=== PATIENT | male | born 1975 ===

== ENCOUNTER 2020-03-12 13:49 | Outpatient (REF) | payer MEDICARE, MEDICAID, SELFPAY | END 2020-03-12 13:50 | disposition home or self-care (01) | LOC: HO.LAB 13:49 | PROVIDERS: Visit Provider Internal Medicine | DX: Z20.828 Contact with and (suspected) exposure to other viral communicable diseases (principal) | CPT/HCPCS: C9803; U0003 ==

== ENCOUNTER 2021-04-28 10:42 | Outpatient (REF) | payer MEDICARE, MEDICAID, SELFPAY ==
[2021-04-28 12:14] LABS: Alanine Aminotransferase 34 U/L (0-40); Albumin Level 4.1 g/dL (3.5-5.0); Alkaline Phosphatase 101 U/L (39-117); Aspartate Amino Transferase 21 U/L (5-37); Bilirubin Direct < 0.2 mg/dL (0.0-0.5); Bilirubin Total 0.3 mg/dL (0.0-1.0)
== END 2021-04-28 10:43 | disposition home or self-care (01) ==
LOC: HO.LAB 10:42
PROVIDERS: PCP General Practice; Visit Provider Psychiatry & Neurology Neurology
DX: G40.209 Localization-related (focal) (partial) symptomatic epilepsy and epileptic syndromes with complex partial seizures, not intractable, without status epilepticus (principal)
CPT/HCPCS: 36415; 80076

== ENCOUNTER 2021-05-13 12:27 | Outpatient (REF) | payer MEDICARE, MEDICAID, SELFPAY ==
--- NOTE | ~2021-05-13 | XR_ITS ---
EXAMINATION: XR WRIST, LEFT CLINICAL INFORMATION: Left wrist pain. COMPARISON: None TECHNIQUE: PA, lateral, and oblique views of the left wrist. FINDINGS: A corticated osseous density is seen just distal to the dorsal aspect of the radial styloid. There is no acute fracture or dislocation. The carpal bones are normally aligned. The distal radius and ulna are intact. There is mild soft tissue swelling. XR/XR wrist LT 2V IMPRESSION: Mild soft tissue swelling without acute underlying osseous abnormality. A small corticated density along the dorsal/distal aspect of the radial styloid is of indeterminate age, but does not appear acute. Correlate with physical exam and trauma history and this somewhat correlates with the region of pain.
== END 2021-05-13 12:28 | disposition home or self-care (01) ==
LOC: HO.XRAY 12:27
PROVIDERS: PCP General Practice; Visit Provider General Practice
DX: M25.532 Pain in left wrist (principal)
CPT/HCPCS: 73100

== ENCOUNTER 2021-08-31 12:49 | Emergency (ER) | payer MEDICARE, MEDICAID, SELFPAY ==
[2021-08-31 13:43] VITALS: BP 142/85; PULSE 77; RESP 18; TEMP 36.1; O2SAT 99; BMI 34.8
[2021-08-31 14:12] LABS: Appearance Urine CLOUDY; Glucose Urine UA NEG (NEG); Leukocyte Esterase Urine 2+ (NEG); Nitrite Urine POS (NEG); Specific Gravity - Urine 1.025 (1.005-1.025); UACC Culture Trigger YES; Urine Blood 3+ (NEG); Urine Ketones 5 MG/DL (NEG); Urine Protein 2+ MG/DL (NEG-TRACE)
[2021-08-31 14:13] LABS: Bacteria Urine 1+ /LPF; Color Urine BROWN; RBC Urine TNTC /HPF (0)
--- NOTE | 2021-08-31 16:50 | ED_ITS ---
HPI - Male Genitourinary General Chief complaint: Urogenital-Male Stated complaint: Bladder Pain Time Seen by Provider: 08/31/21 16:44 History of Present Illness HPI Narrative: Patient is a 46-year-old male complaining of bloody urine. Patient claims that he has difficulty voiding. There was blood in his urine. There was clot that it be noted. Patient denies any history of prostate issues in the past. No fever no chills. Sexually active 1 partner. Symptoms started 2 days ago. No flank pain. Positive pain in the suprapubic area. No testicular pain. No discharge that was grossly noted by patient. Patient not circumcised. No history of prostate issues in the past Related Data Previous Rx's Medication Instructions Recorded doxycycline hyclate 100 mg capsule 100 mg PO BID 7 Days #14 cap 08/31/21 sulfamethoxazole 800 1 tab PO BID 7 Days #14 tab 08/31/21 mg-trimethoprim 160 mg tablet (Bactrim DS) Allergies Allergy/AdvReac Type Severity Reaction Status Date / Time pseudoephedrine [Sudafed] Allergy Unknown Verified 09/28/18 00:00 Actifed Allergy Unknown Uncoded 09/28/18 00:00 From ACTIFED Allergy Unknown UNKNOWN Uncoded 12/20/19 16:02 From Sudafed Allergy Unknown TROUBLE Uncoded 12/20/19 16:02 BREATHING Review of Systems Review of Systems: Positive pain in the suprapubic pubic area. Positive difficulty urinating Yes all other systems are reviewed and are negative PMFSH Past Medical History Attestation statement: The following information was validated with the patient. Social History Social History Advance Directives: No Advance Directives Information Provided: No Physical Exam Vital Signs: Vital Signs: Last Vital Signs Temp 98.8 F 08/31/21 16:57 Pulse 74 08/31/21 16:57 Resp 16 08/31/21 16:57 BP 133/82 08/31/21 16:57 Pulse Ox 99 08/31/21 16:57 BMI result Body Mass Index 34.8 Appearance: Alert. Oriented X3. No acute distress. Eyes: Pupils equal, round and reactive to light. ENT: Pharynx normal. Neck: Normal inspection. Neck supple. No lymph nodes noted. No crepitus CVS: Normal heart rate and rhythm. Pulses normal. Normal S1 and S2 Respiratory: No respiratory distress. Breath sounds normal. No Wheezing. No rales Abdomen: Soft and nontender. No rigidity. No distention. good BS x4 Genitourinary there is no testicular tenderness elicited on palpation. There is no discharge on stripping of the penis. Skin: Skin warm and dry. Normal skin color. Normal skin turgor. Extremities: No lower extremity edema. Neurovascular intact to all extremities. No Lacerations. No Rash Neuro: Oriented X 3. No motor deficit. No sensory deficit. Moving all extermities. No slurred speech MDM - Male Genitourinary MDM Narrative Medical decision making narrative: Patient's bladder scan showed less than 100 cc of urine. No evidence for retention. Urine was grossly infected. Question UTI versus ureteritis. Will start patient on doxycycline and Rocephin IM here in the emergency department for STD. A further script of Bactrim was given for UTI. Patient told to refrain from sexual contact until all partners attested results negative. Will have patient follow-up with Urology and primary physician on an outpatient basis. He is in stable condition with discharge home. Urine was sent for chlamydia Lab Data Attestation: I reviewed the patient's lab results. Labs: Lab Results 08/31/21 Range/Units 13:57 Urine Color BROWN A Urine Appearance CLOUDY Urine pH 6.0 (5.0-8.0) Ur Specific [place] 1.025 (1.005-1.025) Urine Protein 2+ H (NEG-TRACE) MG/DL Urine Glucose (UA) NEG (NEG) MG/DL Urine Ketones 5 (NEG) MG/DL Urine Blood 3+ H (NEG) Urine Nitrite POS H (NEG) Ur Leukocyte Esterase 2+ H (NEG) Urine RBC TNTC H (0) /HPF Urine WBC 5-9 H (0-4) /HPF Ur Squamous Epith Cells NONE /LPF Urine Bacteria 1+ /LPF Discharge Plan Discharge Clinical Impression: Urethritis, Acute UTI Patient Disposition: Home, Self-Care Instructions: Sexually Transmitted Diseases (ED), Urinary Tract Infection in Men (ED) Additional Instructions: No sexual contact until all partners are tested or the results came back negative. Prescriptions: New doxycycline hyclate 100 mg capsule 100 mg PO BID 7 Days Qty: 14 0RF sulfamethoxazole-trimethoprim [Bactrim DS] 800-160 mg tablet 1 tab PO BID 7 Days Qty: 14 0RF Referrals: Shimon Gonzalez MD [Physician] - Maria Elena Wells MD [Primary Care Provider] -
[2021-08-31 16:57] VITALS: BP 133/82; PULSE 74; RESP 16; TEMP 37.1; O2SAT 99
[2021-08-31] MEDS: cefTRIAXone sodium 500 MG, Lidocaine HCl 1 % MPF 1 ML IM (17:47)
[2021-09-01 02:31] LABS: CT PCR NOT DETECTED (Not Detect.); NG PCR NOT DETECTED (Not Detect.)
== END 2021-08-31 17:58 | disposition home or self-care (01) ==
PROVIDERS: Emergency Provider Emergency Medicine Emergency Medical Services; PCP General Practice
DX: N39.0 Urinary tract infection, site not specified (principal); R39.89 Other symptoms and signs involving the genitourinary system; R33.9 Retention of urine, unspecified; Z79.899 Other long term (current) drug therapy
CPT/HCPCS: 81001; 87086; 87491; 87591; 96372; 99283; 99284; J0696

== ENCOUNTER 2021-11-20 07:19 | Outpatient (REF) | payer MEDICARE, MEDICAID, SELFPAY ==
--- NOTE | ~2021-11-20 | XR_ITS ---
EXAMINATION: XR HAND, LEFT CLINICAL INFORMATION: Pain COMPARISON: Previous left wrist x-ray May 2021 TECHNIQUE: PA, lateral, and oblique views of the left hand and scaphoid view of both hands. FINDINGS: Left: No fracture or dislocation is seen. There is arthritis at the trapezoid trapezium scaphoid joints and radiocarpal joint with joint space narrowing and osteophyte formation. There are periarticular ossifications adjacent to the radial styloid. There is widening of the scapholunate joint and lateral tilt of the lunate on the lateral view. There are periarticular soft tissue ossifications seen projecting over the dorsal wrist on the lateral view. Right: The scaphoid and lunate bones have been removed. There are degenerative changes of the radial styloid. XR/XR hand LT 2V IMPRESSION: Left: Widened scapholunate joint and dorsal tilt of the lunate on the lateral view. Degenerative changes of the trapezoid trapezium scaphoid joints and radiocarpal joint and soft tissue periarticular soft tissue ossifications adjacent to the radial styloid and dorsal wrist.
== END 2021-11-20 07:20 | disposition home or self-care (01) ==
LOC: HO.HOSX 07:19
PROVIDERS: Visit Provider Physician Assistant
DX: M19.032 Primary osteoarthritis, left wrist (principal); M25.332 Other instability, left wrist
CPT/HCPCS: 73120; 99202

== ENCOUNTER → 2021-12-23 08:49 | Outpatient (BNVA) | payer MEDICARE, MEDICAID, SELFPAY | PROVIDERS: PCP General Practice; Visit Provider Orthopaedic Surgery | DX: M19.132 Post-traumatic osteoarthritis, left wrist (principal) | CPT/HCPCS: 99212 ==

== ENCOUNTER 2022-01-07 08:53 | Day surgery (SDC) | payer MEDICARE, MEDICAID, SELFPAY ==
--- NOTE | ~2022-01-07 | FL_ITS ---
EXAMINATION: XR FLUOROSCOPY WITH IMAGES CLINICAL INFORMATION: Pain. Fluoroscopy for injection. COMPARISON: Radiographs left hand 11/20/2021 TECHNIQUE: Fluoroscopy performed by Dr. Susan Armstrong. Fluoroscopy time: 8 seconds. Cumulative Dose: 0.27791 mGy. DAP: 0.0144 Gycm2. Images: 1. FINDINGS: There is a straight needle with tip overlying the mid carpal compartment between the scaphoid and lunate. FL/FL guidance in OR IMPRESSION: Fluoroscopy for orthopedic procedure.
[2022-01-07 09:11] VITALS: BMI 34.8
[2022-01-07 09:22] VITALS: BP 142/102; PULSE 79; RESP 16; TEMP 36.4; O2SAT 97
--- NOTE | 2022-01-07 10:08 | MHC.SHP ---
Pre-Procedural Eval Section A Date of Service: 01/07/22 The patient is an INPATIENT: No Changes since office visit: No Cold of Flu in the past 2 weeks, No New Medical Problems, No Changes in Medication and No Patient answered all questions The History & Physical has been completed within 30 days and I have reviewed it.: Yes Section B Chief Complaint: Post-traumatic osteoarthritis, left wrist Allergies: Allergies Allergy/AdvReac Type Severity Reaction Status Date / Time pseudoephedrine [Sudafed] Allergy Unknown Unknown Verified 01/07/22 09:05 Actifed Allergy Unknown Unknown Uncoded 12/23/21 09:09 From ACTIFED Allergy Unknown UNKNOWN Uncoded 12/23/21 09:09 From Sudafed Allergy Unknown TROUBLE Uncoded 12/23/21 09:09 BREATHING Plan I have reviewed the history and physical and performed a pertinent physical examination on my patient. No changes have occurred unless specified.
--- NOTE | 2022-01-07 10:09 | PM.PRCOR ---
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 Once consent was obtained, I sterilely prepped the area over dorsal aspect of the left wrist joint . I then injected the left wrist joint using the FluoroScan for needle guidance, with a combination of 1 mL of Depo-Medrol (80mg/ml), and 0.5% plain ropivacaine. The patient tolerated the procedure well and in with no complications, and had good relief of symptoms before leaving clinic. He may not have another injection for this joint for 4 months. Follow-up p.r.n.
--- NOTE | 2022-01-07 12:01 | PC.NURSE ---
POST VITAL SIGNS; 128/69, hr 73, 97% RA.
== END 2022-01-07 11:30 | disposition home or self-care (01) ==
PROVIDERS: PCP General Practice; Visit Provider Orthopaedic Surgery
PROC: (CPT 20605; principal; 2022-01-07 10:10)
DX: M19.132 Post-traumatic osteoarthritis, left wrist (principal); M79.642 Pain in left hand; Z87.828 Personal history of other (healed) physical injury and trauma; I10 Essential (primary) hypertension; G40.909 Epilepsy, unspecified, not intractable, without status epilepticus; Z88.8 Allergy status to other drugs, medicaments and biological substances; Z98.890 Other specified postprocedural states
CPT/HCPCS: 20605; J0171; J1040

== ENCOUNTER 2022-04-05 03:13 | Emergency (ER) | payer MEDICARE, MEDICAID, SELFPAY ==
[2022-04-05 03:23] VITALS: BP 129/93; PULSE 86; RESP 16; TEMP 36.7; O2SAT 96; BMI 35.2
[2022-04-05 04:00] VITALS: BP 138/82; PULSE 81; RESP 16; TEMP 36.7; O2SAT 97
--- NOTE | 2022-04-05 05:29 | ED_ITS ---
HPI - Back Pain/Injury General Chief Complaint: Back Pain/Injury Stated Complaint: back pain Time Seen by Provider: 04/05/22 05:13 Source: patient Mode of arrival: ambulatory Limitations: no limitations History of Present Illness HPI Narrative: 46-year-old male who presents emergency department for evaluation back pain. Patient states that he has problems with the discs in his lower back and often gets back pain. He states that yesterday morning around 06:00 hours he was brushing his teeth when he had a sudden onset of lower back pain. States the pain is been constant, sharp and shooting. The pain is 10/10. The pain is worse with movement. He denied any pain radiating down his legs, numbness, weakness, loss of bowel or bladder control. Patient states that he was taking ibuprofen throughout the day yesterday as well as his baclofen with no relief his pain. He denied fever, chills, chest pain, shortness of breath, abdominal pain, nausea, vomiting, frequency, urgency or dysuria Related Data Home Medications Medication Instructions Recorded Confirmed lamotrigine 200 mg tablet mg PO 11/20/21 lisinopril 5 mg tablet mg PO 11/20/21 hydrochlorothiazide 25 mg tablet mg PO 12/23/21 oxcarbazepine 600 mg tablet 1 tab PO BID 01/07/22 01/07/22 Previous Rx's Medication Instructions Recorded oxycodone 5 mg tablet 5 mg PO Q4H PRN pain #14 tabs 04/05/22 Allergies Allergy/AdvReac Type Severity Reaction Status Date / Time pseudoephedrine [Sudafed] Allergy Unknown Unknown Verified 01/07/22 09:05 Actifed Allergy Unknown Unknown Uncoded 12/23/21 09:09 From ACTIFED Allergy Unknown UNKNOWN Uncoded 12/23/21 09:09 From Sudafed Allergy Unknown TROUBLE Uncoded 12/23/21 09:09 BREATHING Review of Systems Review of Systems: Yes all other systems are reviewed and are negative [facility] [place] Past Medical History [facility] Narrative: Social history: He denies tobacco, alcohol and drug use. 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 Physical Exam Vital Signs: Vital Signs: Last Vital Signs Temp 98.1 F 04/05/22 04:00 Pulse 81 04/05/22 04:00 Resp 16 04/05/22 04:00 BP 138/82 04/05/22 04:00 Pulse Ox 97 04/05/22 04:00 O2 Del Method 04/05/22 04:00 BMI result Body Mass Index 35.2 Const: General: cooperative and no acute distress Orientation/consciousness: oriented to person and oriented to place Limitations: no limitations HEENT: Head: Yes normal to inspection, Yes normocephalic and Yes atraumatic Ears: external ears normal General nose exam: Normal external nose present Face and sinus: Yes normal facial exam Mouth: Normal oral and palatal mucosa present Throat: Yes posterior oropharynx normal Eyes: General: appearance normal, both eyes and all related structures Pupils: Equal, round and reactive pupils present Neck: Neck: Yes normal visual inspection, Yes no lymphadenopathy, Yes trachea midline and Yes supple Chest: Chest palpation & inspection: normal inspection of the chest and normal palpation of entire chest wall Resp: Effort & Inspection: normal respiratory effort and able to speak in complete sentences Auscultation: clear to auscultation bilaterally Cardio: Rate: regular rate Rhythm: regular rhythm Heart sounds: S1 normal heart sound present, S2 normal heart sound present and no murmurs GI: Inspection: Yes normal to inspection Palpation (GI): Soft to palpation, nontender and no guarding Auscultation: normal bowel sounds Back/Spine/Pelvis: Other: Patient has tenderness palpation of his lumbar sacral spine as well as tenderness palpation of the paraspinal muscles in lumbar sacral area with spasm of these muscles, has negative straight leg raises bilaterally Skin: General skin exam: no rashes or lesions noted Neuro: General: oriented to person and oriented to place Cranial nerves: Yes CN's II-XII intact bilaterally and Yes Equal, round and reactive pupils present Cognition (Neuro): normal cognition Motor exam (neuro): 5/5 motor strength present throughout Extrem: General: Yes normal to inspection Psych: Appearance: grossly normal Speech and movement: Normal speech and movement present Affect: normal affect Attitude: cooperative Thought process: Normal thought process present Thought content: Normal thought content present Medical Decision Making Medical Decision Making MDM Narrative: 46-year-old male with a history lower back pain secondary to disc disease presents emergency department for evaluation of flare-up of his back pain that occurred yesterday morning at 06:00 hours while he was brushing his teeth. The patient took ibuprofen and baclofen throughout the day yesterday with no relief his pain. His vital signs were unremarkable. Patient did have tenderness palpation of his lumbar sacral spine as well as tenderness palpation of his paraspinal muscles lumbar sacral area with spasm of these muscles. Head negative straight leg raises and normal neurologic exam. Patient was treated with oxycodone 10 mg orally and Tylenol 975 mg orally. The patient will be discharged home with prescription for oxycodone. He was advised to take ibuprofen and Tylenol for pain as well. She was given printed and verbal instructions and discharged home. Differential Diagnosis Differential Diagnoses: The differential diagnosis associated with the presentation includes Differential includes but is not limited to muscle sprain/strain, disc disease, arthritis, sciatica, epidural abscess, compression fracture External Record Review External record reviewed: Other ([place] prescription monitoring program- patient had 1 prescription for oxycodone in 2020) Tests considered The following testing was considered but not selected: Plain films of the lumbar sacral spine, CBC, CMP, ESR, CRP, lactic acid, blood cultures Prescription Management Patient was prescribed oxycodone 5 mg pills, 1 pill every 4-6 hours as needed for pain. Discharge Plan Discharge Clinical Impression: Strain of lumbar region Patient Disposition: Home, Self-Care Instructions: Acute Low Back Pain (ED) Additional Instructions: Take ibuprofen 200 mg pills, 2 pills every 6 hours as needed for pain. Take Tylenol (acetaminophen) 500 mg pills, 2 pills every 4-6 hours as needed for pain. For pain not relieved by ibuprofen or Tylenol take oxycodone 5 mg pills, 1 pill every 4 hours as needed for pain. Do not drive or work while taking this medication since they can cause sleepiness. Oxycodone is a narcotic medication that can be addicting. If you are concerned about addiction you can ask the pharmacist for less pills or do not get this prescription filled. Follow-up with your doctor in 2 days. Please return to the emergency department if your symptoms get worse or if you develop any symptoms that are concerning to you. Prescriptions: New oxycodone 5 mg tablet 5 mg PO Q4H PRN (Reason: pain) Qty: 14 0RF Rx Instructions: Patient may request partial fill; Partial Fill upon patient request. No Action oxcarbazepine 600 mg tablet 1 tab PO BID hydrochlorothiazide 25 mg tablet PO lamotrigine 200 mg tablet PO lisinopril 5 mg tablet PO
[2022-04-05] MEDS: oxyCODONE HCl Immed Release 5 MG TABLET 10 MG PO (05:50)
[2022-04-05] MEDS: Acetaminophen 325 MG TABLET 975 MG PO (05:50)
--- NOTE | 2022-04-05 05:59 | PC.NURSE ---
Pt. alert and oriented. Pt. standing in room, in position of comfort for him. Pt. medicated per MAR and d/c'd to home.
== END 2022-04-05 06:02 | disposition home or self-care (01) ==
PROVIDERS: Emergency Provider Emergency Medicine Emergency Medical Services
DX: S39.012A Strain of muscle, fascia and tendon of lower back, initial encounter (principal); X58.XXXA Exposure to other specified factors, initial encounter; Y93.E8 Activity, other personal hygiene; Y92.012 Bathroom of single-family (private) house as the place of occurrence of the external cause; Y99.9 Unspecified external cause status
CPT/HCPCS: 99283; 99284

== ENCOUNTER 2023-06-04 15:41 | Emergency (ER) | payer MEDICARE, MEDICAID, SELFPAY ==
--- NOTE | ~2023-06-04 | CT_ITS ---
EXAMINATION: CT HEAD WITHOUT CONTRAST CLINICAL INFORMATION: Headache and dizziness COMPARISON: None available. TECHNIQUE: Contiguous axial imaging was performed from the skull base to vertex without intravenous administration of contrast. This CT examination was performed using dose optimization techniques as appropriate, variously including the following: *Automated exposure control *Adjustment of mA and/or kV according to patient size (this includes techniques or standardized protocols for targeted exams where dose is matched to indication/reason for exam; i.e. extremities or head) *Use of iterative reconstruction technique DLP: 725 mGy-cm FINDINGS: There is no acute intra-axial, extra-axial bleed, masses or midline shift. There is no acute infarction in evolution. There is no edema. The concepcion to white matter differentiation is normal. The lateral ventricles are symmetrical in size and configuration but enlarged. Bone windows reveal no calvarial abnormality. Bilateral paranasal sinuses and mastoid air cells are well-aerated. There is no scalp soft tissue abnormality. CT/CT head/brain wo IV con IMPRESSION: No acute intracranial process seen
[2023-06-04 15:51] VITALS: BP 166/103; PULSE 101; RESP 18; TEMP 36.6; O2SAT 98; BMI 37.5
--- NOTE | 2023-06-04 15:52 | ECG_ITS ---
Test Reason : HEADACHE Blood Pressure : / mmHG Vent. Rate : 098 BPM Atrial Rate : 098 BPM P-R Int : 154 ms QRS Dur : 084 ms QT Int : 340 ms P-R-T Axes : 027 029 021 degrees QTc Int : 434 ms Normal sinus rhythm Normal ECG When compared to the previous EKG of 27 apr 2012, no significant change . Referred By: Alek Driscoll Electronically Signed By:MARU HOUGH
--- NOTE | 2023-06-04 15:52 | ED.GENADULT ---
HPI - General Adult General Chief complaint: Headache Stated complaint: high bp,dizziness Time Seen by Provider: 06/04/23 21:25 Source: patient Mode of arrival: ambulatory Limitations: no limitations History of Present Illness HPI narrative: Patient with history of hypertension and seizure disorder noncompliant to his anti hypertensive medication hydrochlorothiazide and lisinopril he takes 1 of the 2 pills instead of both of them for a while today 14:00 after he woke up he felt everything is moving fairly little off balance when he walks no dysarthria no focal weakness also patient felt slight headache in the frontal area no tinnitus patient never had similar symptoms in the past no seizure felt slightly nauseated also feeling congested and coughing occasional on arrival patient's blood pressure was 166/103 pulse rate 101 Related Data Home Medications Medication Instructions Recorded Confirmed lamotrigine 200 mg tablet mg PO 11/20/21 lisinopril 5 mg tablet mg PO 11/20/21 hydrochlorothiazide 25 mg tablet mg PO 12/23/21 oxcarbazepine 600 mg tablet 1 tab PO BID 01/07/22 01/07/22 Previous Rx's Medication Instructions Recorded oxycodone 5 mg tablet 5 mg PO Q4H PRN pain #14 tabs 04/05/22 meclizine 25 mg tablet 25 mg PO TID PRN dizziness #20 tabs 06/04/23 Allergies Allergy/AdvReac Type Severity Reaction Status Date / Time pseudoephedrine [Sudafed] Allergy Unknown Unknown Verified 06/04/23 15:56 Actifed Allergy Unknown Unknown Uncoded 12/23/21 09:09 From ACTIFED Allergy Unknown UNKNOWN Uncoded 12/23/21 09:09 From Sudafed Allergy Unknown TROUBLE Uncoded 12/23/21 09:09 BREATHING Review of Systems Review of Systems: Yes all other systems are reviewed and are negative PMFSH Past Medical History Medical History Seizure disorder High blood pressure Surgical History History of surgery on right wrist Social History Social History Advance Directives: No Advance Directives Information Provided: No 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 Oriented X3. No acute distress. Eyes: PERRLA, No Nystagmus ENT: Pharynx normal. Oral Mucosa moist Neck: Normal inspection. Neck supple. CVS: Normal heart rate and rhythm. Pulses normal. Respiratory: No respiratory distress. Equal air entry bilateral, no wheezing/rales/rhonchi Abdomen: Soft and nontender. Bowel sounds are present, no mass palpable, no CVA tenderness Skin: Skin warm and dry. Normal skin color. Normal skin turgor. Extremities: No lower extremity edema. No calf tenderness Neuro: Oriented X 3. No motor deficit. No sensory deficit.No cerebellar signs , cranial nerves II-XII intact slightly off balance when ambulated Course Course Course Narrative: RME- 48 year old male presents for evaluation of high blood pressure. He endorses headaches, dizziness. He has not been taking his medications exactly as prescribed. Plan for labs, ekg Medications Administered Discontinued Medications Generic Name Dose Route Start Last Admin Trade Name Freq PRN Reason Stop Dose Admin Lisinopril 10 mg 06/04/23 21:57 06/04/23 22:09 Lisinopril 10 Mg Tablet PO 06/04/23 21:58 10 mg ONCE ONE Administration Protocol Meclizine HCl 50 mg 06/04/23 21:52 06/04/23 22:09 Meclizine Hcl 25 Mg Tablet PO 06/04/23 21:53 50 mg ONCE ONE Administration Medical Decision Making Medical Decision Making [facility] Narrative: Patient with symptoms of benign positional vertigo with elevated blood pressure feeling much better after medications able to ambulate steady gait CT scan of the head is negative will discharge patient home on meclizine advised to take his medication on regular basis Differential Diagnosis Differential Diagnoses: The differential diagnosis associated with the presentation includes Benign positional vertigo/CVa/viral syndrome/ Lab Data [facility] Lab Attestation statement: I reviewed the patient's lab results. 06/04/23 16:26 06/04/23 16:26 Labs: Lab Results 06/04/23 06/04/23 06/04/23 Range/Units 16:26 21:29 22:07 WBC 12.4 H (4.8-10.8) X10*3/uL RBC 5.96 H (4.60-5.80) X10*6/uL Hgb 15.9 (14.0-18.0) g/dl Hct 49.1 (42.0-52.0) % MCV 82.4 (80.0-98.0) fL MCH 26.7 L (27.0-33.0) pg MCHC 32.4 (31.0-36.0) g/dl RDW 12.8 (11.0-16.0) % Plt Count 271 (160-400) X10*3/uL MPV 9.1 L (9.4-12.4) fL Immature Gran % (Auto) 0.7 H (0.0-0.4) % Neut % (Auto) 89.5 H (45-73) % Lymph % (Auto) 3.9 L (20-40) % [place] % (Auto) 5.2 (2-11) % Eos % (Auto) 0.4 (0-4) % Baso % (Auto) 0.3 (0-2) % Lymph # (Auto) 0.5 L (1.2-4.9) X10*3/uL [place] # (Auto) 0.6 (0.1-1.2) X10*3/uL Eos # (Auto) 0.1 (0.0-0.4) X10*3/uL Baso # (Auto) 0.0 (0.0-0.2) X10*3/uL Abs Immat Gran (auto) 0.09 H (0.00-0.03) X10*3/uL Absolute Neuts (auto) 11.1 H (2.0-8.3) x10*3/uL Absolute Nucleated RBC 0.000 (0.0-0.012) X10*3/uL Nucleated RBC % (auto) 0.0 (0.0-0.2) /100WBC PT 11.8 (11.1-13.3) SEC INR 1.0 (0.9-1.1) Sodium 138 (135-145) mmol/L Potassium 4.0 (3.3-5.1) mmol/L Chloride 103 (96-108) mmol/L Carbon Dioxide 26 (22-29) mmol/L Anion Gap 13 (12-20) BUN 16 (9-16) mg/dL Creatinine 0.74 (0.5-1.4) mg/dL Estim Creat Clear Calc 165.8 Estimated GFR > 60 POC Glucose 154 H (60-115) mg/dL Random Glucose 130 H (60-115) mg/dL Calcium 9.0 (8.4-10.2) mg/dL Total Bilirubin 0.6 (0.0-1.0) mg/dL AST 19 (5-37) U/L ALT 33 (0-40) U/L Alkaline Phosphatase 105 (39-117) U/L Troponin I High Sens < 2.7 (<3.5-35.0) ng/L Total Protein 7.5 (6.5-8.0) g/dL Albumin 4.4 (3.5-5.0) g/dL Lipase 47 (8-78) U/L COVID-19 (GEE) Negative (Negative) COVID-19 Clin Com See Note Influenza Type A (JESSICA) Negative (Negative) Influenza Type B (JESSICA) Negative (Negative) Influenza A & B Note See Note Independent Interpretation I performed an independent interpretation of an: CT Scan Radiology Impression Discussion of test interpretation with radiology: I have reviewed the radiologist's reading. Discharge Plan Discharge Clinical Impression: Benign paroxysmal positional vertigo, Uncontrolled hypertension Patient Disposition: Home, Self-Care Instructions: Chronic Hypertension (ED), Benign Paroxysmal Positional Vertigo (ED) Additional Instructions: Care and cautions as advised Decrease salt intake Take your blood pressure medicine daily as prescribed Meclizine 1 tablet every 8 hours as needed for dizziness Prescriptions: New meclizine 25 mg tablet 25 mg PO TID PRN (Reason: dizziness) Qty: 20 0RF No Action oxycodone 5 mg tablet 5 mg PO Q4H PRN (Reason: pain) Qty: 14 0RF Rx Instructions: Patient may request partial fill; Partial Fill upon patient request. oxcarbazepine 600 mg tablet 1 tab PO BID hydrochlorothiazide 25 mg tablet PO lamotrigine 200 mg tablet PO lisinopril 5 mg tablet PO Interventions: ED Discharge Assessment Last Done: 06/04/23 23:02 Discharge Date/Time: 06/04/23 23:03
[2023-06-04 16:30] LABS: MANUAL DIFF FLAG NO
[2023-06-04 16:32] LABS: Basophils Percent Auto 0.3 % (0-2); Eosinophils Absolute Auto 0.1 X10*3/uL (0.0-0.4); Eosinophils Percent Auto 0.4 % (0-4); Hematocrit 49.1 % (42.0-52.0); Hemoglobin 15.9 g/dl (14.0-18.0); Imm Gran Abs Auto 0.09 X10*3/uL (0.00-0.03); Imm Gran Pct Auto 0.7 % (0.0-0.4); Lymphocytes Absolute Auto 0.5 X10*3/uL (1.2-4.9); Lymphocytes Percent Auto 3.9 % (20-40); Mean Corpuscular HGB Conc 32.4 g/dl (31.0-36.0); Mean Corpuscular Hemoglobin 26.7 pg (27.0-33.0); Mean Corpuscular Volume 82.4 fL (80.0-98.0); Mean Platelet Volume 9.1 fL (9.4-12.4); Monocytes Absolute Auto 0.6 X10*3/uL (0.1-1.2); Monocytes Percent Auto 5.2 % (2-11); Neutrophils Absolute Auto 11.1 x10*3/uL (2.0-8.3); Neutrophils Percent Auto 89.5 % (45-73); Platelet Count 271 X10*3/uL (160-400); Red Blood Count 5.96 X10*6/uL (4.60-5.80); Red Cell Distribution Width 12.8 % (11.0-16.0); White Blood Count 12.4 X10*3/uL (4.8-10.8)
[2023-06-04 16:39] LABS: Prothrombin Time 11.8 SEC (11.1-13.3)
[2023-06-04 16:46] LABS: Alanine Aminotransferase 33 U/L (0-40); Albumin Level 4.4 g/dL (3.5-5.0); Alkaline Phosphatase 105 U/L (39-117); Anion Gap 13 (12-20); Aspartate Amino Transferase 19 U/L (5-37); Bilirubin Total 0.6 mg/dL (0.0-1.0); Blood Urea Nitrogen 16 mg/dL (9-16); Carbon Dioxide 26 mmol/L (22-29); Chloride 103 mmol/L (96-108); Creatinine Clr Calc Pharmacy 165.8; Estimated Glomerular Filt Rate > 60; Glucose Random 130 mg/dL (60-115); Lipase 47 U/L (8-78); Sodium 138 mmol/L (135-145); Total Protein 7.5 g/dL (6.5-8.0)
[2023-06-04 16:55] LABS: Troponin-I High Sensitivity < 2.7 ng/L (<3.5-35.0)
[2023-06-04 18:24] VITALS: BP 139/84; PULSE 102; RESP 18; O2SAT 97
[2023-06-04 19:33] VITALS: BP 149/91; PULSE 104; RESP 18; O2SAT 98
[2023-06-04 21:36] LABS: Glucose, Whole Blood 154 mg/dL (60-115)
[2023-06-04] MEDS: Meclizine HCl 25 MG TABLET 50 MG PO (22:09)
[2023-06-04] MEDS: lisinopriL 10 MG TABLET PO (22:09)
[2023-06-04 22:38] LABS: COVID-19 Test Negative (Negative); IDNOW Serial# 16C4AD1C; IDNOW Serial# 58CA691E; Influenza A Negative (Negative); Influenza B2 Negative (Negative)
[2023-06-04 23:00] VITALS: BP 133/89
== END 2023-06-04 23:03 | disposition home or self-care (01) ==
PROVIDERS: Physician Assistant; Emergency Provider Internal Medicine; PCP General Practice
DX: H81.10 Benign paroxysmal vertigo, unspecified ear (principal); I10 Essential (primary) hypertension; R51.9 Headache, unspecified; R26.81 Unsteadiness on feet; G40.909 Epilepsy, unspecified, not intractable, without status epilepticus; Z79.899 Other long term (current) drug therapy; Z11.52 Encounter for screening for COVID-19
CPT/HCPCS: 36415; 70450; 80053; 82947; 83690; 84484; 85025; 85610; 87502; 87635; 93005; 99284

== ENCOUNTER → 2023-06-04 15:52 | Outpatient (BNV) | payer MEDICARE, MEDICAID, SELFPAY | PROVIDERS: Emergency Provider Internal Medicine; PCP General Practice; Visit Provider Internal Medicine | DX: R11.0 Nausea (principal) | CPT/HCPCS: 93010 ==

== ENCOUNTER 2023-06-15 16:07 | Outpatient (REF) | payer MEDICARE, MEDICAID, SELFPAY ==
--- NOTE | ~2023-06-15 | XR_ITS ---
EXAMINATION: XR KNEE, BILATERAL CLINICAL INFORMATION: Patient states 6 months of pain bilateral knees, right knee is worse and pain is medial. Order states bilateral knee pain, ? osteoarthritis. COMPARISON: 06/15/2023 TECHNIQUE: AP, lateral and axial views of the left knee. AP, lateral and 2 axial views of the right knee. FINDINGS: Left knee: Eahzooxh-tv-[id number] narrowing of the medial compartment with medial hypertrophic change and subchondral sclerosis. Small joint effusion. Degenerative changes in the patellofemoral joint with small spurs. Small lateral marginal osteophytes. Right Knee: Small joint effusion. Uimebebg-lv-bpksas narrowing of the medial compartment. Moderate degenerative changes in the patellofemoral joint with small spurs. Small tricompartmental osteophytes. XR/XR knee LT 3V IMPRESSION: Wggutjsn-kz-tlocea degenerative changes bilateral knees.
--- NOTE | ~2023-06-15 | XR_ITS ---
EXAMINATION: XR KNEE, BILATERAL CLINICAL INFORMATION: Patient states 6 months of pain bilateral knees, right knee is worse and pain is medial. Order states bilateral knee pain, ? osteoarthritis. COMPARISON: 06/15/2023 TECHNIQUE: AP, lateral and axial views of the left knee. AP, lateral and 2 axial views of the right knee. FINDINGS: Left knee: Yyriotcf-bf-qwcbnk narrowing of the medial compartment with medial hypertrophic change and subchondral sclerosis. Small joint effusion. Degenerative changes in the patellofemoral joint with small spurs. Small lateral marginal osteophytes. Right Knee: Small joint effusion. Rvvwclqh-xu-ahaphy narrowing of the medial compartment. Moderate degenerative changes in the patellofemoral joint with small spurs. Small tricompartmental osteophytes. XR/XR knee RT 3V IMPRESSION: Lorwkopw-xr-bkrwjc degenerative changes bilateral knees.
== END 2023-06-15 16:08 | disposition home or self-care (01) ==
LOC: HO.HHCX 16:07
PROVIDERS: Visit Provider General Practice
DX: Z13.89 Encounter for screening for other disorder (principal)
CPT/HCPCS: 73562

== ENCOUNTER 2023-06-15 16:43 | Outpatient (REF) | payer MEDICARE, MEDICAID, SELFPAY ==
[2023-06-15 18:10] LABS: Estimated Average Glucose 157 mg/dL; Hemoglobin A1c % 7.1 % (<6.0)
[2023-06-15 19:05] LABS: Alanine Aminotransferase 47 U/L (0-40); Albumin Level 4.2 g/dL (3.5-5.0); Alkaline Phosphatase 116 U/L (39-117); Anion Gap 11 (12-20); Aspartate Amino Transferase 27 U/L (5-37); Bilirubin Total 0.2 mg/dL (0.0-1.0); Blood Urea Nitrogen 17 mg/dL (9-16); Calcium 10.1 mg/dL (8.4-10.2); Carbon Dioxide 29 mmol/L (22-29); Chloride 104 mmol/L (96-108); Cholesterol 149 mg/dL (<200); Estimated Glomerular Filt Rate > 60; Glucose Random 117 mg/dL (60-115); HDL Cholesterol 36 mg/dL (>40); LDL Cholesterol Calculated 64 mg/dL (<100); Potassium 4.4 mmol/L (3.3-5.1); Sodium 140 mmol/L (135-145); Total Protein 7.5 g/dL (6.5-8.0); Triglycerides 246 mg/dL (<150)
[2023-06-15 19:21] LABS: TSH reflex Free T4 0.95 uIU/mL (0.32-4.0)
== END 2023-06-15 16:44 | disposition home or self-care (01) ==
LOC: HO.HHCL 16:43
PROVIDERS: Visit Provider General Practice
DX: I10 Essential (primary) hypertension (principal); R79.9 Abnormal finding of blood chemistry, unspecified; M17.0 Bilateral primary osteoarthritis of knee
CPT/HCPCS: 36415; 73562; 80053; 80061; 83036; 84443

== ENCOUNTER 2023-08-25 09:04 | Emergency (ER) | payer MEDICARE, MEDICAID, SELFPAY ==
--- NOTE | ~2023-08-25 | XR_ITS ---
EXAMINATION: XR CHEST CLINICAL INFORMATION: Pain. COMPARISON: None available. TECHNIQUE: Frontal view of the chest was obtained. FINDINGS: The cardiomediastinal silhouette is normal in size and configuration. The lungs are clear. The pleural spaces are clear. There is no pneumothorax. There is no acute osseous abnormality. XR/XR chest 1V IMPRESSION: No acute cardiopulmonary disease.
--- NOTE | ~2023-08-25 | US_ITS ---
EXAMINATION: US ABDOMEN LIMITED CLINICAL INFORMATION: Right upper quadrant. COMPARISON: None available. TECHNIQUE: Real-time imaging of the right upper quadrant abdominal viscera. FINDINGS: PANCREAS: Visualized portions of pancreas are unremarkable. LIVER: Trace hepatic echogenicity suggesting hepatic steatosis with focal fatty sparing adjacent to gallbladder fossa. The liver is normal in size. The liver contour is normal. No focal hepatic lesion. There is no intrahepatic biliary duct dilatation seen. GALLBLADDER: Intraluminal gallbladder calculi are noted. Borderline wall thickening measuring 4 mm which may be secondary to underdistention. No pericholecystic fluid identified. Sonographic Carlin sign is negative. COMMON BILE DUCT: Normal in caliber measuring 0.3 cm in diameter. RIGHT KIDNEY: Normal. No hydronephrosis. No renal calculi or focal parenchymal lesions. The kidney measures 13.0 cm in maximum dimension. FREE FLUID: None. US/US abdomen limited IMPRESSION: 1. Trace hepatic echogenicity suggesting hepatic steatosis with focal fatty sparing adjacent to gallbladder fossa. 2. Cholelithiasis with borderline wall thickening measuring 4 mm which may be secondary to underdistention. No pericholecystic fluid. Sonographic Carlin sign is negative.
[2023-08-25 09:36] VITALS: BP 135/84; PULSE 98; RESP 18; TEMP 36.7; O2SAT 98; BMI 36.3
--- NOTE | 2023-08-25 09:41 | ECG_ITS ---
Test Reason : chest pain Blood Pressure : / mmHG Vent. Rate : 085 BPM Atrial Rate : 085 BPM P-R Int : 162 ms QRS Dur : 086 ms QT Int : 364 ms P-R-T Axes : 024 030 004 degrees QTc Int : 433 ms Normal sinus rhythm Normal ECG When compared with ECG of 04-JUN-2023 16:39, No significant change was found Referred By: Generic ED Physician Electronically Signed By:ONUR DELGADILLO MD
[2023-08-25 10:09] LABS: MANUAL DIFF FLAG NO
[2023-08-25 10:17] LABS: Basophils Absolute Auto 0.1 X10*3/uL (0.0-0.2); Basophils Percent Auto 0.6 % (0-2); Eosinophils Absolute Auto 0.1 X10*3/uL (0.0-0.4); Eosinophils Percent Auto 0.7 % (0-4); Hematocrit 48.5 % (42.0-52.0); Hemoglobin 15.9 g/dl (14.0-18.0); Imm Gran Abs Auto 0.05 X10*3/uL (0.00-0.03); Imm Gran Pct Auto 0.4 % (0.0-0.4); Lymphocytes Absolute Auto 1.1 X10*3/uL (1.2-4.9); Mean Corpuscular HGB Conc 32.8 g/dl (31.0-36.0); Mean Corpuscular Hemoglobin 27.2 pg (27.0-33.0); Mean Platelet Volume 9.3 fL (9.4-12.4); Monocytes Absolute Auto 0.9 X10*3/uL (0.1-1.2); Monocytes Percent Auto 7.2 % (2-11); Neutrophils Percent Auto 82.1 % (45-73); Platelet Count 314 X10*3/uL (160-400); Red Blood Count 5.84 X10*6/uL (4.60-5.80); Red Cell Distribution Width 12.9 % (11.0-16.0); White Blood Count 12.2 X10*3/uL (4.8-10.8)
[2023-08-25 10:28] LABS: Anion Gap 15 (12-20); Blood Urea Nitrogen 13 mg/dL (9-16); Carbon Dioxide 25 mmol/L (22-29); Chloride 103 mmol/L (96-108); Creatinine Clr Calc Pharmacy 160.8; Estimated Glomerular Filt Rate > 60; Glucose Random 124 mg/dL (60-115); Potassium 4.5 mmol/L (3.3-5.1); Sodium 138 mmol/L (135-145)
[2023-08-25 10:40] LABS: Troponin-I High Sensitivity < 2.7 ng/L (<3.5-35.0)
[2023-08-25 11:40] LABS: Alanine Aminotransferase 35 U/L (0-40); Albumin Level 4.4 g/dL (3.5-5.0); Alkaline Phosphatase 115 U/L (39-117); Aspartate Amino Transferase 22 U/L (5-37); Bilirubin Direct 0.2 mg/dL (0.0-0.5); Bilirubin Total 0.5 mg/dL (0.0-1.0); Lipase 26 U/L (8-78); Total Protein 7.9 g/dL (6.5-8.0)
--- NOTE | 2023-08-25 11:44 | ED_ITS ---
HPI - Abdominal Pain General Chief Complaint: Abdominal Pain Stated Complaint: Abd pain 3 days Time Seen by Provider: 08/25/23 11:04 Source: patient Mode of arrival: ambulatory Limitations: no limitations History of Present Illness ED Provider: JAMES KENNEDY narrative: 48 yo male with PMH of seizures, HTN, arthritis here with c/o 2 days of chest and epigastric pain no associated n/v dyspnea worse with eating. Takes motrin BID for arthritis. No fevers, no GIB symptoms, no n/v. Has not had this before. No recent travel or procedures. MD elicited complaint: abdominal pain Pertinent past history: none Onset (ago): day(s) (2) Pain Consistency: intermittent Location: chest and epigastric Severity: moderate Quality: aching Radiation: none Migration to: no migration Exacerbating factors: eating Relieving factors: nothing Associated symptoms: denies other symptoms Related Data Home Medications ?Medication ?Instructions ?Recorded ?Confirmed lamotrigine 200 mg tablet mg PO 11/20/21 lisinopril 5 mg tablet mg PO 11/20/21 hydrochlorothiazide 25 mg tablet mg PO 12/23/21 oxcarbazepine 600 mg tablet 1 tab PO BID 01/07/22 01/07/22 Previous Rx's ?Medication ?Instructions ?Recorded oxycodone 5 mg tablet 5 mg PO Q4H PRN pain #14 tabs 04/05/22 meclizine 25 mg tablet 25 mg PO TID PRN dizziness #20 tabs 06/04/23 famotidine 20 mg tablet (Pepcid) 20 mg PO BID PRN abdominal 08/25/23 discomfort #60 tabs hydrocodone 5 mg-acetaminophen 325 1 tab PO Q6H PRN pain #10 tabs 08/25/23 mg tablet ondansetron 4 mg disintegrating 4 mg PO Q8H PRN nausea and 08/25/23 tablet vomiting #20 tabs Allergies Allergy/AdvReac Type Severity Reaction Status Date / Time pseudoephedrine Allergy Intermediate Difficulty Verified 08/25/23 09:38 [From Sudafed] Breathing Review of Systems Review of Systems Constitutional : No Weight loss, No Fever, No Chills ENT/Mouth : No sore throat, No Rhinorrhea Eyes: No Eye Pain, No Swelling Cardiovascular : pos Chest Pain, no SOB, no Dyspnea on Exertion, No Orthopnea, No Edema, No Palpitations Respiratory : No Cough, No Sputum Gastrointestinal : no Nausea, No Vomiting, No Diarrhea, pos abdominal Pain, No Hematochezia, No Melena Genitourinary : No Dysuria, No Urinary Frequency Musculoskeletal : No joint pain, No Myalgias, No Joint Swelling Skin : No Skin Lesions, No rash Neuro : No Weakness, No Numbness, No Dizziness, No Headache Psych : No Anxiety/Panic, No Depression All other systems reviewed and are negative [facility] Past Medical History Attestation statement: The following information was validated with the patient. 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 Oriented X3. No acute distress. Eyes: Pupils equal, round and reactive to light. ENT: Pharynx normal. Neck: Normal inspection. Neck supple. CVS: Normal heart rate and rhythm. Pulses normal. Respiratory: No respiratory distress. Breath sounds normal. Abdomen: Soft and mild RUQ pain neg dorado's soft no rebound or guarding Skin: Skin warm and dry. Normal skin color. Normal skin turgor. Extremities: No lower extremity edema. No calf ttp Neuro: Oriented X 3. No motor deficit. No sensory deficit. Medical Decision Making Medical Decision Making MDM Narrative: 48 yo male with PMH of HTN, seizures here with chest pain and epigastric pain related to food and does take daily NSAIDs at this time no GIB symptoms reported looks comfortable and seems more GI related low suspe for ACS/dissection, PERC negative doubt VTE. Labs, US for biliary colic, GI cocktail and PPI ordered. 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 08/25/23 10:03 08/25/23 10:03 Labs: Lab Results 08/25/23 Range/Units 10:03 WBC 12.2 H (4.8-10.8) X10*3/uL RBC 5.84 H (4.60-5.80) X10*6/uL Hgb 15.9 (14.0-18.0) g/dl Hct 48.5 (42.0-52.0) % MCV 83.0 (80.0-98.0) fL MCH 27.2 (27.0-33.0) pg MCHC 32.8 (31.0-36.0) g/dl RDW 12.9 (11.0-16.0) % Plt Count 314 (160-400) X10*3/uL MPV 9.3 L (9.4-12.4) fL Immature Gran % (Auto) 0.4 (0.0-0.4) % Neut % (Auto) 82.1 H (45-73) % Lymph % (Auto) 9.0 L (20-40) % [place] % (Auto) 7.2 (2-11) % Eos % (Auto) 0.7 (0-4) % Baso % (Auto) 0.6 (0-2) % Lymph # (Auto) 1.1 L (1.2-4.9) X10*3/uL [place] # (Auto) 0.9 (0.1-1.2) X10*3/uL Eos # (Auto) 0.1 (0.0-0.4) X10*3/uL Baso # (Auto) 0.1 (0.0-0.2) X10*3/uL Abs Immat Gran (auto) 0.05 H (0.00-0.03) X10*3/uL Absolute Neuts (auto) 10.0 H (2.0-8.3) x10*3/uL Absolute Nucleated RBC 0.000 (0.0-0.012) X10*3/uL Nucleated RBC % (auto) 0.0 (0.0-0.2) /100WBC Sodium 138 (135-145) mmol/L Potassium 4.5 (3.3-5.1) mmol/L Chloride 103 (96-108) mmol/L Carbon Dioxide 25 (22-29) mmol/L Anion Gap 15 (12-20) BUN 13 (9-16) mg/dL Creatinine 0.75 (0.5-1.4) mg/dL Estim Creat Clear Calc 160.8 Estimated GFR > 60 Random Glucose 124 H (60-115) mg/dL Calcium 10.0 (8.4-10.2) mg/dL Total Bilirubin 0.5 (0.0-1.0) mg/dL Direct Bilirubin 0.2 (0.0-0.5) mg/dL AST 22 (5-37) U/L ALT 35 (0-40) U/L Alkaline Phosphatase 115 (39-117) U/L Troponin I High Sens < 2.7 (<3.5-35.0) ng/L Total Protein 7.9 (6.5-8.0) g/dL Albumin 4.4 (3.5-5.0) g/dL Lipase 26 (8-78) U/L Independent Interpretation I performed an independent interpretation of an: EKG, Plain X-Ray (normal ) and Ultrasound (no signs of acute cholecystitis) Interpretation: Rate: 85 Rhythm: NSR Midnight: normal Normal P waves. Normal SAHARA. Normal QRS complex. ST T wave : no ERIN, inverted t waves III and AVF qTC: normal prior studies: no change from 2013 The study has been interpreted contemporaneously by me. . Radiology Impression Discussion of test interpretation with radiology: I have reviewed the radiologist's reading. External Record Review External record reviewed: Office record Prescription Management I considered prescription management with: Other Medications Administered Discontinued Medications Generic Name Dose Route Start Last Admin Trade Name Freq PRN Reason Stop Dose Admin Al Hydroxide/Mg Hydroxide 15 ml 08/25/23 11:43 08/25/23 12:34 Magnesium Hydrox/Alum Hydrox 30 Ml Oral.Susp PO 08/25/23 11:44 15 ml ONCE ONE Administration Lidocaine HCl 15 ml 08/25/23 11:43 08/25/23 12:34 Lidocaine Hcl Viscous 2 % 15 Ml Solution MUCOUS MEM 08/25/23 11:44 15 ml ONCE ONE Administration Omeprazole 40 mg 08/25/23 11:43 08/25/23 12:34 Omeprazole 40 Mg [address]aps[address].Dr REESE 08/25/23 11:44 40 mg ONCE ONE Administration Discharge Plan Discharge Clinical Impression: Biliary colic Gastroesophageal reflux disease with esophagitis Qualifiers: Esophagitis bleeding: without hemorrhage Qualified Code(s): K21.00 - Gastro- esophageal reflux disease with esophagitis, without bleeding Patient Disposition: Home, Self-Care Instructions: Biliary Colic (ED), Low Fat Diet (ED), Diet for Stomach Ulcers and Gastritis (ED), Gastroesophageal Reflux Disease (ED) Additional Instructions: return for worsening symptoms - fevers, pain, vomiting or any other concerns avoid motrin for the next week - tylenol is okay low fat diet even good fats like peanut butter and avocado Prescriptions: New hydrocodone-acetaminophen 5-325 mg tablet 1 tab PO Q6H PRN (Reason: pain) Qty: 10 0RF Rx Instructions: partial fill okay; Partial Fill upon patient request. famotidine [Pepcid] 20 mg tablet 20 mg PO BID PRN (Reason: abdominal discomfort) Qty: 60 0RF ondansetron 4 mg tablet,disintegrating 4 mg PO Q8H PRN (Reason: nausea and vomiting) Qty: 20 0RF No Action oxycodone 5 mg tablet 5 mg PO Q4H PRN (Reason: pain) Qty: 14 0RF Rx Instructions: Patient may request partial fill; Partial Fill upon patient request. oxcarbazepine 600 mg tablet 1 tab PO BID meclizine 25 mg tablet 25 mg PO TID PRN (Reason: dizziness) Qty: 20 0RF hydrochlorothiazide 25 mg tablet PO lamotrigine 200 mg tablet PO lisinopril 5 mg tablet PO Referrals: Isaiah Chen MD [Physician] - (call to schedule appointment) Stand Alone Forms: Work/School Release Print Language: Icelandic
[2023-08-25] MEDS: Magnesium Hydrox/Alum Hydrox 30 ML ORAL.SUSP 15 ML PO (12:34)
[2023-08-25] MEDS: Omeprazole 40 MG CAPSULE.DR PO (12:34)
[2023-08-25] MEDS: Lidocaine HCl Viscous 2 % 15 ML SOLUTION MUCOUS MEM (12:34)
[2023-08-25 15:13] VITALS: BP 118/70; PULSE 82; RESP 16; TEMP 36.6; O2SAT 96
== END 2023-08-25 15:14 | disposition home or self-care (01) ==
PROVIDERS: Emergency Provider Emergency Medicine; PCP General Practice
DX: K21.00 Gastro-esophageal reflux disease with esophagitis, without bleeding (principal); R10.13 Epigastric pain; I10 Essential (primary) hypertension; R10.11 Right upper quadrant pain; R07.9 Chest pain, unspecified
CPT/HCPCS: 36415; 71045; 76705; 80048; 80076; 83690; 84484; 85025; 93005; 99284

== ENCOUNTER → 2023-08-25 09:41 | Outpatient (BNV) | payer MEDICARE, MEDICAID, SELFPAY | PROVIDERS: Emergency Provider Emergency Medicine; PCP General Practice; Visit Provider Internal Medicine Cardiovascular Disease | DX: R07.9 Chest pain, unspecified (principal) | CPT/HCPCS: 93010 ==

== ENCOUNTER 2023-09-27 11:02 | Outpatient (AMB) | payer MEDICARE, MEDICAID, SELFPAY ==
--- NOTE | 2023-09-27 11:05 | A.OFFVIS_ITS ---
Vital Signs 09/27/23 11:13 Height 5 ft 11 in Weight 262 lb BMI 36.5 BP 145/73 H Blood Pressure Location Rt brachial Position Sitting Pulse 91 Intake Visit Reasons: Biliary Colic Intake Note: Patient referred after ER visit in August and diagnosed with biliary colic. Patient c/o: Denies pain since eating better, less greasy foods. ABD US: 08-25-2023. 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 He has never had this before. He and severe epigastric/right upper quadrant pain r adiating around to his back. The/a proximally 2-3 days. Patient has sonogram demonstrated cholelithiasis. Patient otherwise tolerating a diet. He has never been jaundiced before. He is regular bowel habits. Chart was reviewed and patient evaluated. 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 Physical Exam Vital Signs: Last Vital Signs Pulse 91 09/27/23 11:13 BP 145/73 H 09/27/23 11:13 BMI result Body Mass Index 36.5 Eyes Other: Anicteric Chest Other: Chest breath sounds bilaterally, HS 1 in 2 GI Other: Abdomen corpulent, soft, benign Assessment & Plan Assessment & Plan (1) Symptomatic cholelithiasis: Code(s): K80.20 - Calculus of gallbladder without cholecystitis without obstruction Category: Surgical Plan Risks, benefits, alternatives laparoscopic possible open cholecystectomy reviewed the patient and included but not limited to bleeding, infection, numbness, pain, scarring, bowel or bile duct injury or leak and the patient wishes to proceed. All questions answered. Arrangements were made for this. Coding Level of Care Code New Pt Level 5 (23461) Diagnoses Symptomatic cholelithiasis K80.20
[2023-09-27 11:13] VITALS: BP 145/73; PULSE 91; BMI 36.5
== END 2023-09-27 11:32 | disposition home or self-care (01) ==
PROVIDERS: PCP General Practice; Visit Provider Surgery
DX: K80.20 Calculus of gallbladder without cholecystitis without obstruction (principal)
CPT/HCPCS: 99204

== ENCOUNTER → 2023-09-27 11:02 | Outpatient (BNVA) | payer MEDICARE, MEDICAID, SELFPAY | PROVIDERS: PCP General Practice; Visit Provider Surgery | DX: K80.20 Calculus of gallbladder without cholecystitis without obstruction (principal) | CPT/HCPCS: 99202 ==

== ENCOUNTER → 2023-11-10 10:00 | Outpatient (BNV) | payer MEDICARE, MEDICAID, SELFPAY | PROVIDERS: PCP General Practice; Visit Provider Surgery | DX: Z90.49 Acquired absence of other specified parts of digestive tract (principal) | CPT/HCPCS: 44204; 47562; 99024; 99499; G0180 ==

== ENCOUNTER 2023-11-10 14:30 | Outpatient (BNV) | payer MEDICARE, MEDICAID, SELFPAY | END 2023-11-11 03:36 | PROVIDERS: Admitting Provider Surgery; PCP General Practice; Visit Provider Internal Medicine Cardiovascular Disease | DX: R00.0 Tachycardia, unspecified (principal) | CPT/HCPCS: 93010 ==

== ENCOUNTER 2023-11-10 14:30 | Outpatient (BNV) | payer MEDICARE, MEDICAID, SELFPAY | END 2023-11-14 07:00 | PROVIDERS: Admitting Provider Surgery; PCP General Practice; Visit Provider Internal Medicine | DX: I42.2 Other hypertrophic cardiomyopathy (principal) | CPT/HCPCS: 93306 ==

== ENCOUNTER 2023-11-10 14:30 | Inpatient (IN) | payer MEDICARE, MEDICAID, SELFPAY ==
[2023-11-08 07:33] VITALS: BMI 36.5
--- NOTE | 2023-11-09 17:59 | P.HPSUR_ITS ---
Pre-Procedural Eval Section A - 24 Hr Update-Section A only Date of Service: 11/10/23 The patient is an INPATIENT: No Changes since office visit: No Cold of Flu in the past 2 weeks, No New Medical Problems, No Changes in Medication and No Patient answered all questions Section B - Complete if H&P > 30 days Chief Complaint: Calculus of gallbladder without cholecystitis with Allergies: Allergies Allergy/AdvReac Type Severity Reaction Status Date / Time pseudoephedrine Allergy Intermediate Difficulty Verified 09/27/23 11:10 [[address] [facility]] Breathing Plan I have reviewed the history and physical and performed a pertinent physical examination on my patient. No changes have occurred unless specified. Time Spent With Patient Time: Total time managing care of this patient today ____ minutes.
[2023-11-10] VITALS (21 sets, daily range): BP systolic 130–165; BP diastolic 73–95; PULSE 79–114; RESP 16–24; TEMP 35.9–36.7; O2SAT 90–100; BMI 36.3; BMI 36.2
--- NOTE | ~2023-11-10 | CT_ITS ---
EXAMINATION: CT CHEST, ABDOMEN AND PELVIS WITHOUT CONTRAST CLINICAL INFORMATION: Postop pain. COMPARISON: None available. TECHNIQUE: Multidetector volumetric CT imaging of the chest chest, abdomen and pelvis was done. Axial MIP volume rendering provided. Sagittal and coronal reformatted images were obtained. This CT examination was performed using dose optimization techniques as appropriate, variously including the following: *Automated exposure control *Adjustment of mA and/or kV according to patient size (this includes techniques or standardized protocols for targeted exams where dose is matched to indication/reason for exam; i.e. 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 LUNGS: There is bilateral lung base consolidation. The lungs are otherwise clear. MEDIASTINUM: The mediastinum is normal. CORONARY ARTERY CALCIFICATION: None visualized on this study. PLEURA: There is no pleural effusion. No pleural mass or thickening. AXILLA: No lymphadenopathy. LIVER, GALLBLADDER, AND BILIARY TREE: The liver is normal in size, shape, and attenuation. No focal hepatic lesion or biliary ductal dilatation is present. There has been a cholecystectomy. There is small amount of fluid within the gallbladder fossa. PANCREAS: Unremarkable SPLEEN: Unremarkable ADRENAL GLANDS: Unremarkable KIDNEYS AND URETERS: The kidneys are normal in size, shape, and attenuation. No hydronephrosis, hydroureter, or calculi seen. No perinephric stranding. BLADDER: Unremarkable GASTROINTESTINAL TRACT: There are diverticula of the descending and proximal sigmoid colon without diverticulitis. ABDOMINAL WALL: There is a dense collection umbilical region measuring 4.3 cm with the periumbilical and abdominal wall subcutaneous emphysema and subcutaneous infiltration. There is free air within the upper abdomen. LYMPH NODES: There are prominent but nonspecific retroperitoneal lymph nodes measuring up to 2.2 cm. VASCULAR: Unremarkable PELVIC VISCERA: Pelvic viscera are unremarkable. There is a small amount of free fluid within the right upper quadrant as well as within the pelvis. OSSEOUS STRUCTURES: There is mild there is diffuse thoracolumbar disc degenerative change. There is bilateral hip degenerative change. CT/CT abdomen pelvis wo IV con IMPRESSION: 1. Dense collection in the umbilical region measuring 4.3 cm possibly representing hemorrhage with the periumbilical and abdominal wall subcutaneous emphysema and subcutaneous infiltration. 2. The patient is status post cholecystectomy.There is a small amount of fluid within the gallbladder fossa. There is free fluid within the abdomen and pelvis. Consider the possibility of a bile leak. Free air within the abdomen likely postoperative 3.There is diverticulosis of the descending and proximal sigmoid colon without diverticulitis. 4. There is bilateral lung base consolidation likely atelectasis. Infiltrates considered less likely.. Fleischner guidelines were followed.
--- NOTE | ~2023-11-10 | CT_ITS ---
EXAMINATION: CT ABDOMEN AND PELVIS WITH CONTRAST CLINICAL INFORMATION: post lap oneida 11/09 ,marked abdominal pain COMPARISON: CT abdomen pelvis November 11, 2023 TECHNIQUE: Multidetector volumetric images were obtained from the superior aspect of the liver through the pubic symphysis following administration 85 mL of Omnipaque 350 intravenous contrast. Sagittal and coronal reformatted images were obtained on the technologist's workstation. Oral contrast: No This CT examination was performed using dose optimization techniques as appropriate, variously including the following: *Automated exposure control *Adjustment of mA and/or kV according to patient size (this includes techniques or standardized protocols for targeted exams where dose is matched to indication/reason for exam; i.e. extremities or head) *Use of iterative reconstruction technique DLP: 1389 mGy-cm FINDINGS: LUNG BASES: There is a small volume of dependent atelectasis and consolidation at lung bases. ABDOMINAL WALL/MESENTERY/LIVER, GALLBLADDER, AND BILIARY TREE: The liver is normal in size, shape, and attenuation. No focal hepatic lesion or biliary ductal dilatation is present. Status post cholecystectomy. Edema haziness in the area of the gallbladder fossa consistent with recent surgery. No abscess or drainable fluid collection. There is a small volume of fluid around the tip of the gallbladder. There is a large collection of fluid in the mid mesentery in the cul-de-sac. There is free air in the peritoneal cavity. There is air in the subcutaneous tissue at the mid abdomen around the level the umbilicus with edema in the adjacent subcutaneous fat. Nodular opacity measuring about 4 cm at the umbilicus density measurement of 63 Hounsfield units likely small hematoma at the subcutaneous abdominal wall. These are all changes consistent with recent surgery. PANCREAS: Unremarkable. SPLEEN: Unremarkable. ADRENAL GLANDS: Unremarkable. KIDNEYS AND URETERS: The kidneys are normal in size, shape, and attenuation. No hydronephrosis, hydroureter, or calculi seen. No perinephric stranding. BLADDER: Unremarkable. GASTROINTESTINAL TRACT: There are scattered diverticula of the sigmoid colon. There is no diverticulitis. There is no bowel wall thickening /edema. There is no bowel obstruction. There is a moderate volume of stool in the colon. The appendix is nonvisualized . The small bowel loops are unremarkable. The stomach is normal. There is no hiatal hernia. LYMPH NODES: No significant lymphadenopathy. VASCULAR: Unremarkable. PELVIC VISCERA: Unremarkable. OSSEOUS STRUCTURES: Unremarkable. Multilevel degenerative spondylosis spine. CT/CT abdomen pelvis w IV con IMPRESSION: Status post cholecystectomy. There is a small volume of fluid around the tip of the gallbladder. There is a large collection of fluid in the mid mesentery and in the cul-de-sac. There is free air in the peritoneal cavity. There is air in the subcutaneous tissue at the mid abdomen around the level the umbilicus with edema in the adjacent subcutaneous fat. Probable small hematoma in the subcutaneous tissue at the umbilicus. These are consistent with recent surgery. No abscess or drainable fluid collection. Fleischner guidelines were followed.
--- NOTE | ~2023-11-10 | CT_ITS ---
EXAMINATION: CT ABDOMEN AND PELVIS WITHOUT CONTRAST CLINICAL INFORMATION: Post abdominal surgery. Post drainage from the wound. COMPARISON: 11/11/2023 TECHNIQUE: Multidetector volumetric imaging was performed from the superior aspect of the liver through the pubic symphysis. Oral contrast material was administered. Sagittal and coronal reformatted images were obtained on the technologist's workstation. This CT examination was performed using dose optimization techniques as appropriate, variously including the following: *Automated exposure control *Adjustment of mA and/or kV according to patient size (this includes techniques or standardized protocols for targeted exams where dose is matched to indication/reason for exam; i.e. extremities or head) *Use of iterative reconstruction technique DLP: 918 mGy-cm FINDINGS: LUNG BASES: Mild dependent atelectasis in the lower lobes. LIVER, GALLBLADDER, AND BILIARY TREE: The liver is normal in size, shape, and attenuation. No focal hepatic lesion or biliary ductal dilatation is present. Status post cholecystectomy. PANCREAS: Unremarkable. SPLEEN: A calcified granuloma is present in the spleen. ADRENAL GLANDS: Unremarkable. KIDNEYS AND URETERS: The kidneys are normal in size, shape, and attenuation. No hydronephrosis, hydroureter, or calculi seen. No perinephric stranding. BLADDER: Unremarkable. GASTROINTESTINAL TRACT: Stomach is normal in caliber. Anastomotic diane are present within the right mid abdomen. Oral contrast material extends throughout the small bowel loops to the level of the ileal segments in the right lower quadrant. There is dilatation of multiple bowel loops the central abdomen up to 4 cm. Anastomotic sutures are present within the small bowel in the right mid abdomen a discrete transition point of the small bowel is not identified. A small volume of perihepatic ascites is again noted, similar to prior. Additionally, there are organized collections of fluid in the central pelvis which appear loculated through the largest of which is present in the anterior central pelvis measuring approximately 10 x 7.5 x 5 cm. A smaller collection is present in the deep pelvis measuring 6.5 x 5 x 6 cm. No appreciable intraperitoneal free air. ABDOMINAL WALL: Subcutaneous edema is evident in the abdominal flanks. Marked soft tissue edema is also noted around the umbilicus. The subcutaneous gas in this region is improved as compared to prior. LYMPH NODES: Numerous borderline enlarged retroperitoneal lymph nodes are identified in the upper abdomen measuring up to 1.2 cm in diameter. VASCULAR: Unremarkable. PELVIC VISCERA: Prostate gland is unremarkable. OSSEOUS STRUCTURES: Moderate severe multilevel degenerative disc disease in the lower lumbar spine. No fractures. 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 CT/CT abdomen pelvis wo IV con IMPRESSION: 1. Multiple dilated loops of small bowel in the central abdomen without a discrete transition point, most consistent with postoperative ileus. 2. Loculated fluid collections in the central pelvis, the largest of which measures 10 x 7.5 x 5 cm. These are more organized as compared to prior study and concerning for developing abscesses. 3. Small volume of perihepatic ascites, similar to prior. 4. Marked soft tissue edema around the umbilicus. The previously seen subcutaneous gas in this region is improved as compared to prior. Fleischner guidelines were followed.
--- NOTE | ~2023-11-10 | CT_ITS ---
EXAMINATION: CT CHEST, ABDOMEN AND PELVIS WITHOUT CONTRAST CLINICAL INFORMATION: Postop pain. COMPARISON: None available. TECHNIQUE: Multidetector volumetric CT imaging of the chest chest, abdomen and pelvis was done. Axial MIP volume rendering provided. Sagittal and coronal reformatted images were obtained. This CT examination was performed using dose optimization techniques as appropriate, variously including the following: *Automated exposure control *Adjustment of mA and/or kV according to patient size (this includes techniques or standardized protocols for targeted exams where dose is matched to indication/reason for exam; i.e. extremities or head) *Use of iterative reconstruction technique DLP: 2005 mGy-cm FINDINGS: SENIOR ORACLE APPLICATIONS DEVELOPER: Unremarkable. LUNGS: There is bilateral lung base consolidation. The lungs are otherwise clear. MEDIASTINUM: The mediastinum is normal. CORONARY ARTERY CALCIFICATION: None visualized on this study. PLEURA: There is no pleural effusion. No pleural mass or thickening. AXILLA: No lymphadenopathy. LIVER, GALLBLADDER, AND BILIARY TREE: The liver is normal in size, shape, and attenuation. No focal hepatic lesion or biliary ductal dilatation is present. There has been a cholecystectomy. There is small amount of fluid within the gallbladder fossa. PANCREAS: Unremarkable SPLEEN: Unremarkable ADRENAL GLANDS: Unremarkable KIDNEYS AND URETERS: The kidneys are normal in size, shape, and attenuation. No hydronephrosis, hydroureter, or calculi seen. No perinephric stranding. BLADDER: Unremarkable GASTROINTESTINAL TRACT: There are diverticula of the descending and proximal sigmoid colon without diverticulitis. ABDOMINAL WALL: There is a dense collection umbilical region measuring 4.3 cm with the periumbilical and abdominal wall subcutaneous emphysema and subcutaneous infiltration. There is free air within the upper abdomen. LYMPH NODES: There are prominent but nonspecific retroperitoneal lymph nodes measuring up to 2.2 cm. VASCULAR: Unremarkable PELVIC VISCERA: Pelvic viscera are unremarkable. There is a small amount of free fluid within the right upper quadrant as well as within the pelvis. OSSEOUS STRUCTURES: There is mild there is diffuse thoracolumbar disc degenerative change. There is bilateral hip degenerative change. CT/CT chest wo IV con IMPRESSION: 1. Dense collection in the umbilical region measuring 4.3 cm possibly representing hemorrhage with the periumbilical and abdominal wall subcutaneous emphysema and subcutaneous infiltration. 2. The patient is status post cholecystectomy.There is a small amount of fluid within the gallbladder fossa. There is free fluid within the abdomen and pelvis. Consider the possibility of a bile leak. Free air within the abdomen likely postoperative 3.There is diverticulosis of the descending and proximal sigmoid colon without diverticulitis. 4. There is bilateral lung base consolidation likely atelectasis. Infiltrates considered less likely.. Fleischner guidelines were followed.
--- NOTE | ~2023-11-10 | CT_ITS ---
History: Patient with anterior abdominal fluid collection and deep pelvic (and adjacent to rectum) fluid collections that are concerning for abscesses. The patient has had a complicated hospital course following small bowel injury that occurred during gallbladder resection. Procedure performed: 1. CT-guided placement of a drainage catheter into an anterior abdominal fluid collection. Physician: Nicola Gonzalez MD FS Anesthesia: IV moderate sedation with intravenous fentanyl and Versed was administered under my direct supervision with continuous physiologic monitoring for a total of 45 minutes. 1% lidocaine was administered as local anesthesia. Specimen: 30 mL of brown fluid Drain: Locking 10 Albanian pigtail catheter Estimated blood loss: Minimal Consultations: None Procedure in detail: Informed and written consent was obtained. The patient was positioned supine on the CT examination table. Preliminary CT scan showed a fluid collection in the anterior abdomen below the umbilicus and an additional deep pelvic collection anterior to the rectum. We decided to drain the anterior abdominal collection first. An appropriate site was marked on the skin for access. The overlying skin was prepped and draped. 1% lidocaine was injected subcutaneously and extended to the deep soft tissues and peritoneum. A small incision was made in the skin with a #11 blade. Through the incision and under progressive CT guidance, a Yueh needle catheter was advanced directly into the collection. There was an immediate return of brown fluid. The needle was removed, but through the Yueh catheter we advanced a stiff guidewire over which serial dilatation was performed until a 10 Albanian locking pigtail catheter could be placed. This was connected to MARLY suction yielding additional brown fluid. A specimen was sent to laboratory for analysis. The tube was sutured to the skin with 2-0 Prolene and secured with a sterile dressing. We then positioned the patient and a lateral decubitus position to see whether or not we could obtain a posterior transgluteal drainage of the deep pelvic collection, but upon further imaging we did not feel this was safe as there were overlying vessels and we were additionally concerned about injuring the sciatic nerve. We therefore did not feel this one was safe for drainage and we aborted the case. The patient tolerated the procedure well. Summary: Successful CT-guided drainage of an anterior abdominal fluid collection as described. The deep pelvic collection is not currently amenable to safe percutaneous drainage. We recommend continuing to monitor this. Should this fail to resolve or enlarge, we would revisit draining it at a later time. This was discussed with Dr. Buenrostro. Electronically signed by: Seun Gonzalez MD 12/01/2023 06:04 PM EDT
[2023-11-10] MEDS: Lactated Ringers 1,000 ML 100 ML IVCONT ×2 (10:45→21:02)
--- NOTE | 2023-11-10 11:20 | P.CONAN_ITS ---
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) Past Medical History Medical History (Updated 09/27/23 @ 11:28 by Ran Buenrostro MD) Seizure disorder High blood pressure Surgical History Surgical History (Updated 09/27/23 @ 11:29 by Ran Buenrostro MD) History of surgery on right wrist Social History Social History Patient Tobacco Use Status: Never used Tobacco Use of substances other than those prescribed or required for medical reasons: No Are you DNR?: No Advance Directives: No Advance Directives Information Provided: Yes 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 Meds Allergies Allergy/AdvReac Type Severity Reaction Status Date / Time pseudoephedrine Allergy Intermediate Difficulty Verified 11/10/23 10:36 [From Sudafed] Breathing Home Medications ?Medication ?Instructions ?Recorded ?Confirmed ?Last Taken ?Type lamotrigine 200 mg tablet 200 mg PO BID 11/20/21 11/10/23 Unknown History (Lamictal) lisinopril 5 mg tablet 5 mg PO DAILY 11/20/21 11/10/23 Unknown History hydrochlorothiazide 25 mg tablet 25 mg PO DAILY 12/23/21 11/10/23 Unknown History oxcarbazepine 600 mg tablet 1 tab PO BID 01/07/22 11/10/23 Unknown History Exam Height,Weight and Vital Signs: Height 5 ft 11 in Weight 118.841 kg Pertinent Lab Results Pertinent Lab Results: Laboratory Tests 08/25/23 10:03 WBC 12.2 H Hgb 15.9 Hct 48.5 Plt Count 314 Sodium 138 Potassium 4.5 Chloride 103 Carbon Dioxide 25 BUN 13 Creatinine 0.75 Narrative Narrative: EKG 08/2023 Vent. Rate : 085 BPM Atrial Rate : 085 BPM P-R Int : 162 ms QRS Dur : 086 ms QT Int : 364 ms P-R-T Axes : 024 030 004 degrees QTc Int : 433 ms Normal sinus rhythm Normal ECG When compared with ECG of 04-JUN-2023 16:39, No significant change was found Assessment and Plan Assessment Anesthesia Assessment: Chart Reviewed Documented by User: Verna Velazquez DO 11/10/23 11:26 [facility] [place] Past Medical History Medical History (Updated 09/27/23 @ 11:28 by Ran Buenrostro MD) Seizure disorder High blood pressure Family History Family history of problems with anesthesia: No Surgical History Surgical History (Updated 09/27/23 @ 11:29 by Ran Buenrostro MD) History of surgery on right wrist History of Problems with Anesthesia: No Social History Social History Patient Tobacco Use Status: Never used Tobacco Use of substances other than those prescribed or required for medical reasons: No Are you DNR?: No Advance Directives: No Advance Directives Information Provided: Yes 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 Meds Allergies Allergy/AdvReac Type Severity Reaction Status Date / Time pseudoephedrine Allergy Intermediate Difficulty Verified 11/10/23 10:36 [From [place]] Breathing Home Medications ?Medication ?Instructions ?Recorded ?Confirmed ?Last Taken ?Type lamotrigine 200 mg tablet 200 mg PO BID 11/20/21 11/10/23 Unknown History (Lamictal) lisinopril 5 mg tablet 5 mg PO DAILY 11/20/21 11/10/23 Unknown History hydrochlorothiazide 25 mg tablet 25 mg PO DAILY 12/23/21 11/10/23 Unknown History oxcarbazepine 600 mg tablet 1 tab PO BID 01/07/22 11/10/23 Unknown History Exam Exam Date and Time: November 10, 2023 1120 Height,Weight and Vital Signs: Height 5 ft 11 in Weight 118.841 kg Height 5 ft 11 in Weight 117.934 kg Vital Signs Temperature 98.0 F 11/10/23 10:49 Pulse Rate 79 11/10/23 10:49 Respiratory Rate 20 11/10/23 10:49 Blood Pressure 136/77 11/10/23 10:49 Pulse Oximetry 95 11/10/23 10:49 Oxygen Delivery Method Room Air 11/10/23 10:49 Temperature 98.0 F 11/10/23 10:49 Pulse Rate 79 11/10/23 10:49 Respiratory Rate 20 11/10/23 10:49 Blood Pressure 136/77 11/10/23 10:49 Pulse Oximetry 95 11/10/23 10:49 Oxygen Delivery Method Room Air 11/10/23 10:49 Airway Mallampati Class: II TM Dist: >3cm Neck ROM: Full Loose/Missing/Broken Teeth: No (patient denies any loose or broken teeth) Heart: S1S2 Lungs: CTAB Assessment and Plan Assessment Anesthesia Assessment: Anesthesia Plan Discussed and Chart Reviewed Final Anesthetic Review Family History of Problems with Anesthesia: No History of Problems with Anesthesia: No NPO: Yes ASA Class: II Final Preanesthetic Review: No Changes in Pt Med Stat, Meds/Allgs Chart Reviewed, Consent Obtained/Reviewed and Anes Risks/Benef Reviewed Patient Risk: Low Procedure Risk: Low Anesthetic Plan Anesthetic Plan: GA and Agree w/ Assess. and Plan Disposition: Standard PACU
--- NOTE | 2023-11-10 13:10 | P.OP_ITS ---
Operative Note Operative Note Date of Service: 11/10/23 Narrative: Preoperative diagnosis: [] Symptomatic gallbladder Postop diagnosis: [] The same Procedure [] laparoscopic cholecystectomy Surgeon: [] Porter Pre Kindergarten Teacher: [] Kimberlyn Type of Anesthesia: [] General Indication for surgery: [] Hydrops/empyema of the gallbladder. Gallbladder with dense omental adhesions to it. Moderately intrahepatic gallbladder. Very corpulent abdomen Findings: [] Patient brought to the operating room, placed on operative table supine position, after an adequate level of general anesthesia was induced, the patient's abdomen was prepped and draped in usual sterile fashion. Using a supr aumbilical curvilinear incision, Landry technique was used to insufflate abdominal cavity to 15 mm of CO2. Upper midline and right subcostal ports were placed under direct laparoscopic view, and the patient placed in reverse Trendelenburg position, and tilted to the left. Findings were as noted above. Gallbladder was grasped using laparoscopic graspers and retracted superiorly and laterally. Gallbladder was decompressed with gross purulence being retrieved. Marked and thickened omental adhesions were swept off the gallbladder where the hilum was approached. Cystic artery and cystic duct were each identified, circumferentially skeletonized, traced directly into the gallbladder, and critical view obtained. Each was clipped proximally x2, distally x1, and transected . Very large, phlegmonous gallbladder which was moderately intrahepatic was then cauterized from the gallbladder fossa using Bovie. Specimen placed in an Endo-Catch bag, a retrieved through the umbilical port. Abdominal cavity was very copiously irrigated and secured hemostasis. All ports removed under direct laparoscopic view. Wounds were closed in the following manner; umbilical wound is fascia reapproximated using interrupted 0 Vicryl sutures. Skin wounds were closed using subcuticular 4-0 Vicryl sutures followed by Steri-Strips and sterile dressings. Wounds were infiltrated 0.5% Marcaine at completion. Sponge, needle, and instrument counts reported correct. Patient tolerated the procedure well and emerged from anesthesia stable condition. EBL minimal
[2023-11-10] MEDS: fentaNYL citrate/PF 100 MCG/2 ML VIAL 50 MCG IVPUSH ×3 (13:35→14:35)
[2023-11-10] MEDS: fentaNYL citrate/PF 100 MCG/2 ML VIAL 25 MCG IVPUSH ×2 (13:50→13:55)
[2023-11-10] MEDS: oxyCODONE HCl Immed Release 5 MG TABLET PO (14:15)
--- NOTE | 2023-11-10 14:34 | PM.EVENT ---
Event Note Date of Service: 11/10/23 Event Note: Patient having significant incisional pain in recovery room. Not relieved with current analgesics. Will admit patient for pain control. Time Spent With Patient Time: Total time managing care of this patient today ____ minutes.
[2023-11-10] MEDS: HYDROmorphone HCl 0.5 MG/0.5 ML SYRINGE IVPUSH (14:43)
[2023-11-10] MEDS: Ketorolac Tromethamine 30 MG/ML VIAL IVPUSH ×2 (15:46→21:46)
[2023-11-10] MEDS: HYDROcodone Bit/Acetam 5/325 TABLET 1 TAB PO ×2 (16:31→20:29)
[2023-11-10] MEDS: HYDROmorphone HCl 1 MG/ML SYRINGE 0.5 MG IVPUSH ×2 (17:26→21:35)
--- NOTE | 2023-11-10 18:17 | PHA.MEDREC ---
[facility] 19[facility]38: messaged overnight hospitalist Dr. Berman about med rec being complete and previous message to Dr. Buenrostro, Dr. Berman said hes the admitting physician, were not even consulted Addendum [facility] 11/10/[facility] 18:33: messged Dr. Buenrostro to inform that med rec is complete, he said he was only the surgical consult. messaged nurse Carlos Sanchez to find out provider and he said Dr. Buenrostro, will pass off to morning to see if patient gets provider to continue meds. Addendum [facility]/10/[facility] 18:22: Spoke to patient's Luh who was able to confirm most meds which she read off of rx bottles. She said she was unsure of a couple so utilized most recent claims to fill in information the did not have. Said that when he takes baclofen he feels very relaxed so she is worried it might interact with his pain medications. also stated the pt takes his medications at 1000 daily and the BID meds at 1000 and 2200 as reflected. Original Note: Pharmacy Consult ? Medication Reconciliation Pharmacy has completed the medication reconciliation. Tried to talk to patient, however he was screaming help! me! help! me! couldn't get anything out of him. Nurse states You wont be able to talk to him because he has been like that for a while. We can't give him any more pain medication at this time .
[2023-11-10] MEDS: OXcarbazepine 300 MG TABLET 600 MG PO (20:10)
[2023-11-10] MEDS: ceFAZolin Sodium/Dextrose,Iso 2 GM/50 ML PIGGYBACK IV (20:11)
[2023-11-10] MEDS: Baclofen 20 MG TABLET PO (20:15)
[2023-11-10] MEDS: Acetaminophen 325 MG TABLET 650 MG PO (20:28)
[2023-11-10] MEDS: 0.9 % Sodium Chloride Flush 3 ML SYRINGE IVFLUSH (21:06)
--- NOTE | 2023-11-10 22:58 | PC.NURSE ---
pt was having moderate amount of bleeding to umbilical incision, notified Dr. Buenrostro and he ordered to change dressing as needed
[2023-11-11] VITALS (21 sets, daily range): BP systolic 117–150; BP diastolic 73–92; PULSE 102–138; RESP 12–20; TEMP 36–37.9; O2SAT 92–97
--- NOTE | 2023-11-11 | ECG_ITS ---
Test Reason : sinus tachycardia Blood Pressure : / mmHG Vent. Rate : 119 BPM Atrial Rate : 119 BPM P-R Int : 134 ms QRS Dur : 084 ms QT Int : 328 ms P-R-T Axes : 040 034 022 degrees QTc Int : 461 ms Sinus tachycardia with Premature atrial complexes Possible Left atrial enlargement Borderline ECG When compared with ECG of 11-NOV-2023 03:36, No significant change was found Referred By: Linn Orellana Electronically Signed By:ONUR DELGADILLO MD
--- NOTE | 2023-11-11 | ECG_ITS ---
Test Reason : chest pain Blood Pressure : / mmHG Vent. Rate : 120 BPM Atrial Rate : 120 BPM P-R Int : 134 ms QRS Dur : 084 ms QT Int : 330 ms P-R-T Axes : 044 032 -02 degrees QTc Int : 466 ms Sinus tachycardia with Premature atrial complexes Possible Left atrial enlargement Cannot rule out Anterior infarct , age undetermined Abnormal ECG When compared with ECG of 25-AUG-2023 09:46, Premature atrial complexes are now Present Referred By: Juan Berman Electronically Signed By:ONUR DELGADILLO MD
[2023-11-11] MEDS: HYDROcodone Bit/Acetam 5/325 TABLET 1 TAB PO ×3 (00:08→12:29)
[2023-11-11] MEDS: HYDROmorphone HCl 1 MG/ML SYRINGE 0.5 MG IVPUSH (01:43)
[2023-11-11] MEDS: Acetaminophen 325 MG TABLET 650 MG PO ×2 (03:08→15:29)
[2023-11-11] MEDS: Ketorolac Tromethamine 30 MG/ML VIAL IVPUSH (03:08)
[2023-11-11 03:29] LABS: Glucose, Whole Blood 190 mg/dL (60-115)
--- NOTE | 2023-11-11 03:31 | PM.IMCN ---
History of Present Illness Data of Consult Service Date: 11/11/23 Primary Care Provider: Maria Elena Wells MD HPI Reason for consult: diaphoresis 48M PMH DM, htn, epilepsy, obesity, admitted after elective laproscopic cholecystectomy, found to have gross purulense in gall bladder. initially planned for discharge, but admitted overnight for better pain control. at about 315am called to see patient for severe abd pain, diaphoresis, sob, hypoxia. has been going on for several hours. denies chest pain. does have some bleeding for surgical site, but controlled. Review of Systems Review of Systems: Yes all other systems are reviewed and are negative [facility] Medical History Seizure disorder High blood pressure Surgical History History of surgery on right wrist Social History Do you presently have visiting nurse or other home services: No Comment: counts correct Patient Tobacco Use Status: Never used Tobacco Use of substances other than those prescribed or required for medical reasons: No Currently Displaying Signs/Symptoms of Drug Intoxication Withdrawal: No Have you been hit, kicked, punched, or otherwise hurt by someone within the past year? 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 Meds Allergies Allergy/AdvReac Type Severity Reaction Status Date / Time pseudoephedrine Allergy Intermediate Difficulty Verified 11/10/23 10:36 [From Sudafed] Breathing Active Medications: Current Medications Acetaminophen (Acetaminophen 325 Mg Tablet) 650 mg PO Q6H PRN PRN Reason: Pain, Mild (Pain Scale 1-3), fever or headache Last Admin: 11/11/23 03:08 Dose: 650 mg Hydrocodone Bitart/Acetaminophen (Hydrocodone Bit/Acetam 5/325 Tablet) 1 tab PO Q4H PRN PRN Reason: Pain, Moderate(Pain Scale 4-6) Last Admin: 11/11/23 00:08 Dose: 1 tab Baclofen (Baclofen 20 Mg Tablet) 20 mg PO QID PRN PRN Reason: Muscle Spasm Stop: 11/17/23 18:23 Last Admin: 11/10/23 20:15 Dose: 20 mg Calcium Carbonate (Calcium Carbonate 750 Mg Tab.Chew) 750 mg PO Q4H PRN PRN Reason: Heartburn Folic Acid (Folic Acid 1 Mg Tablet) 1 mg PO DAILY@1000 [facility] Hydromorphone HCl (Hydromorphone Hcl 1 Mg/Ml Syringe) 1 mg IVPUSH Q3H PRN; Protocol PRN Reason: Pain, Severe (Pain Scale 7-10) Lactated Ringer's (Lr) 1,000 mls @ 100 mls/hr IVCONT .Q10H [facility] Last Admin: 11/10/23 21:02 Dose: 100 mls/hr Piperacillin Sod/Tazobactam (Sod 3.375 gm/ Sodium Chloride) 50 mls @ 100 mls/hr IV Q6H [facility] Ketorolac Tromethamine (Ketorolac Tromethamine 30 Mg/Ml Vial) 30 mg IVPUSH Q6H PRN PRN Reason: Pain, Mild (Pain Scale 1-3) Stop: 11/15/23 14:29 Last Admin: 11/11/23 03:08 Dose: 30 mg Lamotrigine (Lamotrigine 100 Mg Tablet) 200 mg PO BID@1000,2200 [facility] Magnesium Hydroxide (Milk Of Magnesia 30 Ml Oral.Susp) 30 ml PO DAILY PRN PRN Reason: Constipation Melatonin (Melatonin 3 Mg Tablet) 6 mg PO BEDTIME PRN PRN Reason: Insomnia Ondansetron HCl (Ondansetron Hcl 4 Mg/2 Ml Vial) 4 mg IVPUSH Q8H PRN PRN Reason: Nausea and Vomiting Oxcarbazepine (Oxcarbazepine 300 Mg Tablet) 600 mg PO BID [facility] Last Admin: 11/10/23 20:10 Dose: 600 mg Oxcarbazepine (Oxcarbazepine 300 Mg Tablet) 600 mg PO BID@1000,2200 [facility] Sodium Chloride (0.9 % Sodium Chloride Flush 3 Ml Syringe) 3 ml IVFLUSH QSHIFT [facility] Last Admin: 11/10/23 21:06 Dose: 3 ml Home Medications ?Medication ?Instructions ?Recorded ?Confirmed ?Last Taken ?Type lamotrigine 200 mg tablet 200 mg PO BID@1000,2200 11/20/21 11/10/23 Unknown History (Lamictal) lisinopril 5 mg tablet 5 mg PO DAILY@1000 11/20/21 11/10/23 Unknown History hydrochlorothiazide 25 mg tablet 25 mg PO DAILY@1000 12/23/21 11/10/23 Unknown History oxcarbazepine 600 mg tablet 1 tab PO BID@1000,2200 01/07/22 11/10/23 Unknown History baclofen 20 mg tablet 20 mg PO QID PRN back spasms 11/10/23 11/10/23 Unknown History famotidine 20 mg tablet 20 mg PO BID PRN Abdominal 11/10/23 11/10/23 Unknown History Discomfort folic acid 1 mg tablet 1 mg PO DAILY@1000 11/10/23 11/10/23 Unknown History ibuprofen 400 mg tablet 400 - 800 mg PO Q8H Pain 11/10/23 11/10/23 Unknown History metformin 500 mg tablet 500 mg PO BID@1000,2200 11/10/23 11/10/23 Unknown History Physical Exam Vital Signs and Narrative: Vital Signs: Last Vital Signs Temp 96.7 F L 11/10/23 23:32 Pulse 114 H 11/10/23 23:32 Resp 20 11/10/23 23:32 BP 141/73 H 11/10/23 23:32 Pulse Ox 94 11/10/23 23:32 O2 Del Method Nasal Cannula 11/10/23 23:32 O2 Flow Rate 2 11/10/23 23:32 BMI result Body Mass Index 36.2 lethargic oriented times 3, ill appearing, clammy, diaphoretic, tachypneic dressing over surgical site, lungs clear Results Labs Labs: Laboratory Results - last 24 hr 11/11/23 03:25 POC Glucose 190 H Assessment and Plan (1) Symptomatic cholelithiasis: Status: Acute Plan 48M PMH DM, htn, epilepsy, obesity, admitted after elective laproscopic cholecystectomy now with diaphoresis, pain, and hypoxia diaphoresis, pain, acute hypoxic respiratory failure ?sepsis vs mi broaden coverage to zosyn check labs, cultures, cxr, ct abd, trops, ekg transfer to tele pain control dm insulin sliding scale epilepsy oxcarbazine, lamictal obesity weight loss htn will hold meds for now, concern for hypotension dvt prophyalxis - mechanical due to bleeding from surgical site full code will continue to follow
[2023-11-11] MEDS: HYDROmorphone HCl 1 MG/ML SYRINGE IVPUSH ×6 (03:45→23:09)
[2023-11-11 03:59] LABS: Hematocrit 50.8 % (42.0-52.0); Hemoglobin 16.9 g/dl (14.0-18.0); Mean Corpuscular HGB Conc 33.3 g/dl (31.0-36.0); Mean Corpuscular Hemoglobin 27.1 pg (27.0-33.0); Mean Corpuscular Volume 81.4 fL (80.0-98.0); Mean Platelet Volume 9.3 fL (9.4-12.4); Platelet Count 334 X10*3/uL (160-400); Red Blood Count 6.24 X10*6/uL (4.60-5.80); Red Cell Distribution Width 13.2 % (11.0-16.0); White Blood Count 19.6 X10*3/uL (4.8-10.8)
--- NOTE | 2023-11-11 04:15 | PC.NURSE ---
Pt in excruciating pain,diaphoretic heart rate 124 nursing supervisr padma notified. notified came to see pt ordered ct of abd and chest,ekg and lab work.STarted pt on iv zosyn.
[2023-11-11 04:19] LABS: Alanine Aminotransferase 86 U/L (0-40); Albumin Level 4.1 g/dL (3.5-5.0); Alkaline Phosphatase 92 U/L (39-117); Anion Gap 14 (12-20); Aspartate Amino Transferase 60 U/L (5-37); Bilirubin Direct 0.9 mg/dL (0.0-0.5); Bilirubin Total 1.7 mg/dL (0.0-1.0); Blood Urea Nitrogen 19 mg/dL (9-16); Calcium 9.1 mg/dL (8.4-10.2); Carbon Dioxide 22 mmol/L (22-29); Chloride 103 mmol/L (96-108); Creatinine Clr Calc Pharmacy 148.8; Estimated Glomerular Filt Rate > 60; Glucose Random 181 mg/dL (60-115); Lactic Acid 2.1 mmol/L (0.5-2.0); Potassium 4.3 mmol/L (3.3-5.1); Sodium 135 mmol/L (135-145); Total Protein 7.2 g/dL (6.5-8.0)
[2023-11-11 04:22] LABS: Band Neutrophils Percent 12 % (3-5); Lymphocytes Absolute Manual 0.4 X10*3/uL (1.2-4.9); Lymphocytes Percent Manual 2 % (20-40); Monocytes Absolute Manual 0.4 X10*3/uL (0.1-1.2); Monocytes Percent Manual 2 % (2-11); Neutrophils Absolute Manual 18.8 X10*3/uL (2.0-8.3); Neutrophils Percent Manual 84 % (45-73)
[2023-11-11 04:23] LABS: Platelet Estimate NORMAL (NORMAL); Platelet Morphology Comment NORMAL; RBC Morphology NORMAL; Toxic Vacuolation PRESENT
[2023-11-11] MEDS: Piperacillin Sodium/Tazobactam 3.375 GM in 0.9 % Sodium Chloride 50 ML IV ×4 (04:23→21:31)
[2023-11-11 04:28] LABS: Troponin-I High Sensitivity < 2.7 ng/L (<3.5-35.0)
[2023-11-11] MEDS: 0.9 % Sodium Chloride 1,000 ML 999 ML IV (04:44)
[2023-11-11 05:55] LABS: Reflex Lactate? Lactic Acid Added
--- NOTE | 2023-11-11 07:03 | PM.PNGS ---
Subjective Subjective Date of Service: 11/11/23 <Kavin Aliya - Last Filed: 11/11/23 07:25> 11/11/23 <Ran Buenrostro MD - Last Filed: 11/11/23 14:23> Interval history: Girma in significant pain overnight and this morning, diaphoretic, and unable to speak in complete uninterrupted sentences. Dilaudid overnight and vicodin this morning, analgesics helping but still much pain. Imaging ordered. Given bolus of IVF. Kavin Pisano M3 <Kavin Aliya - Last Filed: 11/11/23 07:25> Physical Exam Vital Signs: Vital Signs: Last Vital Signs Temp 100.3 F 11/11/23 04:01 Pulse 102 H 11/11/23 06:17 Resp 20 11/11/23 03:11 BP 130/73 11/11/23 06:17 Pulse Ox 92 11/11/23 03:11 O2 Del Method Nasal Cannula 11/11/23 03:11 O2 Flow Rate 2 11/11/23 03:11 BMI result Body Mass Index 36.2 <Kavin Laiya - Last Filed: 11/11/23 07:25> Const: General: in distress, diaphoretic and ill appearing <Kavin Aliya - Last Filed: 11/11/23 07:25> Nutritional Appearance: obese <Kavin Aliya Last Filed: 11/11/23 07:25> Orientation/consciousness: patient oriented x3 <Kavin Aliya - Last Filed: 11/11/23 07:25> Resp: Effort & Inspection: not able to speak in complete sentences (due to pain) and labored (due to pain) <Kavin Aliya - Last Filed: 11/11/23 07:25> GI: Other: Umbilical dressing reinforced due to drainage. Now clean, dry, and intact. <Kavin Aliya Last Filed: 11/11/23 07:25> Other: Umbilical dressing reinforced due to drainage. Now clean, dry, and intact. Abdomen mildly distended. Incisional tenderness fascia of the umbilicus. No evidence of any acute abdomen, guarding, rebound, or rigidity. <Ran Buenrostro MD - Last Filed: 11/11/23 14:23> Palpation (GI): Soft to palpation, Tenderness to palpation present (GI) (localized around umbilicus), no guarding, not rigid and No Rebound tenderness present <Kavin Pisano - Last Filed: 11/11/23 07:25> Neuro: General: patient oriented x3 <Kavin Pisano - Last Filed: 11/11/23 07:25> Objective Data Active Medications Acetaminophen (Acetaminophen 325 Mg Tablet) 650 mg PO Q6H PRN PRN Reason: Pain, Mild (Pain Scale 1-3), fever or headache Last Admin: 11/11/23 03:08 Dose: 650 mg Documented By: RODRIGUE Hydrocodone Bitart/Acetaminophen (Hydrocodone Bit/Acetam 5/325 Tablet) 1 tab PO Q4H PRN PRN Reason: Pain, Moderate(Pain Scale 4-6) Last Admin: 11/11/23 06:46 Dose: 1 tab Documented By: ALETHEA Baclofen (Baclofen 20 Mg Tablet) 20 mg PO QID PRN PRN Reason: Muscle Spasm Stop: 11/17/23 18:23 Last Admin: 11/10/23 20:15 Dose: 20 mg Documented By: LUIS Calcium Carbonate (Calcium Carbonate 750 Mg Tab.Chew) 750 mg PO Q4H PRN PRN Reason: Heartburn Folic Acid (Folic Acid 1 Mg Tablet) 1 mg PO DAILY@1000 [facility] Glucose (Glucose Gel 15 Gm Gel..Gram.) 15 gm PO Q15M PRN; Protocol PRN Reason: per Hypoglycemia Standing Ord. Hydromorphone HCl (Hydromorphone Hcl 1 Mg/Ml Syringe) 1 mg IVPUSH Q3H PRN; Protocol PRN Reason: Pain, Severe (Pain Scale 7-10) Last Admin: 11/11/23 03:45 Dose: 1 mg Documented By: RODRIGUE Piperacillin Sod/Tazobactam (Sod 3.375 gm/ Sodium Chloride) 50 mls @ 100 mls/hr IV Q6H [facility] Last Infusion: 11/11/23 04:53 Dose: Infused Documented By: RODRIGUE Dextrose (D10) 250 mls @ 750 mls/hr IV Q15M PRN; Protocol PRN Reason: per Hypoglycemia Standing Ord. Insulin Human Lispro (Insulin Lispro 100 Unit/Ml 3 Ml Vial) 0 unit SUBCUT QIDACHS [facility]; Protocol Ketorolac Tromethamine (Ketorolac Tromethamine 30 Mg/Ml Vial) 30 mg IVPUSH Q6H PRN PRN Reason: Pain, Mild (Pain Scale 1-3) Stop: 11/15/23 14:29 Last Admin: 11/11/23 03:08 Dose: 30 mg Documented By: RODRIGUE Lamotrigine (Lamotrigine 100 Mg Tablet) 200 mg PO BID@1000,2200 [facility] Magnesium Hydroxide (Milk Of Magnesia 30 Ml Oral.Susp) 30 ml PO DAILY PRN PRN Reason: Constipation Melatonin (Melatonin 3 Mg Tablet) 6 mg PO BEDTIME PRN PRN Reason: Insomnia Ondansetron HCl (Ondansetron Hcl 4 Mg/2 Ml Vial) 4 mg IVPUSH Q8H PRN PRN Reason: Nausea and Vomiting Oxcarbazepine (Oxcarbazepine 300 Mg Tablet) 600 mg PO BID@1000,2200 [facility] Sodium Chloride (0.9 % Sodium Chloride Flush 3 Ml Syringe) 3 ml IVFLUSH QSHIFT [facility] Last Admin: 11/10/23 21:06 Dose: 3 ml Documented By: RODRIGUE <Kavin Pisano - Last Filed: 11/11/23 07:25> Labs CBC & Chem 7: 11/11/23 10:27 11/11/23 03:54 <Kavin Pisano - Last Filed: 11/11/23 07:25> Labs: Laboratory Results - last 24 hr 11/11/23 11/11/23 03:25 03:54 MCV 81.4 MCH 27.1 MCHC 33.3 RDW 13.2 Plt Count 334 MPV 9.3 L Immature Gran % (Auto) Cancelled Neut % (Auto) Cancelled Lymph % (Auto) Cancelled Meagher % (Auto) Cancelled Eos % (Auto) Cancelled Baso % (Auto) Cancelled Lymph # (Auto) Cancelled Meagher # (Auto) Cancelled Eos # (Auto) Cancelled Baso # (Auto) Cancelled Abs Immat Gran (auto) Cancelled Absolute Neuts (auto) Cancelled Absolute Nucleated RBC 0.000 Nucleated RBC % (auto) 0.0 Neutrophils % (Manual) 84 H Band Neutrophils % 12 H Lymphocytes % (Manual) 2 L Monocytes % (Manual) 2 Abs Neuts (Manual) 18.8 H Lymphocytes # (Manual) 0.4 L Monocytes # (Manual) 0.4 Toxic Vacuolation PRESENT Platelet Estimate NORMAL Plt Morphology Comment NORMAL RBC Morphology NORMAL Anion Gap 14 Estim Creat Clear Calc 148.8 Estimated GFR > 60 POC Glucose 190 H Random Glucose 181 H Lactic Acid 2.1 H* Calcium 9.1 D Total Bilirubin 1.7 H Direct Bilirubin 0.9 H AST 60 H ALT 86 H Alkaline Phosphatase 92 Troponin I High Sens < 2.7 Total Protein 7.2 Albumin 4.1 <Kavin Pisano - Last Filed: 11/11/23 07:25> Procedures Date of Service Date of Service: 11/11/23 <Kavin Pisano - Last Filed: 11/11/23 07:25> 11/11/23 <Ran Buenrostro MD - Last Filed: 11/11/23 14:23> Progress Note: A&P Assessment and plan (1) Empyema of gallbladder: Status: Acute <Kavin Pisano - Last Filed: 11/11/23 07:25> (2) Status post laparoscopic cholecystectomy: Status: Acute <Kavin Pisano - Last Filed: 11/11/23 07:25> Assessment and Plan: POD1 s/p lap [place]. Pt. in significant pain localized to umbilical region, diaphoretic, VS- temp to 100.[address] abdomen shows a dense collection in the umbilical region, likely hemorrhage, with subq emphysema. Free fluid in the abdomen and pelvis, likely due to spillage of bile and pus from the ruptured gallbladder. On exam, the abdomen is tender to palpation around the umbilicus, soft, not distended, and not excessively tympanic. Monitor closely for worsening symptoms and signs of sepsis; maintain current IV Zosyn and adjust based on cultures. Adjust analgesics as appropriate. Kavin Pisano M3 <Kavin Pisano - Last Filed: 11/11/23 07:25> POD1 s/p lap [place]. Pt. in significant pain localized to umbilical region, diaphoretic, VS- temp to 100.[address] abdomen shows a dense collection in the umbilical region, likely hemorrhage, with subq emphysema. Free fluid in the abdomen and pelvis, likely due to spillage of bile and pus from the ruptured gallbladder. On exam, the abdomen is tender to palpation around the umbilicus, soft, not distended, and not excessively tympanic. Monitor closely for worsening symptoms and signs of sepsis; maintain current IV Zosyn and adjust based on cultures. Adjust analgesics as appropriate. Tommydaysi Aliya M3 Mild elevation of bilirubin. White count H&H stable. Because of persistence of pain and tachycardia, we will order CT scan of abdomen to rule out any abdominal issues. <Ran Buenrostro MD - Last Filed: 11/11/23 14:23> Time Spent With Patient Time: Total time managing care of this patient today ____ minutes. <Kavin Pisano - Last Filed: 11/11/23 07:25> Quality Stroke Does the patient have a stroke diagnosis?: No <Ran Buenrostro MD - Last Filed: 11/11/23 14:23> VTE Prior VTE?: No <Ran Buenrostro MD - Last Filed: 11/11/23 14:23> VTE Risk Level:: Surgical - low <Kavin Pisano - Last Filed: 11/11/23 07:25> VTE Device Contraindication: N/A - Device Ordered <Kavin Pisano - Last Filed: 11/11/23 07:25> VTE Drug Contraindication: Treatment Not Indicated <Kavin Pisano - Last Filed: 11/11/23 07:25>
[2023-11-11 07:43] LABS: Glucose, Whole Blood 185 mg/dL (60-115)
[2023-11-11 08:04] LABS: ~Lactic Acid-LAB USE ONLY 1.8 mmol/L (0.5-2.0)
[2023-11-11] MEDS: Insulin Lispro 100 UNIT/ML 3 ML VIAL SUBCUT ×3 (09:04→23:09)
[2023-11-11] MEDS: 0.9 % Sodium Chloride Flush 3 ML SYRINGE IVFLUSH ×2 (09:04→22:54)
[2023-11-11] MEDS: lamoTRIgine 100 MG TABLET 200 MG PO ×2 (10:21→22:53)
[2023-11-11] MEDS: Folic Acid 1 MG TABLET PO (10:22)
[2023-11-11] MEDS: OXcarbazepine 300 MG TABLET 600 MG PO ×2 (10:22→22:53)
[2023-11-11] MEDS: Baclofen 20 MG TABLET PO (10:27)
[2023-11-11 10:39] LABS: Hematocrit 54.8 % (42.0-52.0); Hemoglobin 17.6 g/dl (14.0-18.0); Mean Corpuscular HGB Conc 32.1 g/dl (31.0-36.0); Mean Corpuscular Hemoglobin 26.8 pg (27.0-33.0); Mean Corpuscular Volume 83.4 fL (80.0-98.0); Mean Platelet Volume 9.3 fL (9.4-12.4); Platelet Count 345 X10*3/uL (160-400); Red Blood Count 6.57 X10*6/uL (4.60-5.80); Red Cell Distribution Width 13.6 % (11.0-16.0); White Blood Count 18.9 X10*3/uL (4.8-10.8)
[2023-11-11 11:28] LABS: Glucose, Whole Blood 176 mg/dL (60-115)
--- NOTE | 2023-11-11 13:28 | PC.NURSE ---
Pt more comfortable since pain management was adjusted. Has been afebrile all day doing oral temps. BP 140's systolic. Pt on telemetry. Has been S.T. in the 115-120 range which is known to physicians. Now HR is up to 130. Pt is sleeping. Dr. Gleason notified of increase in HR. No new orders at this time. Will continue to monitor for S/S of infection.
[2023-11-11] MEDS: Lactated Ringers 1,000 ML 100 ML IVCONT ×2 (14:13→21:30)
[2023-11-11] MEDS: iohexoL 350 MG/ML 100 ML INFUS..BTL 85 ML IV (15:14)
--- NOTE | 2023-11-11 16:29 | PM.EVENT ---
Event Note Date of Service: 11/11/23 Event Note: Called by RN since patient noted to be diaphoretic and tachycardic complaining of severe abdominal pain On examination Patient in acute distress due to pain Abdomen distended, tender to palpation Skin moist diaphoretic 48-year-old gentleman with past medical history of hypertension, epilepsy, obesity underwent elective laparoscopic cholecystectomy found to have gross purulence and gall bladder, since procedure noted to have significant abdominal pain, tachycardia and hypoxia diagnosed to have sepsis due to abdominal infection with leukocytosis /tachycardia. Increase dose of Dilaudid to 1 mg Q 2 hours, made patient NPO ,place on IV fluids ,DC Toradol Notified Dr. Buenrostro stat abdominal CT scan ordered Obtained ICU consultation. Time Spent With Patient Time: Total time managing care of this patient today ____ minutes.
[2023-11-11 16:30] LABS: Glucose, Whole Blood 187 mg/dL (60-115)
--- NOTE | 2023-11-11 16:46 | PM.EVENT ---
Event Note Date of Service: 11/11/23 Event Note: Patient has persistent periumbilical abdominal pain, tachycardia, and CT scan findings demonstrating what could be postoperative changes but did not conclusively rule out intra-abdominal pathology. Because of clinical scenario, current plan is to take patient to the OR for diagnostic laparoscopy to evaluate for an intra-abdominal source for the patient's clinical situation aside from his original empyema of the gallbladder. I attempted to call family members to keep them updated but no one answered and left message on the phone voicemail.. Risks, benefits, and alternatives of diagnostic laparoscopy with possible laparotomy reviewed with the patient and included but not limited to bleeding, infection, numbness, pain, scarring, bowel resection, ostomy/bag and the patient wishes to proceed. All questions answered. Consent signed. Patient is on add on operative schedule for today. Awaiting OR room availability Time Spent With Patient Time: Total time managing care of this patient today ____ minutes.
--- NOTE | 2023-11-11 18:04 | W.PM.OPN ---
Operative Note Operative Note Date of Service: 11/11/23 Narrative: Preoperative diagnosis: [] Status post laparoscopic cholecystectomy for empyema of gallbladder., marked abdominal pain,, distention, tachycardia, Postop diagnosis: [] Transmural mid small bowel defect Procedure [] diagnostic laparoscopy, abdominal cavity lavage, repaired transmural defect with resection and functional end-to-end anastomosis of small bowel Surgeon: [] Porter Plant General Manager: [] Gustavo Type of Anesthesia: [] General Indication for surgery: Patient is approximately 1.5 days status post laparoscopic cholecystectomy for empyema of the gallbladder. Patient has had marked abdominal pain, distention, tachycardia. CT scan was suggestive of greater than expected postoperative air in the abdominal cavity and fluid. Intraoperative findings demonstrated a single transmural defect of mid small bowel with a few 100 cc of succus entericus in the abdominal cavity. Surgical bed demonstrated clips intact with no evidence of any hepatobiliary pathology. Findings: Patient was brought to the operating room, placed on operative table in supine position, after an adequate level of general anesthesia was induced, the patient's abdomen which is markedly corpulent was prepped and draped in the usual sterile fashion. Using the incision from the prior Landry port site supraumbilically, CO2 insufflation 15 mm of CO2 was performed. Upper midline and right subcostal ports were placed through the prior laparoscopic incisions with findings as noted above. Abdominal cavity was very very copiously irrigated. Exploration of the surgical bed , as noted above, was intact. Cyst Duct and artery clips intact. Exploration of the small bowel demonstrated a mid small-bowel transmural defect which was responsible for the succus entericus leaking into the abdominal cavity. A small mid right abdominal access incision was made and the abdominal cavity entered in the usual fashion through layers, and the bowel defect was brought out through this and transected using PITA staplers at the desired locations. Mesentery was taken down between clamps, cut, and tied using 3-0 Vicryl ties. A functional end-to-end anastomosis using PITA and TA 60 staplers was then performed. Succus entericus traversed the anastomosis with no obvious leak. Crotch of the anastomosis was buttressed using seromuscular 3-0 silk sutures. Mesenteric defect was closed using interrupted 3-0 Vicryl sutures. The access incision was closed in the following manner ;posterior fascia and peritoneum were closed with running 0 Maxon suture. Anterior fascia was closed using running looped PDS suture. Next CO2 was once again reinsufflated and the abdominal cavity was again explored, And very copiously irrigated. Hemostasis was secured All ports removed under direct laparoscopic view. Umbilical port had its fascia reapproximated using an over and over 0 Vicryl suture. All skin were closed were closed using interrupted inverted dermal 3-0 Vicryl sutures followed by Steri-Strips and sterile dressings. All wounds were infiltrated with 0.5% Marcaine at completion. Sponge, needle, and instrument counts reported correct. Patient tolerated the procedure well and emerged from anesthesia stable condition. EBL minimal
--- NOTE | 2023-11-11 18:42 | HO.ANESPROP2 ---
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) Past Medical History Medical History (Updated 11/11/23 @ 14:23 by Ran Buenrostro MD) Seizure disorder High blood pressure Family History Family history of problems with anesthesia: No Surgical History Surgical History (Updated 11/11/23 @ 17:51 by Nikia Casillas RN) Hx laparoscopic cholecystectomy History of surgery on right wrist History of Problems with Anesthesia: No Social History Social History Do you presently have visiting nurse or other home services: No Comment: counts correct Patient Tobacco Use Status: Never used Tobacco Use of substances other than those prescribed or required for medical reasons: No Currently Displaying Signs/Symptoms of Drug Intoxication Withdrawal: No Have you been hit, kicked, punched, or otherwise hurt by someone within the past year? 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 Meds Allergies Allergy/AdvReac Type Severity Reaction Status Date / Time pseudoephedrine Allergy Intermediate Difficulty Verified 11/11/23 17:52 [From Sudafed] Breathing Active Medications: Current Medications Acetaminophen (Acetaminophen 325 Mg Tablet) 650 mg PO Q6H PRN PRN Reason: Pain, Mild (Pain Scale 1-3), fever or headache Last Admin: 11/11/23 15:29 Dose: 650 mg Hydrocodone Bitart/Acetaminophen (Hydrocodone Bit/Acetam 5/325 Tablet) 1 tab PO Q4H PRN PRN Reason: Pain, Moderate(Pain Scale 4-6) Last Admin: 11/11/23 12:29 Dose: 1 tab Calcium Carbonate (Calcium Carbonate 750 Mg Tab.Chew) 750 mg PO Q4H PRN PRN Reason: Heartburn Folic Acid (Folic Acid 1 Mg Tablet) 1 mg PO DAILY@1000 [facility] Last Admin: 11/11/23 10:22 Dose: 1 mg Glucose (Glucose Gel 15 Gm Gel..Gram.) 15 gm PO Q15M PRN; Protocol PRN Reason: per Hypoglycemia Standing Ord. Hydromorphone HCl (Hydromorphone Hcl 1 Mg/Ml Syringe) 1 mg IVPUSH Q2H PRN; Protocol PRN Reason: Pain, Severe (Pain Scale 7-10) Last Admin: 11/11/23 17:12 Dose: 1 mg Piperacillin Sod/Tazobactam (Sod 3.375 gm/ Sodium Chloride) 50 mls @ 100 mls/hr IV Q6H [facility] Last Infusion: 11/11/23 17:24 Dose: Infused Dextrose (D10) 250 mls @ 750 mls/hr IV Q15M PRN; Protocol PRN Reason: per Hypoglycemia Standing Ord. Lactated Ringer's (Lr) 1,000 mls @ 100 mls/hr IVCONT .Q10H [facility] Last Admin: 11/11/23 14:13 Dose: 100 mls/hr Insulin Human Lispro (Insulin Lispro 100 Unit/Ml 3 Ml Vial) 0 unit SUBCUT QIDACHS [facility]; Protocol Last Admin: 11/11/23 17:01 Dose: Not Given Lamotrigine (Lamotrigine 100 Mg Tablet) 200 mg PO BID@1000,2200 [facility] Last Admin: 11/11/23 10:21 Dose: 200 mg Magnesium Hydroxide (Milk Of Magnesia 30 Ml Oral.Susp) 30 ml PO DAILY PRN PRN Reason: Constipation Melatonin (Melatonin 3 Mg Tablet) 6 mg PO BEDTIME PRN PRN Reason: Insomnia Ondansetron HCl (Ondansetron Hcl 4 Mg/2 Ml Vial) 4 mg IVPUSH Q8H PRN PRN Reason: Nausea and Vomiting Oxcarbazepine (Oxcarbazepine 300 Mg Tablet) 600 mg PO BID@1000,2200 [facility] Last Admin: 11/11/23 10:22 Dose: 600 mg Sodium Chloride (0.9 % Sodium Chloride Flush 3 Ml Syringe) 3 ml IVFLUSH QSHIFT [facility] Last Admin: 11/11/23 16:50 Dose: Not Given Home Medications ?Medication ?Instructions ?Recorded ?Confirmed ?Last Taken ?Type lamotrigine 200 mg tablet 200 mg PO BID@1000,2200 11/20/21 11/10/23 Unknown History (Lamictal) lisinopril 5 mg tablet 5 mg PO DAILY@1000 11/20/21 11/10/23 Unknown History hydrochlorothiazide 25 mg tablet 25 mg PO DAILY@1000 12/23/21 11/10/23 Unknown History oxcarbazepine 600 mg tablet 1 tab PO BID@1000,2200 01/07/22 11/10/23 Unknown History baclofen 20 mg tablet 20 mg PO QID PRN back spasms 11/10/23 11/10/23 Unknown History famotidine 20 mg tablet 20 mg PO BID PRN Abdominal 11/10/23 11/10/23 Unknown History Discomfort folic acid 1 mg tablet 1 mg PO DAILY@1000 11/10/23 11/10/23 Unknown History ibuprofen 400 mg tablet 400 - 800 mg PO Q8H Pain 11/10/23 11/10/23 Unknown History metformin 500 mg tablet 500 mg PO BID@1000,2200 11/10/23 11/10/23 Unknown History Exam Height,Weight and Vital Signs: Height 5 ft 11 in Weight 117.89 kg Last Vital Signs Temp 100.0 F 11/11/23 17:55 Pulse 132 H 11/11/23 17:55 Resp 20 11/11/23 17:55 BP 134/92 H 11/11/23 17:55 Pulse Ox 95 11/11/23 17:55 O2 Del Method Nasal Cannula 11/11/23 17:55 O2 Flow Rate 2 11/11/23 17:55 Oxygen Flow Rate 2 11/11/23 14:10 Pertinent Lab Results Pertinent Lab Results: Laboratory Tests 11/11/23 11/11/23 11/11/23 03:25 03:54 07:37 WBC 19.6 H RBC 6.24 H Hgb 16.9 Hct 50.8 MCV 81.4 MCH 27.1 MCHC 33.3 RDW 13.2 Plt Count 334 MPV 9.3 L Immature Gran % (Auto) Cancelled Neut % (Auto) Cancelled Lymph % (Auto) Cancelled [place] % (Auto) Cancelled Eos % (Auto) Cancelled Baso % (Auto) Cancelled Lymph # (Auto) Cancelled [place] # (Auto) Cancelled Eos # (Auto) Cancelled Baso # (Auto) Cancelled Abs Immat Gran (auto) Cancelled Absolute Neuts (auto) Cancelled Absolute Nucleated RBC 0.000 Nucleated RBC % (auto) 0.0 Neutrophils % (Manual) 84 H Band Neutrophils % 12 H Lymphocytes % (Manual) 2 L Monocytes % (Manual) 2 Abs Neuts (Manual) 18.8 H Lymphocytes # (Manual) 0.4 L Monocytes # (Manual) 0.4 Toxic Vacuolation PRESENT Platelet Estimate NORMAL Plt Morphology Comment NORMAL RBC Morphology NORMAL Sodium 135 Potassium 4.3 Chloride 103 Carbon Dioxide 22 Anion Gap 14 BUN 19 H Creatinine 0.81 Estim Creat Clear Calc 148.8 Estimated GFR > 60 POC Glucose 190 H 185 H Random Glucose 181 H Lactic Acid 2.1 H* Lactic Acid F/U @ 2Hr 1.8 Calcium 9.1 D Total Bilirubin 1.7 H Direct Bilirubin 0.9 H AST 60 H ALT 86 H Alkaline Phosphatase 92 Troponin I High Sens < 2.7 Total Protein 7.2 Albumin 4.1 11/11/23 11/11/23 11/11/23 10:27 11:24 16:26 WBC 18.9 H RBC 6.57 H Hgb 17.6 Hct 54.8 H MCV 83.4 MCH 26.8 L MCHC 32.1 RDW 13.6 Plt Count 345 MPV 9.3 L Immature Gran % (Auto) Neut % (Auto) Lymph % (Auto) [place] % (Auto) Eos % (Auto) Baso % (Auto) Lymph # (Auto) [place] # (Auto) Eos # (Auto) Baso # (Auto) Abs Immat Gran (auto) Absolute Neuts (auto) Absolute Nucleated RBC 0.000 Nucleated RBC % (auto) 0.0 Neutrophils % (Manual) Band Neutrophils % Lymphocytes % (Manual) Monocytes % (Manual) Abs Neuts (Manual) Lymphocytes # (Manual) Monocytes # (Manual) Toxic Vacuolation Platelet Estimate Plt Morphology Comment RBC Morphology Sodium Potassium Chloride Carbon Dioxide Anion Gap BUN Creatinine Estim Creat Clear Calc Estimated GFR POC Glucose 176 H 187 H Random Glucose Lactic Acid Lactic Acid F/U @ 2Hr Calcium Total Bilirubin Direct Bilirubin AST ALT Alkaline Phosphatase Troponin I High Sens Total Protein Albumin Airway Mallampati Class: III TM Dist: >3cm Neck ROM: Full Assessment and Plan Assessment Anesthesia Assessment: Anesthesia Plan Discussed and Chart Reviewed Final Anesthetic Review Family History of Problems with Anesthesia: No History of Problems with Anesthesia: No NPO: Yes ASA Class: III and Emergency Final Preanesthetic Review: No Changes in Pt Med Stat, Meds/Allgs Chart Reviewed, Consent Obtained/Reviewed and Anes Risks/Benef Reviewed Patient Risk: Intermediate Procedure Risk: Intermediate Anesthetic Plan Anesthetic Plan: GA Disposition: Standard PACU
--- NOTE | 2023-11-11 19:15 | PC.NURSE ---
Consent for surgical procedure includes possibility of open procedure, order in computer reads laproscopic; surgeon notified and writtent order obtained and noted by RN
[2023-11-11 22:34] LABS: Glucose, Whole Blood 187 mg/dL (60-115)
[2023-11-12] VITALS (8 sets, daily range): BP systolic 106–138; BP diastolic 65–80; PULSE 118–131; RESP 18–20; TEMP 36.1–36.6; O2SAT 93–97
--- NOTE | 2023-11-12 03:45 | PM.EVENT ---
Event Note Date of Service: 11/12/23 Event Note: Patient with bradycardia and sinus pause more than 3s. Obtaining 12 lead EKG and consulting Cardiology Time Spent With Patient Time: Total time managing care of this patient today ____ minutes.
[2023-11-12] MEDS: Piperacillin Sodium/Tazobactam 3.375 GM in 0.9 % Sodium Chloride 50 ML IV ×4 (04:35→22:07)
[2023-11-12] MEDS: Lactated Ringers 1,000 ML 100 ML IVCONT ×3 (04:35→19:34)
[2023-11-12] MEDS: HYDROmorphone HCl 1 MG/ML SYRINGE IVPUSH ×6 (04:50→22:24)
[2023-11-12 07:45] LABS: Glucose, Whole Blood 151 mg/dL (60-115)
[2023-11-12] MEDS: lamoTRIgine 100 MG TABLET 200 MG PO ×2 (08:34→22:08)
[2023-11-12] MEDS: Folic Acid 1 MG TABLET PO (08:34)
[2023-11-12] MEDS: OXcarbazepine 300 MG TABLET 600 MG PO ×2 (08:34→22:08)
--- NOTE | 2023-11-12 09:27 | P.PNIM_ITS ---
Subjective Subjective Date of Service: 11/12/23 Interval History: f/u up on post op SIRS, s/p 2 laparoscopic cholecystectomy for empyema of the gallbladder on 11/09, returned to OR next day d/t severe pain tachycard and free air on CT Physical Exam 2 Vital Signs: Vital Signs: Last Vital Signs Temp 96.9 F 11/12/23 07:04 Pulse 118 H 11/12/23 07:04 Resp 20 11/12/23 07:04 BP 122/67 11/12/23 07:04 Pulse Ox 97 11/12/23 07:04 O2 Del Method Nasal Cannula 11/12/23 07:04 O2 Flow Rate 3 11/12/23 07:04 Oxygen Flow Rate 2 11/11/23 22:30 BMI result Body Mass Index 36.2 General: AO X 3, no acute distress Resp: CTA bilateral CVS: S1,S2,RRR GI: +BS, very tender but no distention, soft Skin: No rash Neuro: motor grossly intact Psych: appropriate affect Objective Data Active Medications Acetaminophen (Acetaminophen 325 Mg Tablet) 650 mg PO Q6H PRN PRN Reason: Pain, Mild (Pain Scale 1-3), fever or headache Last Admin: 11/11/23 15:29 Dose: 650 mg Documented By: OSKAR Hydrocodone Bitart/Acetaminophen (Hydrocodone Bit/Acetam 5/325 Tablet) 1 tab PO Q4H PRN PRN Reason: Pain, Moderate(Pain Scale 4-6) Last Admin: 11/11/23 12:29 Dose: 1 tab Documented By: ALETHEA Calcium Carbonate (Calcium Carbonate 750 Mg Tab.Chew) 750 mg PO Q4H PRN PRN Reason: Heartburn Folic Acid (Folic Acid 1 Mg Tablet) 1 mg PO DAILY@1000 [facility] Last Admin: 11/12/23 08:34 Dose: 1 mg Documented By: STEVE Glucose (Glucose Gel 15 Gm Gel..Gram.) 15 gm PO Q15M PRN; Protocol PRN Reason: per Hypoglycemia Standing Ord. Hydromorphone HCl (Hydromorphone Hcl 1 Mg/Ml Syringe) 1 mg IVPUSH Q2H PRN; Protocol PRN Reason: Pain, Severe (Pain Scale 7-10) Last Admin: 11/12/23 08:34 Dose: 1 mg Documented By: STEVE Piperacillin Sod/Tazobactam (Sod 3.375 gm/ Sodium Chloride) 50 mls @ 100 mls/hr IV Q6H [facility] Last Infusion: 11/12/23 05:05 Dose: Infused Documented By: MARTINEZ Dextrose (D10) 250 mls @ 750 mls/hr IV Q15M PRN; Protocol PRN Reason: per Hypoglycemia Standing Ord. Lactated Ringer's (Lr) 1,000 mls @ 100 mls/hr IVCONT .Q10H [facility] Last Admin: 11/12/23 04:35 Dose: 100 mls/hr Documented By: MARTINEZ Insulin Human Lispro (Insulin Lispro 100 Unit/Ml 3 Ml Vial) 0 unit SUBCUT QIDACHS [facility]; Protocol Last Admin: 11/12/23 08:18 Dose: Not Given Documented By: STEVE Non-Admin Reason: NPO Lamotrigine (Lamotrigine 100 Mg Tablet) 200 mg PO BID@1000,2200 [facility] Last Admin: 11/12/23 08:34 Dose: 200 mg Documented By: STEVE Magnesium Hydroxide (Milk Of Magnesia 30 Ml Oral.Susp) 30 ml PO DAILY PRN PRN Reason: Constipation Melatonin (Melatonin 3 Mg Tablet) 6 mg PO BEDTIME PRN PRN Reason: Insomnia Ondansetron HCl (Ondansetron Hcl 4 Mg/2 Ml Vial) 4 mg IVPUSH Q8H PRN PRN Reason: Nausea and Vomiting Oxcarbazepine (Oxcarbazepine 300 Mg Tablet) 600 mg PO BID@1000,2200 [facility] Last Admin: 11/12/23 08:34 Dose: 600 mg Documented By: STEVE Sodium Chloride (0.9 % Sodium Chloride Flush 3 Ml Syringe) 3 ml IVFLUSH QSHIFT [facility] Last Admin: 11/12/23 07:58 Dose: Not Given Documented By: STEVE Non-Admin Reason: IV Running Labs 11/11/23 10:27 11/11/23 03:54 Labs: Laboratory Results - last 24 hr 11/11/23 11/11/23 11/11/23 10:27 11:24 16:26 MCV 83.4 MCH 26.8 L MCHC 32.1 RDW 13.6 Plt Count 345 MPV 9.3 L Absolute Nucleated RBC 0.000 Nucleated RBC % (auto) 0.0 Hold Purple Top POC Glucose 176 H 187 H 11/11/23 11/12/23 11/12/23 22:29 06:09 07:28 MCV MCH MCHC RDW Plt Count MPV Absolute Nucleated RBC Nucleated RBC % (auto) Hold Purple Top SEE NOTE POC Glucose 187 H 151 H Microbiology Microbiology Results: Microbiology 11/11/23 03:54 Blood Culture - Preliminary Blood - Venous No growth after 24 hours. 11/11/23 03:54 Blood Culture - Preliminary Blood - Venous No growth after 24 hours. Assessment and Plan (1) Status post laparoscopic cholecystectomy: Status: Acute (2) Empyema of gallbladder: Status: Acute Plan 48M PMH DM, htn, epilepsy, obesity, admitte post laparoscopic cholecystectomy for empyema of the gallbladder on 11/09, abd pain,retuned to the OR 11/10 d/t tachyc, excruciating pain and free air on CT, had a defect in small domingo .. overall better today SIRS, post laparoscopic cholecystectomy for empyema of the gallbladder, returned to OR d/t small bowel defect -persistent tachy but beter -Empiric Zosyn for now -follow cultures -pain control -post op care per surgery -DVT prophylaxis with heparin or Lovenox if not contraindication -check WBC dm insulin sliding scale resume metformin when fully eating epilepsy oxcarbazine, lamictal obesity weight loss advised through exercise and caloric restriction htn will hold meds for now, BPs borderline dvt prophyalxis - mechanical due to bleeding from surgical site and to be reassess by surgery for heparin or lovenox full code will continue to follow Quality Stroke Does the patient have a stroke diagnosis?: No VTE Prior VTE?: No VTE Risk Level:: Surgical - low VTE Device Contraindication: N/A - Device Ordered VTE Drug Contraindication: Treatment Not Indicated
--- NOTE | 2023-11-12 10:06 | P.PNGS_ITS ---
Subjective Subjective Date of Service: 11/12/23 Interval history: Complains of incisional pain but much improved compared to yesterday No events overnight Denies flatus Physical Exam 2 Vital Signs: Vital Signs: Last Vital Signs Temp 96.9 F 11/12/23 07:04 Pulse 118 H 11/12/23 07:04 Resp 20 11/12/23 07:04 BP 122/67 11/12/23 07:04 Pulse Ox 97 11/12/23 07:04 O2 Del Method Nasal Cannula 11/12/23 07:04 O2 Flow Rate 3 11/12/23 07:04 Oxygen Flow Rate 2 11/11/23 22:30 BMI result Body Mass Index 36.2 Const: Other: Complains of incisional pain General: no acute distress Resp: Effort & Inspection: normal respiratory effort Cardio: Rate: tachycardic GI: Other: Dressings dry, tender along incisions Palpation (GI): not firm Objective Data Active Medications Acetaminophen (Acetaminophen 325 Mg Tablet) 650 mg PO Q6H PRN PRN Reason: Pain, Mild (Pain Scale 1-3), fever or headache Last Admin: 11/11/23 15:29 Dose: 650 mg Documented By: OSKAR Hydrocodone Bitart/Acetaminophen (Hydrocodone Bit/Acetam 5/325 Tablet) 1 tab PO Q4H PRN PRN Reason: Pain, Moderate(Pain Scale 4-6) Last Admin: 11/11/23 12:29 Dose: 1 tab Documented By: ALETHEA Calcium Carbonate (Calcium Carbonate 750 Mg Tab.Chew) 750 mg PO Q4H PRN PRN Reason: Heartburn Folic Acid (Folic Acid 1 Mg Tablet) 1 mg PO DAILY@1000 [facility] Last Admin: 11/12/23 08:34 Dose: 1 mg Documented By: STEVE Glucose (Glucose Gel 15 Gm Gel..Gram.) 15 gm PO Q15M PRN; Protocol PRN Reason: per Hypoglycemia Standing Ord. Hydromorphone HCl (Hydromorphone Hcl 1 Mg/Ml Syringe) 1 mg IVPUSH Q2H PRN; Protocol PRN Reason: Pain, Severe (Pain Scale 7-10) Last Admin: 11/12/23 08:34 Dose: 1 mg Documented By: STEVE Piperacillin Sod/Tazobactam (Sod 3.375 gm/ Sodium Chloride) 50 mls @ 100 mls/hr IV Q6H COUNTS INCLUDE 234 BEDS AT THE [facility] Last Infusion: 11/12/23 05:05 Dose: Infused Documented By: MARTINEZ Dextrose (D10) 250 mls @ 750 mls/hr IV Q15M PRN; Protocol PRN Reason: per Hypoglycemia Standing Ord. Lactated Ringer's (Lr) 1,000 mls @ 100 mls/hr IVCONT .Q10H [facility]S INCLUDE 234 BEDS AT THE [facility] Last Admin: 11/12/23 04:35 Dose: 100 mls/hr Documented By: MARTINEZ Insulin Human Lispro (Insulin Lispro 100 Unit/Ml 3 Ml Vial) 0 unit SUBCUT QIDACHS [facility]S INCLUDE 234 BEDS AT THE [facility]; Protocol Last Admin: 11/12/23 08:18 Dose: Not Given Documented By: STEVE Non-Admin Reason: NPO Lamotrigine (Lamotrigine 100 Mg Tablet) 200 mg PO BID@1000,2200 COUNTS INCLUDE 234 BEDS AT [facility] Last Admin: 11/12/23 08:34 Dose: 200 mg Documented By: STEVE Magnesium Hydroxide (Milk Of Magnesia 30 Ml Oral.Susp) 30 ml PO DAILY PRN PRN Reason: Constipation Melatonin (Melatonin 3 Mg Tablet) 6 mg PO BEDTIME PRN PRN Reason: Insomnia Ondansetron HCl (Ondansetron Hcl 4 Mg/2 Ml Vial) 4 mg IVPUSH Q8H PRN PRN Reason: Nausea and Vomiting Oxcarbazepine (Oxcarbazepine 300 Mg Tablet) 600 mg PO BID@1000,2200 COUNTS INCLUDE 234 BEDS AT THE [facility] Last Admin: 11/12/23 08:34 Dose: 600 mg Documented By: STEVE Sodium Chloride (0.9 % Sodium Chloride Flush 3 Ml Syringe) 3 ml IVFLUSH QSHIFT COUNTS INCLUDE 234 BEDS AT THE [facility] Last Admin: 11/12/23 07:58 Dose: Not Given Documented By: STEVE Non-Admin Reason: IV Running Labs 11/11/23 10:27 11/11/23 03:54 Labs: Laboratory Results - last 24 hr 11/11/23 11/11/23 11/11/23 10:27 11:24 16:26 MCV 83.4 MCH 26.8 L MCHC 32.1 RDW 13.6 Plt Count 345 MPV 9.3 L Absolute Nucleated RBC 0.000 Nucleated RBC % (auto) 0.0 Hold Purple Top POC Glucose 176 H 187 H 11/11/23 11/12/23 11/12/23 22:29 06:09 07:28 MCV MCH MCHC RDW Plt Count MPV Absolute Nucleated RBC Nucleated RBC % (auto) Hold Purple Top SEE NOTE POC Glucose 187 H 151 H Microbiology Microbiology Results: Microbiology 11/11/23 03:54 Blood Culture - Preliminary Blood - Venous No growth after 24 hours. 11/11/23 03:54 Blood Culture - Preliminary Blood - Venous No growth after 24 hours. Procedures Date of Service Date of Service: 11/12/23 Progress Note: A&P Assessment and plan (1) Status post small bowel resection: Status: Acute Assessment and Plan: Status post small bowel resection for transmural defect Has pain but much improved compared to yesterday Keep on clear liquids Pain management Patient voiding freely IV fluids Encouraged to sit up by the edge of the bed Instructed on incentive spirometry Time Spent With Patient Time: Total time managing care of this patient today ____ minutes. Quality Stroke Does the patient have a stroke diagnosis?: No VTE Prior VTE?: No VTE Risk Level:: Surgical - low VTE Device Contraindication: N/A - Device Ordered VTE Drug Contraindication: Treatment Not Indicated
[2023-11-12 11:42] LABS: Hematocrit 49.8 % (42.0-52.0); Hemoglobin 16.3 g/dl (14.0-18.0); Mean Corpuscular HGB Conc 32.7 g/dl (31.0-36.0); Mean Corpuscular Hemoglobin 27.3 pg (27.0-33.0); Mean Corpuscular Volume 83.4 fL (80.0-98.0); Mean Platelet Volume 9.7 fL (9.4-12.4); Platelet Count 317 X10*3/uL (160-400); Red Blood Count 5.97 X10*6/uL (4.60-5.80); White Blood Count 19.4 X10*3/uL (4.8-10.8)
[2023-11-12 11:45] LABS: Glucose, Whole Blood 159 mg/dL (60-115)
[2023-11-12 12:10] LABS: Alanine Aminotransferase 65 U/L (0-40); Albumin Level 3.2 g/dL (3.5-5.0); Alkaline Phosphatase 73 U/L (39-117); Anion Gap 13 (12-20); Aspartate Amino Transferase 29 U/L (5-37); Bilirubin Total 1.4 mg/dL (0.0-1.0); Blood Urea Nitrogen 28 mg/dL (9-16); Calcium 8.8 mg/dL (8.4-10.2); Carbon Dioxide 24 mmol/L (22-29); Chloride 106 mmol/L (96-108); Creatinine Clr Calc Pharmacy 152.5; Estimated Glomerular Filt Rate > 60; Glucose Random 171 mg/dL (60-115); Potassium 4.1 mmol/L (3.3-5.1); Sodium 139 mmol/L (135-145); Total Protein 6.4 g/dL (6.5-8.0)
[2023-11-12] MEDS: Insulin Lispro 100 UNIT/ML 3 ML VIAL SUBCUT ×3 (12:40→20:22)
--- NOTE | 2023-11-12 14:55 | HO.POSTANES ---
Post Anesthesia Evaluation Post Anesthesia Evaluation Date of Service: 11/12/23 Vital Signs: Vital Signs Temp Pulse Resp BP Pulse Ox O2 Del Method O2 Flow Rate 11/12/23 11:03 97.8 F 120 H 20 138/79 96 Nasal Cannula 3 11/12/23 11:00 93 Room Air 11/12/23 07:04 96.9 F 118 H 20 122/67 97 Nasal Cannula 3 11/12/23 04:00 97.4 F 122 H 18 125/65 96 Nasal Cannula 3 Anesthesia: General Endotracheal-GETA Mental Status: Awake Pain Control: Satisfactory Nausea/Vomiting: None Hydration: Adequate Anesthesia-Related Issues: No Anes. Related Issues
--- OUTSIDE RECORDS SUMMARY | 2023-11-12 15:06 | XMS_ITS | Continuity of Care Document ---
Author Organization [facility] Address [address] [place] [phone]- Care Team Providers Care Coil Inspector Name Role Phone Maria Elena Wells MD Primary Care Physician Encounter [facility] [place] Date(s): 01/20/21 - 02/19/21 [facility] [address] [place] [id number]- Allergies, Adverse Reactions, Alerts Substance Reaction Severity Status Actifed unknown Active Sudafed unknown Active Medications Baclofen = 20 mg, By Mouth, PRN Pain , Severe, 0 Refills, Maintenance, 04/07/20 12:17:00 EST, Partial fill upon patient request if the prescription is for a schedule II opioid drug. Start Date: 04/07/20 Status: Ordered Compression Stockings See Instructions, # 2 each, Refills 2, Tot. Refills 2, Maintenance, surgical, calf length 20-30 mm Hg Dx: venous insufficiency, 05/07/20 11:51:00 EST, Compound Start Date: 05/07/20 Status: Ordered Hydrochlorothiazide = 25 mg, By Mouth, Daily, 0 Refills, Maintenance Start Date: 07/03/12 Status: Ordered Lamictal 200 mg oral tablet 1 tablet = 200 mg, By Mouth, 2 times a day, # 180 tablet, 0 Refills, Maintenance, Tablet Start Date: 07/03/12 Status: Ordered lisinopril 5 mg oral tablet 5 mg, 1, tablet, By Mouth, Daily, # 30 tablet, Refills 0, Maintenance, 11/19/15 15:15:46 Start Date: 11/19/15 Status: Ordered Motrin Tablet 400 mg, PRN, Refills 0, Maintenance, Other, 04/27/17 9:13:40 EST Start Date: 04/27/17 Status: Ordered OXcarbazepine 600 mg oral tablet 1 tablet = 600 mg, By Mouth, 2 times a day, 0 Refills, Maintenance, 05/10/16 10:43:29 Start Date: 05/10/16 Status: Ordered Vitamin D2 50,000 iu, By Mouth, Every 7 days, takes on mondays, 0 Refills, Maintenance, 04/07/20 12:16:00 EST,Partial fill upon patient request if the prescription is for a schedule II opioid drug. Start Date: 04/07/20 Status: Ordered Problem List Condition Effective Dates Status Health Status Inform ant Varicose veins(Confirmed) Active Social History Social History Type Response Smoking Status Former smoker; Tobac co user in household: No entered on: 08/31/17 Sex
--- OUTSIDE RECORDS SUMMARY | 2023-11-12 15:06 | XMS_ITS | Continuity of Care Document ---
Author Organization [facility] Address [address] [place] [phone]- Care Team Providers Care Logistics Account Manager Name Role Phone Maria Elena Wells MD Primary Care Physician Encounter [facility] [place] Date(s): 01/21/21 - 01/28/21 [facility] [address] [place] [id number] Attending Physician: Mary Minor MD Admitting Physician: Mily KEE, Mary Cronin Referring Physician: Maria Elena Wells MD Allergies, Adverse Reactions, Alerts Substance Reaction Severity [...] Health Status Inform ant Varicose veins(Confirmed) Active Vital Signs Most recent to oldest [Reference Range]: 1 Height 180.34 cm (01/21/21 2:28 PM) Weight 118 kg (01/21/21 2:28 PM) Oxygen Saturation [94-100 %] 97 % (01/21/21 2:28 PM) Pulse Rate [55-90 bpm] 89 bpm (01/21/21 2:28 PM) Body Mass Index [18.5-24.99] 36.28 *>HHI* (01/21/21 2:28 PM) Blood Pressure [90-138/55-84 mm Hg] 130/ 90mm Hg (01/21/21 2:28 PM) Blood pressure sites Arm, left (01/21/21 2:28 PM) Weight Obtained Via Patient/family state d (01/21/21 2:28 PM) Social History Social History Type Response Smoking Status Former smoker; Tobac co user in household: No entered on: 08/31/17 Sex
--- OUTSIDE RECORDS SUMMARY | 2023-11-12 15:06 | XMS_ITS | Continuity of Care Document ---
Author Organization [facility] Address [address] [place] [phone]- Care Team Providers Care Engine Lathe Set Up Operator Tool Name Role Phone Not on Staff, PCP Primary Care Physician Unavail able Encounter [facility] [place] Date(s): 10/13/22 - 10/20/22 [facility] [address] [place] [address]- Encounter Diagnosis Symptomatic varicose veins of both lower extremities(Discharge Diagnosis) - 10/13/22 Attending Physician: Mary Minor MD Admitting Physician: Mary Minor MD Referring Physician: Not on Staff, Referring MD Allergies, Adverse Reactions, Alerts Substance Reaction [...] EST, Compound Start Date: 05/07/20 Status: Ordered Compression Stockings See Instructions, # 2 each, Refills 2, Tot. Refills 2, Maintenance, surgical, calf length 20-30 mm Hg Dx: venous insufficiency, 07/14/22 12:41:00 EDT, Compound Start Date: 07/14/22 Status: Ordered Hydrochlorothiazide = 25 mg, By [...] 05/10/16 10:43:29 Start Date: 05/10/16 Status: Ordered Problem List Condition Confirmation Course Effective Dates Status Health St atus Informant Obese class II Confirmed Active Varicose veins Confirmed Active Diagnosis Diagnosis Type Effective Dates Health Status Clinical Service Informant Symptomatic varicose veins of both lower extremities Discharge Diagnosis 10/13/22 Vital Signs Most recent to oldest [Reference Range]: 1 Height 180.34 cm (10/13/22 11:36 AM) Weight 118.18 kg (10/13/22 11:36 AM) Oxygen Saturation [94-100 %] 98 % (10/13/22 11:36 AM) Pulse Rate [55-90 bpm] 91 bpm *H* (10/13/22 11:36 AM) Body Mass Index [18.5-24.99 kg/m2] 36.34 kg/m2 *>HHI* (10/13/22 11:36 AM) Blood Pressure [90-138/55-84 mm Hg] 122/ 78mm Hg (10/13/22 11:36 AM) Mode of Delivery (Oxygen) Room air (10/13/22 11:36 AM) Blood pressure sites Arm, left (10/13/22 11:36 AM) Weight Obtained Via Patient/family state d (10/13/22 11:36 AM) Social History Social History Type Response Smoking Status Never (less than 100 in lifetime) entered on: 10/13/22 Sex Note * Elizabeth Amaya: PERFORM, SIGN, VERIFY Event Display: Patient Education/Instruction Authored Date: [id number] [facility] *S [id number] Clinical Summary Name BING LOZA Age 47 Years 1975 PCP Not on Staff, PCP PCP Phone Visit Date 10/13/2022 11:13:00 Additional Instructions: Scheduled Appointments?? Future Appointments ?No Future Appointments Scheduled Follow-Up Instructions ?? With: Address: When: Mily KEE, Mary Cronin [address] [facility] [address] [facility] [place] [address] In 3 months Comments: with ultrasound Diagnosis Symptomatic varicose veins of both lower extremities Medications: Please continue your medications until treatment is completed or stopped by your provider. Discuss any questions related to medications with your provider. Medications to Continue with No Changes These medications were not printed or sent to your pharmacy Baclofen 20 Milligram Oral as needed Pain , Severe. Next Dose: Durable Medical Equipment (Compression Stockings) surgical, calf length 20-30 mm Hg Dx: venous insufficiency. Refills: 2. Next Dose: Durable Medical Equipment (Compression Stockings) surgical, calf length 20-30 mm Hg Dx: venous insufficiency. Refills: 2. Next Dose: Hydrochlorothiazide 25 Milligram Oral Daily. Next Dose: Ibuprofen (Motrin Tablet) 400 Milligram as needed Other. Next Dose: Lamotrigine (Lamictal 200 mg oral tablet) 1 tab(s) Oral twice a day. Next Dose: Lisinopril (lisinopril 5 mg oral tablet) 1 tab(s) Oral Daily. Next Dose: Oxcarbazepine (OXcarbazepine 600 mg oral tablet) 1 tab(s) Oral twice a day. Next Dose: Allergy Info:?? Sudafed; Actifed Medications Given This Visit Future Orders ?VL Venous Dup Scan Venous Insuf LE Bilat? Order Date:10/13/22?- Complete within?3 months Vital Signs Height 180.34 cm Weight 118.18 kg BMI 36.34 kg/m2 Blood Pressure 122 mm Hg/78 mm Hg Temperature Pulse Rate 91 bpm Respiratory Rate 02 Sat Mode of Delivery 98 %/Room air You can now view a summary of your hospital visit from the comfort of your home through a free online portal called [employer]. Tiger[employer] is a website that allows you to securely view your medical information including discharge summary, medications and follow-up visits. ??You can alsosend a secure electronic message to your doctor???s office to request appointments, renew medications or just ask a question. You can enroll at [email or web address] or register during your next office visit. Disclaimer:?? The information provided is of a general nature and is intended to be used in conjunction with the recommendations and advice of your health care practitioner. ??Every effort has been made to ensure that the information provided is accurate and complete at the time it is provided to you however, as your needs change, or, as new ??information becomes available, different or additional instructions may be required. If you have questions, please consult with your primary care provider or pharmacist, as appropriate. ??This information is not intended to serve as substitution for assessment and evaluation by a qualified health care provider. If you do not have a primary care provider, you may find a [facility] provider by calling [facility] at [phone]. For information about the plan of care including goals and instructions for your diagnosis, please see the patient education orders section of this document. Patient Education Materials?? The content of this educational material or handout may have been modified, supplemented, or adapted from its original content and format to support your individualized medical care. Patient Care team information Care Team Personnel Name: Not on Staff, PCP Position: [facility] Physician (General Medicine) Member Role: PCP Care Team Related Persons Name: AMENA DRAKE Address: [address] [place] [address] Name: JACKIE NICKERSON Address: [address] [place] [address]
--- OUTSIDE RECORDS SUMMARY | 2023-11-12 15:06 | XMS_ITS | Continuity of Care Document ---
Author Organization [facility] Address [address] [place] [address]- Care Team Providers Care Interior Wall Assembler Name Role Phone Charles Wilson NP Primary Care Physician [place] [facility] [place] 05/14/20 [facility] [address] [place] [address] Attending Physician: Divina Watkins NP Admitting Physician: Divina Watkins NP Referring Physician: Charles Wilson NP Allergies, Adverse Reactions, Alerts Substance Reaction Severity [...] oldest [Reference Range]: 1 Height 180.34 cm (05/07/20 11:06 AM) Weight 118 kg (05/07/20 11:06 AM) Oxygen Saturation [94-100 %] 98 % (05/07/20 11:06 AM) Pulse Rate [55-90 bpm] 91 bpm *H* (05/07/20 11:06 AM) Body Mass Index [18.5-24.99] 36.28 *>HHI* (05/07/20 11:06 AM) Blood Pressure [90-138/55-84 mm Hg] 130/ 90mm Hg (05/07/20 11:06 AM) Blood pressure sites Arm, left (05/07/20 11:06 AM) Weight Obtained Via Patient/family state d (05/07/20 11:06 AM) Social History Social History Type Response Smoking Status Former smoker; Tobac co user in household: No entered on: 08/31/17 Sex
--- OUTSIDE RECORDS SUMMARY | 2023-11-12 15:06 | XMS_ITS | Continuity of Care Document ---
Author Organization [facility] Address [address] [place] [address]- Care Team Providers Care Insect Control Inspector Name Role Phone Maria Elena Wells MD Primary Care Physician [place] [facility] [place]20 [place] 07/16/20 [facility] [address] [place], [place] [address] Attending Physician: Sarah Sim Admitting Physician: AdmtrSarah Referring Physician: Admtr, Ar8 Allergies, Adverse Reactions, Alerts Substance Reaction Severity [...]
--- OUTSIDE RECORDS SUMMARY | 2023-11-12 15:06 | XMS_ITS | Continuity of Care Document ---
Author Organization [facility] Address [address] [place] [address]- Care Team Providers Care Procurement Intern Name Role Phone Not on Staff, PCP Primary Care Physician Unavail able [place] [facility] [place]22 - 07/07/22 [facility] [address] [place] [address]- Attending Physician: Mily KEE, Mary Cronin Admitting Physician: Mily KEE, Mary Cronin Allergies, Adverse Reactions, Alerts Substance Reaction Severity [...] II Confirmed Active Varicose veins Confirmed Active Vital Signs Most recent to oldest [Reference Range]: 1 Height 180.34 cm (06/30/22 3:52 PM) Weight 118.82 kg (06/30/22 3:52 PM) Oxygen Saturation [94-100 %] 98 % (06/30/22 3:52 PM) Pulse Rate [55-90 bpm] 93 bpm *H* (06/30/22 3:52 PM) Body Mass Index [18.5-24.99 kg/m2] 36.53 kg/m2 *>HHI* (06/30/22 3:52 PM) Blood Pressure [90-138/55-84 mm Hg] 128/ 72mm Hg (06/30/22 3:52 PM) Mode of Delivery (Oxygen) Room air (06/30/22 3:52 PM) Blood pressure sites Arm, right (06/30/22 3:52 PM) Weight Obtained Via Patient/family state d (06/30/22 3:52 PM) Social History Social History Type Response Smoking Status Former smoker; Tobac co user in household: No entered on: 08/31/17 Sex Note * Shayla Gramajo: PERFORM, SIGN, VERIFY Event Display: Patient Education/Instruction Authored Date: [id number] [facility] *BVS [address] Clinical Summary Name BING LOZA Age 47 Years 1975 PCP Not on Staff, PCP PCP Phone Visit Date 06/30/2022 15:40:00 Additional Instructions: Scheduled Appointments?? Future Appointments ?No Future Appointments Scheduled Follow-Up Instructions ?? Diagnosis Medications: Please continue your medications until treatment [...] Actifed Medications Given This Visit Future Orders ?No future orders Vital Signs Height 180.34 cm Weight 118.82 kg BMI 36.53 kg/m2 Blood Pressure 128 mm Hg/72 mm Hg Temperature Pulse Rate 93 bpm Respiratory Rate 02 Sat Mode of Delivery 98 %/Room air You can now view a summary of your hospital visit from the comfort of your home through a free online portal called [employer]. [employer] is a website that allows you to securely view your medical information including discharge summary, medications and follow-up visits. ??You can alsosend a secure electronic message to your doctor???s office to request appointments, renew medications or just ask a question. You can enroll at [email or web address] or register during your next office visit. [...] primary care provider, you may find a [facility] provider by calling [facility] at [phone]. For information about the plan of care [...] Personnel Name: Not on Staff, PCP Position: S Physician (General Medicine) Member Role: PCP Care Team Related Persons Name: AMENA DRAKE Address: [address] [place] [address] Name: JACKIE NICKERSON Address: [address] [place] [address]
--- OUTSIDE RECORDS SUMMARY | 2023-11-12 15:06 | XMS_ITS | Continuity of Care Document ---
Author Organization [facility] Address [address] [address]- Care Team Providers Care Drilling Superintendent Name Role Phone Katie ELAM, Charles Trevizo Primary Care Physician [place] [facility] [place] Date(s): 04/23/20 - 05/23/20 [facility] [address] [address]- [place] Allergies, Adverse Reactions, Alerts Substance Reaction Severity [...]
--- OUTSIDE RECORDS SUMMARY | 2023-11-12 15:06 | XMS_ITS | Continuity of Care Document ---
Author Organization [facility] Address [address] [address]- Care Team Providers Care Power Plant Engineer Name Role Phone Russell KEE, Maria Elena Lucas Primary Care Physician [place] [facility] [place] 06/04/20 - 07/16/20 [facility] [address] [place] [id number] Attending Physician: Mily KEE, Mary Cronin Admitting Physician: Mily KEE, Mary Cronin Referring Physician: Katie ELAM, Charles Trevizo Allergies, Adverse Reactions, Alerts Substance Reaction Severity [...] oldest [Reference Range]: 1 Height 180.34 cm (06/16/20 1:38 PM) Oxygen Saturation [94-100 %] 98 % (06/16/20 1:38 PM) Pulse Rate [55-90 bpm] 80 bpm (06/16/20 1:38 PM) Blood Pressure [90-138/55-84 mm Hg] 124/ 82mm Hg (06/16/20 1:38 PM) Blood pressure sites Arm, right (06/16/20 1:38 PM) Social History Social History Type Response Smoking Status Former smoker; Tobac co user in household: No entered on: 08/31/17 Sex
--- OUTSIDE RECORDS SUMMARY | 2023-11-12 15:06 | XMS_ITS | Continuity of Care Document ---
Author Organization [facility] Address [address] [place] [address]- Care Team Providers Care Medical Review Coordinator Name Role Phone Charles Wilson NP Primary Care Physician En[place] [facility] [place] Date(s): 06/04/20 - 06/11/20 [facility] [address] [place] [id number] Attending Physician: Divina Watkins NP Admitting Physician: [...] oldest [Reference Range]: 1 Height 180.34 cm (06/04/20 9:19 AM) Weight 118 kg (06/04/20 9:19 AM) Oxygen Saturation [94-100 %] 98 % (06/04/20 9:19 AM) Pulse Rate [55-90 bpm] 90 bpm (06/04/20 9:19 AM) Body Mass Index [18.5-24.99] 36.28 *>HHI* (06/04/20 9:19 AM) Blood Pressure [90-138/55-84 mm Hg] 118/ 88mm Hg (06/04/20 9:19 AM) Blood pressure sites Arm, left (06/04/20 9:19 AM) Weight Obtained Via Patient/family state d (06/04/20 9:19 AM) Social History Social History Type Response Smoking Status Former smoker; Tobac co user in household: No entered on: 08/31/17 Sex
--- OUTSIDE RECORDS SUMMARY | 2023-11-12 15:06 | XMS_ITS | Continuity of Care Document ---
Author Organization [facility] Address [address] [place] [address]- Care Team Providers Care Esl Teacher Name Role Phone Katie ELAM, Charles Trevizo Primary Care Physician Encounter [facility] [place] Date(s): 04/15/20 - 04/15/[address] [address]- Discharge Disposition: A-D/C Home Attending Physician: Mary Minor MD Admitting Physician: Mary Minor MD Referring Physician: Mary Minor MD Allergies, Adverse Reactions, Alerts Substance Reaction Severity Status Actifed unknown Active Sudafed unknown Active Medications Baclofen = 20 mg, By Mouth, PRN Pain , Severe, 0 Refills, Maintenance, 04/07/20 12:17:00 EST, Partial fill upon patient request if the prescription is for a schedule II opioid drug. Start Date: 04/07/20 Status: Ordered Hydrochlorothiazide = 25 mg, By [...] 05/10/16 10:43:29 Start Date: 05/10/16 Status: Ordered oxyCODONE 5 mg oral tablet 5 mg, 1, tablet, By Mouth, Every 6 hours, PRN, for 5 days, # 20 tablet, Refills 0, Tot. Refills 0, Acute 04/20/20 18:40:00 EST, as needed for pain, 04/15/20 18:40:00 EST, Route to Pharmacy Electronically, [id number], Partial fill upon... Start Date: 04/15/20 Stop Date: 04/20/20 Status: Ordered Vitamin D2 50,000 iu, By Mouth, Every 7 days, takes on mondays, 0 Refills, Maintenance, 04/07/20 12:16:00 EST,Partial fill upon patient request if the prescription is for a schedule II opioid drug. Start Date: 04/07/20 Status: Ordered Problem List Condition Effective Dates Status Health Status Inform ant Varicose veins(Confirmed) Active Vital Signs Most recent to oldest [Reference Range]: 1 2 3 Height 180.34 cm (04/15/20 11:49 AM) 180.34 cm (04/07/20 12:55 PM) Weight 123.5 kg (04/15/20 11:49 AM) Oxygen Saturation [94-100 %] 95 % (04/15/20 8:00 PM) 98 % (04/15/20 7:45 PM) 96 % (04/15/20 7:30 PM) Pulse Rate [55-90 bpm] 86 bpm (04/15/20 11:49 AM) Body Mass Index [18.5-24.99] 37.97 *>HHI* (04/15/20 11:49 AM) Blood Pressure [90-138/55-84 mm Hg] 120/84mm Hg (04/15/20 8:00 PM) 134/87mm Hg (04/15/20 7:45 PM) 124/76mm Hg (04/15/20 7:30 PM) Respiratory Rate [16-30 br/min] 24 br/min (04/15/20 8:00 PM) 11 br/min *L* (04/15/20 7:45 PM) 14 br/min *L* (04/15/20 7:30 PM) Temperature [96.8-100.4 DegF] 96.3 DegF *L* (04/15/20 7:15 PM) 96.3 DegF 1 *L* (04/15/20 6:15 PM) 98.8 DegF (04/15/20 11:49 AM) Liters per Minute 6 L/min (04/15/20 6:45 PM) 6 L/min (04/15/20 6:30 PM) 6 L/min (04/15/20 6:15 PM) Mode of Delivery (Oxygen) Room air (04/15/20 8:45 PM) Room air (04/15/20 8:00 PM) Room air (04/15/20 7:45 PM) Blood pressure sites Arm, left (04/15/20 11:49 AM) Temperature Route Temporal (04/15/20 6:15 PM) Temporal (04/15/20 11:49 AM) Dry Weight 123.5 kg (04/15/20 11:49 AM) Weight Obtained Via Standing scale (04/15/20 11:49 AM) Dry Weight Obtained Via Standing scale (04/15/20 11:49 AM) 1Result Comment: pt diaphoretic, will retake, ice packs applied to body with cool cloth to forehead. Social History Social History Type Response Smoking Status Former smoker; Tobac co user in household: No entered on: 08/31/17 Sex
--- OUTSIDE RECORDS SUMMARY | 2023-11-12 15:06 | XMS_ITS | Continuity of Care Document ---
Author Organization [facility] Address [address] [place] [address]- Care Team Providers Care Wool Hanker Name Role Phone Not on Staff, PCP Primary Care Physician Unavail able [place] [facility] [place]/22 [facility] [address] [place] [address]- Attending Physician: Mily KEE, Mary Cronin Admitting Physician: Mily KEE, Mary Cronin Referring Physician: Not on Staff, Referring MD [...] oldest [Reference Range]: 1 Height 180.34 cm (07/14/22 12:09 PM) Weight 118.82 kg (07/14/22 12:09 PM) Oxygen Saturation [94-100 %] 96 % (07/14/22 12:09 PM) Pulse Rate [55-90 bpm] 91 bpm *H* (07/14/22 12:09 PM) Body Mass Index [18.5-24.99 kg/m2] 36.53 kg/m2 *>HHI* (07/14/22 12:09 PM) Blood Pressure [90-138/55-84 mm Hg] 122/ 78mm Hg (07/14/22 12:09 PM) Mode of Delivery (Oxygen) Room air (07/14/22 12:09 PM) Blood pressure sites Arm, left (07/14/22 12:09 PM) Weight Obtained Via Patient/family state d (07/14/22 12:09 PM) Social History Social History Type Response Smoking Status Former smoker; Tobac co user in household: No entered on: 08/31/17 Sex Note * Veronica Guzman: PERFORM, SIGN, VERIFY Event Display: Patient Education/Instruction Authored Date: [id number] [facility] *BVS [address] Clinical Summary Name BING LOZA Age 47 Years 1975 PCP Not on Staff, PCP PCP Phone Visit Date 07/14/2022 11:59:00 Additional Instructions: Scheduled Appointments?? Future Appointments ?No Future Appointments Scheduled Follow-Up Instructions ?? Diagnosis Medications: Please continue your medications until treatment is completed or stopped by your provider. Discuss any questions related to medications with your provider. Medications to Continue Taking That Have Changed - - Durable Medical Equipment (Compression Stockings) surgical, calf length 20-30 mm Hg Dx: venous insufficiency. Refills: 2. Next Dose: These medications were not printed or sent to your pharmacy - Durable Medical Equipment (Compression Stockings) surgical, calf length 20-30 mm Hg Dx: venous insufficiency. Refills: 2. Next Dose: Medications to Continue with No Changes These medications were not printed or sent to your pharmacy Baclofen 20 Milligram Oral as needed Pain , Severe. Next Dose: Hydrochlorothiazide 25 Milligram Oral Daily. [...] 118.82 kg BMI 36.53 kg/m2 Blood Pressure 122 mm Hg/78 mm Hg Temperature Pulse Rate 91 bpm Respiratory Rate 02 Sat Mode of Delivery 96 %/Room air You can now view a summary of your hospital visit from the comfort of your home through a free online portal called [email or web address]. [email or web address] is a website that allows you to securely view your medical information including discharge summary, medications and follow-up visits. ??You can alsosend a secure electronic message to your doctor???s office to request appointments, renew medications or just ask a question. You can enroll at [email or web address] or register during your next office visit. [...] primary care provider, you may find a [facility] provider by calling [facility] [employer] [facility] at [phone]. For information about the plan of care [...] Persons Name: AMENA DRAKE Address: [address] [place] [address] Name: JACKIE NICKERSON Address: [address] [place] [address]
--- OUTSIDE RECORDS SUMMARY | 2023-11-12 15:06 | XMS_ITS | Continuity of Care Document ---
Author Organization [facility] Address [address] [place] [address]- Care Team Providers Care Traveling Phlebotomist Name Role Phone Not on Staff, PCP Primary Care Physician Unavail able [place] [facility] [place] Date(s): 08/12/21 - 08/19/21 [facility] [address] [place] [address]- Attending Physician: Mily KEE, Mary Cronin Admitting [...] Date: 05/10/16 Status: Ordered Problem List Condition Effective Dates Status Health Status Inform ant Obese class II(Confirmed) Active Varicose veins(Confirmed) Active Vital Signs Most recent to oldest [Reference Range]: 1 Height 180.34 cm (08/12/21 10:01 AM) Weight 118.18 kg (08/12/21 10:01 AM) Oxygen Saturation [94-100 %] 98 % (08/12/21 10:01 AM) Pulse Rate [55-90 bpm] 81 bpm (08/12/21 10:01 AM) Body Mass Index [18.5-24.99] 36.34 *>HHI* (08/12/21 10:01 AM) Blood Pressure [90-138/55-84 mm Hg] 130/ 90mm Hg (08/12/21 10:01 AM) Mode of Delivery (Oxygen) Room air (08/12/21 10:01 AM) Blood pressure sites Arm, left (08/12/21 10:01 AM) Weight Obtained Via Patient/family state d (08/12/21 10:01 AM) Social History Social History Type Response Smoking Status Former smoker; Tobac co user in household: No entered on: 08/31/17 Sex
--- OUTSIDE RECORDS SUMMARY | 2023-11-12 15:06 | XMS_ITS | Continuity of Care Document ---
Author Organization [facility] Address [address] [place] [address]- Care Team Providers Care Scrap Carrier Name Role Phone Maria Elena Wells MD Primary Care Physician [place] [facility] [place] 03/04/21 - 03/11/21 [facility] [address] [place] [id number] Attending Physician: Mary Minor MD Admitting Physician: [...] oldest [Reference Range]: 1 Height 180.34 cm (03/04/21 11:08 AM) Weight 118.81 kg (03/04/21 11:08 AM) Oxygen Saturation [94-100 %] 96 % (03/04/21 11:08 AM) Pulse Rate [55-90 bpm] 73 bpm (03/04/21 11:08 AM) Body Mass Index [18.5-24.99] 36.53 *>HHI* (03/04/21 11:08 AM) Blood Pressure [90-138/55-84 mm Hg] 120/ 80mm Hg (03/04/21 11:08 AM) Mode of Delivery (Oxygen) Room air (03/04/21 11:08 AM) Blood pressure sites Arm, left (03/04/21 11:08 AM) Weight Obtained Via Patient/family state d (03/04/21 11:08 AM) Social History Social History Type Response Smoking Status Former smoker; Tobac co user in household: No entered on: 08/31/17 Sex
--- OUTSIDE RECORDS SUMMARY | 2023-11-12 15:06 | XMS_ITS | Continuity of Care Document ---
Author Organization [facility] Address [address] [place] [address]- Care Team Providers Care Physical Education Professor Name Role Phone Not on Staff, PCP Primary Care Physician Unavail able [place] [facility] [place]/20/23 - 02/19/23 [facility] [address] [place] [address]- Attending Physician: Sarah Sim Admitting Physician: AdmtrSarah Referring Physician: Admtr Ar8 Allergies, Adverse Reactions, Alerts Substance Reaction [...] Status Health St atus Informant Obese class I Confirmed Active Varicose veins Confirmed Active Social History Social History Type Response Smoking Status Never (less than 100 in lifetime) entered on: 10/13/22 Sex Patient Care team information Care Team Personnel Name: Not on Staff, PCP Position: S Physician (General Medicine) Member Role: PCP Care Team Related Persons Name: AMENA DRAKE Address: [address] [place] [address] Name: JACKIE NICKERSON Address: home [address] [place] [address]
--- OUTSIDE RECORDS SUMMARY | 2023-11-12 15:06 | XMS_ITS | Continuity of Care Document ---
Author Organization [facility] Address [address] [place] [address]- Care Team Providers Care Play Back Operator Name Role Phone Not on Staff, PCP Primary Care Physician Unavail able [place] [facility] [place]03/23 - 08/10/23 [facility] [address] [place] [address]- Encounter Diagnosis Symptomatic varicose veins of both lower extremities(Discharge Diagnosis) - 08/03/23 Attending Physician: Mary Minor MD Admitting Physician: Mary Minor MD Allergies, Adverse Reactions, [...] EDT, Compound Start Date: 07/14/22 Status: Ordered Compression- Lower Extremity (Knee High) See Instructions, # 2 each, Refills 2, Tot. Refills 2, Maintenance, 20-30 mmHg graduated compression stockings Dx: venous insufficiency, 08/03/23 11:43:00 EDT, Supply Start Date: 08/03/23 Status: Ordered Hydrochlorothiazide = 25 mg, By [...] veins of both lower extremities Discharge Diagnosis 08/03/23 Vital Signs Most recent to oldest [Reference Range]: 1 Height 180.34 cm (08/03/23 11:36 AM) Weight 118.18 kg (08/03/23 11:36 AM) Oxygen Saturation [94-100 %] 97 % (08/03/23 11:36 AM) Pulse Rate [55-90 bpm] 83 bpm (08/03/23 11:36 AM) Body Mass Index [18.5-24.99 kg/m2] 36.34 kg/m2 *>HHI* (08/03/23 11:36 AM) Blood Pressure [90-138/55-84 mm Hg] 122/ 74mm Hg (08/03/23 11:36 AM) Blood pressure sites Arm, right (08/03/23 11:36 AM) Weight Obtained Via Patient/family state d (08/03/23 11:36 AM) Social History Social History Type Response Smoking Status Never (less than 100 in lifetime) entered on: 10/13/22 Sex Note * Renny Chen: PERFORM, SIGN, VERIFY Event Display: Patient Education/Instruction Authored Date: [id number] [facility] *[facility] [address] Clinical Summary Name BING LOZA Age 48 Years 1975 PCP Not on Staff, PCP PCP Phone Visit Date 08/03/2023 11:16:00 Additional Instructions: Scheduled Appointments?? Future Appointments ?No Future Appointments Scheduled Follow-Up Instructions ?? With: Address: When: Mily KEE, Mary Cronin [address] [facility] [place], [place] [id number] Comments: schedule for sclerotherapy bilateral varicose veins Diagnosis Symptomatic varicose veins of both lower extremities Medications: Please continue your medications until treatment is completed or stopped by your provider. Discuss any questions related to medications with your provider. New Medications - Durable Medical Equipment (Compression- Lower Extremity (Knee High)) 20-30 mmHg graduated compression stockings Dx: venous insufficiency. Refills: 2. Next Dose: [...] This Visit Future Orders ?No future orders Future Orders ?No future orders Vital Signs Height 180.34 cm Weight 118.18 kg BMI 36.34 kg/m2 Blood Pressure 122 mm Hg/74 mm Hg Temperature Pulse Rate 83 bpm Respiratory Rate 02 Sat Mode of Delivery 97 %/ You can now view a summary of your hospital visit from the comfort of your home through a free online portal called Proterro. Proterro is a website that allows you to securely view your medical information including discharge summary, medications and follow-up visits. ??You can alsosend a secure electronic message to your doctor???s office to request appointments, renew medications or just ask a question. You can enroll at [email or web address] or register during your next office visit. [...] primary care provider, you may find a [facility] provider by calling [facility] [employer] Link at [phone]. [facility], in keeping with [facility] guidance, no longer requires face masks for staff, patientsor visitors in most situations. Similar to time spent indoors at other locations, there is the chance that you were exposed to respiratory viruses during your time with us (such as flu or COVID-19).? If you develop symptoms concerning for a viral respiratory infection, please seek testing (and treatment if indicated) from your medical provider or home test kit. For information about the plan of care [...] Persons Name: AMENA DRAKE Address: home [address] [place] [address] Name: JACKIE NICKERSON Address: [address] [place] [address]
--- OUTSIDE RECORDS SUMMARY | 2023-11-12 15:06 | XMS_ITS | Continuity of Care Document ---
Author Organization [facility] Address [address] [address]- Care Team Providers Care Cuff Folder Name Role Phone Katie ELAM, Charles Trevizo Primary [id number] - 01[facility]18[facility] [address] [address] Attending Physician: Mily KEE, Mary Cronin Admitting Physician: Mily KEE, Mary Cronin Referring Physician: Charles Wilson NP Allergies, Adverse Reactions, Alerts Substance Reaction Severity Status Actifed Active Sudafed Active Medications Compression Stockings See Instructions, # 3 pair, Refills 2, Tot. Refills 2, Maintenance, surgical, knee length 20-30 mm Hg, 04/27/17 9:24:31, Compound Start Date: 04/27/17 Status: Ordered Hydrochlorothiazide = 25 mg, By [...] 11/19/15 Status: Ordered Motrin Tablet 400 mg, Refills 0, Maintenance, 04/27/17 9:13:40 Start Date: 04/27/17 Status: Ordered OXcarbazepine 600 mg oral tablet 1 tablet = 600 mg, By Mouth, 2 times a day, 0 Refills, Maintenance, 05/10/16 10:43:29 Start Date: 05/10/16 Status: Ordered Problem List Condition Effective Dates Status Health Status Inform ant Varicose veins(Confirmed) Active Vital Signs Most recent to oldest [Reference Range]: 1 Height 183 cm (01/11/20 3:55 PM) Weight 120.9 kg (01/11/20 3:55 PM) Oxygen Saturation [94-100 %] 99 % (01/11/20 3:55 PM) Pulse Rate [55-90 bpm] 87 bpm (01/11/20 3:55 PM) Body Mass Index [18.5-24.99] 36.1 *>HHI* (01/11/20 3:55 PM) Blood Pressure [90-138/55-84 mm Hg] 120/ 80mm Hg (01/11/20 3:55 PM) Mode of Delivery (Oxygen) Room air (01/11/20 3:55 PM) Social History Social History Type Response Smoking Status Former smoker; Tobac co user in household: No entered on: 08/31/17 Sex
--- OUTSIDE RECORDS SUMMARY | 2023-11-12 15:06 | XMS_ITS | Continuity of Care Document ---
Author Organization [facility] Address [address] [place] [address]- Care Team Providers Care Design Engineer Marine Equipment Name Role Phone Katie ELAM, Charles Trevizo Primary Care Physician Encounter [facility] [place] Date(s): 04/10/20 - 05/10/20 [facility] [address] [place] [address] Allergies, Adverse Reactions, Alerts Substance Reaction Severity [...]
--- OUTSIDE RECORDS SUMMARY | 2023-11-12 15:06 | XMS_ITS | Continuity of Care Document ---
Author Organization [facility] Address [address] [address]- Care Team Providers Care Hospital Pharmacy Director Name Role Phone Katie ELAM, Charles Trevizo Primary Care Physician En[place] [facility] [place] R [id number] Date(s): 01/11/20 - 02/10/20 [facility] [address] [address]- Attending Physician: Sarah Sim Admitting Physician: Admtr ArJavon Referring Physician: Admtr, Ar8 Allergies, Adverse Reactions, [...]
--- OUTSIDE RECORDS SUMMARY | 2023-11-12 15:07 | XMS_ITS | Continuity of Care Document ---
Author Organization [facility] Address [address] [place] [address]- Care Team Providers Care Online User Experience Strategist Name Role Phone Not on Staff, PCP Primary Care Physician Unavail able [place] [facility] [place]19[place]23 - 09/26/23 [facility] [address] [place] [address]- Encounter Diagnosis Symptomatic varicose veins of both lower extremities(Discharge Diagnosis) - 09/19/23 Attending Physician: Mily KEE, Mary Cronin Admitting Physician: Mary Minor MD Referring Physician: [...] veins of both lower extremities Discharge Diagnosis 09/19/23 Vital Signs Most recent to oldest [Reference Range]: 1 Height 180.34 cm (09/19/23 12:21 PM) Weight 118.0 kg (09/19/23 12:21 PM) Oxygen Saturation [94-100 %] 98 % (09/19/23 12:21 PM) Pulse Rate [55-90 bpm] 100 bpm *H* (09/19/23 12:21 PM) Body Mass Index [18.5-24.99 kg/m2] 36.28 kg/m2 *>HHI* (09/19/23 12:21 PM) Blood Pressure [90-138/55-84 mm Hg] 122/ 70mm Hg (09/19/23 12:21 PM) Mode of Delivery (Oxygen) Room air (09/19/23 12:21 PM) Blood pressure sites Arm, left (09/19/23 12:21 PM) Weight Obtained Via Patient/family state d (09/19/23 12:21 PM) Social History Social History Type Response Smoking Status Never (less than 100 in lifetime) entered on: 10/13/22 Sex Note * Thomas , Veronica A: PERFORM Event Display: Patient Education/Instruction Authored Date: [id number] Ambulatory Adult Visit Summary [facility] [address] [facility] [address] [address] Name: BING LOZA : 1975?? Visit: 09/19/2023 12:16?? Ambulatory Visit Instructions ?? Your Care Team Primary Care Provider Not on Staff, PCP?? This Visit Provider Mily KEE , Mary Cronin Vitals Signs Pulse Rate:??100 bpm??High Height: 180.34 cm Systolic Blood Pressure: 122 mm Hg Weight: 118 kg Diastolic Blood Pressure: 70 mm Hg Body Mass Index:??36.28 kg/m2??Critical Oxygen Saturation: 98 % Body surface area: 2.43 Medications The list below reflects the information in our records and provided by you today along with any changes made during this visit. Please continue your medications until treatment is completed or stopped by your provider. If this is different from the information you have or there are other questions,please contact the prescribing provider. What How Much When Instructions Unchanged Baclofen 20 Milligram Oral As needed for Pain , Severe Unchanged Durable Medical Equipment (Compression Stockings) See instructions surgical, calf length 20-30 mm Hg Dx: venous insufficiency ?? Unchanged Durable Medical Equipment (Compression Stockings) See instructions surgical, calf length 20-30 mm Hg Dx: venous insufficiency ?? Unchanged Durable Medical Equipment (Compression- Lower Extremity (Knee High)) See instructions 20-30 mmHg graduated compression stockings Dx: venous insufficiency ?? Unchanged Hydrochlorothiazide 25 Milligram Oral Daily Unchanged Ibuprofen (Motrin Tablet) 400 Milligram As needed for Other Unchanged Lamotrigine (Lamictal 200 mg oral tablet) 1 tab(s) Oral Twice a day Unchanged Lisinopril (lisinopril 5 mg oral tablet) 1 tab(s) Oral Daily Unchanged Oxcarbazepine (OXcarbazepine 600 mg oral tablet) 1 tab(s) Oral Twice a day Medications and Immunizations Administered Medications Given During Visit No medications given during this visit.?? Allergies (NKA means No Known Allergies) Actifed??(unknown) Sudafed??(unknown) Common Emergency Awareness Tips IS IT A STROKE? Act FAST and Check for these signs: FACE Does the face look uneven? ARM Does one arm drift down? SPEECH Does their speech sound strange? TIME Call at any sign of stroke ?? Heart Attack Signs Chest discomfort: Most heart attacks involve discomfort in the center of the chest and lasts more than a few minutes, or goes away and comes back. It can feel like uncomfortable pressure, squeezing, fullness or pain. Discomfort in upper body: Symptoms can include pain or discomfort in one or both arms, back, neck, jaw or stomach. Shortness of breath: With or without discomfort. Other signs: Breaking out in a cold sweat, nausea, or lightheaded. Remember, MINUTES DO MATTER. If you experience any of these heart attack warning signs, call to get immediate medical attention! ?? Smoking can increase your chances of developing chronic health problems and can cause harmful effects to other family members in your house. If you smoke, you are strongly encouraged to quit. Please call [facility] at [phone] or 3-696-048Conformiq ([phone]) or log in to [email or web address] for referrals to smoking cessation programs. ?? The National Suicide Prevention Hotline is available 25/10 if you or someone you know needs to find a reason to keep living. By calling 7-434-019-Edicy (3331) you'll be connected to a skilled, trained counselor at a crisis center in your area. [facility] Portal You can view and manage your care through the patient portal or by using a health care juan of your choosing. [employer] is a website that allows you to securely view your medical information including your hospital discharge summary, office visit summaries, medications and follow-up visits. You can also request appointments, renew medications, and request access to your medical information using a health care juan of your choosing, or just ask a question. You can enroll at [email or web address] or register during your next office visit. [facility], in keeping with [facility] guidance, no longer requires face masks for staff, patientsor visitors in most situations. Similiar to time spent indoors at other locations, there is the chance that you were exposed to repiratory viruses during your time with us (such as flu or COVID-19). If you develop symptoms concerning for a viral respiratory infection, please seek testing (and treatment if indicated) from your medical provider or home test kit. ?? Disclaimer: The information provided is of a general nature and is intended to be used in conjunction with the recommendations and advice of your health care practitioner. Every effort has been made to ensure that the information provided is accurate and complete at the time it is provided to you however, as your needs change, or, as new information becomes available, different or additional instructions may be required. ?? If you have questions, please consult with your primary care provider or pharmacist, as appropriate. This information is not intended to serve as substitution for assessment and evaluation by a qualified health care provider. If you do not have a primary care provider, you may find a [facility] provider by calling [facility] at [phone]. Patient Care team information Care Team Personnel Name: Not on Staff, PCP Position: [facility] Physician (General Medicine) Member Role: PCP Care Team Related Persons Name: AMENA DRAKE Address: [address] [place] [address] Name: JACKIE NICKERSON Address: [address] [place] [address]
--- OUTSIDE RECORDS SUMMARY | 2023-11-12 15:07 | XMS_ITS | Continuity of Care Document ---
Author Organization [facility] Address [address] [place] [address]- Care Team Providers Care Wig Comber Name Role Phone Not on Staff, PCP Primary Care Physician Unavail able [place] [facility] [place]23 [place] 02/09/23 [facility] [address] [place] [address]- Encounter Diagnosis Symptomatic varicose veins of both lower extremities(Discharge Diagnosis) - 02/02/23 Attending Physician: Mary Minor MD Admitting Physician: [...] I Confirmed Active Varicose veins Confirmed Active Diagnosis Diagnosis Type Effective Dates Health Status Clinical Service Informant Symptomatic varicose veins of both lower extremities Discharge Diagnosis 02/02/23 Vital Signs Most recent to oldest [Reference Range]: 1 Height 180.34 cm (02/02/23 10:49 AM) Weight 113.36 kg (02/02/23 10:49 AM) Oxygen Saturation [94-100 %] 98 % (02/02/23 10:49 AM) Pulse Rate [55-90 bpm] 86 bpm (02/02/23 10:49 AM) Body Mass Index [18.5-24.99 kg/m2] 34.86 kg/m2 *>HHI* (02/02/23 10:49 AM) Blood Pressure [90-138/55-84 mm Hg] 128/ 70mm Hg (02/02/23 10:49 AM) Blood pressure sites Arm, right (02/02/23 10:49 AM) Weight Obtained Via Patient/family state d (02/02/23 10:49 AM) Social History Social History Type Response Smoking Status Never (less than 100 in lifetime) entered on: 10/13/22 Sex Note * Elizabeth Amaya: PERFORM, SIGN, VERIFY Event Display: Patient Education/Instruction Authored Date: [id number] [facility] *[facility]S [address] Clinical Summary Name BING LOZA Age 47 Years 1975 PCP Not on Staff, PCP PCP Phone Visit Date 02/02/2023 10:35:00 Additional Instructions: Scheduled Appointments?? Future Appointments ?No Future Appointments Scheduled Follow-Up Instructions ?? With: Address: When: Mily KEE, Mary Cronin [address] [facility] [address] [facility] [place] [address] In 6 months Diagnosis Symptomatic varicose veins of both lower [...] orders Vital Signs Height 180.34 cm Weight 113.36 kg BMI 34.86 kg/m2 Blood Pressure 128 mm Hg/70 mm Hg Temperature Pulse Rate 86 bpm Respiratory Rate 02 Sat Mode of Delivery 98 %/ You can now view a summary of your hospital visit from the comfort of your home through a free online portal called TradeHero. [employer] is a website that allows you to securely view your medical information including discharge summary, medications and follow-up visits. ??You can alsosend a secure electronic message to your doctor???s office to request appointments, renew medications or just ask a question. You can enroll at [email or web address] or register during your next office [...] primary care provider, you may find a [facility] provider by calling [facility] [employer] Link at [phone]. [facility], in keeping with [facility] guidance, no longer requires face masks for [...] Personnel Name: Not on Staff, PCP Position: [facility] Physician (General Medicine) Member Role: PCP Care Team Related Persons Name: AMENA DRAKE Address: home [address] [place] [id number] Name: JACKIE NICKERSON Address: [address] [place] [address]
--- OUTSIDE RECORDS SUMMARY | 2023-11-12 15:07 | XMS_ITS | Continuity of Care Document ---
Author Organization [facility] Address [address] [place] [address]- Care Team Providers Care Web Graphic Designer Name Role Phone Russell KEE, Maria Elena Lucas Primary Care Physician [phone] Encounter [facility] [place] Date(s): 06/03/21 - 06/10/21 [facility] [address] [place] [address]- Attending Physician: Mary Minor MD Admitting Physician: Mily KEE, Mary Cronin Allergies, [...] oldest [Reference Range]: 1 Height 180.34 cm (06/03/21 2:48 PM) Weight 118.18 kg (06/03/21 2:48 PM) Oxygen Saturation [94-100 %] 97 % (06/03/21 2:48 PM) Pulse Rate [55-90 bpm] 95 bpm *H* (06/03/21 2:48 PM) Body Mass Index [18.5-24.99] 36.34 *>HHI* (06/03/21 2:48 PM) Blood Pressure [90-138/55-84 mm Hg] 144/ 80mm Hg *H* (06/03/21 2:48 PM) Mode of Delivery (Oxygen) Room air (06/03/21 2:48 PM) Blood pressure sites Arm, left (06/03/21 2:48 PM) Weight Obtained Via Patient/family state d (06/03/21 2:48 PM) Social History Social History Type Response Smoking Status Former smoker; Tobac co user in household: No entered on: 08/31/17 Sex
--- NOTE | 2023-11-12 15:21 | MHC.CM.PN ---
IMM 11/12/23, Pt lives with spouse, is independent, no home health services. Family can transport home at [place]. DCP: home, self care.
[2023-11-12 16:16] LABS: Glucose, Whole Blood 206 mg/dL (60-115)
[2023-11-12 16:38] LABS: Lactic Acid 1.8 mmol/L (0.5-2.0)
[2023-11-12] MEDS: 0.9 % Sodium Chloride Flush 3 ML SYRINGE IVFLUSH ×2 (16:42→20:23)
[2023-11-12 17:58] LABS: Thyroid Stimulating Hormone 0.96 uIU/mL (0.32-4.0)
[2023-11-12 19:56] LABS: Glucose, Whole Blood 180 mg/dL (60-115)
[2023-11-12] MEDS: metroNIDAZOLE/NS 500 MG/100 ML PIGGYBACK 100 MG IV (20:12)
[2023-11-13] VITALS (11 sets, daily range): BP systolic 138–157; BP diastolic 75–87; PULSE 94–123; RESP 18–20; TEMP 36.3–37.2; O2SAT 93–99
[2023-11-13] MEDS: HYDROmorphone HCl 1 MG/ML SYRINGE IVPUSH ×5 (01:30→20:31)
[2023-11-13] MEDS: Lactated Ringers 1,000 ML 100 ML IVCONT ×2 (04:54→15:11)
[2023-11-13] MEDS: Piperacillin Sodium/Tazobactam 3.375 GM in 0.9 % Sodium Chloride 50 ML IV ×4 (04:57→22:43)
[2023-11-13 07:32] LABS: Glucose, Whole Blood 115 mg/dL (60-115)
[2023-11-13 07:53] LABS: Anion Gap 12 (12-20); Blood Urea Nitrogen 14 mg/dL (9-16); Calcium 8.9 mg/dL (8.4-10.2); Carbon Dioxide 26 mmol/L (22-29); Chloride 104 mmol/L (96-108); Creatinine Clr Calc Pharmacy 182.6; Estimated Glomerular Filt Rate > 60; Glucose Random 147 mg/dL (60-115); Sodium 138 mmol/L (135-145)
--- NOTE | 2023-11-13 08:10 | HO.POSTANES ---
Post Anesthesia Evaluation Post Anesthesia Evaluation Date of Service: 11/12/23 Vital Signs: Vital Signs Temp Pulse Resp BP Pulse Ox O2 Del Method O2 Flow Rate 11/13/23 07:13 98.9 F 104 H 20 141/85 H 99 Nasal Cannula 2 11/13/23 04:00 97.8 F 110 H 18 143/82 H 99 Nasal Cannula 2 11/13/23 00:00 98.8 F 118 H 18 152/87 H 93 Nasal Cannula 2 11/12/23 22:00 96 Nasal Cannula Anesthesia: General Endotracheal-GETA Mental Status: Sedated Pain Control: Satisfactory Nausea/Vomiting: None Hydration: Adequate Anesthesia-Related Issues: No Anes. Related Issues Comments: still on vasoactive drugs, intubated:
[2023-11-13] MEDS: OXcarbazepine 300 MG TABLET 600 MG PO ×2 (09:24→22:42)
[2023-11-13] MEDS: Folic Acid 1 MG TABLET PO (09:24)
[2023-11-13] MEDS: lamoTRIgine 100 MG TABLET 200 MG PO ×2 (09:24→22:42)
--- NOTE | 2023-11-13 10:08 | P.PNGS_ITS ---
Subjective Subjective Date of Service: 11/13/23 Interval history: Pain level much improved although still with pain on the incisions Said he is able to ambulate more Denies any flatus Denies nausea or vomiting Physical Exam 2 Vital Signs: Vital Signs: Last Vital Signs Temp 98.9 F 11/13/23 07:13 Pulse 104 H 11/13/23 07:13 Resp 20 11/13/23 07:13 BP 141/85 H 11/13/23 07:13 Pulse Ox 99 11/13/23 07:13 O2 Del Method Nasal Cannula 11/13/23 07:13 O2 Flow Rate 2 11/13/23 07:13 Oxygen Flow Rate 2 11/12/23 22:00 BMI result Body Mass Index 36.2 Const: General: no acute distress Resp: Effort & Inspection: normal respiratory effort Cardio: Rate: tachycardic (Much improved) GI: Other: Mildly distended but soft, all incisions clean and dry, tape burn seen on the area to the left of the umbilicus Objective Data Active Medications Acetaminophen (Acetaminophen 325 Mg Tablet) 650 mg PO Q6H PRN PRN Reason: Pain, Mild (Pain Scale 1-3), fever or headache Last Admin: 11/11/23 15:29 Dose: 650 mg Documented By: OSKAR Hydrocodone Bitart/Acetaminophen (Hydrocodone Bit/Acetam 5/325 Tablet) 1 tab PO Q4H PRN PRN Reason: Pain, Moderate(Pain Scale 4-6) Last Admin: 11/11/23 12:29 Dose: 1 tab Documented By: ALETHEA Calcium Carbonate (Calcium Carbonate 750 Mg Tab.Chew) 750 mg PO Q4H PRN PRN Reason: Heartburn Folic Acid (Folic Acid 1 Mg Tablet) 1 mg PO DAILY@1000 NOY Last Admin: 11/13/23 09:24 Dose: 1 mg Documented By: STEVE Glucose (Glucose Gel 15 Gm Gel..Gram.) 15 gm PO Q15M PRN; Protocol PRN Reason: per Hypoglycemia Standing Ord. Hydromorphone HCl (Hydromorphone Hcl 1 Mg/Ml Syringe) 1 mg IVPUSH Q2H PRN; Protocol PRN Reason: Pain, Severe (Pain Scale 7-10) Last Admin: 11/13/23 09:23 Dose: 1 mg Documented By: STEVE Piperacillin Sod/Tazobactam (Sod 3.375 gm/ Sodium Chloride) 50 mls @ 100 mls/hr IV Q6H [facility] Last Admin: 11/13/23 09:23 Dose: 100 mls/hr Documented By: STEVE Dextrose (D10) 250 mls @ 750 mls/hr IV Q15M PRN; Protocol PRN Reason: per Hypoglycemia Standing Ord. Lactated Ringer's (Lr) 1,000 mls @ 125 mls/hr IVCONT .Q8H [facility] Last Admin: 11/13/23 04:54 Dose: 100 mls/hr Documented By: MARTINEZ Insulin Human Lispro (Insulin Lispro 100 Unit/Ml 3 Ml Vial) 0 unit SUBCUT QIDACHS [facility]; Protocol Last Admin: 11/13/23 07:34 Dose: Not Given Documented By: STEVE Non-Admin Reason: No Insulin Coverage Lamotrigine (Lamotrigine 100 Mg Tablet) 200 mg PO BID@1000,2200 [facility] Last Admin: 11/13/23 09:24 Dose: 200 mg Documented By: STEVE Magnesium Hydroxide (Milk Of Magnesia 30 Ml Oral.Susp) 30 ml PO DAILY PRN PRN Reason: Constipation Melatonin (Melatonin 3 Mg Tablet) 6 mg PO BEDTIME PRN PRN Reason: Insomnia Ondansetron HCl (Ondansetron Hcl 4 Mg/2 Ml Vial) 4 mg IVPUSH Q8H PRN PRN Reason: Nausea and Vomiting Oxcarbazepine (Oxcarbazepine 300 Mg Tablet) 600 mg PO BID@1000,2200 [facility] Last Admin: 11/13/23 09:24 Dose: 600 mg Documented By: STEVE Sodium Chloride (0.9 % Sodium Chloride Flush 3 Ml Syringe) 3 ml IVFLUSH QSHIFT [facility] Last Admin: 11/13/23 07:31 Dose: Not Given Documented By: STEVE Non-Admin Reason: IV Running Labs 11/12/23 11:25 11/13/23 06:06 Labs: Laboratory Results - last 24 hr 11/12/23 11/12/23 11/12/23 11:25 11:37 16:08 MCV 83.4 MCH 27.3 MCHC 32.7 RDW 14.0 Plt Count 317 MPV 9.7 Absolute Nucleated RBC 0.000 Nucleated RBC % (auto) 0.0 Anion Gap 13 Estim Creat Clear Calc 152.5 Estimated GFR > 60 POC Glucose 159 H 206 H Random Glucose 171 H Lactic Acid Calcium 8.8 Total Bilirubin 1.4 H Direct Bilirubin 1.0 H AST 29 ALT 65 H Alkaline Phosphatase 73 Total Protein 6.4 L Albumin 3.2 L TSH 0.96 11/12/23 11/12/23 11/13/23 16:16 19:52 06:06 MCV MCH MCHC RDW Plt Count MPV Absolute Nucleated RBC Nucleated RBC % (auto) Anion Gap 12 Estim Creat Clear Calc 182.6 Estimated GFR > 60 POC Glucose 180 H Random Glucose 147 H Lactic Acid 1.8 Calcium 8.9 Total Bilirubin Direct Bilirubin AST ALT Alkaline Phosphatase Total Protein Albumin TSH 11/13/23 07:18 MCV MCH MCHC RDW Plt Count MPV Absolute Nucleated RBC Nucleated RBC % (auto) Anion Gap Estim Creat Clear Calc Estimated GFR POC Glucose 115 Random Glucose Lactic Acid Calcium Total Bilirubin Direct Bilirubin AST ALT Alkaline Phosphatase Total Protein Albumin TSH Microbiology Microbiology Results: Microbiology 11/11/23 03:54 Blood Culture - Preliminary Blood - Venous No growth after 48 hours. 11/11/23 03:54 Blood Culture - Preliminary Blood - Venous No growth after 48 hours. Procedures Date of Service Date of Service: 11/13/23 Progress Note: A&P Assessment and plan (1) Status post small bowel resection: Status: Acute Assessment and Plan: Continues to improve We will keep on clear liquids until return of GI function Pain management Dressings removed- applied Band-Aid on area of tape burn near the umbilicus Encouraged ambulation Incentive spirometry Lytes okay Time Spent With Patient Time: Total time managing care of this patient today ____ minutes. Quality Stroke Does the patient have a stroke diagnosis?: No VTE Prior VTE?: No VTE Risk Level:: Surgical - low VTE Device Contraindication: N/A - Device Ordered VTE Drug Contraindication: Treatment Not Indicated
[2023-11-13 11:37] LABS: Glucose, Whole Blood 154 mg/dL (60-115)
[2023-11-13] MEDS: Insulin Lispro 100 UNIT/ML 3 ML VIAL SUBCUT ×3 (12:41→22:41)
--- NOTE | 2023-11-13 14:59 | HO.PM.IMPN ---
Subjective Subjective Date of Service: 11/13/23 Interval History: c/o abd incisional pain HR improved not passing gas yet Review of Systems Review of Systems: Yes all other systems are reviewed and are negative Physical Exam Vital Signs: Vital Signs: Last Vital Signs Temp 97.4 F 11/13/23 11:14 Pulse 115 H 11/13/23 11:14 Resp 18 11/13/23 11:14 BP 138/79 11/13/23 11:14 Pulse Ox 98 11/13/23 11:14 O2 Del Method Room Air 11/13/23 13:45 O2 Flow Rate 2 11/13/23 11:14 Oxygen Flow Rate 95 11/13/23 13:45 BMI result Body Mass Index 36.2 Gen: in no acute distress HEENT: sclera anicteric, moist mucus membranes Neck: supple Lungs: clear to auscultation bilaterally Heart: regular + tachycardic, no murmurs Abd: somewhat distended, dry dressings on surgical incisions, some skin tears from tape, scant bowel sounds Ext: no edema Skin: warm/well-perfused Neuro: alert and oriented x3, no focal findings Psych: appropriate affect Objective Data Active Medications Acetaminophen (Acetaminophen 325 Mg Tablet) 650 mg PO Q6H PRN PRN Reason: Pain, Mild (Pain Scale 1-3), fever or headache Last Admin: 11/11/23 15:29 Dose: 650 mg Documented By: OSKAR Hydrocodone Bitart/Acetaminophen (Hydrocodone Bit/Acetam 5/325 Tablet) 1 tab PO Q4H PRN PRN Reason: Pain, Moderate(Pain Scale 4-6) Last Admin: 11/11/23 12:29 Dose: 1 tab Documented By: ALETHEA Calcium Carbonate (Calcium Carbonate 750 Mg Tab.Chew) 750 mg PO Q4H PRN PRN Reason: Heartburn Folic Acid (Folic Acid 1 Mg Tablet) 1 mg PO DAILY@1000 NOY Last Admin: 11/13/23 09:24 Dose: 1 mg Documented By: STEVE Glucose (Glucose Gel 15 Gm Gel..Gram.) 15 gm PO Q15M PRN; Protocol PRN Reason: per Hypoglycemia Standing Ord. Hydromorphone HCl (Hydromorphone Hcl 1 Mg/Ml Syringe) 1 mg IVPUSH Q2H PRN; Protocol PRN Reason: Pain, Severe (Pain Scale 7-10) Last Admin: 11/13/23 09:23 Dose: 1 mg Documented By: STEVE Piperacillin Sod/Tazobactam (Sod 3.375 gm/ Sodium Chloride) 50 mls @ 100 mls/hr IV Q6H [facility] Last Infusion: 11/13/23 10:14 Dose: Infused Documented By: STEVE Dextrose (D10) 250 mls @ 750 mls/hr IV Q15M PRN; Protocol PRN Reason: per Hypoglycemia Standing Ord. Lactated Ringer's (Lr) 1,000 mls @ 125 mls/hr IVCONT .Q8H [facility] Last Admin: 11/13/23 04:54 Dose: 100 mls/hr Documented By: MARTINEZ Insulin Human Lispro (Insulin Lispro 100 Unit/Ml 3 Ml Vial) 0 unit SUBCUT QIDACHS [facility]; Protocol Last Admin: 11/13/23 12:41 Dose: 2 unit Documented By: STEVE Lamotrigine (Lamotrigine 100 Mg Tablet) 200 mg PO BID@1000,2200 [facility] Last Admin: 11/13/23 09:24 Dose: 200 mg Documented By: STEVE Magnesium Hydroxide (Milk Of Magnesia 30 Ml Oral.Susp) 30 ml PO DAILY PRN PRN Reason: Constipation Melatonin (Melatonin 3 Mg Tablet) 6 mg PO BEDTIME PRN PRN Reason: Insomnia Ondansetron HCl (Ondansetron Hcl 4 Mg/2 Ml Vial) 4 mg IVPUSH Q8H PRN PRN Reason: Nausea and Vomiting Oxcarbazepine (Oxcarbazepine 300 Mg Tablet) 600 mg PO BID@1000,2200 [facility] Last Admin: 11/13/23 09:24 Dose: 600 mg Documented By: STEVE Sodium Chloride (0.9 % Sodium Chloride Flush 3 Ml Syringe) 3 ml IVFLUSH QSHIFT [facility] Last Admin: 11/13/23 07:31 Dose: Not Given Documented By: STEVE Non-Admin Reason: IV Running Labs 11/12/23 11:25 11/13/23 06:06 Labs: Laboratory Results - last 24 hr 11/12/23 11/12/23 11/12/23 11:25 16:08 16:16 Anion Gap Estim Creat Clear Calc Estimated GFR POC Glucose 206 H Random Glucose Lactic Acid 1.8 Calcium TSH 0.96 11/12/23 11/13/23 11/13/23 19:52 06:06 07:18 Anion Gap 12 Estim Creat Clear Calc 182.6 Estimated GFR > 60 POC Glucose 180 H 115 Random Glucose 147 H Lactic Acid Calcium 8.9 TSH 11/13/23 11:16 Anion Gap Estim Creat Clear Calc Estimated GFR POC Glucose 154 H Random Glucose Lactic Acid Calcium TSH Microbiology Microbiology Results: Microbiology 11/11/23 03:54 Blood Culture - Preliminary Blood - Venous No growth after 48 hours. 11/11/23 03:54 Blood Culture - Preliminary Blood - Venous No growth after 48 hours. Assessment and Plan (1) Status post laparoscopic cholecystectomy: Status: Acute (2) Empyema of gallbladder: Status: Acute Plan d4 48yo M with DM, HTN, epilepsy, obesity admitted to surgical service after lap [place] for empyema of gallbladder on 11/09 returned to OR 11/10 due to tachycardia + worsening pain, found to have free air on CT, defect in small bowel repaired hospitalist consultation for management of comorbid conditions gallbaldder empyema s/p lap [place] small bowel defect s/p repair - continue pip-mane 11/10-, postop care + pain control + diet per Gen Surg tachycardia - improving; TTE pending; continue IV fluids DM2 - brian dose lispro HTN - antihypertensives held for soft BP epilepsy - oxcarbazapine, lamotrigine VTE ppx - SCDs Thank you for this consultation. We will continue to follow the patient while they are admitted to your service. Total time managing care of this patient today: 35 minutes. Quality Stroke Does the patient have a stroke diagnosis?: No VTE Prior VTE?: No VTE Risk Level:: Surgical - low VTE Device Contraindication: N/A - Device Ordered VTE Drug Contraindication: Treatment Not Indicated
[2023-11-13 15:54] LABS: Glucose, Whole Blood 160 mg/dL (60-115)
[2023-11-13 20:42] LABS: Glucose, Whole Blood 167 mg/dL (60-115)
[2023-11-13] MEDS: HYDROcodone Bit/Acetam 5/325 TABLET 1 TAB PO (22:42)
[2023-11-13] MEDS: 0.9 % Sodium Chloride Flush 3 ML SYRINGE IVFLUSH (22:43)
[2023-11-14] VITALS (15 sets, daily range): BP systolic 140–162; BP diastolic 77–93; PULSE 96–106; RESP 18–22; TEMP 35.9–37.3; O2SAT 94–98
[2023-11-14] MEDS: Lactated Ringers 1,000 ML 100 ML IVCONT ×2 (02:07→14:42)
[2023-11-14] MEDS: Piperacillin Sodium/Tazobactam 3.375 GM in 0.9 % Sodium Chloride 50 ML IV ×4 (03:04→23:03)
[2023-11-14] MEDS: HYDROmorphone HCl 1 MG/ML SYRINGE IVPUSH ×5 (03:04→23:27)
--- NOTE | 2023-11-14 07:00 | CA_ITS ---
Transthoracic Echocardiogram Patient (Last, First, Middle): Girma Kimball, Gender: Male Date of : 1975 Age: 48 Procedure Date: 11/14/2023 Procedure Type: Transthoracic Echocardiogram Location: [facility] [place] Height: 180.34 cm Weight: 117.48 kg BSA: 2.35 m2 Heart Rate: bpm BP: 146 / 77 mmHg Derrick Builder: SB Referring MD: Eriberto Gleason MD Symptoms: Unexplained tachcardia Study Quality: Fair, contrast ECG Rhythm: Sinus Conclusions: - The left ventricular systolic function is normal. The visually estimated ejection fraction is between 65-70%. - No obvious valvular pathology seen on this study. Findings Procedure Information Contrast agent, definity, is being given per protocol without apparent complications. Left Ventricle Normal left ventricular cavity size. The left ventricular systolic function is normal. The visually estimated ejection fraction is between 65-70%. There is no evidence of regional wall motion abnormalities. Diastolic function is normal for age. There is mild septal asymmetric hypertrophy. Right Ventricle The right ventricle was not well visualized. There is normal right ventricular systolic function. Atria The left atrium is normal in size. The right atrium was not well visualized. Aortic Valve There is a normal trileaflet aortic valve. There is no aortic valve stenosis. There is no aortic valve regurgitation. Mitral Valve The mitral valve appears normal. There is no mitral valve regurgitation. There is no mitral valve stenosis. Pulmonic Valve The pulmonic valve is likely normal. Tricuspid Valve There is no tricuspid valve regurgitation. Tricuspid regurgitation envelope is inadequate for calculation of right ventricular systolic pressure. Great Vessels The asc aorta is normal in size. Venous The inferior vena cava is normal in size and collapses less than 50% with inspiration. Pericardium/Pleural There is no evidence of pericardial effusion. Prior Study Comparison No prior study available for comparison. Recommendations, Care & Conclusions No obvious valvular pathology seen on this study. Measurements 2D Linear Measurements IVSd: 1.05 0.6-0.9/0.6-1.0 cm LVIDd: 4.83 3.9-5.3/4.2-5.9 cm LVIDd Index: 2.06 2.4-3.2/2.2-3.1 cm/m2 LVIDs: 3.23 2.0-3.6 cm LVPWd: 0.79 0.7-1.1 cm LA Diam: 3.00 2.7-3.8/3.0-4.0 cm LAIDs Index: 1.28 1.5-2.3 cm/m2 LV Mass: 190.73 67-162/88-224 g LV Mass Index: 81.16 43-95/49-115 g/m2 LVOT Diam: 2.20 3.0+(-)1.3 cm 2D Systolic Function EF 4C: 70.90 >55% EF 2C: 69.90 >55% EF BiP: 71.50 >55% Mitral Valve MV Pk E: 0.81 MV PK A: 1.05 MV Decel Time: 151.00 E/A: 0.80 E'Lateral: 10.40 E'Medial: 7.46 E/E' Med: 10.90 E/E' Lat: 7.80 PHT: 44.00 MVA PHT: 5.00 Decel Crockett: 5.38 Aortic Valve AoV Pk Javi: 1.85 AoV Pk Grad: 14.00 LVOT LVOT Pk Javi: 1.62 LVOT Mn Javi: 1.16 LVOT VTI: 0.28 LVOT Pk Grad: 10.00 LVOT Mn Grad: 6.00 LVOT Diam: 2.20 LVOT Area: 3.80 Diastolic Function MV Pk E: 0.81 MV Pk A: 1.05 E/A: 0.80 E'Medial: 7.46 E/E' Med: 10.90 E' Laterial: 10.40 E/E' Lat: 7.80 Right Ventricle TAPSE (mm): 21.40 TVS' Javi: 21.40 Tricuspid Valve RA Press: 8.00 Great Vessels Aorta Sinus of Valsalva: 3.40 2.0-3.5 cm Ao Asc: 3.60 2.1-3.4 cm Pulmonary Valve PV Pk Javi: 1.04 Peak PV Grad: 4.00 Updated in Other Vendor System with Status of Final Supa Randall MD electronically signed on 11/14/2023 10:19:35 AM with status of Final
[2023-11-14 07:57] LABS: Glucose, Whole Blood 133 mg/dL (60-115)
[2023-11-14 08:08] LABS: Anion Gap 12 (12-20); Blood Urea Nitrogen 13 mg/dL (9-16); Calcium 8.3 mg/dL (8.4-10.2); Carbon Dioxide 26 mmol/L (22-29); Chloride 103 mmol/L (96-108); Creatinine Clr Calc Pharmacy 188.3; Estimated Glomerular Filt Rate > 60; Glucose Random 137 mg/dL (60-115); Potassium 3.7 mmol/L (3.3-5.1); Sodium 137 mmol/L (135-145)
[2023-11-14] MEDS: OXcarbazepine 300 MG TABLET 600 MG PO ×2 (09:55→20:52)
[2023-11-14] MEDS: lamoTRIgine 100 MG TABLET 200 MG PO ×2 (09:55→20:53)
[2023-11-14] MEDS: Folic Acid 1 MG TABLET PO (09:56)
--- NOTE | 2023-11-14 10:31 | HO.PM.IMPN ---
Subjective Subjective Date of Service: 11/14/23 Interval History: pain improving though not passing gas yet tachycardia improving, HR in 90s Review of Systems Review of Systems: Yes all other systems are reviewed and are negative Physical Exam Vital Signs: Vital Signs: Last Vital Signs Temp 97.8 F 11/14/23 07:47 Pulse 100 11/14/23 07:47 Resp 18 11/14/23 07:47 BP 161/93 H 11/14/23 07:47 Pulse Ox 95 11/14/23 07:47 O2 Del Method Room Air 11/14/23 07:47 O2 Flow Rate 2 11/13/23 11:14 Oxygen Flow Rate 95 11/13/23 13:45 BMI result Body Mass Index 36.2 Gen: in no acute distress HEENT: sclera anicteric, moist mucus membranes Neck: supple Lungs: clear to auscultation bilaterally Heart: regular, no murmurs Abd: somewhat distended, dry dressings on surgical incisions, some skin tears from tape, scant bowel sounds Ext: no edema Skin: warm/well-perfused Neuro: alert and oriented x3, no focal findings Psych: appropriate affect Objective Data Active Medications Acetaminophen (Acetaminophen 325 Mg Tablet) 650 mg PO Q6H PRN PRN Reason: Pain, Mild (Pain Scale 1-3), fever or headache Last Admin: 11/11/23 15:29 Dose: 650 mg Documented By: OSKAR Hydrocodone Bitart/Acetaminophen (Hydrocodone Bit/Acetam 5/325 Tablet) 1 tab PO Q4H PRN PRN Reason: Pain, Moderate(Pain Scale 4-6) Last Admin: 11/13/23 22:42 Dose: 1 tab Documented By: ALLEGRA Calcium Carbonate (Calcium Carbonate 750 Mg Tab.Chew) 750 mg PO Q4H PRN PRN Reason: Heartburn Folic Acid (Folic Acid 1 Mg Tablet) 1 mg PO DAILY@1000 NOY Last Admin: 11/13/23 09:24 Dose: 1 mg Documented By: STEVE Glucose (Glucose Gel 15 Gm Gel..Gram.) 15 gm PO Q15M PRN; Protocol PRN Reason: per Hypoglycemia Standing Ord. Hydromorphone HCl (Hydromorphone Hcl 1 Mg/Ml Syringe) 1 mg IVPUSH Q2H PRN; Protocol PRN Reason: Pain, Severe (Pain Scale 7-10) Last Admin: 11/14/23 07:55 Dose: 1 mg Documented By: ONEIDA Piperacillin Sod/Tazobactam (Sod 3.375 gm/ Sodium Chloride) 50 mls @ 100 mls/hr IV Q6H [facility] Last Infusion: 11/14/23 03:40 Dose: Infused Documented By: ALLEGRA Dextrose (D10) 250 mls @ 750 mls/hr IV Q15M PRN; Protocol PRN Reason: per Hypoglycemia Standing Ord. Lactated Ringer's (Lr) 1,000 mls @ 125 mls/hr IVCONT .Q8H [facility] Last Admin: 11/14/23 02:12 Dose: Not Given Documented By: ALLEGRA Non-Admin Reason: IV Running Insulin Human Lispro (Insulin Lispro 100 Unit/Ml 3 Ml Vial) 0 unit SUBCUT QIDACHS [facility]; Protocol Last Admin: 11/14/23 07:56 Dose: Not Given Documented By: ONEIDA Non-Admin Reason: No Insulin Coverage Lamotrigine (Lamotrigine 100 Mg Tablet) 200 mg PO BID@1000,2200 [facility] Last Admin: 11/13/23 22:42 Dose: 200 mg Documented By: ALLEGRA Magnesium Hydroxide (Milk Of Magnesia 30 Ml Oral.Susp) 30 ml PO DAILY PRN PRN Reason: Constipation Melatonin (Melatonin 3 Mg Tablet) 6 mg PO BEDTIME PRN PRN Reason: Insomnia Ondansetron HCl (Ondansetron Hcl 4 Mg/2 Ml Vial) 4 mg IVPUSH Q8H PRN PRN Reason: Nausea and Vomiting Oxcarbazepine (Oxcarbazepine 300 Mg Tablet) 600 mg PO BID@1000,2200 [facility] Last Admin: 11/13/23 22:42 Dose: 600 mg Documented By: ALLEGRA Sodium Chloride (0.9 % Sodium Chloride Flush 3 Ml Syringe) 3 ml IVFLUSH QSHIFT [facility] Last Admin: 11/13/23 22:43 Dose: 3 ml Documented By: ALLEGRA Labs 11/12/23 11:25 11/14/23 06:08 Labs: Laboratory Results - last 24 hr 11/13/23 11/13/23 11/13/23 11:16 15:40 20:35 Anion Gap Estim Creat Clear Calc Estimated GFR POC Glucose 154 H 160 H 167 H Random Glucose Calcium 11/14/23 11/14/23 06:08 07:51 Anion Gap 12 Estim Creat Clear Calc 188.3 Estimated GFR > 60 POC Glucose 133 H Random Glucose 137 H Calcium 8.3 L D TTE 11/14/23 - The left ventricular systolic function is normal. The visually estimated ejection fraction is between 65-70%. - No obvious valvular pathology seen on this study. Assessment and Plan (1) Status post laparoscopic cholecystectomy: Status: Acute (2) Empyema of gallbladder: Status: Acute Plan d5 48yo M with DM, HTN, epilepsy, obesity admitted to general surgical service after lap [place] for empyema of gallbladder on 11/09 returned to OR 11/10 due to tachycardia + worsening pain and found to have free air on CT, defect in small bowel repaired hospitalist consultation for management of comorbid conditions gallbaldder empyema s/p lap [place] small bowel defect s/p repair - continue pip-mane 11/10-, postop care + pain control + diet advancement per Gen Surg tachycardia - improving; TTE without apparent disease DM2 - brian dose lispro HTN - antihypertensives held for soft BP and now hypertensive; resume lisinopril epilepsy - oxcarbazapine, lamotrigine VTE ppx - SCDs Thank you for this consultation. We will continue to follow the patient while they are admitted to your service. Total time managing care of this patient today: 35 minutes. Quality Stroke Does the patient have a stroke diagnosis?: No VTE Prior VTE?: No VTE Risk Level:: Surgical - low VTE Device Contraindication: N/A - Device Ordered VTE Drug Contraindication: Treatment Not Indicated
[2023-11-14 11:32] LABS: Glucose, Whole Blood 144 mg/dL (60-115)
[2023-11-14] MEDS: lisinopriL 5 MG TABLET PO (11:39)
[2023-11-14] MEDS: 0.9 % Sodium Chloride Flush 3 ML SYRINGE IVFLUSH ×3 (12:48→20:53)
[2023-11-14 16:48] LABS: Glucose, Whole Blood 166 mg/dL (60-115)
[2023-11-14] MEDS: Insulin Lispro 100 UNIT/ML 3 ML VIAL SUBCUT ×2 (17:27→20:51)
[2023-11-14 20:13] LABS: Glucose, Whole Blood 155 mg/dL (60-115)
[2023-11-14] MEDS: Milk of Magnesia 30 ML ORAL.SUSP PO (23:22)
[2023-11-15] VITALS (9 sets, daily range): BP systolic 142–166; BP diastolic 74–87; PULSE 94–106; RESP 16–20; TEMP 36.4–37; O2SAT 94–97
--- NOTE | 2023-11-15 | ECG_ITS ---
Test Reason : tacycardia Blood Pressure : / mmHG Vent. Rate : 103 BPM Atrial Rate : 103 BPM P-R Int : 146 ms QRS Dur : 088 ms QT Int : 348 ms P-R-T Axes : 034 028 004 degrees QTc Int : 455 ms Sinus tachycardia Cannot rule out Anterior infarct , age undetermined Abnormal ECG When compared with ECG of 11-NOV-2023 22:25, No significant changes seen Referred By: Rosie Sofia Electronically Signed By:MARU HOUGH
[2023-11-15] MEDS: Calcium Carbonate 750 MG TAB.CHEW PO ×4 (02:23→22:07)
[2023-11-15] MEDS: HYDROmorphone HCl 1 MG/ML SYRINGE IVPUSH ×3 (04:05→21:12)
[2023-11-15] MEDS: Piperacillin Sodium/Tazobactam 3.375 GM in 0.9 % Sodium Chloride 50 ML IV ×4 (04:05→20:49)
[2023-11-15 07:54] LABS: Glucose, Whole Blood 154 mg/dL (60-115)
[2023-11-15] MEDS: lisinopriL 5 MG TABLET PO (07:58)
[2023-11-15] MEDS: Insulin Lispro 100 UNIT/ML 3 ML VIAL SUBCUT ×3 (07:58→17:27)
[2023-11-15 10:09] LABS: Hematocrit 46.1 % (42.0-52.0); Hemoglobin 14.9 g/dl (14.0-18.0); Mean Corpuscular HGB Conc 32.3 g/dl (31.0-36.0); Mean Corpuscular Hemoglobin 26.6 pg (27.0-33.0); Mean Corpuscular Volume 82.3 fL (80.0-98.0); Mean Platelet Volume 9.4 fL (9.4-12.4); Platelet Count 389 X10*3/uL (160-400); Red Cell Distribution Width 14.1 % (11.0-16.0)
[2023-11-15 10:37] LABS: Anion Gap 14 (12-20); Blood Urea Nitrogen 12 mg/dL (9-16); Calcium 9.1 mg/dL (8.4-10.2); Carbon Dioxide 24 mmol/L (22-29); Chloride 101 mmol/L (96-108); Creatinine Clr Calc Pharmacy 197.6; Estimated Glomerular Filt Rate > 60; Glucose Random 154 mg/dL (60-115); Potassium 3.9 mmol/L (3.3-5.1); Sodium 135 mmol/L (135-145)
[2023-11-15] MEDS: OXcarbazepine 300 MG TABLET 600 MG PO ×2 (10:57→20:54)
[2023-11-15] MEDS: Folic Acid 1 MG TABLET PO (10:57)
[2023-11-15] MEDS: lamoTRIgine 100 MG TABLET 200 MG PO ×2 (10:57→20:54)
--- NOTE | 2023-11-15 11:55 | PM.PNGS ---
Subjective Subjective Date of Service: 11/15/23 Interval history: Continue to c/o abdominal pain at umbilical site. Reports hiccuping and bloating but passing flatus and liquid BM. OOB minimally. Physical Exam Vital Signs: Vital Signs: Last Vital Signs Temp 97.5 F 11/15/23 11:22 Pulse 104 H 11/15/23 11:22 Resp 16 11/15/23 11:22 BP 142/87 H 11/15/23 11:22 Pulse Ox 96 11/15/23 11:22 O2 Del Method Room Air 11/15/23 11:22 O2 Flow Rate 2 11/13/23 11:14 Oxygen Flow Rate 95 11/13/23 13:45 BMI result Body Mass Index 36.2 Const: General: comfortable, no acute distress and alert Orientation/consciousness: patient oriented x3 Resp: Effort & Inspection: normal respiratory effort GI: Other: umbilical incision site with small amount of erythema superiorly, deep erythema inferior to umbilicus, no palpable fluctuance, incision probed with q tip without evacuation of significant amount of fluid Inspection: Yes distended Palpation (GI): Soft to palpation, Tenderness to palpation present (GI) and no guarding Skin: General skin exam: no rashes or lesions noted Neuro: General: patient oriented x3 and moves all extremities Objective Data Active Medications Acetaminophen (Acetaminophen 325 Mg Tablet) 650 mg PO Q6H PRN PRN Reason: Pain, Mild (Pain Scale 1-3), fever or headache Last Admin: 11/11/23 15:29 Dose: 650 mg Documented By: OSKAR Hydrocodone Bitart/Acetaminophen (Hydrocodone Bit/Acetam 5/325 Tablet) 1 tab PO Q4H PRN PRN Reason: Pain, Moderate(Pain Scale 4-6) Last Admin: 11/13/23 22:42 Dose: 1 tab Documented By: BAOLAMGinette Calcium Carbonate (Calcium Carbonate 750 Mg Tab.Chew) 750 mg PO Q4H PRN PRN Reason: Heartburn Last Admin: 11/15/23 11:09 Dose: 750 mg Documented By: ONEIDA Folic Acid (Folic Acid 1 Mg Tablet) 1 mg PO DAILY@1000 NOY Last Admin: 11/15/23 10:57 Dose: 1 mg Documented By: ONEIDA Glucose (Glucose Gel 15 Gm Gel..Gram.) 15 gm PO Q15M PRN; Protocol PRN Reason: per Hypoglycemia Standing Ord. Hydromorphone HCl (Hydromorphone Hcl 1 Mg/Ml Syringe) 1 mg IVPUSH Q2H PRN; Protocol PRN Reason: Pain, Severe (Pain Scale 7-10) Last Admin: 11/15/23 04:05 Dose: 1 mg Documented By: ALLEGRA Piperacillin Sod/Tazobactam (Sod 3.375 gm/ Sodium Chloride) 50 mls @ 100 mls/hr IV Q6H [facility] Last Admin: 11/15/23 10:57 Dose: 100 mls/hr Documented By: ONEIDA Dextrose (D10) 250 mls @ 750 mls/hr IV Q15M PRN; Protocol PRN Reason: per Hypoglycemia Standing Ord. Ceftriaxone Sodium 2 gm/ (Sodium Chloride) 50 mls @ 100 mls/hr IV Q24H [facility] Insulin Human Lispro (Insulin Lispro 100 Unit/Ml 3 Ml Vial) 0 unit SUBCUT QIDACHS [facility]; Protocol Last Admin: 11/15/23 07:58 Dose: 2 unit Documented By: ONEIDA Lamotrigine (Lamotrigine 100 Mg Tablet) 200 mg PO BID@1000,2200 NOY Last Admin: 11/15/23 10:57 Dose: 200 mg Documented By: ONEIDA Lisinopril (Lisinopril 5 Mg Tablet) 5 mg PO DAILY [facility]; Protocol Last Admin: 11/15/23 07:58 Dose: 5 mg Documented By: ONEIDA Magnesium Hydroxide (Milk Of Magnesia 30 Ml Oral.Susp) 30 ml PO DAILY PRN PRN Reason: Constipation Last Admin: 11/14/23 23:22 Dose: 30 ml Documented By: ALLEGRA Melatonin (Melatonin 3 Mg Tablet) 6 mg PO BEDTIME PRN PRN Reason: Insomnia Ondansetron HCl (Ondansetron Hcl 4 Mg/2 Ml Vial) 4 mg IVPUSH Q8H PRN PRN Reason: Nausea and Vomiting Oxcarbazepine (Oxcarbazepine 300 Mg Tablet) 600 mg PO BID@1000,2200 NOY Last Admin: 11/15/23 10:57 Dose: 600 mg Documented By: ONEIDA Sodium Chloride (0.9 % Sodium Chloride Flush 3 Ml Syringe) 3 ml IVFLUSH QSHIFT [facility] Last Admin: 11/15/23 08:00 Dose: Not Given Documented By: ONEIDA Non-Admin Reason: IV Running Labs 11/15/23 09:45 11/15/23 09:45 Labs: Laboratory Results - last 24 hr 11/14/23 11/14/23 11/15/23 16:44 20:09 07:49 MCV MCH MCHC RDW Plt Count MPV Absolute Nucleated RBC Nucleated RBC % (auto) Anion Gap Estim Creat Clear Calc Estimated GFR POC Glucose 166 H 155 H 154 H Random Glucose Calcium 11/15/23 09:45 MCV 82.3 MCH 26.6 L MCHC 32.3 RDW 14.1 Plt Count 389 MPV 9.4 Absolute Nucleated RBC 0.000 Nucleated RBC % (auto) 0.0 Anion Gap 14 Estim Creat Clear Calc 197.6 Estimated GFR > 60 POC Glucose Random Glucose 154 H Calcium 9.1 D Procedures Date of Service Date of Service: 11/15/23 Progress Note: A&P Assessment and plan (1) Status post laparoscopic cholecystectomy: Status: Acute (2) Status post small bowel resection: Status: Acute Plan Remains distended and now hiccuping but with some evidence of GI function. Will reorder clear liquids for now. His activity has been limited and he was encouraged OOB and to ambulate as much as possible to promote GI function. No evidence of seroma at incision site, has multiple abrasions of lower abdomen below umbilicus, ?cellulitis secondary to this. Will began rocephin, on zosyn. Patient comfortable with plan. REpeat CBC in am. Time Spent With Patient Time: Total time managing care of this patient today ____ minutes. Quality Stroke Does the patient have a stroke diagnosis?: No VTE Prior VTE?: No VTE Risk Level:: Surgical - low VTE Device Contraindication: N/A - Device Ordered VTE Drug Contraindication: Treatment Not Indicated
[2023-11-15 12:29] LABS: Glucose, Whole Blood 170 mg/dL (60-115)
[2023-11-15] MEDS: cefTRIAXone sodium 2 GM in 0.9 % Sodium Chloride 50 ML IV (12:49)
[2023-11-15] MEDS: 0.9 % Sodium Chloride Flush 3 ML SYRINGE IVFLUSH ×2 (12:53→20:51)
--- NOTE | 2023-11-15 13:36 | P.PNIM_ITS ---
Subjective Subjective Date of Service: 11/15/23 Interval History: Pt still with sign abdominal pain wbc trending up tachycardia is overall better Physical Exam 2 Vital Signs: Vital Signs: Last Vital Signs Temp 97.5 F 11/15/23 11:22 Pulse 104 H 11/15/23 11:22 Resp 16 11/15/23 11:22 BP 142/87 H 11/15/23 11:22 Pulse Ox 96 11/15/23 11:22 O2 Del Method Room Air 11/15/23 11:22 O2 Flow Rate 2 11/13/23 11:14 Oxygen Flow Rate 95 11/13/23 13:45 BMI result Body Mass Index 36.2 Gen: in no acute distress HEENT: sclera anicteric, moist mucus membranes Neck: supple Lungs: clear to auscultation bilaterally Heart: regular + tachycardic, no murmurs Abd: somewhat distended, dry dressings on surgical incisions, some skin tears from tape, scant bowel sounds Ext: no edema Skin: warm/well-perfused Neuro: alert and oriented x3, no focal findings Psych: appropriate affect Objective Data Active Medications Acetaminophen (Acetaminophen 325 Mg Tablet) 650 mg PO Q6H PRN PRN Reason: Pain, Mild (Pain Scale 1-3), fever or headache Last Admin: 11/11/23 15:29 Dose: 650 mg Documented By: OSKAR Hydrocodone Bitart/Acetaminophen (Hydrocodone Bit/Acetam 5/325 Tablet) 1 tab PO Q4H PRN PRN Reason: Pain, Moderate(Pain Scale 4-6) Last Admin: 11/13/23 22:42 Dose: 1 tab Documented By: ALLEGRA Calcium Carbonate (Calcium Carbonate 750 Mg Tab.Chew) 750 mg PO Q4H PRN PRN Reason: Heartburn Last Admin: 11/15/23 11:09 Dose: 750 mg Documented By: ONEIDA Folic Acid (Folic Acid 1 Mg Tablet) 1 mg PO DAILY@1000 NOY Last Admin: 11/15/23 10:57 Dose: 1 mg Documented By: ONEIDA Glucose (Glucose Gel 15 Gm Gel..Gram.) 15 gm PO Q15M PRN; Protocol PRN Reason: per Hypoglycemia Standing Ord. Hydromorphone HCl (Hydromorphone Hcl 1 Mg/Ml Syringe) 1 mg IVPUSH Q2H PRN; Protocol PRN Reason: Pain, Severe (Pain Scale 7-10) Last Admin: 11/15/23 12:47 Dose: 1 mg Documented By: ONEIDA Piperacillin Sod/Tazobactam (Sod 3.375 gm/ Sodium Chloride) 50 mls @ 100 mls/hr IV Q6H [facility] Last Admin: 11/15/23 10:57 Dose: 100 mls/hr Documented By: ONEIDA Dextrose (D10) 250 mls @ 750 mls/hr IV Q15M PRN; Protocol PRN Reason: per Hypoglycemia Standing Ord. Ceftriaxone Sodium 2 gm/ (Sodium Chloride) 50 mls @ 100 mls/hr IV Q24H [facility] Last Admin: 11/15/23 12:49 Dose: 100 mls/hr Documented By: ONEIDA Lactated Ringer's (Lr) 1,000 mls @ 80 mls/hr IVCONT .[id number] [facility] Insulin Human Lispro (Insulin Lispro 100 Unit/Ml 3 Ml Vial) 0 unit SUBCUT QIDACHS [facility]; Protocol Last Admin: 11/15/23 12:34 Dose: 2 unit Documented By: ONEIDA Lamotrigine (Lamotrigine 100 Mg Tablet) 200 mg PO BID@1000,2200 [facility] Last Admin: 11/15/23 10:57 Dose: 200 mg Documented By: ONEIDA Lisinopril (Lisinopril 5 Mg Tablet) 5 mg PO DAILY [facility]; Protocol Last Admin: 11/15/23 07:58 Dose: 5 mg Documented By: ONEIDA Magnesium Hydroxide (Milk Of Magnesia 30 Ml Oral.Susp) 30 ml PO DAILY PRN PRN Reason: Constipation Last Admin: 11/14/23 23:22 Dose: 30 ml Documented By: LAFLAMGinette Melatonin (Melatonin 3 Mg Tablet) 6 mg PO BEDTIME PRN PRN Reason: Insomnia Ondansetron HCl (Ondansetron Hcl 4 Mg/2 Ml Vial) 4 mg IVPUSH Q8H PRN PRN Reason: Nausea and Vomiting Oxcarbazepine (Oxcarbazepine 300 Mg Tablet) 600 mg PO BID@1000,2200 [facility] Last Admin: 11/15/23 10:57 Dose: 600 mg Documented By: ONEIDA Sodium Chloride (0.9 % Sodium Chloride Flush 3 Ml Syringe) 3 ml IVFLUSH QSHIFT [facility] Last Admin: 11/15/23 12:53 Dose: 3 ml Documented By: ONEIDA Labs 11/15/23 09:45 11/15/23 09:45 Labs: Laboratory Results - last 24 hr 11/14/23 11/14/23 11/15/23 16:44 20:09 07:49 MCV MCH MCHC RDW Plt Count MPV Absolute Nucleated RBC Nucleated RBC % (auto) Anion Gap Estim Creat Clear Calc Estimated GFR POC Glucose 166 H 155 H 154 H Random Glucose Calcium 11/15/23 11/15/23 09:45 12:13 MCV 82.3 MCH 26.6 L MCHC 32.3 RDW 14.1 Plt Count 389 MPV 9.4 Absolute Nucleated RBC 0.000 Nucleated RBC % (auto) 0.0 Anion Gap 14 Estim Creat Clear Calc 197.6 Estimated GFR > 60 POC Glucose 170 H Random Glucose 154 H Calcium 9.1 D Assessment and Plan (1) Status post laparoscopic cholecystectomy: Status: Acute (2) Empyema of gallbladder: Status: Acute Plan 48yo M with DM, HTN, epilepsy, obesity admitted to general surgical service after lap oneida for empyema of gallbladder on 11/09 returned to OR 11/10 due to tachycardia + worsening pain and found to have free air on CT, defect in small bowel repaired hospitalist consultation for management of comorbid conditions gallbaldder empyema s/p lap oneida small bowel defect s/p repair - continue pip-mane 11/10-, postop care + pain control + diet advancement per Gen Surg tachycardia - improving; TTE without apparent disease DM2 - brian dose lispro HTN - antihypertensives held for soft BP and now hypertensive; resume lisinopril epilepsy - oxcarbazapine, lamotrigine VTE ppx - SCDs Thank you for this consultation. We will continue to follow the patient while they are admitted to your service. Quality Stroke Does the patient have a stroke diagnosis?: No VTE Prior VTE?: No VTE Risk Level:: Surgical - low VTE Device Contraindication: N/A - Device Ordered VTE Drug Contraindication: Treatment Not Indicated
[2023-11-15] MEDS: Lactated Ringers 1,000 ML 80 ML IVCONT (15:26)
--- NOTE | 2023-11-15 15:52 | P.CDIM_ITS ---
PROVIDER RESPONSE TEXT: To clarify, the appropriate diagnosis supported by the clinical indicators: Other (explain): Rule out bile leak or enteric leak QUERY TEXT: PHYSICIAN'S DOCUMENTATION REQUEST Date of Query: 11/15/2023 02:02 PM EDT Patient Name: Girma Kimball Admit Date: 11/10/2023 Dear Ran Buenrostro MD, A review of the medical record indicates additional documentation may be needed. Please review below and update the documentation accordingly. Clinical Indicators: Per Operative Note 11/11/23: Patient is approximately 1.5 days status post laparoscopic cholecystectomy for empyema of the gallbla dder. Patient has had marked abdominal pain, distention, tachycardia. CT scan was suggestive of greater than expected posto perative air in the abdominal cavity and fluid. Intraoperative findings demonstrated a single transmural defect of mid small bowel with a few 100 cc of succus entericus in the abdominal cavity. The following diagnoses or signs and symptoms were noted in the patient record: IV Piperacillin Sod/Tazobactam Q6H ordered 11/11/23 IV Ceftriaxone Sodium Q 24 H ordered 11/15/23 Based on the above, could you clarify the appropriate diagnosis, if significant, that supports the ab ove abnormalities and additional evaluation, monitoring, and/or treatment rendered: Acute Peritonitis Other (explain) Clinically unable to determine (explain) Thank you, Berta Siegel RN Use of terms such as suspected, likely, concern for, or probable (associated with a specific diagnosi s that is being evaluated, monitored, or treated as if it exists) are acceptable and can be coded in the inpatient se tting, when documented at the time of discharge. Please use your independent medical judgment in providing your response. THIS QUERY IS PART OF THE PERMANENT MEDICAL RECORD
[2023-11-15 16:45] LABS: Glucose, Whole Blood 165 mg/dL (60-115)
[2023-11-15 20:29] LABS: Glucose, Whole Blood 150 mg/dL (60-115)
[2023-11-15] MEDS: Famotidine 20 MG TABLET PO (20:54)
[2023-11-16] VITALS (8 sets, daily range): BP systolic 130–155; BP diastolic 72–84; PULSE 65–104; RESP 16–20; TEMP 36.1–37.2; O2SAT 96–97
[2023-11-16] MEDS: Piperacillin Sodium/Tazobactam 3.375 GM in 0.9 % Sodium Chloride 50 ML IV ×2 (03:23→09:13)
--- NOTE | 2023-11-16 05:56 | PC.NURSE ---
Pt AOx3, forgetful at times, fatigued, remains in pain. He is passing gas, continues to endorse ABD pain.. His ABD remains distended, below the surgical incision the skin is red and warm to the touch (surgical team made aware yesterday), skin tear from tape also present. Pt incontinent of stool 4x loose and a green/brown color. He is having some depression, feels he is a burden to his and to nursing staff. He is also embarrassed that nursing staff needs to clean up when he is incontinent. Explained to pt he does not need to feel embarrassed, nursing staff is here to help him. Pt is 1-2 assist w/walker OOB. Call king within reach, bed alarm on.
[2023-11-16 06:54] LABS: Hematocrit 38.7 % (42.0-52.0); Hemoglobin 12.7 g/dl (14.0-18.0); Mean Corpuscular HGB Conc 32.8 g/dl (31.0-36.0); Mean Corpuscular Hemoglobin 27.4 pg (27.0-33.0); Mean Corpuscular Volume 83.6 fL (80.0-98.0); Mean Platelet Volume 9.3 fL (9.4-12.4); Platelet Count 367 X10*3/uL (160-400); Red Blood Count 4.63 X10*6/uL (4.60-5.80); Red Cell Distribution Width 14.2 % (11.0-16.0); White Blood Count 21.5 X10*3/uL (4.8-10.8)
[2023-11-16 07:18] LABS: Glucose, Whole Blood 134 mg/dL (60-115)
[2023-11-16 08:23] LABS: Atypical Lymph Absolute Manual 0.2 x10*3/uL; Atypical Lymphs Percent Manual 1 % (0-6); Band Neutrophils Percent 20 % (3-5); Eosinophils Absolute Manual 0.6 X10*3/uL (0.0-0.4); Eosinophils Percent Manual 3 % (0-4); Metamyelocytes Absolute 0.4 X10*3/uL; Metamyelocytes Percent 2 %; Monocytes Absolute Manual 1.9 X10*3/uL (0.1-1.2); Monocytes Percent Manual 9 % (2-11); Neutrophils Absolute Manual 18.3 X10*3/uL (2.0-8.3); Neutrophils Percent Manual 65 % (45-73)
[2023-11-16 08:24] LABS: Platelet Estimate NORMAL (NORMAL); Platelet Morphology Comment NORMAL; RBC Morphology NORMAL; Toxic Vacuolation PRESENT
--- NOTE | 2023-11-16 08:50 | PM.PNGS ---
Subjective Subjective Date of Service: 11/16/23 Interval history: Feels better this morning. Now having loose stools. Pain at umbilicus is better. Urine still concentrated. Physical Exam Vital Signs: Vital Signs: Last Vital Signs Temp 98.7 F 11/16/23 08:00 Pulse 96 11/16/23 08:00 Resp 20 11/16/23 08:00 BP 130/72 11/16/23 08:00 Pulse Ox 97 11/16/23 03:06 O2 Del Method Room Air 11/16/23 08:00 O2 Flow Rate 2 11/13/23 11:14 Oxygen Flow Rate 95 11/13/23 13:45 BMI result Body Mass Index 36.2 Const: General: comfortable, no acute distress and alert Resp: Effort & Inspection: normal respiratory effort GI: Other: incisions clean umbilical incision with some dark drainage overall erythema inferior of umbilicus improved Inspection: Yes distended Palpation (GI): Soft to palpation, Tenderness to palpation present (GI) (incisional) and no guarding Percussion: Yes tympanic to percussion Skin: General skin exam: no rashes or lesions noted Objective Data Active Medications Acetaminophen (Acetaminophen 325 Mg Tablet) 650 mg PO Q6H PRN PRN Reason: Pain, Mild (Pain Scale 1-3), fever or headache Last Admin: 11/11/23 15:29 Dose: 650 mg Documented By: OSKAR Calcium Carbonate (Calcium Carbonate 750 Mg Tab.Chew) 750 mg PO Q4H PRN PRN Reason: Heartburn Last Admin: 11/15/23 22:07 Dose: 750 mg Documented By: ISAIAS Famotidine (Famotidine 20 Mg Tablet) 20 mg PO BID [facility] Last Admin: 11/15/23 20:54 Dose: 20 mg Documented By: ISAIAS Folic Acid (Folic Acid 1 Mg Tablet) 1 mg PO DAILY@1000 [facility] Last Admin: 11/15/23 10:57 Dose: 1 mg Documented By: ONEIDA Glucose (Glucose Gel 15 Gm Gel..Gram.) 15 gm PO Q15M PRN; Protocol PRN Reason: per Hypoglycemia Standing Ord. Hydromorphone HCl (Hydromorphone Hcl 1 Mg/Ml Syringe) 1 mg IVPUSH Q2H PRN; Protocol PRN Reason: Pain, Severe (Pain Scale 7-10) Last Admin: 11/15/23 21:12 Dose: 1 mg Documented By: ISAIAS Piperacillin Sod/Tazobactam (Sod 3.375 gm/ Sodium Chloride) 50 mls @ 100 mls/hr IV Q6H [facility] Last Infusion: 11/16/23 03:59 Dose: Infused Documented By: ISAIAS Dextrose (D10) 250 mls @ 750 mls/hr IV Q15M PRN; Protocol PRN Reason: per Hypoglycemia Standing Ord. Ceftriaxone Sodium 2 gm/ (Sodium Chloride) 50 mls @ 100 mls/hr IV Q24H [facility] Last Infusion: 11/15/23 16:06 Dose: Infused Documented By: REILLY Lactated Ringer's (Lr) 1,000 mls @ 80 mls/hr IVCONT .[id number] [facility] Last Admin: 11/16/23 03:06 Dose: Not Given Documented By: ISAIAS Non-Admin Reason: IV Running Insulin Human Lispro (Insulin Lispro 100 Unit/Ml 3 Ml Vial) 0 unit SUBCUT QIDACHS [facility]; Protocol Last Admin: 11/16/23 07:44 Dose: Not Given Documented By: BRIAN Non-Admin Reason: No Insulin Coverage Lamotrigine (Lamotrigine 100 Mg Tablet) 200 mg PO BID@1000,2200 [facility] Last Admin: 11/15/23 20:54 Dose: 200 mg Documented By: ISAIAS Lisinopril (Lisinopril 5 Mg Tablet) 5 mg PO DAILY [facility]; Protocol Last Admin: 11/15/23 07:58 Dose: 5 mg Documented By: ONEIDA Magnesium Hydroxide (Milk Of Magnesia 30 Ml Oral.Susp) 30 ml PO DAILY PRN PRN Reason: Constipation Last Admin: 11/14/23 23:22 Dose: 30 ml Documented By: LAFLAMC Melatonin (Melatonin 3 Mg Tablet) 6 mg PO BEDTIME PRN PRN Reason: Insomnia Ondansetron HCl (Ondansetron Hcl 4 Mg/2 Ml Vial) 4 mg IVPUSH Q8H PRN PRN Reason: Nausea and Vomiting Oxcarbazepine (Oxcarbazepine 300 Mg Tablet) 600 mg PO BID@1000,2200 [facility] Last Admin: 11/15/23 20:54 Dose: 600 mg Documented By: ISAIAS Sodium Chloride (0.9 % Sodium Chloride Flush 3 Ml Syringe) [facility] Last Admin: 11/15/23 20:51 Dose: 3 ml Documented By: ISAIAS Labs 11/16/23 06:12 11/15/23 09:45 Labs: Laboratory Results - last 24 hr 11/15/23 11/15/23 11/15/23 09:45 12:13 16:14 MCV 82.3 MCH 26.6 L MCHC 32.3 RDW 14.1 Plt Count 389 MPV 9.4 Immature Gran % (Auto) Neut % (Auto) Lymph % (Auto) Bond % (Auto) Eos % (Auto) Baso % (Auto) Lymph # (Auto) Bond # (Auto) Eos # (Auto) Baso # (Auto) Abs Immat Gran (auto) Absolute Neuts (auto) Absolute Nucleated RBC 0.000 Nucleated RBC % (auto) 0.0 Neutrophils % (Manual) Band Neutrophils % Atypical Lymphs % (Man) Monocytes % (Manual) Eosinophils % (Manual) Metamyelocytes % Abs Neuts (Manual) Atyp Lymphs # (Manual) Monocytes # (Manual) Eosinophils # (Manual) Metamyelocytes # Toxic Vacuolation Platelet Estimate Plt Morphology Comment RBC Morphology Anion Gap 14 Estim Creat Clear Calc 197.6 Estimated GFR > 60 POC Glucose 170 H 165 H Random Glucose 154 H Calcium 9.1 D 11/15/23 11/16/23 11/16/23 20:25 06:12 07:08 MCV 83.6 MCH 27.4 MCHC 32.8 RDW 14.2 Plt Count 367 MPV 9.3 L Immature Gran % (Auto) Cancelled Neut % (Auto) Cancelled Lymph % (Auto) Cancelled Bond % (Auto) Cancelled Eos % (Auto) Cancelled Baso % (Auto) Cancelled Lymph # (Auto) Cancelled Bond # (Auto) Cancelled Eos # (Auto) Cancelled Baso # (Auto) Cancelled Abs Immat Gran (auto) Cancelled Absolute Neuts (auto) Cancelled Absolute Nucleated RBC 0.000 Nucleated RBC % (auto) 0.0 Neutrophils % (Manual) 65 Band Neutrophils % 20 H Atypical Lymphs % (Man) 1 Monocytes % (Manual) 9 Eosinophils % (Manual) 3 Metamyelocytes % 2 Abs Neuts (Manual) 18.3 H Atyp Lymphs # (Manual) 0.2 Monocytes # (Manual) 1.9 H Eosinophils # (Manual) 0.6 H Metamyelocytes # 0.4 Toxic Vacuolation PRESENT Platelet Estimate NORMAL Plt Morphology Comment NORMAL RBC Morphology NORMAL Anion Gap Estim Creat Clear Calc Estimated GFR POC Glucose 150 H 134 H Random Glucose Calcium Microbiology Microbiology Results: Microbiology 11/11/23 03:54 Blood Culture - Final Blood - Venous No growth after 5 days. 11/11/23 03:54 Blood Culture - Final Blood - Venous No growth after 5 days. Procedures Date of Service Date of Service: 11/16/23 Progress Note: A&P Assessment and plan (1) Status post laparoscopic cholecystectomy: Status: Acute (2) Status post small bowel resection: Status: Acute Plan GI function slow to return but hiccups improved, abd distention improved and now with loose stools. Erythema improved, wbc downtrending. Will obtain C diff, if negative will begin imodium. Continue to encourage activity and ambulation at least 4x per day. Continue IV abx for now. Patient comfortable with plan. Time Spent With Patient Time: Total time managing care of this patient today ____ minutes. Quality Stroke Does the patient have a stroke diagnosis?: No VTE Prior VTE?: No VTE Risk Level:: Surgical - low VTE Device Contraindication: N/A - Device Ordered VTE Drug Contraindication: Treatment Not Indicated
[2023-11-16] MEDS: lamoTRIgine 100 MG TABLET 200 MG PO ×2 (09:14→21:16)
[2023-11-16] MEDS: OXcarbazepine 300 MG TABLET 600 MG PO ×2 (09:14→21:16)
[2023-11-16] MEDS: Lactated Ringers 1,000 ML 80 ML IVCONT ×2 (09:14→21:14)
[2023-11-16] MEDS: Calcium Carbonate 750 MG TAB.CHEW PO ×3 (09:14→21:18)
[2023-11-16] MEDS: Folic Acid 1 MG TABLET PO (09:14)
[2023-11-16] MEDS: Famotidine 20 MG TABLET PO ×2 (09:14→21:16)
[2023-11-16] MEDS: 0.9 % Sodium Chloride Flush 3 ML SYRINGE IVFLUSH ×2 (09:15→15:32)
[2023-11-16] MEDS: lisinopriL 5 MG TABLET PO (09:15)
--- NOTE | 2023-11-16 09:58 | P.PNIM_ITS ---
Subjective Subjective Date of Service: 11/16/23 Interval History: Abdominal pain is better, WBC down, HR within normal Physical Exam 2 Vital Signs: Vital Signs: Last Vital Signs Temp 98.7 F 11/16/23 08:00 Pulse 96 11/16/23 08:00 Resp 20 11/16/23 08:00 BP 130/72 11/16/23 08:00 Pulse Ox 97 11/16/23 03:06 O2 Del Method Room Air 11/16/23 08:00 O2 Flow Rate 2 11/13/23 11:14 Oxygen Flow Rate 95 11/13/23 13:45 BMI result Body Mass Index 36.2 Gen: in no acute distress HEENT: sclera anicteric, moist mucus membranes Neck: supple Lungs: clear to auscultation bilaterally Heart: regular + tachycardic, no murmurs Abd: somewhat distended, dry dressings on surgical incisions, some skin tears from tape, scant bowel sounds Ext: no edema Skin: warm/well-perfused Neuro: alert and oriented x3, no focal findings Psych: appropriate affect Objective Data Active Medications Acetaminophen (Acetaminophen 325 Mg Tablet) 650 mg PO Q6H PRN PRN Reason: Pain, Mild (Pain Scale 1-3), fever or headache Last Admin: 11/11/23 15:29 Dose: 650 mg Documented By: OSKAR Calcium Carbonate (Calcium Carbonate 750 Mg Tab.Chew) 750 mg PO Q4H PRN PRN Reason: Heartburn Last Admin: 11/16/23 09:14 Dose: 750 mg Documented By: BRIAN Famotidine (Famotidine 20 Mg Tablet) 20 mg PO BID [facility] Last Admin: 11/16/23 09:14 Dose: 20 mg Documented By: BRIAN Folic Acid (Folic Acid 1 Mg Tablet) 1 mg PO DAILY@1000 [facility] Last Admin: 11/16/23 09:14 Dose: 1 mg Documented By: BRIAN Glucose (Glucose Gel 15 Gm Gel..Gram.) 15 gm PO Q15M PRN; Protocol PRN Reason: per Hypoglycemia Standing Ord. Hydromorphone HCl (Hydromorphone Hcl 1 Mg/Ml Syringe) 1 mg IVPUSH Q2H PRN; Protocol PRN Reason: Pain, Severe (Pain Scale 7-10) Last Admin: 11/15/23 21:12 Dose: 1 mg Documented By: ISAIAS Piperacillin Sod/Tazobactam (Sod 3.375 gm/ Sodium Chloride) 50 mls @ 100 mls/hr IV Q6H [facility] Last Admin: 11/16/23 09:13 Dose: 100 mls/hr Documented By: BRIAN Dextrose (D10) 250 mls @ 750 mls/hr IV Q15M PRN; Protocol PRN Reason: per Hypoglycemia Standing Ord. Ceftriaxone Sodium 2 gm/ (Sodium Chloride) 50 mls @ 100 mls/hr IV Q24H [facility] Last Infusion: 11/15/23 16:06 Dose: Infused Documented By: REILLY Lactated Ringer's (Lr) 1,000 mls @ 80 mls/hr IVCONT .[id number] [facility] Last Admin: 11/16/23 09:14 Dose: 80 mls/hr Documented By: BRIAN Insulin Human Lispro (Insulin Lispro 100 Unit/Ml 3 Ml Vial) 0 unit SUBCUT QIDACHS [facility]; Protocol Last Admin: 11/16/23 07:44 Dose: Not Given Documented By: BRIAN Non-Admin Reason: No Insulin Coverage Lamotrigine (Lamotrigine 100 Mg Tablet) 200 mg PO BID@1000,2200 [facility] Last Admin: 11/16/23 09:14 Dose: 200 mg Documented By: BRIAN Lisinopril (Lisinopril 5 Mg Tablet) 5 mg PO DAILY [facility]; Protocol Last Admin: 11/16/23 09:15 Dose: 5 mg Documented By: BRIAN Magnesium Hydroxide (Milk Of Magnesia 30 Ml Oral.Susp) 30 ml PO DAILY PRN PRN Reason: Constipation Last Admin: 11/14/23 23:22 Dose: 30 ml Documented By: LAFLAMGinette Melatonin (Melatonin 3 Mg Tablet) 6 mg PO BEDTIME PRN PRN Reason: Insomnia Ondansetron HCl (Ondansetron Hcl 4 Mg/2 Ml Vial) 4 mg IVPUSH Q8H PRN PRN Reason: Nausea and Vomiting Oxcarbazepine (Oxcarbazepine 300 Mg Tablet) 600 mg PO BID@1000,2200 [facility] Last Admin: 11/16/23 09:14 Dose: 600 mg Documented By: BRIAN Sodium Chloride (0.9 % Sodium Chloride Flush 3 Ml Syringe) 3 ml IVFLUSH QSHIFT NOY Last Admin: 11/16/23 09:15 Dose: 3 ml Documented By: BRIAN Labs 11/16/23 06:12 11/15/23 09:45 Labs: Laboratory Results - last 24 hr 11/15/23 11/15/23 11/15/23 09:45 12:13 16:14 MCV 82.3 MCH 26.6 L MCHC 32.3 RDW 14.1 Plt Count 389 MPV 9.4 Immature Gran % (Auto) Neut % (Auto) Lymph % (Auto) [place] % (Auto) Eos % (Auto) Baso % (Auto) Lymph # (Auto) [place] # (Auto) Eos # (Auto) Baso # (Auto) Abs Immat Gran (auto) Absolute Neuts (auto) Absolute Nucleated RBC 0.000 Nucleated RBC % (auto) 0.0 Neutrophils % (Manual) Band Neutrophils % Atypical Lymphs % (Man) Monocytes % (Manual) Eosinophils % (Manual) Metamyelocytes % Abs Neuts (Manual) Atyp Lymphs # (Manual) Monocytes # (Manual) Eosinophils # (Manual) Metamyelocytes # Toxic Vacuolation Platelet Estimate Plt Morphology Comment RBC Morphology Anion Gap 14 Estim Creat Clear Calc 197.6 Estimated GFR > 60 POC Glucose 170 H 165 H Random Glucose 154 H Calcium 9.1 D 11/15/23 11/16/23 11/16/23 20:25 06:12 07:08 MCV 83.6 MCH 27.4 MCHC 32.8 RDW 14.2 Plt Count 367 MPV 9.3 L Immature Gran % (Auto) Cancelled Neut % (Auto) Cancelled Lymph % (Auto) Cancelled [place] % (Auto) Cancelled Eos % (Auto) Cancelled Baso % (Auto) Cancelled Lymph # (Auto) Cancelled [place] # (Auto) Cancelled Eos # (Auto) Cancelled Baso # (Auto) Cancelled Abs Immat Gran (auto) Cancelled Absolute Neuts (auto) Cancelled Absolute Nucleated RBC 0.000 Nucleated RBC % (auto) 0.0 Neutrophils % (Manual) 65 Band Neutrophils % 20 H Atypical Lymphs % (Man) 1 Monocytes % (Manual) 9 Eosinophils % (Manual) 3 Metamyelocytes % 2 Abs Neuts (Manual) 18.3 H Atyp Lymphs # (Manual) 0.2 Monocytes # (Manual) 1.9 H Eosinophils # (Manual) 0.6 H Metamyelocytes # 0.4 Toxic Vacuolation PRESENT Platelet Estimate NORMAL Plt Morphology Comment NORMAL RBC Morphology NORMAL Anion Gap Estim Creat Clear Calc Estimated GFR POC Glucose 150 H 134 H Random Glucose Calcium Microbiology Microbiology Results: Microbiology 11/11/23 03:54 Blood Culture - Final Blood - Venous No growth after 5 days. 11/11/23 03:54 Blood Culture - Final Blood - Venous No growth after 5 days. Assessment and Plan (1) Status post laparoscopic cholecystectomy: Status: Acute (2) Empyema of gallbladder: Status: Acute Plan 48yo M with DM, HTN, epilepsy, obesity admitted to general surgical service after lap one[place] for empyema of gallbladder on 11/09 returned to OR 11/10 due to tachycardia + worsening pain and found to have free air on CT, defect in small bowel repaired hospitalist consultation for management of comorbid conditions gallbaldder empyema s/p lap oneida small bowel defect s/p repair - continue pip-mane 11/10-, Ceftriaxone added 11/14, postop care + pain control + diet advancement per Gen Surg Leukocytosis--likely reactive from above, improving tachycardia - improving; TTE without apparent disease DM2 - brian dose lispro HTN - antihypertensives held for soft BP and now hypertensive; resume lisinopril epilepsy - oxcarbazapine, lamotrigine VTE ppx - SCDs Thank you for this consultation. We will continue to follow the patient while they are admitted to your service. out of bed and ambulatte Quality Stroke Does the patient have a stroke diagnosis?: No VTE Prior VTE?: No VTE Risk Level:: Surgical - low VTE Device Contraindication: N/A - Device Ordered VTE Drug Contraindication: Treatment Not Indicated
[2023-11-16] MEDS: HYDROmorphone HCl 1 MG/ML SYRINGE IVPUSH ×3 (10:56→21:16)
[2023-11-16] MEDS: cefTRIAXone sodium 2 GM in 0.9 % Sodium Chloride 50 ML IV (11:13)
[2023-11-16] MEDS: Insulin Lispro 100 UNIT/ML 3 ML VIAL SUBCUT ×3 (11:18→21:16)
[2023-11-16 11:32] LABS: Glucose, Whole Blood 163 mg/dL (60-115)
[2023-11-16 12:15] LABS: CDiff Gene PCR NEGATIVE (Negative)
--- NOTE | 2023-11-16 12:38 | MHC.CM.PN ---
[facility] REVIEWED, PER SURGICAL/MD NOTES PT IMPROVING, PER P.T. REC'S PT DOES NOT NEED HOME SERVICES HOWEVER WOULD BENEFIT FROM [facility], CM WILL REQUEST SCRIPT ON DC, CM WILL CONT TO FOLLOW DC NEEDS.
[2023-11-16] MEDS: Amoxicillin/Potassium Clav 875 MG TABLET PO (15:32)
[2023-11-16 16:50] LABS: Glucose, Whole Blood 166 mg/dL (60-115)
[2023-11-16] MEDS: oxyCODONE HCl Immed Release 5 MG TABLET 10 MG PO (17:37)
[2023-11-16 20:34] LABS: Glucose, Whole Blood 182 mg/dL (60-115)
[2023-11-17] VITALS (8 sets, daily range): BP systolic 137–173; BP diastolic 59–80; PULSE 90–100; RESP 18; TEMP 36.1–36.9; O2SAT 93–96
[2023-11-17] MEDS: HYDROmorphone HCl 1 MG/ML SYRINGE IVPUSH ×3 (00:22→20:34)
[2023-11-17] MEDS: Acetaminophen 325 MG TABLET 650 MG PO ×2 (00:22→20:33)
[2023-11-17] MEDS: 0.9 % Sodium Chloride Flush 3 ML SYRINGE IVFLUSH ×3 (00:22→20:34)
[2023-11-17] MEDS: Calcium Carbonate 750 MG TAB.CHEW PO ×4 (00:46→20:33)
[2023-11-17] MEDS: Amoxicillin/Potassium Clav 875 MG TABLET PO ×2 (00:46→14:51)
[2023-11-17] MEDS: oxyCODONE HCl Immed Release 5 MG TABLET 10 MG PO ×4 (02:14→22:35)
[2023-11-17 06:43] LABS: Hematocrit 37.6 % (42.0-52.0); Hemoglobin 12.1 g/dl (14.0-18.0); Mean Corpuscular HGB Conc 32.2 g/dl (31.0-36.0); Mean Corpuscular Hemoglobin 26.9 pg (27.0-33.0); Mean Corpuscular Volume 83.6 fL (80.0-98.0); Mean Platelet Volume 9.5 fL (9.4-12.4); Platelet Count 407 X10*3/uL (160-400); Red Cell Distribution Width 14.3 % (11.0-16.0); White Blood Count 17.8 X10*3/uL (4.8-10.8)
[2023-11-17 07:09] LABS: Atypical Lymph Absolute Manual 0.2 x10*3/uL; Atypical Lymphs Percent Manual 1 % (0-6); Band Neutrophils Percent 15 % (3-5); Basophils Abs Manual 0.2 X10*3/uL (0.0-0.2); Basophils Percent Manual 1 % (0-2); Lymphocytes Absolute Manual 0.5 X10*3/uL (1.2-4.9); Lymphocytes Percent Manual 3 % (20-40); Metamyelocytes Absolute 0.2 X10*3/uL; Metamyelocytes Percent 1 %; Monocytes Absolute Manual 1.2 X10*3/uL (0.1-1.2); Monocytes Percent Manual 7 % (2-11); Neutrophils Absolute Manual 15.5 X10*3/uL (2.0-8.3); Neutrophils Percent Manual 72 % (45-73)
[2023-11-17 07:10] LABS: Platelet Estimate SLIGHTLY INCREASED (NORMAL); Platelet Morphology Comment NORM; RBC Morphology NORMAL; Toxic Vacuolation PRESENT
[2023-11-17 07:22] LABS: Glucose, Whole Blood 144 mg/dL (60-115)
[2023-11-17] MEDS: lisinopriL 5 MG TABLET PO (08:39)
[2023-11-17] MEDS: Famotidine 20 MG TABLET PO ×2 (08:39→20:33)
--- NOTE | 2023-11-17 09:42 | P.PNGS_ITS ---
Subjective Subjective Date of Service: 11/17/23 Interval history: Feels a little better this morning. Pain is improving but still reports he feels like he cannot go home with this amount of pain. Stools now more solid. Tolerating solid diet. OOB and ambulating. Physical Exam 2 Vital Signs: Vital Signs: Last Vital Signs Temp 98.2 F 11/17/23 07:10 Pulse 90 11/17/23 07:10 Resp 18 11/17/23 07:10 BP 173/59 H 11/17/23 03:29 Pulse Ox 95 11/17/23 07:10 O2 Del Method Room Air 11/17/23 07:10 O2 Flow Rate 2 11/13/23 11:14 Oxygen Flow Rate 95 11/13/23 13:45 BMI result Body Mass Index 36.2 Const: General: comfortable, no acute distress and alert O rientation/consciousness: patient oriented x3 Resp: Effort & Inspection: normal respiratory effort GI: Other: incisions clean umbilical incision with erythema inferiorly which is improved, some dark drainage Inspection: Yes distended (mildly) Palpation (GI): Soft to palpation, Tenderness to palpation present (GI) (mild tenderness) and no guarding Skin: General skin exam: no rashes or lesions noted and no jaundice Neuro: General: patient oriented x3 and moves all extremities Objective Data Active Medications Acetaminophen (Acetaminophen 325 Mg Tablet) 650 mg PO Q6H PRN PRN Reason: Pain, Mild (Pain Scale 1-3), fever or headache Last Admin: 11/17/23 00:22 Dose: 650 mg Documented By: LUCRECIA Amoxicillin/Clavulanate Potassium (Amoxicillin/Potassium Clav 875 Mg Tablet) 875 mg PO Q12H [facility] Last Admin: 11/17/23 00:46 Dose: 875 mg Documented By: LUCRECIA Calcium Carbonate (Calcium Carbonate 750 Mg Tab.Chew) 750 mg PO Q4H PRN PRN Reason: Heartburn Last Admin: 11/17/23 08:47 Dose: 750 mg Documented By: BRIGITTE Famotidine (Famotidine 20 Mg Tablet) 20 mg PO BID [facility] Last Admin: 11/17/23 08:39 Dose: 20 mg Documented By: BRIGITTE Folic Acid (Folic Acid 1 Mg Tablet) 1 mg PO DAILY@1000 [facility] Last Admin: 11/16/23 09:14 Dose: 1 mg Documented By: BRIAN Glucose (Glucose Gel 15 Gm Gel..Gram.) 15 gm PO Q15M PRN; Protocol PRN Reason: per Hypoglycemia Standing Ord. Hydromorphone HCl (Hydromorphone Hcl 1 Mg/Ml Syringe) 1 mg IVPUSH Q3H PRN; Protocol PRN Reason: Pain, Severe (Pain Scale 7-10) Last Admin: 11/17/23 03:47 Dose: 1 mg Documented By: JEANNIE-RIVLA Dextrose (D10) 250 mls @ 750 mls/hr IV Q15M PRN; Protocol PRN Reason: per Hypoglycemia Standing Ord. Lactated Ringer's (Lr) 1,000 mls @ 80 mls/hr IVCONT .[id number] [facility] Last Admin: 11/16/23 21:14 Dose: 80 mls/hr Documented By: BRIAN Insulin Human Lispro (Insulin Lispro 100 Unit/Ml 3 Ml Vial) 0 unit SUBCUT QIDACHS [facility]; Protocol Last Admin: 11/17/23 08:39 Dose: Not Given Documented By: BRIGITTE Non-Admin Reason: No Insulin Coverage Lamotrigine (Lamotrigine 100 Mg Tablet) 200 mg PO BID@1000,2200 [facility] Last Admin: 11/16/23 21:16 Dose: 200 mg Documented By: BRIAN Lisinopril (Lisinopril 5 Mg Tablet) 5 mg PO DAILY [facility]; Protocol Last Admin: 11/17/23 08:39 Dose: 5 mg Documented By: BRIGITTE Loperamide HCl (Loperamide Hcl 2 Mg Capsule) 2 mg PO Q4H PRN PRN Reason: loose stools Magnesium Hydroxide (Milk Of Magnesia 30 Ml Oral.Susp) 30 ml PO DAILY PRN PRN Reason: Constipation Last Admin: 11/14/23 23:22 Dose: 30 ml Documented By: LAFLAMGinette Melatonin (Melatonin 3 Mg Tablet) 6 mg PO BEDTIME PRN PRN Reason: Insomnia Ondansetron HCl (Ondansetron Hcl 4 Mg/2 Ml Vial) 4 mg IVPUSH Q8H PRN PRN Reason: Nausea and Vomiting Oxcarbazepine (Oxcarbazepine 300 Mg Tablet) 600 mg PO BID@1000,2200 [facility] Last Admin: 11/16/23 21:16 Dose: 600 mg Documented By: BRIAN Oxycodone HCl (Oxycodone Hcl Immed Release 5 Mg Tablet) 10 mg PO Q4H PRN PRN Reason: Pain, Moderate(Pain Scale 4-6) Last Admin: 11/17/23 08:43 Dose: 10 mg Documented By: BRIGITTE Sodium Chloride (0.9 % Sodium Chloride Flush 3 Ml Syringe) 3 ml IVFLUSH QSHIFT NOY Last Admin: 11/17/23 08:39 Dose: Not Given Documented By: BRIGITTE Non-Admin Reason: IV Running Labs 11/17/23 06:01 11/15/23 09:45 Labs: Laboratory Results - last 24 hr 11/16/23 11/16/23 11/16/23 10:30 11:13 15:58 MCV MCH MCHC RDW Plt Count MPV Immature Gran % (Auto) Neut % (Auto) Lymph % (Auto) [place] % (Auto) Eos % (Auto) Baso % (Auto) Lymph # (Auto) [place] # (Auto) Eos # (Auto) Baso # (Auto) Abs Immat Gran (auto) Absolute Neuts (auto) Absolute Nucleated RBC Nucleated RBC % (auto) Neutrophils % (Manual) Band Neutrophils % Lymphocytes % (Manual) Atypical Lymphs % (Man) Monocytes % (Manual) Basophils % (Manual) Metamyelocytes % Abs Neuts (Manual) Lymphocytes # (Manual) Atyp Lymphs # (Manual) Monocytes # (Manual) Basophils # (Manual) Metamyelocytes # Toxic Vacuolation Platelet Estimate Plt Morphology Comment RBC Morphology POC Glucose 163 H 166 H C. difficile Tox B Gene NEGATIVE 11/16/23 11/17/23 11/17/23 20:27 06:01 07:04 MCV 83.6 MCH 26.9 L MCHC 32.2 RDW 14.3 Plt Count 407 H MPV 9.5 Immature Gran % (Auto) Cancelled Neut % (Auto) Cancelled Lymph % (Auto) Cancelled [place] % (Auto) Cancelled Eos % (Auto) Cancelled Baso % (Auto) Cancelled Lymph # (Auto) Cancelled [place] # (Auto) Cancelled Eos # (Auto) Cancelled Baso # (Auto) Cancelled Abs Immat Gran (auto) Cancelled Absolute Neuts (auto) Cancelled Absolute Nucleated RBC 0.000 Nucleated RBC % (auto) 0.0 Neutrophils % (Manual) 72 Band Neutrophils % 15 H Lymphocytes % (Manual) 3 L Atypical Lymphs % (Man) 1 Monocytes % (Manual) 7 Basophils % (Manual) 1 Metamyelocytes % 1 Abs Neuts (Manual) 15.5 H Lymphocytes # (Manual) 0.5 L Atyp Lymphs # (Manual) 0.2 Monocytes # (Manual) 1.2 Basophils # (Manual) 0.2 Metamyelocytes # 0.2 Toxic Vacuolation PRESENT Platelet Estimate SLIGHTLY INCREASED Plt Morphology Comment NORM RBC Morphology NORMAL POC Glucose 182 H 144 H C. difficile Tox B Gene Microbiology Microbiology Results: Microbiology 11/11/23 03:54 Blood Culture - Final Blood - Venous No growth after 5 days. 11/11/23 03:54 Blood Culture - Final Blood - Venous No growth after 5 days. Procedures Date of Service Date of Service: 11/17/23 Progress Note: A&P Assessment and plan (1) Status post small bowel resection: Status: Acute (2) Status post laparoscopic cholecystectomy: Status: Acute Plan Continues to slowly improve. C diff negative yesterday, started on imodium with improvement in loose stools. VSS. Abd exam overall benign with appropriate post op tenderness, umbilical erythema improved, some drainage suggestive of old hematoma. Will return to open and probe. WBC continues to downtrend. Continue to encourage activity and ambulation at least 4x per day. Continue PO abx. Patient comfortable with plan. Discussed possible discharge to home tomorrow if comfortable on PO analgesics. Time Spent With Patient Time: Total time managing care of this patient today ____ minutes. Quality Stroke Does the patient have a stroke diagnosis?: No VTE Prior VTE?: No VTE Risk Level:: Surgical - low VTE Device Contraindication: N/A - Device Ordered VTE Drug Contraindication: Treatment Not Indicated
[2023-11-17] MEDS: Folic Acid 1 MG TABLET PO (10:28)
[2023-11-17] MEDS: OXcarbazepine 300 MG TABLET 600 MG PO ×2 (10:28→20:33)
[2023-11-17] MEDS: lamoTRIgine 100 MG TABLET 200 MG PO ×2 (10:28→20:34)
[2023-11-17] MEDS: Lactated Ringers 1,000 ML 80 ML IVCONT (10:30)
[2023-11-17 11:50] LABS: Glucose, Whole Blood 186 mg/dL (60-115)
[2023-11-17] MEDS: Insulin Lispro 100 UNIT/ML 3 ML VIAL SUBCUT ×3 (12:07→20:34)
--- NOTE | 2023-11-17 12:08 | HO.WOUND ---
Wound Consult: Initial 48yr old?Male admitted to [facility] on 11/10/23 after elective lap Dorota surgery - See progress notes and H&P for detailed history.? Wound consult placed for Skin tear to left abdomen.? Patient agreeable to assessment and photo documentation.? Patient reports concern for abdominal discomfort - therapeutic listening provided, patient encouraged to practice self advocacy, patient encouraged to ambulate and continue to use his IS - he demonstrates understanding. LLQ MARSI site Etiology: ??Medical Adhesive Related Skin Injury Measurements: 2cm x 2.5cm x 0.1cm Wound Bed: epidermal layer unroofed - pink moist tissue Drainage / Odor: serous drainage no odor Edges: ? irregular [place] wound: moist - red erythema related to post surgical infection / complication - the area is red, warm and distended Pain: pain reported Goals of Treatment: ? Moist wound healing for the MARSI site Surgical site managed and followed by general surgery team - seen and assessed today per patient statement. New dry gauze dressing applied with skin prep applied to periwound to protect from continued adhesive injury since he remains significantly distended. Recommendations: 1. Left Lower Abdomen Adhesive injury site - Cleanse with NS moist gauze, pat dry. Apply skin prep to the periwound. Apply xeroform cover with foam dressing. Change every other day. Re-consult wound care Nurse for wound deterioration or wound changes.
--- NOTE | 2023-11-17 12:14 | PC.NURSE ---
[facility] , pt is eating lunch , no symptoms. DR Gleason was notified
--- NOTE | 2023-11-17 12:32 | HO.PM.IMPN ---
Subjective Subjective Date of Service: 11/17/23 Interval History: Abdominal pain is better, WBC down, HR improved 4 beats of vtach, assymptomatic, eating regular diet Physical Exam Vital Signs: Vital Signs: Last Vital Signs Temp 98.3 F 11/17/23 11:15 Pulse 100 11/17/23 11:15 Resp 18 11/17/23 11:15 BP 150/80 H 11/17/23 11:15 Pulse Ox 95 11/17/23 11:15 O2 Del Method Room Air 11/17/23 11:15 O2 Flow Rate 2 11/13/23 11:14 Oxygen Flow Rate 95 11/13/23 13:45 BMI result Body Mass Index 36.2 General: AO X 3, no acute distress Resp: CTA bilateral CVS: S1,S2,RRR GI: +BS, tenderness to palpation, no distention Skin: No rash Neuro: motor grossly intact Psych: appropriate affect Objective Data Active Medications Acetaminophen (Acetaminophen 325 Mg Tablet) 650 mg PO Q6H PRN PRN Reason: Pain, Mild (Pain Scale 1-3), fever or headache Last Admin: 11/17/23 00:22 Dose: 650 mg Documented By: LUCRECIA Amoxicillin/Clavulanate Potassium (Amoxicillin/Potassium Clav 875 Mg Tablet) 875 mg PO Q12H [facility] Last Admin: 11/17/23 00:46 Dose: 875 mg Documented By: LUCRECIA Calcium Carbonate (Calcium Carbonate 750 Mg Tab.Chew) 750 mg PO Q4H PRN PRN Reason: Heartburn Last Admin: 11/17/23 08:47 Dose: 750 mg Documented By: BRIGITTE Famotidine (Famotidine 20 Mg Tablet) 20 mg PO BID [facility] Last Admin: 11/17/23 08:39 Dose: 20 mg Documented By: BRIGITTE Folic Acid (Folic Acid 1 Mg Tablet) 1 mg PO DAILY@1000 [facility] Last Admin: 11/17/23 10:28 Dose: 1 mg Documented By: BRIGITTE Glucose (Glucose Gel 15 Gm Gel..Gram.) 15 gm PO Q15M PRN; Protocol PRN Reason: per Hypoglycemia Standing Ord. Hydromorphone HCl (Hydromorphone Hcl 1 Mg/Ml Syringe) 1 mg IVPUSH Q3H PRN; Protocol PRN Reason: Pain, Severe (Pain Scale 7-10) Last Admin: 11/17/23 03:47 Dose: 1 mg Documented By: JEANNIE-TAYLOR Dextrose (D10) 250 mls @ 750 mls/hr IV Q15M PRN; Protocol PRN Reason: per Hypoglycemia Standing Ord. Lactated Ringer's (Lr) 1,000 mls @ 80 mls/hr IVCONT .[id number] [facility] Last Admin: 11/17/23 10:30 Dose: 80 mls/hr Documented By: BRIGITTE Insulin Human Lispro (Insulin Lispro 100 Unit/Ml 3 Ml Vial) 0 unit SUBCUT QIDACHS [facility]; Protocol Last Admin: 11/17/23 12:07 Dose: 2 unit Documented By: BRIGITTE Lamotrigine (Lamotrigine 100 Mg Tablet) 200 mg PO BID@1000,2200 [facility] Last Admin: 11/17/23 10:28 Dose: 200 mg Documented By: BRIGITTE Lisinopril (Lisinopril 5 Mg Tablet) 5 mg PO DAILY [facility]; Protocol Last Admin: 11/17/23 08:39 Dose: 5 mg Documented By: BRIGITTE Loperamide HCl (Loperamide Hcl 2 Mg Capsule) 2 mg PO Q4H PRN PRN Reason: loose stools Magnesium Hydroxide (Milk Of Magnesia 30 Ml Oral.Susp) 30 ml PO DAILY PRN PRN Reason: Constipation Last Admin: 11/14/23 23:22 Dose: 30 ml Documented By: LAFLAMGinette Melatonin (Melatonin 3 Mg Tablet) 6 mg PO BEDTIME PRN PRN Reason: Insomnia Ondansetron HCl (Ondansetron Hcl 4 Mg/2 Ml Vial) 4 mg IVPUSH Q8H PRN PRN Reason: Nausea and Vomiting Oxcarbazepine (Oxcarbazepine 300 Mg Tablet) 600 mg PO BID@1000,2200 [facility] Last Admin: 11/17/23 10:28 Dose: 600 mg Documented By: BRIGITTE Oxycodone HCl (Oxycodone Hcl Immed Release 5 Mg Tablet) 10 mg PO Q4H PRN PRN Reason: Pain, Moderate(Pain Scale 4-6) Last Admin: 11/17/23 08:43 Dose: 10 mg Documented By: BRIGITTE Sodium Chloride (0.9 % Sodium Chloride Flush 3 Ml Syringe) 3 ml IVFLUSH QSHIFT [facility] Last Admin: 11/17/23 08:39 Dose: Not Given Documented By: BRIGITTE Non-Admin Reason: IV Running Labs 11/17/23 06:01 11/15/23 09:45 Labs: Laboratory Results - last 24 hr 11/16/23 11/16/23 11/17/23 15:58 20:27 06:01 MCV 83.6 MCH 26.9 L MCHC 32.2 RDW 14.3 Plt Count 407 H MPV 9.5 Immature Gran % (Auto) Cancelled Neut % (Auto) Cancelled Lymph % (Auto) Cancelled [place] % (Auto) Cancelled Eos % (Auto) Cancelled Baso % (Auto) Cancelled Lymph # (Auto) Cancelled [place] # (Auto) Cancelled Eos # (Auto) Cancelled Baso # (Auto) Cancelled Abs Immat Gran (auto) Cancelled Absolute Neuts (auto) Cancelled Absolute Nucleated RBC 0.000 Nucleated RBC % (auto) 0.0 Neutrophils % (Manual) 72 Band Neutrophils % 15 H Lymphocytes % (Manual) 3 L Atypical Lymphs % (Man) 1 Monocytes % (Manual) 7 Basophils % (Manual) 1 Metamyelocytes % 1 Abs Neuts (Manual) 15.5 H Lymphocytes # (Manual) 0.5 L Atyp Lymphs # (Manual) 0.2 Monocytes # (Manual) 1.2 Basophils # (Manual) 0.2 Metamyelocytes # 0.2 Toxic Vacuolation PRESENT Platelet Estimate SLIGHTLY INCREASED Plt Morphology Comment NORM RBC Morphology NORMAL POC Glucose 166 H 182 H 11/17/23 11/17/23 07:04 11:47 MCV MCH MCHC RDW Plt Count MPV Immature Gran % (Auto) Neut % (Auto) Lymph % (Auto) [place] % (Auto) Eos % (Auto) Baso % (Auto) Lymph # (Auto) [place] # (Auto) Eos # (Auto) Baso # (Auto) Abs Immat Gran (auto) Absolute Neuts (auto) Absolute Nucleated RBC Nucleated RBC % (auto) Neutrophils % (Manual) Band Neutrophils % Lymphocytes % (Manual) Atypical Lymphs % (Man) Monocytes % (Manual) Basophils % (Manual) Metamyelocytes % Abs Neuts (Manual) Lymphocytes # (Manual) Atyp Lymphs # (Manual) Monocytes # (Manual) Basophils # (Manual) Metamyelocytes # Toxic Vacuolation Platelet Estimate Plt Morphology Comment RBC Morphology POC Glucose 144 H 186 H Assessment and Plan (1) Status post laparoscopic cholecystectomy: Status: Acute (2) Empyema of gallbladder: Status: Acute Plan 48yo M with DM, HTN, epilepsy, obesity admitted to general surgical service after lap one[place] for empyema of gallbladder on 11/09 returned to OR 11/10 due to tachycardia + worsening pain and found to have free air on CT, defect in small bowel repaired hospitalist consultation for management of comorbid conditions gallbaldder empyema s/p lap [place] small bowel defect s/p repair - continue pip-mane 11/10-, Ceftriaxone added 11/14, postop care + pain control + diet advancement per Gen Surg--Abx changed to PO Augmentin Leukocytosis--likely reactive from above, improving tachycardia - improving; TTE without apparent disease Vtach--check bmp, and k DM2 - brian dose lispro HTN - antihypertensives held for soft BP and now hypertensive; resume lisinopril epilepsy - oxcarbazapine, lamotrigine VTE ppx - SCDs Thank you for this consultation. We will continue to follow the patient while they are admitted to your service. out of bed and ambulatte Quality Stroke Does the patient have a stroke diagnosis?: No VTE Prior VTE?: No VTE Risk Level:: Surgical - low VTE Device Contraindication: N/A - Device Ordered VTE Drug Contraindication: Treatment Not Indicated
[2023-11-17 13:16] LABS: Anion Gap 14 (12-20); Blood Urea Nitrogen 6 mg/dL (9-16); Calcium 8.6 mg/dL (8.4-10.2); Carbon Dioxide 25 mmol/L (22-29); Chloride 99 mmol/L (96-108); Creatinine Clr Calc Pharmacy 185.4; Estimated Glomerular Filt Rate > 60; Glucose Random 173 mg/dL (60-115); Magnesium 2.1 mg/dL (1.6-2.6); Potassium 3.5 mmol/L (3.3-5.1); Sodium 134 mmol/L (135-145)
[2023-11-17 15:14] LABS: Glucose, Whole Blood 177 mg/dL (60-115)
[2023-11-17 20:22] LABS: Glucose, Whole Blood 173 mg/dL (60-115)
[2023-11-18] VITALS (7 sets, daily range): BP systolic 131–158; BP diastolic 72–82; PULSE 91–112; RESP 18–20; TEMP 36.1–37.3; O2SAT 95–96
[2023-11-18] MEDS: Amoxicillin/Potassium Clav 875 MG TABLET PO ×2 (01:05→14:51)
[2023-11-18] MEDS: HYDROmorphone HCl 1 MG/ML SYRINGE IVPUSH ×3 (01:05→20:49)
[2023-11-18] MEDS: oxyCODONE HCl Immed Release 5 MG TABLET 10 MG PO ×4 (03:08→21:43)
[2023-11-18] MEDS: Acetaminophen 325 MG TABLET 650 MG PO (03:08)
[2023-11-18 07:17] LABS: Glucose, Whole Blood 147 mg/dL (60-115)
[2023-11-18 08:06] LABS: Hemoglobin 12.7 g/dl (14.0-18.0); Mean Corpuscular HGB Conc 32.6 g/dl (31.0-36.0); Mean Corpuscular Hemoglobin 27.1 pg (27.0-33.0); Mean Corpuscular Volume 83.2 fL (80.0-98.0); Mean Platelet Volume 9.2 fL (9.4-12.4); Platelet Count 379 X10*3/uL (160-400); Red Blood Count 4.69 X10*6/uL (4.60-5.80); Red Cell Distribution Width 14.2 % (11.0-16.0); White Blood Count 18.6 X10*3/uL (4.8-10.8)
[2023-11-18] MEDS: lisinopriL 5 MG TABLET PO ×2 (08:15→12:19)
[2023-11-18] MEDS: Famotidine 20 MG TABLET PO ×2 (08:15→20:51)
[2023-11-18] MEDS: 0.9 % Sodium Chloride Flush 3 ML SYRINGE IVFLUSH ×3 (08:16→20:51)
[2023-11-18 08:24] LABS: Anion Gap 14 (12-20); Blood Urea Nitrogen 6 mg/dL (9-16); Calcium 8.5 mg/dL (8.4-10.2); Carbon Dioxide 23 mmol/L (22-29); Chloride 101 mmol/L (96-108); Creatinine Clr Calc Pharmacy 223.2; Estimated Glomerular Filt Rate > 60; Glucose Random 143 mg/dL (60-115); Potassium 3.7 mmol/L (3.3-5.1); Sodium 134 mmol/L (135-145)
[2023-11-18] MEDS: OXcarbazepine 300 MG TABLET 600 MG PO ×2 (09:43→20:51)
[2023-11-18] MEDS: Folic Acid 1 MG TABLET PO (09:43)
[2023-11-18] MEDS: lamoTRIgine 100 MG TABLET 200 MG PO ×2 (09:43→20:51)
--- NOTE | 2023-11-18 11:11 | PC.NURSE ---
per DR Buenrostro from general surgery , pt may shower today , may wet his incision than dry dsg will be appled
--- NOTE | 2023-11-18 11:41 | P.PNIM_ITS ---
Subjective Subjective Date of Service: 11/18/23 Interval History: Abdominal pain is better, WBC down, HR improved WBC remains high Physical Exam 2 Vital Signs: Vital Signs: Last Vital Signs Temp 97.2 F 11/18/23 11:15 Pulse 101 H 11/18/23 11:15 Resp 18 11/18/23 11:15 BP 154/76 H 11/18/23 11:15 Pulse Ox 96 11/18/23 11:15 O2 Del Method Room Air 11/18/23 11:15 O2 Flow Rate 2 11/13/23 11:14 Oxygen Flow Rate 96 11/18/23 11:00 BMI result Body Mass Index 36.2 General: AO X 3, no acute distress Resp: CTA bilateral CVS: S1,S2,RRR GI: +BS, tenderness to palpation, no distention Skin: No rash Neuro: motor grossly intact Psych: appropriate affect Objective Data Active Medications Acetaminophen (Acetaminophen 325 Mg Tablet) 650 mg PO Q6H PRN PRN Reason: Pain, Mild (Pain Scale 1-3), fever or headache Last Admin: 11/18/23 03:08 Dose: 650 mg Documented By: LUCRECIA Amoxicillin/Clavulanate Potassium (Amoxicillin/Potassium Clav 875 Mg Tablet) 875 mg PO Q12H [facility] Last Admin: 11/18/23 01:05 Dose: 875 mg Documented By: LUCRECIA Calcium Carbonate (Calcium Carbonate 750 Mg Tab.Chew) 750 mg PO Q4H PRN PRN Reason: Heartburn Last Admin: 11/17/23 20:33 Dose: 750 mg Documented By: LUCRECIA Famotidine (Famotidine 20 Mg Tablet) 20 mg PO BID [facility] Last Admin: 11/18/23 08:15 Dose: 20 mg Documented By: BRIGITTE Folic Acid (Folic Acid 1 Mg Tablet) 1 mg PO DAILY@1000 [facility] Last Admin: 11/18/23 09:43 Dose: 1 mg Documented By: BRIGITTE Glucose (Glucose Gel 15 Gm Gel..Gram.) 15 gm PO Q15M PRN; Protocol PRN Reason: per Hypoglycemia Standing Ord. Hydromorphone HCl (Hydromorphone Hcl 1 Mg/Ml Syringe) 1 mg IVPUSH Q3H PRN; Protocol PRN Reason: Pain, Severe (Pain Scale 7-10) Last Admin: 11/18/23 06:09 Dose: 1 mg Documented By: LUCRECIA Dextrose (D10) 250 mls @ 750 mls/hr IV Q15M PRN; Protocol PRN Reason: per Hypoglycemia Standing Ord. Insulin Human Lispro (Insulin Lispro 100 Unit/Ml 3 Ml Vial) 0 unit SUBCUT QIDACHS [facility]; Protocol Last Admin: 11/18/23 08:16 Dose: Not Given Documented By: BRIGITTE Non-Admin Reason: No Insulin Coverage Lamotrigine (Lamotrigine 100 Mg Tablet) 200 mg PO BID@1000,2200 [facility] Last Admin: 11/18/23 09:43 Dose: 200 mg Documented By: BRIGITTE Lisinopril (Lisinopril 5 Mg Tablet) 5 mg PO DAILY [facility]; Protocol Last Admin: 11/18/23 08:15 Dose: 5 mg Documented By: BRIGITTE Loperamide HCl (Loperamide Hcl 2 Mg Capsule) 2 mg PO Q4H PRN PRN Reason: loose stools Magnesium Hydroxide (Milk Of Magnesia 30 Ml Oral.Susp) 30 ml PO DAILY PRN PRN Reason: Constipation Last Admin: 11/14/23 23:22 Dose: 30 ml Documented By: ALLEGRA Melatonin (Melatonin 3 Mg Tablet) 6 mg PO BEDTIME PRN PRN Reason: Insomnia Ondansetron HCl (Ondansetron Hcl 4 Mg/2 Ml Vial) 4 mg IVPUSH Q8H PRN PRN Reason: Nausea and Vomiting Oxcarbazepine (Oxcarbazepine 300 Mg Tablet) 600 mg PO BID@1000,2200 [facility] Last Admin: 11/18/23 09:43 Dose: 600 mg Documented By: BRIGITTE Oxycodone HCl (Oxycodone Hcl Immed Release 5 Mg Tablet) 10 mg PO Q4H PRN PRN Reason: Pain, Moderate(Pain Scale 4-6) Last Admin: 11/18/23 09:43 Dose: 10 mg Documented By: BRIGITTE Sodium Chloride (0.9 % Sodium Chloride Flush 3 Ml Syringe) [facility] Last Admin: 11/18/23 08:16 Dose: 3 ml Documented By: BRIGITTE Labs 11/18/23 07:54 11/18/23 07:54 Labs: Laboratory Results - last 24 hr 11/17/23 11/17/23 11/17/23 11:47 12:55 15:05 MCV MCH MCHC RDW Plt Count MPV Absolute Nucleated RBC Nucleated RBC % (auto) Anion Gap 14 Estim Creat Clear Calc 185.4 Estimated GFR > 60 POC Glucose 186 H 177 H Random Glucose 173 H Calcium 8.6 Magnesium 2.1 11/17/23 11/18/23 11/18/23 20:09 07:09 07:54 MCV 83.2 MCH 27.1 MCHC 32.6 RDW 14.2 Plt Count 379 MPV 9.2 L Absolute Nucleated RBC 0.000 Nucleated RBC % (auto) 0.0 Anion Gap 14 Estim Creat Clear Calc 223.2 Estimated GFR > 60 POC Glucose 173 H 147 H Random Glucose 143 H Calcium 8.5 Magnesium Assessment and Plan (1) Status post laparoscopic cholecystectomy: Status: Acute (2) Empyema of gallbladder: Status: Acute Plan 48yo M with DM, HTN, epilepsy, obesity admitted to general surgical service after lap [place] for empyema of gallbladder on 11/09 returned to OR 11/10 due to tachycardia + worsening pain and found to have free air on CT, defect in small bowel repaired hospitalist consultation for management of comorbid conditions gallbaldder empyema s/p lap [place] small bowel defect s/p repair - continue pip-mane 11/10-, Ceftriaxone added 11/14, postop care + pain control + diet advancement per Gen Surg--Abx changed to PO Augmentin. recommend adding Doxy to Augmentin for some redness around incision and persistent leuko Leukocytosis--likely reactive from above and possible infection as well tachycardia - improving; TTE without apparent disease Vtach--K and mag normal DM2 - brian dose lispro HTN - continue lisinopril and increase to 10, restart HCTZ epilepsy - oxcarbazapine, lamotrigine VTE ppx - SCDs Thank you for this consultation. We will continue to follow the patient while they are admitted to your service. out of bed and ambulatte Quality Stroke Does the patient have a stroke diagnosis?: No VTE Prior VTE?: No VTE Risk Level:: Surgical - low VTE Device Contraindication: N/A - Device Ordered VTE Drug Contraindication: Treatment Not Indicated
[2023-11-18 11:46] LABS: Glucose, Whole Blood 168 mg/dL (60-115)
[2023-11-18] MEDS: Insulin Lispro 100 UNIT/ML 3 ML VIAL SUBCUT ×2 (11:55→16:42)
[2023-11-18] MEDS: hydroCHLOROthiazide 25 MG TABLET PO (12:19)
[2023-11-18] MEDS: Doxycycline Monohydrate 100 MG CAPSULE PO (12:20)
--- NOTE | 2023-11-18 13:52 | P.PNGS_ITS ---
Subjective Subjective Date of Service: 11/18/23 Interval history: States he wants to stay until Tuesday. Says his does not want him home until his wound stops draining. Pain is improving. Only required dilaudid once early this morning per RN. Has been ambulating halls. Tolerating solid diet. Passing flatus and moving bowels. Physical Exam 2 Vital Signs: Vital Signs: Last Vital Signs Temp 97.2 F 11/18/23 11:15 Pulse 101 H 11/18/23 11:43 Resp 18 11/18/23 11:15 BP 154/76 H 11/18/23 11:43 Pulse Ox 96 11/18/23 11:43 O2 Del Method Room Air 11/18/23 11:15 O2 Flow Rate 2 11/13/23 11:14 Oxygen Flow Rate 96 11/18/23 11:00 BMI result Body Mass Index 36.2 Const: General: comfortable, no acute distress and alert O rientation/consciousness: patient oriented x3 Resp: Effort & Inspection: normal respiratory effort GI: Other: umbilical erythema decreased, some dark old blood drainage from umbilicus remainder of incisions clean Inspection: Yes distended (mild, soft) Palpation (GI): Soft to palpation, Tenderness to palpation present (GI) (mild incisional) and no guarding Skin: General skin exam: no rashes or lesions noted Neuro: General: patient oriented x3 Objective Data Active Medications Acetaminophen (Acetaminophen 325 Mg Tablet) 650 mg PO Q6H PRN PRN Reason: Pain, Mild (Pain Scale 1-3), fever or headache Last Admin: 11/18/23 03:08 Dose: 650 mg Documented By: LUCRECIA Amoxicillin/Clavulanate Potassium (Amoxicillin/Potassium Clav 875 Mg Tablet) 875 mg PO Q12H [facility] Last Admin: 11/18/23 01:05 Dose: 875 mg Documented By: LUCRECIA Calcium Carbonate (Calcium Carbonate 750 Mg Tab.Chew) 750 mg PO Q4H PRN PRN Reason: Heartburn Last Admin: 11/17/23 20:33 Dose: 750 mg Documented By: LUCRECIA Doxycycline Monohydrate (Doxycycline Monohydrate 100 Mg Capsule) 100 mg PO Q12H [facility] Last Admin: 11/18/23 12:20 Dose: 100 mg Documented By: BRIGITTE Famotidine (Famotidine 20 Mg Tablet) 20 mg PO BID [facility] Last Admin: 11/18/23 08:15 Dose: 20 mg Documented By: BRIGITTE Folic Acid (Folic Acid 1 Mg Tablet) 1 mg PO DAILY@1000 [facility] Last Admin: 11/18/23 09:43 Dose: 1 mg Documented By: RBIGITTE Glucose (Glucose Gel 15 Gm Gel..Gram.) 15 gm PO Q15M PRN; Protocol PRN Reason: per Hypoglycemia Standing Ord. Hydrochlorothiazide (Hydrochlorothiazide 25 Mg Tablet) 25 mg PO DAILY@1000 [facility]; Protocol Last Admin: 11/18/23 12:19 Dose: 25 mg Documented By: BRIGITTE Hydromorphone HCl (Hydromorphone Hcl 1 Mg/Ml Syringe) 1 mg IVPUSH Q3H PRN; Protocol PRN Reason: Pain, Severe (Pain Scale 7-10) Last Admin: 11/18/23 06:09 Dose: 1 mg Documented By: JEANNIE-TAYLOR Dextrose (D10) 250 mls @ 750 mls/hr IV Q15M PRN; Protocol PRN Reason: per Hypoglycemia Standing Ord. Insulin Human Lispro (Insulin Lispro 100 Unit/Ml 3 Ml Vial) 0 unit SUBCUT QIDACHS [facility]; Protocol Last Admin: 11/18/23 11:55 Dose: 2 unit Documented By: BRIGITTE Lamotrigine (Lamotrigine 100 Mg Tablet) 200 mg PO BID@1000,2200 [facility] Last Admin: 11/18/23 09:43 Dose: 200 mg Documented By: BRIGITTE Lisinopril (Lisinopril 10 Mg Tablet) 10 mg PO DAILY [facility]; Protocol Loperamide HCl (Loperamide Hcl 2 Mg Capsule) 2 mg PO Q4H PRN PRN Reason: loose stools Magnesium Hydroxide (Milk Of Magnesia 30 Ml Oral.Susp) 30 ml PO DAILY PRN PRN Reason: Constipation Last Admin: 11/14/23 23:22 Dose: 30 ml Documented By: LAFLAMC Melatonin (Melatonin 3 Mg Tablet) 6 mg PO BEDTIME PRN PRN Reason: Insomnia Ondansetron HCl (Ondansetron Hcl 4 Mg/2 Ml Vial) 4 mg IVPUSH Q8H PRN PRN Reason: Nausea and Vomiting Oxcarbazepine (Oxcarbazepine 300 Mg Tablet) 600 mg PO BID@1000,2200 [facility] Last Admin: 11/18/23 09:43 Dose: 600 mg Documented By: BRIGITTE Oxycodone HCl (Oxycodone Hcl Immed Release 5 Mg Tablet) 10 mg PO Q4H PRN PRN Reason: Pain, Moderate(Pain Scale 4-6) Last Admin: 11/18/23 09:43 Dose: 10 mg Documented By: BRIGITTE Sodium Chloride (0.9 % Sodium Chloride Flush 3 Ml Syringe) 3 ml IVFLUSH QSHIFT [facility] Last Admin: 11/18/23 08:16 Dose: 3 ml Documented By: BRIGITTE Labs 11/18/23 07:54 11/18/23 07:54 Labs: Laboratory Results - last 24 hr 11/17/23 11/17/23 11/18/23 15:05 20:09 07:09 MCV MCH MCHC RDW Plt Count MPV Absolute Nucleated RBC Nucleated RBC % (auto) Anion Gap Estim Creat Clear Calc Estimated GFR POC Glucose 177 H 173 H 147 H Random Glucose Calcium 11/18/23 11/18/23 07:54 11:42 MCV 83.2 MCH 27.1 MCHC 32.6 RDW 14.2 Plt Count 379 MPV 9.2 L Absolute Nucleated RBC 0.000 Nucleated RBC % (auto) 0.0 Anion Gap 14 Estim Creat Clear Calc 223.2 Estimated GFR > 60 POC Glucose 168 H Random Glucose 143 H Calcium 8.5 Procedures Date of Service Date of Service: 11/18/23 Progress Note: A&P Assessment and plan (1) Status post small bowel resection: Status: Acute (2) Status post laparoscopic cholecystectomy: Status: Acute Plan Doing well post op. VSS. Abd exam overall benign with appropriate post op tenderness, umbilical erythema significantly improved, scant drainage of umbilical incision. WBC remains elevated, doxycycline added. If WBC improved tomorrow, stable for dc to home. If no improvement or worsening, may benefit from CT scan. Time Spent With Patient Time: Total time managing care of this patient today ____ minutes. Quality Stroke Does the patient have a stroke diagnosis?: No VTE Prior VTE?: No VTE Risk Level:: Surgical - low VTE Device Contraindication: N/A - Device Ordered VTE Drug Contraindication: Treatment Not Indicated
--- NOTE | 2023-11-18 14:53 | PC.NURSE ---
abdominal pain #7 , pt requesting oxycodone for his high number of pain instead of dilauded IV
[2023-11-18 15:40] LABS: Glucose, Whole Blood 161 mg/dL (60-115)
[2023-11-18 20:20] LABS: Glucose, Whole Blood 147 mg/dL (60-115)
[2023-11-18] MEDS: Melatonin 3 MG TABLET 6 MG PO (20:51)
[2023-11-19] VITALS (7 sets, daily range): BP systolic 133–141; BP diastolic 75–79; PULSE 98–101; RESP 18–20; TEMP 36.9–38.2; O2SAT 93–97
[2023-11-19] MEDS: Doxycycline Monohydrate 100 MG CAPSULE PO ×2 (00:56→12:11)
[2023-11-19] MEDS: Amoxicillin/Potassium Clav 875 MG TABLET PO (04:28)
[2023-11-19] MEDS: lamoTRIgine 100 MG TABLET 200 MG PO ×2 (08:16→20:34)
[2023-11-19] MEDS: Famotidine 20 MG TABLET PO ×2 (08:17→20:35)
[2023-11-19] MEDS: 0.9 % Sodium Chloride Flush 3 ML SYRINGE IVFLUSH ×3 (08:17→20:39)
[2023-11-19] MEDS: OXcarbazepine 300 MG TABLET 600 MG PO ×2 (08:17→20:35)
[2023-11-19] MEDS: Folic Acid 1 MG TABLET PO (08:18)
[2023-11-19] MEDS: lisinopriL 10 MG TABLET PO (08:20)
[2023-11-19] MEDS: hydroCHLOROthiazide 25 MG TABLET PO (08:20)
[2023-11-19 08:32] LABS: Glucose, Whole Blood 159 mg/dL (60-115)
[2023-11-19] MEDS: Insulin Lispro 100 UNIT/ML 3 ML VIAL SUBCUT ×2 (08:32→12:11)
[2023-11-19] MEDS: oxyCODONE HCl Immed Release 5 MG TABLET 10 MG PO ×2 (08:32→20:34)
[2023-11-19 08:59] LABS: Hematocrit 38.9 % (42.0-52.0); Hemoglobin 12.8 g/dl (14.0-18.0); Mean Corpuscular HGB Conc 32.9 g/dl (31.0-36.0); Mean Corpuscular Hemoglobin 27.2 pg (27.0-33.0); Mean Corpuscular Volume 82.8 fL (80.0-98.0); Mean Platelet Volume 9.4 fL (9.4-12.4); Platelet Count 529 X10*3/uL (160-400)
[2023-11-19 09:23] LABS: Band Neutrophils Percent 1 % (3-5); Lymphocytes Absolute Manual 0.2 X10*3/uL (1.2-4.9); Lymphocytes Percent Manual 1 % (20-40); Metamyelocytes Absolute 0.2 X10*3/uL; Metamyelocytes Percent 1 %; Monocytes Absolute Manual 0.5 X10*3/uL (0.1-1.2); Monocytes Percent Manual 2 % (2-11); Myelocytes Absolute 0.2 X10*/uL; Myelocytes Percent 1 %; Neutrophils Absolute Manual 21.9 X10*3/uL (2.0-8.3); Neutrophils Percent Manual 94 % (45-73)
[2023-11-19 09:24] LABS: Platelet Estimate SLIGHTLY INCREASED (NORMAL); Platelet Morphology Comment NORMAL; RBC Morphology NORMAL
[2023-11-19] MEDS: Acetaminophen 325 MG TABLET 650 MG PO ×2 (11:14→20:33)
[2023-11-19 11:41] LABS: Glucose, Whole Blood 174 mg/dL (60-115)
--- NOTE | 2023-11-19 12:44 | HO.PM.IMPN ---
Subjective Subjective Date of Service: 11/19/23 Interval History: Abdominal pain is better, WBC down, HR improved, WBC is higher today and had fever in the morning. Physical Exam Vital Signs: Vital Signs: Last Vital Signs Temp 98.6 F 11/19/23 11:53 Pulse 100 11/19/23 11:53 Resp 18 11/19/23 11:53 BP 133/78 11/19/23 11:53 Pulse Ox 97 11/19/23 11:53 O2 Del Method Room Air 11/19/23 11:53 O2 Flow Rate 2 11/13/23 11:14 Oxygen Flow Rate 96 11/18/23 11:00 BMI result Body Mass Index 36.2 General: AO X 3, no acute distress Resp: CTA bilateral CVS: S1,S2,RRR GI: +BS, tenderness to palpation, no distention Skin: No rash Neuro: motor grossly intact Psych: appropriate affect Objective Data Active Medications Acetaminophen (Acetaminophen 325 Mg Tablet) 650 mg PO Q6H PRN PRN Reason: Pain, Mild (Pain Scale 1-3), fever or headache Last Admin: 11/19/23 11:14 Dose: 650 mg Documented By: MACARIO Amoxicillin/Clavulanate Potassium (Amoxicillin/Potassium Clav 875 Mg Tablet) 875 mg PO Q12H [facility] Last Admin: 11/19/23 04:28 Dose: 875 mg Documented By: SALLY Comments: medication given past due because patient stated he did not want to be woken up again right after taking the first antibiotic. patient refused, stated RN could give 0430 Calcium Carbonate (Calcium Carbonate 750 Mg Tab.Chew) 750 mg PO Q4H PRN PRN Reason: Heartburn Last Admin: 11/17/23 20:33 Dose: 750 mg Documented By: LUCRECIA Doxycycline Monohydrate (Doxycycline Monohydrate 100 Mg Capsule) 100 mg PO Q12H [facility] Last Admin: 11/19/23 12:11 Dose: 100 mg Documented By: MACARIO Famotidine (Famotidine 20 Mg Tablet) 20 mg PO BID [facility] Last Admin: 11/19/23 08:17 Dose: 20 mg Documented By: MACARIO Folic Acid (Folic Acid 1 Mg Tablet) 1 mg PO DAILY@1000 [facility] Last Admin: 11/19/23 08:18 Dose: 1 mg Documented By: MACARIO Glucose (Glucose Gel 15 Gm Gel..Gram.) 15 gm PO Q15M PRN; Protocol PRN Reason: per Hypoglycemia Standing Ord. Hydrochlorothiazide (Hydrochlorothiazide 25 Mg Tablet) 25 mg PO DAILY@1000 [facility]; Protocol Last Admin: 11/19/23 08:20 Dose: 25 mg Documented By: MACARIO Hydromorphone HCl (Hydromorphone Hcl 1 Mg/Ml Syringe) 1 mg IVPUSH Q3H PRN; Protocol PRN Reason: Pain, Severe (Pain Scale 7-10) Last Admin: 11/18/23 20:49 Dose: 1 mg Documented By: SALLY Dextrose (D10) 250 mls @ 750 mls/hr IV Q15M PRN; Protocol PRN Reason: per Hypoglycemia Standing Ord. Insulin Human Lispro (Insulin Lispro 100 Unit/Ml 3 Ml Vial) 0 unit SUBCUT QIDACHS [facility]; Protocol Last Admin: 11/19/23 12:11 Dose: 2 unit Documented By: MACARIO Lamotrigine (Lamotrigine 100 Mg Tablet) 200 mg PO BID@1000,2200 [facility] Last Admin: 11/19/23 08:16 Dose: 200 mg Documented By: MACARIO Lisinopril (Lisinopril 10 Mg Tablet) 10 mg PO DAILY [facility]; Protocol Last Admin: 11/19/23 08:20 Dose: 10 mg Documented By: MACARIO Loperamide HCl (Loperamide Hcl 2 Mg Capsule) 2 mg PO Q4H PRN PRN Reason: loose stools Magnesium Hydroxide (Milk Of Magnesia 30 Ml Oral.Susp) 30 ml PO DAILY PRN PRN Reason: Constipation Last Admin: 11/14/23 23:22 Dose: 30 ml Documented By: LAFLAMGinette Melatonin (Melatonin 3 Mg Tablet) 6 mg PO BEDTIME PRN PRN Reason: Insomnia Last Admin: 11/18/23 20:51 Dose: 6 mg Documented By: SALLY Ondansetron HCl (Ondansetron Hcl 4 Mg/2 Ml Vial) 4 mg IVPUSH Q8H PRN PRN Reason: Nausea and Vomiting Oxcarbazepine (Oxcarbazepine 300 Mg Tablet) 600 mg PO BID@1000,2200 [facility] Last Admin: 11/19/23 08:17 Dose: 600 mg Documented By: MACARIO Oxycodone HCl (Oxycodone Hcl Immed Release 5 Mg Tablet) 10 mg PO Q4H PRN PRN Reason: Pain, Moderate(Pain Scale 4-6) Last Admin: 11/19/23 08:32 Dose: 10 mg Documented By: MACARIO Sodium Chloride (0.9 % Sodium Chloride Flush 3 Ml Syringe) 3 ml IVFLUSH QSHIFT [facility] Last Admin: 11/19/23 08:17 Dose: 3 ml Documented By: MACARIO Labs 11/19/23 08:14 11/18/23 07:54 Labs: Laboratory Results - last 24 hr 11/18/23 11/18/23 11/19/23 15:24 20:12 08:14 MCV 82.8 MCH 27.2 MCHC 32.9 RDW 14.0 Plt Count 529 H D MPV 9.4 Immature Gran % (Auto) Cancelled Neut % (Auto) Cancelled Lymph % (Auto) Cancelled [place] % (Auto) Cancelled Eos % (Auto) Cancelled Baso % (Auto) Cancelled Lymph # (Auto) Cancelled [place] # (Auto) Cancelled Eos # (Auto) Cancelled Baso # (Auto) Cancelled Abs Immat Gran (auto) Cancelled Absolute Neuts (auto) Cancelled Absolute Nucleated RBC 0.000 Nucleated RBC % (auto) 0.0 Neutrophils % (Manual) 94 H Band Neutrophils % 1 L Lymphocytes % (Manual) 1 L Monocytes % (Manual) 2 Metamyelocytes % 1 Myelocytes % 1 Abs Neuts (Manual) 21.9 H Lymphocytes # (Manual) 0.2 L Monocytes # (Manual) 0.5 Metamyelocytes # 0.2 Myelocytes # 0.2 Platelet Estimate SLIGHTLY INCREASED Plt Morphology Comment NORMAL RBC Morphology NORMAL POC Glucose 161 H 147 H 11/19/23 11/19/23 08:16 10:59 MCV MCH MCHC RDW Plt Count MPV Immature Gran % (Auto) Neut % (Auto) Lymph % (Auto) [place] % (Auto) Eos % (Auto) Baso % (Auto) Lymph # (Auto) [place] # (Auto) Eos # (Auto) Baso # (Auto) Abs Immat Gran (auto) Absolute Neuts (auto) Absolute Nucleated RBC Nucleated RBC % (auto) Neutrophils % (Manual) Band Neutrophils % Lymphocytes % (Manual) Monocytes % (Manual) Metamyelocytes % Myelocytes % Abs Neuts (Manual) Lymphocytes # (Manual) Monocytes # (Manual) Metamyelocytes # Myelocytes # Platelet Estimate Plt Morphology Comment RBC Morphology POC Glucose 159 H 174 H Assessment and Plan (1) Status post laparoscopic cholecystectomy: Status: Acute (2) Empyema of gallbladder: Status: Acute Plan 48yo M with DM, HTN, epilepsy, obesity admitted to general surgical service after lap [place] for empyema of gallbladder on 11/09 returned to OR 11/10 due to tachycardia + worsening pain and found to have free air on CT, defect in small bowel repaired hospitalist consultation for management of comorbid conditions gallbaldder empyema s/p lap [place] small bowel defect s/p repair - continue pip-mane 11/10-, Ceftriaxone added 11/14, postop care + pain control + diet advancement per Gen Surg--Abx changed to PO Augmentin. recommend adding Doxy to Augmentin for some redness around incision and persistent leukocytosis, -need for abdominal scan given fever overnight and elevated WBC Leukocytosis--likely reactive from above and possible infection as well tachycardia - improving; TTE without apparent disease Vtach--K and mag normal DM2 - brian dose lispro HTN - continue lisinopril and increase to 10, restart HCTZ epilepsy - oxcarbazapine, lamotrigine VTE ppx - SCDs Thank you for this consultation. We will continue to follow the patient while they are admitted to your service. out of bed and ambulatte Quality Stroke Does the patient have a stroke diagnosis?: No VTE Prior VTE?: No VTE Risk Level:: Surgical - low VTE Device Contraindication: N/A - Device Ordered VTE Drug Contraindication: Treatment Not Indicated
--- NOTE | 2023-11-19 14:45 | HO.SKINPHOTO ---
Addendum entered by Alyssa Bowser RN 11/19/23 16:11: New blood cultures collected. IV Zosyn 4.5 gm started Plan for CT abd with oral contrast. Pt started ingesting oral contrast 15:15. New Cdiff stool sample collected and sent to lab for frequent diarrhea per Sx Original Note: Dr. Taylor to bedside to change surgical dressing. Incision at umbilical area packed by MD with gauze roll soaked in saline and iodine. Woven gauze and abd dressing applied. New xeroform and foam dsg to LLQ at site of MARSI. Per MD will place new orders to resume IV antibiotics and twice daily dressing changes for umbilical surgical site. Skin Photo Location: umbilical area incision Category: sx site
[2023-11-19] MEDS: Piperacillin Sodium/Tazobactam 4.5 GM in 0.9 % Sodium Chloride 100 ML IV ×2 (15:40→20:37)
--- NOTE | 2023-11-19 16:02 | P.PNGS_ITS ---
Subjective Subjective Date of Service: 11/19/23 Interval history: pt feeling anxious to go home, denies fever, complains of pressure in his abdomen and trying to urinate but having some trouble, having diarrhea, no nausea or vomiting with po intake Physical Exam 2 Vital Signs: Vital Signs: Last Vital Signs Temp 98.7 F 11/19/23 15:56 Pulse 99 11/19/23 15:56 Resp 18 11/19/23 15:56 BP 141/79 H 11/19/23 15:56 Pulse Ox 97 11/19/23 15:56 O2 Del Method Room Air 11/19/23 15:56 O2 Flow Rate 2 11/13/23 11:14 Oxygen Flow Rate 96 11/18/23 11:00 BMI result Body Mass Index 36.2 Const: General: cooperative, comfortable and acute distress mild O rientation/consciousness: patient oriented x3 Resp: Effort & Inspection: normal respiratory effort Auscultation: clear to auscultation bilaterally Cardio: Rate: regular rate Rhythm: regular rhythm GI: Other: abdomen is a little distended some redness of skin tissue around the umbilical area and inferior, there is drainage of brownish material from around the umbilical incision which is partly open - the area is probed and irrigated , probing to fascia not intrabdo Neuro: General: patient oriented x3 Extrem: General: Yes normal to inspection Psych: Appearance: grossly normal Mental Status: mental status grossly normal Objective Data Active Medications Acetaminophen (Acetaminophen 325 Mg Tablet) 650 mg PO Q6H PRN PRN Reason: Pain, Mild (Pain Scale 1-3), fever or headache Last Admin: 11/19/23 11:14 Dose: 650 mg Documented By: MACARIO Calcium Carbonate (Calcium Carbonate 750 Mg Tab.Chew) 750 mg PO Q4H PRN PRN Reason: Heartburn Last Admin: 11/17/23 20:33 Dose: 750 mg Documented By: LUCRECIA Famotidine (Famotidine 20 Mg Tablet) 20 mg PO BID [facility] Last Admin: 11/19/23 08:17 Dose: 20 mg Documented By: MACARIO Folic Acid (Folic Acid 1 Mg Tablet) 1 mg PO DAILY@1000 [facility] Last Admin: 11/19/23 08:18 Dose: 1 mg Documented By: MACARIO Glucose (Glucose Gel 15 Gm Gel..Gram.) 15 gm PO Q15M PRN; Protocol PRN Reason: per Hypoglycemia Standing Ord. Hydrochlorothiazide (Hydrochlorothiazide 25 Mg Tablet) 25 mg PO DAILY@1000 [facility]; Protocol Last Admin: 11/19/23 08:20 Dose: 25 mg Documented By: MACARIO Hydromorphone HCl (Hydromorphone Hcl 1 Mg/Ml Syringe) 1 mg IVPUSH Q3H PRN; Protocol PRN Reason: Pain, Severe (Pain Scale 7-10) Last Admin: 11/18/23 20:49 Dose: 1 mg Documented By: SALLY Dextrose (D10) 250 mls @ 750 mls/hr IV Q15M PRN; Protocol PRN Reason: per Hypoglycemia Standing Ord. Piperacillin Sod/Tazobactam (Sod 4.5 gm/ Sodium Chloride) 100 mls @ 200 mls/hr IV Q6H [facility] Last Admin: 11/19/23 15:40 Dose: 200 mls/hr Documented By: MACARIO Doxycycline Hyclate 100 mg/ (Sodium Chloride) 250 mls @ 166.67 mls/hr IV Q12H [facility] Insulin Human Lispro (Insulin Lispro 100 Unit/Ml 3 Ml Vial) 0 unit SUBCUT QIDACHS [facility]; Protocol Last Admin: 11/19/23 12:11 Dose: 2 unit Documented By: MACARIO Lamotrigine (Lamotrigine 100 Mg Tablet) 200 mg PO BID@1000,2200 [facility] Last Admin: 11/19/23 08:16 Dose: 200 mg Documented By: MACARIO Lisinopril (Lisinopril 10 Mg Tablet) 10 mg PO DAILY [facility]; Protocol Last Admin: 11/19/23 08:20 Dose: 10 mg Documented By: MACARIO Loperamide HCl (Loperamide Hcl 2 Mg Capsule) 2 mg PO Q4H PRN PRN Reason: loose stools Magnesium Hydroxide (Milk Of Magnesia 30 Ml Oral.Susp) 30 ml PO DAILY PRN PRN Reason: Constipation Last Admin: 11/14/23 23:22 Dose: 30 ml Documented By: ALLEGRA Melatonin (Melatonin 3 Mg Tablet) 6 mg PO BEDTIME PRN PRN Reason: Insomnia Last Admin: 11/18/23 20:51 Dose: 6 mg Documented By: SALLY Ondansetron HCl (Ondansetron Hcl 4 Mg/2 Ml Vial) 4 mg IVPUSH Q8H PRN PRN Reason: Nausea and Vomiting Oxcarbazepine (Oxcarbazepine 300 Mg Tablet) 600 mg PO BID@1000,2200 [facility] Last Admin: 11/19/23 08:17 Dose: 600 mg Documented By: MACARIO Oxycodone HCl (Oxycodone Hcl Immed Release 5 Mg Tablet) 10 mg PO Q4H PRN PRN Reason: Pain, Moderate(Pain Scale 4-6) Last Admin: 11/19/23 08:32 Dose: 10 mg Documented By: MACARIO Sodium Chloride (0.9 % Sodium Chloride Flush 3 Ml Syringe) 3 ml IVFLUSH QSHIFT [facility] Last Admin: 11/19/23 15:40 Dose: 3 ml Documented By: MACARIO Labs 11/19/23 08:14 11/18/23 07:54 Labs: Laboratory Results - last 24 hr 11/18/23 11/19/23 11/19/23 20:12 08:14 08:16 MCV 82.8 MCH 27.2 MCHC 32.9 RDW 14.0 Plt Count 529 H D MPV 9.4 Immature Gran % (Auto) Cancelled Neut % (Auto) Cancelled Lymph % (Auto) Cancelled [place] % (Auto) Cancelled Eos % (Auto) Cancelled Baso % (Auto) Cancelled Lymph # (Auto) Cancelled [place] # (Auto) Cancelled Eos # (Auto) Cancelled Baso # (Auto) Cancelled Abs Immat Gran (auto) Cancelled Absolute Neuts (auto) Cancelled Absolute Nucleated RBC 0.000 Nucleated RBC % (auto) 0.0 Neutrophils % (Manual) 94 H Band Neutrophils % 1 L Lymphocytes % (Manual) 1 L Monocytes % (Manual) 2 Metamyelocytes % 1 Myelocytes % 1 Abs Neuts (Manual) 21.9 H Lymphocytes # (Manual) 0.2 L Monocytes # (Manual) 0.5 Metamyelocytes # 0.2 Myelocytes # 0.2 Platelet Estimate SLIGHTLY INCREASED Plt Morphology Comment NORMAL RBC Morphology NORMAL POC Glucose 147 H 159 H 11/19/23 10:59 MCV MCH MCHC RDW Plt Count MPV Immature Gran % (Auto) Neut % (Auto) Lymph % (Auto) [place] % (Auto) Eos % (Auto) Baso % (Auto) Lymph # (Auto) [place] # (Auto) Eos # (Auto) Baso # (Auto) Abs Immat Gran (auto) Absolute Neuts (auto) Absolute Nucleated RBC Nucleated RBC % (auto) Neutrophils % (Manual) Band Neutrophils % Lymphocytes % (Manual) Monocytes % (Manual) Metamyelocytes % Myelocytes % Abs Neuts (Manual) Lymphocytes # (Manual) Monocytes # (Manual) Metamyelocytes # Myelocytes # Platelet Estimate Plt Morphology Comment RBC Morphology POC Glucose 174 H Procedures Date of Service Date of Service: 11/19/23 Progress Note: A&P Assessment and plan (1) Symptomatic cholelithiasis: Status: Acute Assessment and Plan: 48 year old male s/p lap [place] and then exploration for small bowel enterotomy and resection - was doing well and planning for dc home but pt now with elevated wbc and feeling intraabdo pressure and drainage of material from umbilcal area - wbc elevated ct scan abdo/pelvis -- intra-abdo collections developing abscesses plan - cont with diet, but resume iv antibiotics, packing in the abdo wound and will consider IR drainagae of the collections if possible on tuesday (2) Status post small bowel resection: Status: Acute Time Spent With Patient Time: Total time managing care of this patient today ____ minutes. Quality Stroke Does the patient have a stroke diagnosis?: No VTE Prior VTE?: No VTE Risk Level:: Surgical - low VTE Device Contraindication: N/A - Device Ordered VTE Drug Contraindication: Treatment Not Indicated
[2023-11-19 16:36] LABS: Glucose, Whole Blood 133 mg/dL (60-115)
[2023-11-19 16:56] LABS: CDiff Gene PCR NEGATIVE (Negative)
[2023-11-19] MEDS: Barium Sulfate Oral (Vanilla) 450 ML ORAL.SUSP 900 ML PO (18:18)
[2023-11-19 20:54] LABS: Glucose, Whole Blood 149 mg/dL (60-115)
[2023-11-19] MEDS: Doxycycline Hyclate 100 MG in 0.9 % Sodium Chloride 250 ML 166.67 MG IV (23:54)
[2023-11-20] VITALS (8 sets, daily range): BP systolic 123–156; BP diastolic 63–81; PULSE 85–98; RESP 18–20; TEMP 36.1–36.6; O2SAT 95–98
[2023-11-20] MEDS: oxyCODONE HCl Immed Release 5 MG TABLET 10 MG PO ×3 (00:56→22:07)
[2023-11-20] MEDS: Melatonin 3 MG TABLET 6 MG PO (00:56)
[2023-11-20] MEDS: Acetaminophen 325 MG TABLET 650 MG PO ×3 (03:06→15:50)
[2023-11-20] MEDS: Piperacillin Sodium/Tazobactam 4.5 GM in 0.9 % Sodium Chloride 100 ML IV ×4 (03:09→21:53)
[2023-11-20 06:14] LABS: Hematocrit 36.7 % (42.0-52.0); Hemoglobin 11.6 g/dl (14.0-18.0); Mean Corpuscular HGB Conc 31.6 g/dl (31.0-36.0); Mean Corpuscular Hemoglobin 26.5 pg (27.0-33.0); Mean Platelet Volume 9.2 fL (9.4-12.4); Platelet Count 501 X10*3/uL (160-400); Red Blood Count 4.37 X10*6/uL (4.60-5.80); White Blood Count 20.4 X10*3/uL (4.8-10.8)
[2023-11-20 06:26] LABS: Anion Gap 12 (12-20); Blood Urea Nitrogen 6 mg/dL (9-16); Calcium 8.2 mg/dL (8.4-10.2); Carbon Dioxide 27 mmol/L (22-29); Chloride 100 mmol/L (96-108); Creatinine Clr Calc Pharmacy 191.3; Estimated Glomerular Filt Rate > 60; Glucose Random 143 mg/dL (60-115); Potassium 3.5 mmol/L (3.3-5.1); Sodium 135 mmol/L (135-145)
--- NOTE | 2023-11-20 07:46 | P.PNIM_ITS ---
Subjective Subjective Date of Service: 11/20/23 Interval History: Abdominal pain is better, WBC down, HR improved, WBC is lower. CT of abd/pelvis 11/18 showed collection of 10 x 7.5 x 5 cm in the mid pelvis Physical Exam 2 Vital Signs: Vital Signs: Last Vital Signs Temp 97.5 F 11/20/23 07:22 Pulse 85 11/20/23 07:22 Resp 20 11/20/23 07:22 BP 149/79 H 11/20/23 07:22 Pulse Ox 97 11/20/23 07:22 O2 Del Method Room Air 11/20/23 07:22 O2 Flow Rate 2 11/13/23 11:14 Oxygen Flow Rate 96 11/18/23 11:00 BMI result Body Mass Index 36.2 General: AO X 3, no acute distress Resp: CTA bilateral CVS: S1,S2,RRR GI: +BS, tenderness to palpation, no distention Skin: No rash Neuro: motor grossly intact Psych: appropriate affect Objective Data Active Medications Acetaminophen (Acetaminophen 325 Mg Tablet) 650 mg PO Q6H PRN PRN Reason: Pain, Mild (Pain Scale 1-3), fever or headache Last Admin: 11/20/23 03:06 Dose: 650 mg Documented By: SINDY Calcium Carbonate (Calcium Carbonate 750 Mg Tab.Chew) 750 mg PO Q4H PRN PRN Reason: Heartburn Last Admin: 11/17/23 20:33 Dose: 750 mg Documented By: LUCRECIA Famotidine (Famotidine 20 Mg Tablet) 20 mg PO BID [facility] Last Admin: 11/19/23 20:35 Dose: 20 mg Documented By: SINDY Folic Acid (Folic Acid 1 Mg Tablet) 1 mg PO DAILY@1000 [facility] Last Admin: 11/19/23 08:18 Dose: 1 mg Documented By: MACARIO Glucose (Glucose Gel 15 Gm Gel..Gram.) 15 gm PO Q15M PRN; Protocol PRN Reason: per Hypoglycemia Standing Ord. Hydrochlorothiazide (Hydrochlorothiazide 25 Mg Tablet) 25 mg PO DAILY@1000 [facility]; Protocol Last Admin: 11/19/23 08:20 Dose: 25 mg Documented By: MACARIO Hydromorphone HCl (Hydromorphone Hcl 1 Mg/Ml Syringe) 1 mg IVPUSH Q3H PRN; Protocol PRN Reason: Pain, Severe (Pain Scale 7-10) Last Admin: 11/18/23 20:49 Dose: 1 mg Documented By: SALLY Dextrose (D10) 250 mls @ 750 mls/hr IV Q15M PRN; Protocol PRN Reason: per Hypoglycemia Standing Ord. Piperacillin Sod/Tazobactam (Sod 4.5 gm/ Sodium Chloride) 100 mls @ 200 mls/hr IV Q6H [facility] Last Infusion: 11/20/23 04:08 Dose: Infused Documented By: SINDY Doxycycline Hyclate 100 mg/ (Sodium Chloride) 250 mls @ 166.67 mls/hr IV Q12H [facility] Last Infusion: 11/20/23 01:36 Dose: Infused Documented By: SINDY Insulin Human Lispro (Insulin Lispro 100 Unit/Ml 3 Ml Vial) 0 unit SUBCUT QIDACHS [facility]; Protocol Last Admin: 11/19/23 20:54 Dose: Not Given Documented By: SINDY Non-Admin Reason: No Insulin Coverage Lamotrigine (Lamotrigine 100 Mg Tablet) 200 mg PO BID@1000,2200 [facility] Last Admin: 11/19/23 20:34 Dose: 200 mg Documented By: SINDY Lisinopril (Lisinopril 10 Mg Tablet) 10 mg PO DAILY [facility]; Protocol Last Admin: 11/19/23 08:20 Dose: 10 mg Documented By: MACARIO Loperamide HCl (Loperamide Hcl 2 Mg Capsule) 2 mg PO Q4H PRN PRN Reason: loose stools Magnesium Hydroxide (Milk Of Magnesia 30 Ml Oral.Susp) 30 ml PO DAILY PRN PRN Reason: Constipation Last Admin: 11/14/23 23:22 Dose: 30 ml Documented By: ALLEGRA Melatonin (Melatonin 3 Mg Tablet) 6 mg PO BEDTIME PRN PRN Reason: Insomnia Last Admin: 11/20/23 00:56 Dose: 6 mg Documented By: SINDY Ondansetron HCl (Ondansetron Hcl 4 Mg/2 Ml Vial) 4 mg IVPUSH Q8H PRN PRN Reason: Nausea and Vomiting Oxcarbazepine (Oxcarbazepine 300 Mg Tablet) 600 mg PO BID@1000,2200 [facility] Last Admin: 11/19/23 20:35 Dose: 600 mg Documented By: SINDY Oxycodone HCl (Oxycodone Hcl Immed Release 5 Mg Tablet) 10 mg PO Q4H PRN PRN Reason: Pain, Moderate(Pain Scale 4-6) Last Admin: 11/20/23 00:56 Dose: 10 mg Documented By: SINDY Sodium Chloride (0.9 % Sodium Chloride Flush 3 Ml Syringe) 3 ml IVFLUSH QSHIFT [facility] Last Admin: 11/19/23 20:39 Dose: 3 ml Documented By: SINDY Labs 11/20/23 05:41 11/20/23 05:41 Labs: Laboratory Results - last 24 hr 11/19/23 11/19/23 11/19/23 08:14 08:16 10:59 MCV 82.8 MCH 27.2 MCHC 32.9 RDW 14.0 Plt Count 529 H D MPV 9.4 Immature Gran % (Auto) Cancelled Neut % (Auto) Cancelled Lymph % (Auto) Cancelled [place] % (Auto) Cancelled Eos % (Auto) Cancelled Baso % (Auto) Cancelled Lymph # (Auto) Cancelled [place] # (Auto) Cancelled Eos # (Auto) Cancelled Baso # (Auto) Cancelled Abs Immat Gran (auto) Cancelled Absolute Neuts (auto) Cancelled Absolute Nucleated RBC 0.000 Nucleated RBC % (auto) 0.0 Neutrophils % (Manual) 94 H Band Neutrophils % 1 L Lymphocytes % (Manual) 1 L Monocytes % (Manual) 2 Metamyelocytes % 1 Myelocytes % 1 Abs Neuts (Manual) 21.9 H Lymphocytes # (Manual) 0.2 L Monocytes # (Manual) 0.5 Metamyelocytes # 0.2 Myelocytes # 0.2 Platelet Estimate SLIGHTLY INCREASED Plt Morphology Comment NORMAL RBC Morphology NORMAL Anion Gap Estim Creat Clear Calc Estimated GFR POC Glucose 159 H 174 H Random Glucose Calcium C. difficile Tox B Gene 11/19/23 11/19/23 11/19/23 15:38 16:31 20:34 MCV MCH MCHC RDW Plt Count MPV Immature Gran % (Auto) Neut % (Auto) Lymph % (Auto) [place] % (Auto) Eos % (Auto) Baso % (Auto) Lymph # (Auto) [place] # (Auto) Eos # (Auto) Baso # (Auto) Abs Immat Gran (auto) Absolute Neuts (auto) Absolute Nucleated RBC Nucleated RBC % (auto) Neutrophils % (Manual) Band Neutrophils % Lymphocytes % (Manual) Monocytes % (Manual) Metamyelocytes % Myelocytes % Abs Neuts (Manual) Lymphocytes # (Manual) Monocytes # (Manual) Metamyelocytes # Myelocytes # Platelet Estimate Plt Morphology Comment RBC Morphology Anion Gap Estim Creat Clear Calc Estimated GFR POC Glucose 133 H 149 H Random Glucose Calcium C. difficile Tox B Gene NEGATIVE 11/20/23 05:41 MCV 84.0 MCH 26.5 L MCHC 31.6 RDW 14.0 Plt Count 501 H MPV 9.2 L Immature Gran % (Auto) Neut % (Auto) Lymph % (Auto) [place] % (Auto) Eos % (Auto) Baso % (Auto) Lymph # (Auto) [place] # (Auto) Eos # (Auto) Baso # (Auto) Abs Immat Gran (auto) Absolute Neuts (auto) Absolute Nucleated RBC 0.000 Nucleated RBC % (auto) 0.0 Neutrophils % (Manual) Band Neutrophils % Lymphocytes % (Manual) Monocytes % (Manual) Metamyelocytes % Myelocytes % Abs Neuts (Manual) Lymphocytes # (Manual) Monocytes # (Manual) Metamyelocytes # Myelocytes # Platelet Estimate Plt Morphology Comment RBC Morphology Anion Gap 12 Estim Creat Clear Calc 191.3 Estimated GFR > 60 POC Glucose Random Glucose 143 H Calcium 8.2 L C. difficile Tox B Gene Assessment and Plan (1) Status post laparoscopic cholecystectomy: Status: Acute (2) Empyema of gallbladder: Status: Acute Plan 48yo M with DM, HTN, epilepsy, obesity admitted to general surgical service after lap [place] for empyema of gallbladder on 11/09 returned to OR 11/10 due to tachycardia + worsening pain and found to have free air on CT, defect in small bowel repaired hospitalist consultation for management of comorbid conditions gallbaldder empyema s/p lap [place] 11/09 small bowel defect s/p repair 11/10 -has had persistent leukocytosis -Was on Zosyn, flagyl, Ceftriaxone. -Zosyn + Doxyc restarted on 11/18 d/t increasing WBC -CT 11/18 shows fluid collection concerning for abscess in central pelvis (10 x 7.5 x 5 cm), surgery to address next step -WBC is down to 20 from 25 tachycardia, related to above, resolved. TTE no apparent disease Vtach once incident, -K and mag normal DM2 - brian dose lispro HTN - continue lisinopril and increase to 10, restart HCTZ epilepsy - oxcarbazapine, lamotrigine VTE ppx - SCDs Thank you for this consultation. We will continue to follow the patient while they are admitted to your service. out of bed and ambulatte Quality Stroke Does the patient have a stroke diagnosis?: No VTE Prior VTE?: No VTE Risk Level:: Surgical - low VTE Device Contraindication: N/A - Device Ordered VTE Drug Contraindication: Treatment Not Indicated
[2023-11-20 07:51] LABS: Glucose, Whole Blood 158 mg/dL (60-115)
[2023-11-20] MEDS: Insulin Lispro 100 UNIT/ML 3 ML VIAL SUBCUT ×2 (08:51→21:53)
[2023-11-20] MEDS: 0.9 % Sodium Chloride Flush 3 ML SYRINGE IVFLUSH ×3 (08:51→23:58)
[2023-11-20] MEDS: lamoTRIgine 100 MG TABLET 200 MG PO ×2 (08:52→21:53)
[2023-11-20] MEDS: lisinopriL 10 MG TABLET PO (08:52)
[2023-11-20] MEDS: Folic Acid 1 MG TABLET PO (08:52)
[2023-11-20] MEDS: hydroCHLOROthiazide 25 MG TABLET PO (08:52)
[2023-11-20] MEDS: OXcarbazepine 300 MG TABLET 600 MG PO ×2 (08:52→21:53)
[2023-11-20] MEDS: Famotidine 20 MG TABLET PO ×2 (08:53→21:53)
[2023-11-20] MEDS: Doxycycline Hyclate 100 MG in 0.9 % Sodium Chloride 250 ML 166.67 MG IV (09:53)
[2023-11-20 11:36] LABS: Glucose, Whole Blood 150 mg/dL (60-115)
[2023-11-20 16:13] LABS: Glucose, Whole Blood 136 mg/dL (60-115)
--- NOTE | 2023-11-20 17:09 | PM.PNGS ---
Subjective Subjective Date of Service: 11/20/23 Interval history: Patient is still feeling pressure in his lower abdomen but overall feeling okay tolerating p.o. diet go ahead and bathroom okay. Denies any fevers Physical Exam Vital Signs: Vital Signs: Last Vital Signs Temp 97.0 F 11/20/23 15:14 Pulse 93 11/20/23 15:14 Resp 20 11/20/23 15:14 BP 154/78 H 11/20/23 15:14 Pulse Ox 97 11/20/23 15:14 O2 Del Method Room Air 11/20/23 15:14 O2 Flow Rate 2 11/13/23 11:14 Oxygen Flow Rate 96 11/18/23 11:00 BMI result Body Mass Index 36.2 Const: General: cooperative, comfortable and no acute distress GI: Other: Abdomen is soft tender around the inferior umbilical area but the induration and erythema looks improved. Probing the open area of the umbilicus the wound is silver cleaner no significant worrisome drainage present. The area was repacked. Objective Data Active Medications Acetaminophen (Acetaminophen 325 Mg Tablet) 650 mg PO Q6H PRN PRN Reason: Pain, Mild (Pain Scale 1-3), fever or headache Last Admin: 11/20/23 15:50 Dose: 650 mg Documented By: ROMEL Calcium Carbonate (Calcium Carbonate 750 Mg Tab.Chew) 750 mg PO Q4H PRN PRN Reason: Heartburn Last Admin: 11/17/23 20:33 Dose: 750 mg Documented By: LUCRECIA Famotidine (Famotidine 20 Mg Tablet) 20 mg PO BID [facility] Last Admin: 11/20/23 08:53 Dose: 20 mg Documented By: ROMEL Folic Acid (Folic Acid 1 Mg Tablet) 1 mg PO DAILY@1000 [facility] Last Admin: 11/20/23 08:52 Dose: 1 mg Documented By: ROMEL Glucose (Glucose Gel 15 Gm Gel..Gram.) 15 gm PO Q15M PRN; Protocol PRN Reason: per Hypoglycemia Standing Ord. Hydrochlorothiazide (Hydrochlorothiazide 25 Mg Tablet) 25 mg PO DAILY@1000 NOY; Protocol Last Admin: 11/20/23 08:52 Dose: 25 mg Documented By: ROMEL Hydromorphone HCl (Hydromorphone Hcl 1 Mg/Ml Syringe) 1 mg IVPUSH Q3H PRN; Protocol PRN Reason: Pain, Severe (Pain Scale 7-10) Last Admin: 11/18/23 20:49 Dose: 1 mg Documented By: SALLY Dextrose (D10) 250 mls @ 750 mls/hr IV Q15M PRN; Protocol PRN Reason: per Hypoglycemia Standing Ord. Piperacillin Sod/Tazobactam (Sod 4.5 gm/ Sodium Chloride) 100 mls @ 200 mls/hr IV Q6H [facility] Last Infusion: 11/20/23 16:12 Dose: Infused Documented By: ROMEL Doxycycline Hyclate 100 mg/ (Sodium Chloride) 250 mls @ 166.67 mls/hr IV Q12H [facility] Last Infusion: 11/20/23 11:23 Dose: Infused Documented By: ROMEL Insulin Human Lispro (Insulin Lispro 100 Unit/Ml 3 Ml Vial) 0 unit SUBCUT QIDACHS [facility]; Protocol Last Admin: 11/20/23 16:24 Dose: Not Given Documented By: ROMEL Non-Admin Reason: [id number] Lamotrigine (Lamotrigine 100 Mg Tablet) 200 mg PO BID@1000,2200 [facility] Last Admin: 11/20/23 08:52 Dose: 200 mg Documented By: ROMEL Lisinopril (Lisinopril 10 Mg Tablet) 10 mg PO DAILY [facility]; Protocol Last Admin: 11/20/23 08:52 Dose: 10 mg Documented By: ROMEL Loperamide HCl (Loperamide Hcl 2 Mg Capsule) 2 mg PO Q4H PRN PRN Reason: loose stools Magnesium Hydroxide (Milk Of Magnesia 30 Ml Oral.Susp) 30 ml PO DAILY PRN PRN Reason: Constipation Last Admin: 11/14/23 23:22 Dose: 30 ml Documented By: ALLEGRA Melatonin (Melatonin 3 Mg Tablet) 6 mg PO BEDTIME PRN PRN Reason: Insomnia Last Admin: 11/20/23 00:56 Dose: 6 mg Documented By: SINDY Ondansetron HCl (Ondansetron Hcl 4 Mg/2 Ml Vial) 4 mg IVPUSH Q8H PRN PRN Reason: Nausea and Vomiting Oxcarbazepine (Oxcarbazepine 300 Mg Tablet) 600 mg PO BID@1000,2200 [facility] Last Admin: 11/20/23 08:52 Dose: 600 mg Documented By: ROMEL Oxycodone HCl (Oxycodone Hcl Immed Release 5 Mg Tablet) 10 mg PO Q4H PRN PRN Reason: Pain, Moderate(Pain Scale 4-6) Last Admin: 11/20/23 00:56 Dose: 10 mg Documented By: SINDY Sodium Chloride (0.9 % Sodium Chloride Flush 3 Ml Syringe) 3 ml IVFLUSH QSHIFT [facility] Last Admin: 11/20/23 15:42 Dose: 3 ml Documented By: ROMEL Labs 11/20/23 05:41 11/20/23 05:41 Labs: Laboratory Results - last 24 hr 11/19/23 11/20/23 11/20/23 20:34 05:41 07:27 MCV 84.0 MCH 26.5 L MCHC 31.6 RDW 14.0 Plt Count 501 H MPV 9.2 L Absolute Nucleated RBC 0.000 Nucleated RBC % (auto) 0.0 Anion Gap 12 Estim Creat Clear Calc 191.3 Estimated GFR > 60 POC Glucose 149 H 158 H Random Glucose 143 H Calcium 8.2 L 11/20/23 11/20/23 11:31 16:08 MCV MCH MCHC RDW Plt Count MPV Absolute Nucleated RBC Nucleated RBC % (auto) Anion Gap Estim Creat Clear Calc Estimated GFR POC Glucose 150 H 136 H Random Glucose Calcium Echocardiogram Interpretation: Chart - [facility] ? Diagnostics Subcategory All Activity ??:?? All Time ??:?? All Subcategories Filter Laboratory Imaging Microbiology Pathology Blood Bank Tests Cardiovascular Other Specialty DATE TYPE STATUS REF RANGE/AUTHOR Hx 11/19/23 18:51 Abdomen/Pelvis CT Signed Kyrie Joshua 11/11/23 15:15 Abdomen/Pelvis CT Signed Prabhakar Bauman 11/11/23 04:[address] Signed Noah Batista 11/11/23 04:33 Abdomen/Pelvis CT Signed Noah Batista 08/25/23 12:26 Chest X-Ray Signed Syed Davis Jr 08/25/23 12:08 Abdomen Ultrasound Signed Ryan Garcia 06/15/23 16:35 Knee X-Ray Signed Shayla Haile 06/15/23 16:35 Knee X-Ray Signed Shayla Haile 06/04/23 22:[address] Signed Lenard Diaz 01/07/22 11:25 Guidance Fluoroscopy Signed AartiDario 11/20/21 08:30 Hand X-Ray Signed Suzanne Pratt 05/13/21 13:35 Wrist X-Ray Signed Marcus Multani Eliezer Acute 48, M?1975 MRN#? [id number] ADM IN,?HO.IMC??474?-1? 5ft 11in 259lb 14.447oz BSA: 2.43m? BMI: 36.2kg/m? Acc#? [id number] Full Code Historical Visits Allergies pseudoephedrine (From Sudafed) Difficulty Breathing Problems ? 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 Resp 20? Temp 97.0 F? O2 Sat 97? Delivery Room Air? Home Meds Confirmed Prescription Monitoring Program Total 45 MME/Day MEDICATIONS (INSTRUCTIONS) LAST TAKEN Active amoxicillin-pot clavulanate 1 [id number] days#10 tabs baclofen 20 mgPOQIDPRNback spasms Unknown doxycycline monohydrate 100 [id number] days#10 caps famotidine 20 mgPOBIDPRNAbdominal Discomfort Unknown folic acid 1 mgPODAILY@1000 Unknown hydrochlorothiazide 25 mg tablet 25 mgPODAILY@1000 Unknown ibuprofen 400 - 800 [id number] Unknown lamotrigine 200 mg tablet 200 mgPOBID@1000,2200 Unknown lisinopril 5 mg tablet 5 mgPODAILY@1000 Unknown metformin 500 mgPOBID@1000,2200 Unknown oxcarbazepine 1 tabPOBID@1000,2200 Unknown oxycodone 5 [id number] (scale score 7-10)#24 tabs 45 MME/Day My Widget No Data to Display Diagnostics Reports Girma Kimball??48??M??1975 ? Allergy/Adv: pseudoephedrine Close Abdomen/Pelvis CT (Signed) Kyrie Joshua - 11/19/23 Abdomen/Pelvis CT (Signed) Prabhakar Bauman - 11/11/[address] (Signed) Noah Batista - 11/11/23 Abdomen/Pelvis CT (Signed) Noah Batista - 11/11/23 Chest X-Ray (Signed) Syed Davis Jr - 08/25/23 Abdomen Ultrasound (Signed) Ora Garciazo - 08/25/23 Knee X-Ray (Signed) Shayla Haile - 06/15/23 Knee X-Ray (Signed) Shayla Haile - 06/15/[address] (Signed) Lenard Diaz - 06/04/23 Guidance Fluoroscopy (Signed) Dario Broussard - 01/07/22 Hand X-Ray (Signed) Suzanne Pratt - 11/20/21 Wrist X-Ray (Signed) Marcus Multani - 05/13/21 Launch?Image [place] [address] CT Scan Report Signed Patient: Girma Kimball MR#: [id number] : 1975 Acct:[id number] Age/Sex: 48 / M ADM Date: 11/10/23 Loc: [facility] [address]: Ran Buenrostro MD Ordering Physician: Eriberto Gleason MD Date of Service: 11/19/23 Procedure(s): CT abdomen pelvis wo IV con Accession Number(s): [id number] cc: Maria Elena Wells; Eriberto Gleason MD~ EXAMINATION: CT ABDOMEN AND PELVIS WITHOUT CONTRAST CLINICAL INFORMATION: Post abdominal surgery. Post drainage from the wound. COMPARISON: 11/11/2023 TECHNIQUE: Multidetector volumetric imaging was performed from the superior aspect of the liver through the pubic symphysis. Oral contrast material was administered. Sagittal and coronal reformatted images were obtained on the technologist's workstation. This CT examination was performed using dose optimization techniques as appropriate, variously including the following: *Automated exposure control *Adjustment of mA and/or kV according to patient size (this includes techniques or standardized protocols for targeted exams where dose is matched to indication/reason for exam; i.e. extremities or head) *Use of iterative reconstruction technique DLP: 918 mGy-cm FINDINGS: LUNG BASES: Mild dependent atelectasis in the lower lobes. LIVER, GALLBLADDER, AND BILIARY TREE: The liver is normal in size, shape, and attenuation. No focal hepatic lesion or biliary ductal dilatation is present. Status post cholecystectomy. PANCREAS: Unremarkable. SPLEEN: A calcified granuloma is present in the spleen. ADRENAL GLANDS: Unremarkable. KIDNEYS AND URETERS: The kidneys are normal in size, shape, and attenuation. No hydronephrosis, hydroureter, or calculi seen. No perinephric stranding. BLADDER: Unremarkable. GASTROINTESTINAL TRACT: Stomach is normal in caliber. Anastomotic diane are present within the right mid abdomen. Oral contrast material extends throughout the small bowel loops to the level of the ileal segments in the right lower quadrant. There is dilatation of multiple bowel loops the central abdomen up to 4 cm. Anastomotic sutures are present within the small bowel in the right mid abdomen a discrete transition point of the small bowel is not identified. A small volume of perihepatic ascites is again noted, similar to prior. Additionally, there are organized collections of fluid in the central pelvis which appear loculated through the largest of which is present in the anterior central pelvis measuring approximately 10 x 7.5 x 5 cm. A smaller collection is present in the deep pelvis measuring 6.5 x 5 x 6 cm. No appreciable intraperitoneal free air. ABDOMINAL WALL: Subcutaneous edema is evident in the abdominal flanks. Marked soft tissue edema is also noted around the umbilicus. The subcutaneous gas in this region is improved as compared to prior. LYMPH NODES: Numerous borderline enlarged retroperitoneal lymph nodes are identified in the upper abdomen measuring up to 1.2 cm in diameter. VASCULAR: Unremarkable. PELVIC VISCERA: Prostate gland is unremarkable. OSSEOUS STRUCTURES: Moderate severe multilevel degenerative disc disease in the lower lumbar spine. No fractures. 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 CT/CT abdomen pelvis wo IV con IMPRESSION: 1. Multiple dilated loops of small bowel in the central abdomen without a discrete transition point, most consistent with postoperative ileus. 2. Loculated fluid collections in the central pelvis, the largest of which measures 10 x 7.5 x 5 cm. These are more organized as compared to prior study and concerning for developing abscesses. 3. Small volume of perihepatic ascites, similar to prior. 4. Marked soft tissue edema around the umbilicus. The previously seen subcutaneous gas in this region is improved as compared to prior. Fleischner guidelines were followed. Dictated By: Kyrie Joshua MD Signed By: <Electronically signed by Kyrie Joshua MD in OV> 11/19/232029 DD/ 50 TD/TT: [employer] Launch Commander: DEJON Procedures Date of Service Date of Service: 11/20/23 Progress Note: A&P Assessment and plan (1) Status post laparoscopic cholecystectomy: Status: Acute Plan Patient is status post laparoscopic cholecystectomy and then small-bowel enterotomy repair with resection. Overall he looks better today white count a little decreased however I think that the intra-abdominal in the pelvic area fluid collection should be drained. He has been started back on IV antibiotics and our goal will be to continue with this drainage hopefully tomorrow with Interventional Radiology. Overall he is doing better and feels a little more optimistic. I think some of his symptoms with his ladder are secondary to this fluid collection sitting low in his pelvis. Continue with packing of his umbilical wound. We will make NPO tonight Time Spent With Patient Time: Total time managing care of this patient today ____ minutes. Quality Stroke Does the patient have a stroke diagnosis?: No VTE Prior VTE?: No VTE Risk Level:: Surgical - low VTE Device Contraindication: N/A - Device Ordered VTE Drug Contraindication: Treatment Not Indicated
[2023-11-20 20:09] LABS: Glucose, Whole Blood 156 mg/dL (60-115)
[2023-11-20] MEDS: Doxycycline Hyclate 100 MG in 0.9 % Sodium Chloride 250 ML 166 MG IV (23:57)
[2023-11-21] MEDS: Acetaminophen 325 MG TABLET 650 MG PO ×2 (02:17→09:32)
[2023-11-21] MEDS: Piperacillin Sodium/Tazobactam 4.5 GM in 0.9 % Sodium Chloride 100 ML IV ×4 (02:42→20:39)
[2023-11-21 03:02] VITALS: BP 146/78; PULSE 92; RESP 18; TEMP 36.7; O2SAT 96
[2023-11-21 06:32] LABS: Hematocrit 39.1 % (42.0-52.0); Hemoglobin 12.3 g/dl (14.0-18.0); Mean Corpuscular HGB Conc 31.5 g/dl (31.0-36.0); Mean Corpuscular Hemoglobin 26.7 pg (27.0-33.0); Mean Corpuscular Volume 84.8 fL (80.0-98.0); Mean Platelet Volume 9.1 fL (9.4-12.4); Platelet Count 575 X10*3/uL (160-400); Red Blood Count 4.61 X10*6/uL (4.60-5.80); Red Cell Distribution Width 14.1 % (11.0-16.0)
[2023-11-21 07:06] LABS: Anion Gap 14 (12-20); Blood Urea Nitrogen 7 mg/dL (9-16); Calcium 8.8 mg/dL (8.4-10.2); Carbon Dioxide 25 mmol/L (22-29); Chloride 99 mmol/L (96-108); Creatinine Clr Calc Pharmacy 177.2; Estimated Glomerular Filt Rate > 60; Glucose Random 138 mg/dL (60-115); Potassium 4.1 mmol/L (3.3-5.1); Sodium 134 mmol/L (135-145)
[2023-11-21 08:00] VITALS: BP 130/62; PULSE 87; RESP 18; TEMP 36.2; O2SAT 98
--- NOTE | 2023-11-21 08:31 | PM.PNGS ---
Subjective Subjective Date of Service: 11/21/23 Interval history: Awaiting drainage this morning. Physical Exam Vital Signs: Vital Signs: Last Vital Signs Temp 97.2 F 11/21/23 08:00 Pulse 87 11/21/23 08:00 Resp 18 11/21/23 08:00 BP 130/62 11/21/23 08:00 Pulse Ox 98 11/21/23 08:00 O2 Del Method Room Air 11/21/23 08:00 O2 Flow Rate 2 11/13/23 11:14 Oxygen Flow Rate 96 11/18/23 11:00 BMI result Body Mass Index 36.2 Const: General: comfortable, no acute distress and alert Orientation/consciousness: patient oriented x3 Resp: Effort & Inspection: normal respiratory effort GI: Other: mild diffuse tenderness inferior umbilical erythema improving, packing in place in umbilical incision, no significant drainage Inspection: Yes distended Neuro: General: patient oriented x3 and moves all extremities Objective Data Active Medications Acetaminophen (Acetaminophen 325 Mg Tablet) 650 mg PO Q6H PRN PRN Reason: Pain, Mild (Pain Scale 1-3), fever or headache Last Admin: 11/21/23 02:17 Dose: 650 mg Documented By: KRISTEN Calcium Carbonate (Calcium Carbonate 750 Mg Tab.Chew) 750 mg PO Q4H PRN PRN Reason: Heartburn Last Admin: 11/17/23 20:33 Dose: 750 mg Documented By: LUCRECIA Famotidine (Famotidine 20 Mg Tablet) 20 mg PO BID [facility] Last Admin: 11/20/23 21:53 Dose: 20 mg Documented By: KRISTEN Folic Acid (Folic Acid 1 Mg Tablet) 1 mg PO DAILY@1000 [facility] Last Admin: 11/20/23 08:52 Dose: 1 mg Documented By: ROMEL Glucose (Glucose Gel 15 Gm Gel..Gram.) 15 gm PO Q15M PRN; Protocol PRN Reason: per Hypoglycemia Standing Ord. Hydrochlorothiazide (Hydrochlorothiazide 25 Mg Tablet) 25 mg PO DAILY@1000 [facility]; Protocol Last Admin: 11/20/23 08:52 Dose: 25 mg Documented By: ROMEL Hydromorphone HCl (Hydromorphone Hcl 1 Mg/Ml Syringe) 1 mg IVPUSH Q3H PRN; Protocol PRN Reason: Pain, Severe (Pain Scale 7-10) Last Admin: 11/18/23 20:49 Dose: 1 mg Documented By: SALLY Dextrose (D10) 250 mls @ 750 mls/hr IV Q15M PRN; Protocol PRN Reason: per Hypoglycemia Standing Ord. Piperacillin Sod/Tazobactam (Sod 4.5 gm/ Sodium Chloride) 100 mls @ 200 mls/hr IV Q6H [facility] Last Infusion: 11/21/23 03:32 Dose: Infused Documented By: LOWELL Doxycycline Hyclate 100 mg/ (Sodium Chloride) 250 mls @ 166.67 mls/hr IV Q12H [facility] Last Infusion: 11/21/23 01:34 Dose: Infused Documented By: LOWELL Insulin Human Lispro (Insulin Lispro 100 Unit/Ml 3 Ml Vial) 0 unit SUBCUT QIDACHS [facility]; Protocol Last Admin: 11/20/23 21:53 Dose: 2 unit Documented By: KRISTEN Lamotrigine (Lamotrigine 100 Mg Tablet) 200 mg PO BID@1000,2200 [facility] Last Admin: 11/20/23 21:53 Dose: 200 mg Documented By: KRISTEN Lisinopril (Lisinopril 10 Mg Tablet) 10 mg PO DAILY [facility]; Protocol Last Admin: 11/20/23 08:52 Dose: 10 mg Documented By: ROMEL Loperamide HCl (Loperamide Hcl 2 Mg Capsule) 2 mg PO Q4H PRN PRN Reason: loose stools Magnesium Hydroxide (Milk Of Magnesia 30 Ml Oral.Susp) 30 ml PO DAILY PRN PRN Reason: Constipation Last Admin: 11/14/23 23:22 Dose: 30 ml Documented By: ALLEGRA Melatonin (Melatonin 3 Mg Tablet) 6 mg PO BEDTIME PRN PRN Reason: Insomnia Last Admin: 11/20/23 00:56 Dose: 6 mg Documented By: SINDY Ondansetron HCl (Ondansetron Hcl 4 Mg/2 Ml Vial) 4 mg IVPUSH Q8H PRN PRN Reason: Nausea and Vomiting Oxcarbazepine (Oxcarbazepine 300 Mg Tablet) 600 mg PO BID@1000,2200 [facility] Last Admin: 11/20/23 21:53 Dose: 600 mg Documented By: KRISTEN Oxycodone HCl (Oxycodone Hcl Immed Release 5 Mg Tablet) 10 mg PO Q4H PRN PRN Reason: Pain, Moderate(Pain Scale 4-6) Last Admin: 11/20/23 22:07 Dose: 10 mg Documented By: KRISTEN Sodium Chloride (0.9 % Sodium Chloride Flush 3 Ml Syringe) 3 ml IVFLUSH QSHIFT [facility] Last Admin: 11/20/23 23:58 Dose: 3 ml Documented By: KRISTEN Labs 11/21/23 06:00 11/21/23 06:01 Labs: Laboratory Results - last 24 hr 11/20/23 11/20/23 11/20/23 11:31 16:08 20:04 MCV MCH MCHC RDW Plt Count MPV Absolute Nucleated RBC Nucleated RBC % (auto) Anion Gap Estim Creat Clear Calc Estimated GFR POC Glucose 150 H 136 H 156 H Random Glucose Calcium 11/21/23 11/21/23 06:00 06:01 MCV 84.8 MCH 26.7 L MCHC 31.5 RDW 14.1 Plt Count 575 H MPV 9.1 L Absolute Nucleated RBC 0.000 Nucleated RBC % (auto) 0.0 Anion Gap 14 Estim Creat Clear Calc 177.2 Estimated GFR > 60 POC Glucose Random Glucose 138 H Calcium 8.8 D Microbiology Microbiology Results: Microbiology 11/19/23 15:38 Blood Culture - Preliminary Blood - Venous No growth after 24 hours. 11/19/23 15:38 Blood Culture - Preliminary Blood - Venous No growth after 24 hours. Procedures Date of Service Date of Service: 11/21/23 Progress Note: A&P Assessment and plan (1) Status post laparoscopic cholecystectomy: Status: Acute (2) Status post small bowel resection: Status: Acute Plan WBC continues to trend up. Will request IR drainage of intraabdominal collection. Discussed with patient. Cont IV zosyn, local wound care to umbilicus. Time Spent With Patient Time: Total time managing care of this patient today ____ minutes. Quality Stroke Does the patient have a stroke diagnosis?: No VTE Prior VTE?: No VTE Risk Level:: Surgical - low VTE Device Contraindication: N/A - Device Ordered VTE Drug Contraindication: Treatment Not Indicated
[2023-11-21 08:35] LABS: Glucose, Whole Blood 127 mg/dL (60-115)
[2023-11-21] MEDS: lamoTRIgine 100 MG TABLET 200 MG PO ×2 (09:31→20:45)
[2023-11-21] MEDS: OXcarbazepine 300 MG TABLET 600 MG PO ×2 (09:31→20:38)
[2023-11-21] MEDS: Famotidine 20 MG TABLET PO ×2 (09:31→20:38)
[2023-11-21] MEDS: lisinopriL 10 MG TABLET PO (09:32)
[2023-11-21] MEDS: hydroCHLOROthiazide 25 MG TABLET PO (09:32)
[2023-11-21] MEDS: Folic Acid 1 MG TABLET PO (09:33)
[2023-11-21] MEDS: 0.9 % Sodium Chloride Flush 3 ML SYRINGE IVFLUSH ×2 (09:33→16:01)
[2023-11-21] MEDS: Lactated Ringers 1,000 ML 80 ML IVCONT (09:34)
[2023-11-21] MEDS: Doxycycline Hyclate 100 MG in 0.9 % Sodium Chloride 250 ML 166.67 MG IV (10:26)
--- NOTE | 2023-11-21 10:29 | HO.WOUND ---
Wound Consult: Initial - New Consult Placed 48yr old?Male admitted to [facility] on 11/10/23 - See progress notes and H&P for detailed history.? Wound consult placed for Umbilical Incision site, seen previously for MARSI to LLQ.? Chart review reveals patient is set for IR guided fluid collection drainage today, his WBC are trending up - see chart for details. The site does have active topical orders in place for packing by Dr. Taylor from General Surgery - no topical orders needed at this time from Inpatient Wound Care Nurse. Chart review will continue to follow patient to see if topical orders are needed in the future.
[2023-11-21 11:00] VITALS: O2SAT 98
--- NOTE | 2023-11-21 11:26 | P.PNIM_ITS ---
Subjective Subjective Date of Service: 11/21/23 Interval History: No new issues, WBC remains high for CT guided drainage today Physical Exam 2 Vital Signs: Vital Signs: Last Vital Signs Temp 97.2 F 11/21/23 08:00 Pulse 87 11/21/23 08:00 Resp 18 11/21/23 08:00 BP 130/62 11/21/23 08:00 Pulse Ox 98 11/21/23 08:00 O2 Del Method Room Air 11/21/23 08:00 O2 Flow Rate 2 11/13/23 11:14 Oxygen Flow Rate 96 11/18/23 11:00 BMI result Body Mass Index 36.2 General: AO X 3, no acute distress Resp: CTA bilateral CVS: S1,S2,RRR GI: +BS, mild tenderness to palpation, no distention Skin: No rash Neuro: motor grossly intact Psych: appropriate affect Objective Data Active Medications Acetaminophen (Acetaminophen 325 Mg Tablet) 650 mg PO Q6H PRN PRN Reason: Pain, Mild (Pain Scale 1-3), fever or headache Last Admin: 11/21/23 09:32 Dose: 650 mg Documented By: ROMEL Calcium Carbonate (Calcium Carbonate 750 Mg Tab.Chew) 750 mg PO Q4H PRN PRN Reason: Heartburn Last Admin: 11/17/23 20:33 Dose: 750 mg Documented By: LUCRECIA Famotidine (Famotidine 20 Mg Tablet) 20 mg PO BID [facility] Last Admin: 11/21/23 09:31 Dose: 20 mg Documented By: ROMEL Folic Acid (Folic Acid 1 Mg Tablet) 1 mg PO DAILY@1000 [facility] Last Admin: 11/21/23 09:33 Dose: 1 mg Documented By: ROMEL Glucose (Glucose Gel 15 Gm Gel..Gram.) 15 gm PO Q15M PRN; Protocol PRN Reason: per Hypoglycemia Standing Ord. Hydrochlorothiazide (Hydrochlorothiazide 25 Mg Tablet) 25 mg PO DAILY@1000 [facility]; Protocol Last Admin: 11/21/23 09:32 Dose: 25 mg Documented By: ROMEL Hydromorphone HCl (Hydromorphone Hcl 1 Mg/Ml Syringe) 1 mg IVPUSH Q3H PRN; Protocol PRN Reason: Pain, Severe (Pain Scale 7-10) Last Admin: 11/18/23 20:49 Dose: 1 mg Documented By: SALLY Dextrose (D10) 250 mls @ 750 mls/hr IV Q15M PRN; Protocol PRN Reason: per Hypoglycemia Standing Ord. Piperacillin Sod/Tazobactam (Sod 4.5 gm/ Sodium Chloride) 100 mls @ 200 mls/hr IV Q6H [facility] Last Infusion: 11/21/23 10:01 Dose: Infused Documented By: ROMEL Doxycycline Hyclate 100 mg/ (Sodium Chloride) 250 mls @ 166.67 mls/hr IV Q12H [facility] Last Admin: 11/21/23 10:26 Dose: 166.67 mls/hr Documented By: ROMEL Lactated Ringer's (Lr) 1,000 mls @ 80 mls/hr IVCONT .[id number] [facility] Last Admin: 11/21/23 09:34 Dose: 80 mls/hr Documented By: ROMEL Insulin Human Lispro (Insulin Lispro 100 Unit/Ml 3 Ml Vial) 0 unit SUBCUT QIDACHS [facility]; Protocol Last Admin: 11/21/23 09:20 Dose: Not Given Documented By: ROMEL Non-Admin Reason: poc= 127 Lamotrigine (Lamotrigine 100 Mg Tablet) 200 mg PO BID@1000,2200 [facility] Last Admin: 11/21/23 09:31 Dose: 200 mg Documented By: ROMEL Lisinopril (Lisinopril 10 Mg Tablet) 10 mg PO DAILY [facility]; Protocol Last Admin: 11/21/23 09:32 Dose: 10 mg Documented By: ROMEL Loperamide HCl (Loperamide Hcl 2 Mg Capsule) 2 mg PO Q4H PRN PRN Reason: loose stools Magnesium Hydroxide (Milk Of Magnesia 30 Ml Oral.Susp) 30 ml PO DAILY PRN PRN Reason: Constipation Last Admin: 11/14/23 23:22 Dose: 30 ml Documented By: ALLEGRA Melatonin (Melatonin 3 Mg Tablet) 6 mg PO BEDTIME PRN PRN Reason: Insomnia Last Admin: 11/20/23 00:56 Dose: 6 mg Documented By: SINDY Ondansetron HCl (Ondansetron Hcl 4 Mg/2 Ml Vial) 4 mg IVPUSH Q8H PRN PRN Reason: Nausea and Vomiting Oxcarbazepine (Oxcarbazepine 300 Mg Tablet) 600 mg PO BID@1000,2200 [facility] Last Admin: 11/21/23 09:31 Dose: 600 mg Documented By: ROMEL Oxycodone HCl (Oxycodone Hcl Immed Release 5 Mg Tablet) 10 mg PO Q4H PRN PRN Reason: Pain, Moderate(Pain Scale 4-6) Last Admin: 11/20/23 22:07 Dose: 10 mg Documented By: KRISTEN Sodium Chloride (0.9 % Sodium Chloride Flush 3 Ml Syringe) 3 ml IVFLUSH QSHIFT [facility] Last Admin: 11/21/23 09:33 Dose: 3 ml Documented By: ROMEL Labs 11/21/23 06:00 11/21/23 06:01 Labs: Laboratory Results - last 24 hr 11/20/23 11/20/23 11/20/23 11:31 16:08 20:04 MCV MCH MCHC RDW Plt Count MPV Absolute Nucleated RBC Nucleated RBC % (auto) Anion Gap Estim Creat Clear Calc Estimated GFR POC Glucose 150 H 136 H 156 H Random Glucose Calcium 11/21/23 11/21/23 11/21/23 06:00 06:01 08:12 MCV 84.8 MCH 26.7 L MCHC 31.5 RDW 14.1 Plt Count 575 H MPV 9.1 L Absolute Nucleated RBC 0.000 Nucleated RBC % (auto) 0.0 Anion Gap 14 Estim Creat Clear Calc 177.2 Estimated GFR > 60 POC Glucose 127 H Random Glucose 138 H Calcium 8.8 D Microbiology Microbiology Results: Microbiology 11/19/23 15:38 Blood Culture - Preliminary Blood - Venous No growth after 24 hours. 11/19/23 15:38 Blood Culture - Preliminary Blood - Venous No growth after 24 hours. Assessment and Plan (1) Status post laparoscopic cholecystectomy: Status: Acute (2) Empyema of gallbladder: Status: Acute Plan 48yo M with DM, HTN, epilepsy, obesity admitted to general surgical service after lap [place] for empyema of gallbladder on 11/09 returned to OR 11/10 due to tachycardia + worsening pain and found to have free air on CT, defect in small bowel repaired hospitalist consultation for management of comorbid conditions gallbaldder empyema s/p lap [place] 11/09 small bowel defect s/p repair 11/10 -has had persistent leukocytosis -Was on Zosyn, flagyl, Ceftriaxone. -Zosyn + Doxyc restarted on 11/18 d/t increasing WBC -CT 11/18 shows fluid collection concerning for abscess in central pelvis (10 x 7.5 x 5 cm) -for CT guded drainage today -WBC is down to 20 from 25 tachycardia, related to above, resolved. TTE no apparent disease Vtach once incident, -K and mag normal DM2 - brian dose lispro HTN - continue lisinopril and increase to 10, restart HCTZ epilepsy - oxcarbazapine, lamotrigine VTE ppx - SCDs Thank you for this consultation. We will continue to follow the patient while they are admitted to your service. out of bed and ambulatte Quality Stroke Does the patient have a stroke diagnosis?: No VTE Prior VTE?: No VTE Risk Level:: Surgical - low VTE Device Contraindication: N/A - Device Ordered VTE Drug Contraindication: Treatment Not Indicated
[2023-11-21 11:58] VITALS: BP 136/66; PULSE 92; RESP 18; TEMP 36.6; O2SAT 96
[2023-11-21 12:14] LABS: Glucose, Whole Blood 122 mg/dL (60-115)
--- NOTE | 2023-11-21 12:52 | MHC.CM.PN ---
Per rounds, pt is not ready for DC today, DCP: home self care, CM to follow for DC needs.
[2023-11-21 15:52] VITALS: BP 126/69; PULSE 96; RESP 18; TEMP 36.1; O2SAT 96
[2023-11-21] MEDS: oxyCODONE HCl Immed Release 5 MG TABLET 10 MG PO (16:00)
[2023-11-21 16:05] LABS: Glucose, Whole Blood 118 mg/dL (60-115)
[2023-11-21 19:22] VITALS: BP 145/84; PULSE 101; RESP 20; TEMP 36.5; O2SAT 94
[2023-11-21 21:01] LABS: Glucose, Whole Blood 144 mg/dL (60-115)
[2023-11-21] MEDS: HYDROmorphone HCl 1 MG/ML SYRINGE IVPUSH (22:16)
[2023-11-22] VITALS (9 sets, daily range): BP systolic 131–152; BP diastolic 67–84; PULSE 89–104; RESP 14–20; TEMP 36.2–37.6; O2SAT 95–97
[2023-11-22] MEDS: Doxycycline Hyclate 100 MG in 0.9 % Sodium Chloride 250 ML 166 MG IV ×2 (00:04→11:39)
[2023-11-22] MEDS: Lactated Ringers 1,000 ML 80 ML IVCONT (00:05)
[2023-11-22] MEDS: oxyCODONE HCl Immed Release 5 MG TABLET 10 MG PO ×2 (03:03→20:57)
[2023-11-22] MEDS: Piperacillin Sodium/Tazobactam 4.5 GM in 0.9 % Sodium Chloride 100 ML IV ×4 (03:05→20:58)
[2023-11-22] MEDS: 0.9 % Sodium Chloride Flush 3 ML SYRINGE IVFLUSH ×4 (03:05→21:00)
--- NOTE | 2023-11-22 07:24 | PC.NURSE ---
Patient transferred off unit with all belongings around 0600 in the am , report given to RN .
[2023-11-22 07:33] LABS: Glucose, Whole Blood 133 mg/dL (60-115)
[2023-11-22] MEDS: lamoTRIgine 100 MG TABLET 200 MG PO ×2 (09:16→21:12)
[2023-11-22] MEDS: Folic Acid 1 MG TABLET PO (09:16)
[2023-11-22] MEDS: lisinopriL 10 MG TABLET PO (09:17)
[2023-11-22] MEDS: Famotidine 20 MG TABLET PO ×2 (09:17→20:58)
[2023-11-22] MEDS: hydroCHLOROthiazide 25 MG TABLET PO (09:17)
[2023-11-22] MEDS: OXcarbazepine 300 MG TABLET 600 MG PO ×2 (09:17→21:12)
[2023-11-22 09:22] LABS: Hemoglobin 12.7 g/dl (14.0-18.0); Mean Corpuscular HGB Conc 31.8 g/dl (31.0-36.0); Mean Corpuscular Hemoglobin 27.1 pg (27.0-33.0); Mean Corpuscular Volume 85.3 fL (80.0-98.0); Platelet Count 671 X10*3/uL (160-400); Red Blood Count 4.69 X10*6/uL (4.60-5.80); White Blood Count 19.7 X10*3/uL (4.8-10.8)
[2023-11-22 09:39] LABS: Anion Gap 13 (12-20); Blood Urea Nitrogen 7 mg/dL (9-16); Calcium 8.7 mg/dL (8.4-10.2); Carbon Dioxide 25 mmol/L (22-29); Chloride 102 mmol/L (96-108); Creatinine Clr Calc Pharmacy 185.4; Estimated Glomerular Filt Rate > 60; Glucose Random 128 mg/dL (60-115); Potassium 4.2 mmol/L (3.3-5.1); Sodium 136 mmol/L (135-145)
--- NOTE | 2023-11-22 11:06 | P.PNIM_ITS ---
Subjective Subjective Date of Service: 11/22/23 Interval History: No new issues, WBC remains high for CT guided drainage yesterday he is feeling better today wbc is down Physical Exam 2 Vital Signs: Vital Signs: Last Vital Signs Temp 97.4 F 11/22/23 07:24 Pulse 95 11/22/23 07:24 Resp 16 11/22/23 07:24 BP 136/79 11/22/23 10:22 Pulse Ox 96 11/22/23 07:24 O2 Del Method Room Air 11/22/23 07:24 O2 Flow Rate 2 11/13/23 11:14 Oxygen Flow Rate 96 11/18/23 11:00 BMI result Body Mass Index 36.2 General: AO X 3, no acute distress Resp: CTA bilateral CVS: S1,S2,RRR GI: +BS, mild tenderness to palpation, no distention Skin: No rash Neuro: motor grossly intact Psych: appropriate affect Objective Data Active Medications Acetaminophen (Acetaminophen 325 Mg Tablet) 650 mg PO Q6H PRN PRN Reason: Pain, Mild (Pain Scale 1-3), fever or headache Last Admin: 11/21/23 09:32 Dose: 650 mg Documented By: ROMEL Calcium Carbonate (Calcium Carbonate 750 Mg Tab.Chew) 750 mg PO Q4H PRN PRN Reason: Heartburn Last Admin: 11/17/23 20:33 Dose: 750 mg Documented By: LUCRECIA Famotidine (Famotidine 20 Mg Tablet) 20 mg PO BID [facility] Last Admin: 11/22/23 09:17 Dose: 20 mg Documented By: THERON Folic Acid (Folic Acid 1 Mg Tablet) 1 mg PO DAILY@1000 [facility] Last Admin: 11/22/23 09:16 Dose: 1 mg Documented By: THERON Glucose (Glucose Gel 15 Gm Gel..Gram.) 15 gm PO Q15M PRN; Protocol PRN Reason: per Hypoglycemia Standing Ord. Hydrochlorothiazide (Hydrochlorothiazide 25 Mg Tablet) 25 mg PO DAILY@1000 [facility]; Protocol Last Admin: 11/22/23 09:17 Dose: 25 mg Documented By: THERON Hydromorphone HCl (Hydromorphone Hcl 1 Mg/Ml Syringe) 1 mg IVPUSH Q3H PRN; Protocol PRN Reason: Pain, Severe (Pain Scale 7-10) Last Admin: 11/21/23 22:16 Dose: 1 mg Documented By: KRISTEN Dextrose (D10) 250 mls @ 750 mls/hr IV Q15M PRN; Protocol PRN Reason: per Hypoglycemia Standing Ord. Piperacillin Sod/Tazobactam (Sod 4.5 gm/ Sodium Chloride) 100 mls @ 200 mls/hr IV Q6H [facility] Last Infusion: 11/22/23 09:58 Dose: Infused Documented By: THERON Doxycycline Hyclate 100 mg/ (Sodium Chloride) 250 mls @ 166.67 mls/hr IV Q12H [facility] Last Infusion: 11/22/23 03:19 Dose: Infused Documented By: KRISTEN Insulin Human Lispro (Insulin Lispro 100 Unit/Ml 3 Ml Vial) 0 unit SUBCUT QIDACHS [facility]; Protocol Last Admin: 11/22/23 07:35 Dose: Not Given Documented By: THERON Non-Admin Reason: No Insulin Coverage Lamotrigine (Lamotrigine 100 Mg Tablet) 200 mg PO BID@1000,2200 [facility] Last Admin: 11/22/23 09:16 Dose: 200 mg Documented By: THERON Lisinopril (Lisinopril 10 Mg Tablet) 10 mg PO DAILY [facility]; Protocol Last Admin: 11/22/23 09:17 Dose: 10 mg Documented By: THERON Loperamide HCl (Loperamide Hcl 2 Mg Capsule) 2 mg PO Q4H PRN PRN Reason: loose stools Magnesium Hydroxide (Milk Of Magnesia 30 Ml Oral.Susp) 30 ml PO DAILY PRN PRN Reason: Constipation Last Admin: 11/14/23 23:22 Dose: 30 ml Documented By: ALLEGRA Melatonin (Melatonin 3 Mg Tablet) 6 mg PO BEDTIME PRN PRN Reason: Insomnia Last Admin: 11/20/23 00:56 Dose: 6 mg Documented By: SINDY Ondansetron HCl (Ondansetron Hcl 4 Mg/2 Ml Vial) 4 mg IVPUSH Q8H PRN PRN Reason: Nausea and Vomiting Oxcarbazepine (Oxcarbazepine 300 Mg Tablet) 600 mg PO BID@1000,2200 [facility] Last Admin: 11/22/23 09:17 Dose: 600 mg Documented By: THERON Oxycodone HCl (Oxycodone Hcl Immed Release 5 Mg Tablet) 10 mg PO Q4H PRN PRN Reason: Pain, Moderate(Pain Scale 4-6) Last Admin: 11/22/23 03:03 Dose: 10 mg Documented By: KRISTEN Sodium Chloride (0.9 % Sodium Chloride Flush 3 Ml Syringe) 3 ml IVFLUSH QSHIFT [facility] Last Admin: 11/22/23 09:17 Dose: 3 ml Documented By: THERON Labs 11/22/23 09:01 11/22/23 09:01 Labs: Laboratory Results - last 24 hr 11/21/23 11/21/23 11/21/23 11:57 15:56 20:55 MCV MCH MCHC RDW Plt Count MPV Absolute Nucleated RBC Nucleated RBC % (auto) Anion Gap Estim Creat Clear Calc Estimated GFR POC Glucose 122 H 118 H 144 H Random Glucose Calcium 11/22/23 11/22/23 07:19 09:01 MCV 85.3 MCH 27.1 MCHC 31.8 RDW 14.0 Plt Count 671 H MPV 9.0 L Absolute Nucleated RBC 0.000 Nucleated RBC % (auto) 0.0 Anion Gap 13 Estim Creat Clear Calc 185.4 Estimated GFR > 60 POC Glucose 133 H Random Glucose 128 H Calcium 8.7 Microbiology Microbiology Results: Microbiology 11/19/23 15:38 Blood Culture - Preliminary Blood - Venous No growth after 48 hours. 11/19/23 15:38 Blood Culture - Preliminary Blood - Venous No growth after 48 hours. Assessment and Plan (1) Status post laparoscopic cholecystectomy: Status: Acute (2) Empyema of gallbladder: Status: Acute Plan 48yo M with DM, HTN, epilepsy, obesity admitted to general surgical service after lap [place] for empyema of gallbladder on 11/09 returned to OR 11/10 due to tachycardia + worsening pain and found to have free air on CT, defect in small bowel repaired hospitalist consultation for management of comorbid conditions gallbaldder empyema s/p lap [place] 11/09 small bowel defect s/p repair 11/10 -has had persistent leukocytosis -Was on Zosyn, flagyl, Ceftriaxone. -Zosyn + Doxyc restarted on 11/18 d/t increasing WBC -CT 11/18 shows fluid collection concerning for abscess in central pelvis (10 x 7.5 x 5 cm) - CT guded drainage 11/20, no culture sent -WBC is down to 19 tody tachycardia, related to above, resolved. TTE no apparent disease Vtach once incident, -K and mag normal DM2 - brian dose lispro HTN - continue Lisinopril and HCTZ epilepsy--no sz - oxcarbazapine, lamotrigine VTE ppx - SCDs -he ambulates at least 4 times a day Thank you for this consultation. We will continue to follow the patient while they are admitted to your service. out of bed and ambulatte dispo per surgery Quality Stroke Does the patient have a stroke diagnosis?: No VTE Prior VTE?: No VTE Risk Level:: Surgical - low VTE Device Contraindication: N/A - Device Ordered VTE Drug Contraindication: Treatment Not Indicated
--- NOTE | 2023-11-22 11:08 | PM.PNGS ---
Subjective Subjective Date of Service: 11/22/23 Interval history: Feels better this morning. Tolerating diet. C/o pain at drain site but overall abd pain continuing to improve. Continues to pass flatus, have formed BMs. Physical Exam Vital Signs: Vital Signs: Last Vital Signs Temp 97.4 F 11/22/23 07:24 Pulse 95 11/22/23 07:24 Resp 16 11/22/23 07:24 BP 136/79 11/22/23 10:22 Pulse Ox 96 11/22/23 07:24 O2 Del Method Room Air 11/22/23 07:24 O2 Flow Rate 2 11/13/23 11:14 Oxygen Flow Rate 96 11/18/23 11:00 BMI result Body Mass Index 36.2 Const: General: comfortable, no acute distress and alert Orientation/consciousness: patient oriented x3 Resp: Effort & Inspection: normal respiratory effort GI: Other: umbilical incision remains open and draining old bloody drainage, packing removed and wound repacked erythema continues to improve pigtail drain with serous appearing drainage in bulb Palpation (GI): Soft to palpation, Tenderness to palpation present (GI) (drain site, umbilicus) and no guarding Skin: General skin exam: no rashes or lesions noted Neuro: General: patient oriented x3 and moves all extremities Objective Data Active Medications Acetaminophen (Acetaminophen 325 Mg Tablet) 650 mg PO Q6H PRN PRN Reason: Pain, Mild (Pain Scale 1-3), fever or headache Last Admin: 11/21/23 09:32 Dose: 650 mg Documented By: ROMEL Calcium Carbonate (Calcium Carbonate 750 Mg Tab.Chew) 750 mg PO Q4H PRN PRN Reason: Heartburn Last Admin: 11/17/23 20:33 Dose: 750 mg Documented By: LUCRECIA Famotidine (Famotidine 20 Mg Tablet) 20 mg PO BID [facility] Last Admin: 11/22/23 09:17 Dose: 20 mg Documented By: THERON Folic Acid (Folic Acid 1 Mg Tablet) 1 mg PO DAILY@1000 [facility] Last Admin: 11/22/23 09:16 Dose: 1 mg Documented By: THERON Glucose (Glucose Gel 15 Gm Gel..Gram.) 15 gm PO Q15M PRN; Protocol PRN Reason: per Hypoglycemia Standing Ord. Hydrochlorothiazide (Hydrochlorothiazide 25 Mg Tablet) 25 mg PO DAILY@1000 [facility]; Protocol Last Admin: 11/22/23 09:17 Dose: 25 mg Documented By: THERON Hydromorphone HCl (Hydromorphone Hcl 1 Mg/Ml Syringe) 1 mg IVPUSH Q3H PRN; Protocol PRN Reason: Pain, Severe (Pain Scale 7-10) Last Admin: 11/21/23 22:16 Dose: 1 mg Documented By: KRISTEN Dextrose (D10) 250 mls @ 750 mls/hr IV Q15M PRN; Protocol PRN Reason: per Hypoglycemia Standing Ord. Piperacillin Sod/Tazobactam (Sod 4.5 gm/ Sodium Chloride) 100 mls @ 200 mls/hr IV Q6H [facility] Last Infusion: 11/22/23 09:58 Dose: Infused Documented By: THERON Doxycycline Hyclate 100 mg/ (Sodium Chloride) 250 mls @ 166.67 mls/hr IV Q12H [facility] Last Infusion: 11/22/23 03:19 Dose: Infused Documented By: KRISTEN Insulin Human Lispro (Insulin Lispro 100 Unit/Ml 3 Ml Vial) 0 unit SUBCUT QIDACHS [facility]; Protocol Last Admin: 11/22/23 07:35 Dose: Not Given Documented By: THERON Non-Admin Reason: No Insulin Coverage Lamotrigine (Lamotrigine 100 Mg Tablet) 200 mg PO BID@1000,2200 [facility] Last Admin: 11/22/23 09:16 Dose: 200 mg Documented By: THERON Lisinopril (Lisinopril 10 Mg Tablet) 10 mg PO DAILY [facility]; Protocol Last Admin: 11/22/23 09:17 Dose: 10 mg Documented By: THERON Loperamide HCl (Loperamide Hcl 2 Mg Capsule) 2 mg PO Q4H PRN PRN Reason: loose stools Magnesium Hydroxide (Milk Of Magnesia 30 Ml Oral.Susp) 30 ml PO DAILY PRN PRN Reason: Constipation Last Admin: 11/14/23 23:22 Dose: 30 ml Documented By: ALLEGRA Melatonin (Melatonin 3 Mg Tablet) 6 mg PO BEDTIME PRN PRN Reason: Insomnia Last Admin: 11/20/23 00:56 Dose: 6 mg Documented By: SINDY Ondansetron HCl (Ondansetron Hcl 4 Mg/2 Ml Vial) 4 mg IVPUSH Q8H PRN PRN Reason: Nausea and Vomiting Oxcarbazepine (Oxcarbazepine 300 Mg Tablet) 600 mg PO BID@1000,2200 [facility] Last Admin: 11/22/23 09:17 Dose: 600 mg Documented By: THERON Oxycodone HCl (Oxycodone Hcl Immed Release 5 Mg Tablet) 10 mg PO Q4H PRN PRN Reason: Pain, Moderate(Pain Scale 4-6) Last Admin: 11/22/23 03:03 Dose: 10 mg Documented By: KRISTEN Sodium Chloride (0.9 % Sodium Chloride Flush 3 Ml Syringe) 3 ml IVFLUSH QSHIFT [facility] Last Admin: 11/22/23 09:17 Dose: 3 ml Documented By: THERON Labs 11/22/23 09:01 11/22/23 09:01 Labs: Laboratory Results - last 24 hr 11/21/23 11/21/23 11/21/23 11:57 15:56 20:55 MCV MCH MCHC RDW Plt Count MPV Absolute Nucleated RBC Nucleated RBC % (auto) Anion Gap Estim Creat Clear Calc Estimated GFR POC Glucose 122 H 118 H 144 H Random Glucose Calcium 11/22/23 11/22/23 07:19 09:01 MCV 85.3 MCH 27.1 MCHC 31.8 RDW 14.0 Plt Count 671 H MPV 9.0 L Absolute Nucleated RBC 0.000 Nucleated RBC % (auto) 0.0 Anion Gap 13 Estim Creat Clear Calc 185.4 Estimated GFR > 60 POC Glucose 133 H Random Glucose 128 H Calcium 8.7 Microbiology Microbiology Results: Microbiology 11/19/23 15:38 Blood Culture - Preliminary Blood - Venous No growth after 48 hours. 11/19/23 15:38 Blood Culture - Preliminary Blood - Venous No growth after 48 hours. Procedures Date of Service Date of Service: 11/22/23 Progress Note: A&P Assessment and plan (1) Status post small bowel resection: Status: Acute (2) Status post laparoscopic cholecystectomy: Status: Acute Plan Underwent IR drainage of intraabdominal collection yesterday, moderate amount of serous drainage overnight. Patient appears improved this am, WBC slightly improved. Abd soft, erythema improving, umbilical incision remains open and draining nonpurulent. Drain with serous appearing drainage. Cont IV zosyn, local wound care to umbilicus. Repeat CBC in am. If output remains low overnight, possible dc drain in AM. Anticipate discharge in next 1-2 days if continues to improve. Will need home VNA services for wound care. Time Spent With Patient Time: Total time managing care of this patient today ____ minutes. Quality Stroke Does the patient have a stroke diagnosis?: No VTE Prior VTE?: No VTE Risk Level:: Surgical - low VTE Device Contraindication: N/A - Device Ordered VTE Drug Contraindication: Treatment Not Indicated
[2023-11-22 11:12] LABS: Glucose, Whole Blood 150 mg/dL (60-115)
[2023-11-22 16:16] LABS: Glucose, Whole Blood 142 mg/dL (60-115)
[2023-11-22 20:03] LABS: Glucose, Whole Blood 156 mg/dL (60-115)
[2023-11-22] MEDS: Insulin Lispro 100 UNIT/ML 3 ML VIAL SUBCUT (20:59)
[2023-11-22] MEDS: Doxycycline Hyclate 100 MG in 0.9 % Sodium Chloride 250 ML 166.67 MG IV (23:18)
[2023-11-23] MEDS: oxyCODONE HCl Immed Release 5 MG TABLET 10 MG PO ×3 (02:11→13:48)
[2023-11-23] MEDS: Piperacillin Sodium/Tazobactam 4.5 GM in 0.9 % Sodium Chloride 100 ML IV ×2 (02:48→09:30)
[2023-11-23 02:54] VITALS: BP 145/61; PULSE 97; RESP 18; TEMP 36.3; O2SAT 96
[2023-11-23 05:53] LABS: MANUAL DIFF FLAG NO
[2023-11-23 06:11] LABS: Basophils Absolute Auto 0.1 X10*3/uL (0.0-0.2); Basophils Percent Auto 0.5 % (0-2); Eosinophils Absolute Auto 0.1 X10*3/uL (0.0-0.4); Eosinophils Percent Auto 0.7 % (0-4); Hemoglobin 12.2 g/dl (14.0-18.0); Imm Gran Abs Auto 0.59 X10*3/uL (0.00-0.03); Imm Gran Pct Auto 3.8 % (0.0-0.4); Lymphocytes Absolute Auto 1.2 X10*3/uL (1.2-4.9); Lymphocytes Percent Auto 7.8 % (20-40); Mean Corpuscular HGB Conc 32.1 g/dl (31.0-36.0); Mean Corpuscular Volume 84.1 fL (80.0-98.0); Mean Platelet Volume 8.8 fL (9.4-12.4); Monocytes Absolute Auto 1.2 X10*3/uL (0.1-1.2); Monocytes Percent Auto 7.7 % (2-11); Neutrophils Absolute Auto 12.5 x10*3/uL (2.0-8.3); Neutrophils Percent Auto 79.5 % (45-73); Platelet Count 632 X10*3/uL (160-400); Red Blood Count 4.52 X10*6/uL (4.60-5.80); Red Cell Distribution Width 13.9 % (11.0-16.0); White Blood Count 15.7 X10*3/uL (4.8-10.8)
[2023-11-23 07:14] VITALS: BP 150/80; PULSE 90; RESP 16; TEMP 36.1; O2SAT 97
[2023-11-23] MEDS: Famotidine 20 MG TABLET PO (07:21)
[2023-11-23] MEDS: lisinopriL 10 MG TABLET PO (07:21)
[2023-11-23] MEDS: Acetaminophen 325 MG TABLET 650 MG PO ×2 (07:28→13:48)
[2023-11-23 07:33] LABS: Glucose, Whole Blood 129 mg/dL (60-115)
[2023-11-23 09:05] VITALS: BP 150/80; PULSE 90; O2SAT 97
[2023-11-23] MEDS: OXcarbazepine 300 MG TABLET 600 MG PO (09:30)
[2023-11-23] MEDS: lamoTRIgine 100 MG TABLET 200 MG PO (09:30)
[2023-11-23] MEDS: Folic Acid 1 MG TABLET PO (09:30)
[2023-11-23] MEDS: hydroCHLOROthiazide 25 MG TABLET PO (09:30)
[2023-11-23] MEDS: 0.9 % Sodium Chloride Flush 3 ML SYRINGE IVFLUSH (09:30)
--- NOTE | 2023-11-23 10:42 | PM.PNGS ---
Subjective Subjective Date of Service: 11/23/23 Interval history: Feels much better. Pain at drain site and incisions following steri strip removal. Awaiting shower. Would like to go home. Physical Exam Vital Signs: Vital Signs: Last Vital Signs Temp 97.0 F 11/23/23 07:14 Pulse 90 11/23/23 09:05 Resp 16 11/23/23 07:14 BP 150/80 H 11/23/23 09:05 Pulse Ox 97 11/23/23 09:05 O2 Del Method Room Air 11/23/23 07:14 O2 Flow Rate 2 11/13/23 11:14 Oxygen Flow Rate 96 11/18/23 11:00 BMI result Body Mass Index 36.2 Const: General: comfortable, no acute distress and alert Orientation/consciousness: patient oriented x3 Resp: Effort & Inspection: normal respiratory effort GI: Other: umbilical erythema almost resolved umbilical incision with small amt of drainage drain removed this AM by Dr. Buenrostro Palpation (GI): Soft to palpation, Tenderness to palpation present (GI) and no guarding Skin: General skin exam: no rashes or lesions noted Neuro: General: patient oriented x3 Objective Data Active Medications Acetaminophen (Acetaminophen 325 Mg Tablet) 650 mg PO Q6H PRN PRN Reason: Pain, Mild (Pain Scale 1-3), fever or headache Last Admin: 11/23/23 07:28 Dose: 650 mg Documented By: ALETHEA Calcium Carbonate (Calcium Carbonate 750 Mg Tab.Chew) 750 mg PO Q4H PRN PRN Reason: Heartburn Last Admin: 11/17/23 20:33 Dose: 750 mg Documented By: LUCRECIA Famotidine (Famotidine 20 Mg Tablet) 20 mg PO BID [facility] Last Admin: 11/23/23 07:21 Dose: 20 mg Documented By: ALETHEA Folic Acid (Folic Acid 1 Mg Tablet) 1 mg PO DAILY@1000 NOY Last Admin: 11/23/23 09:30 Dose: 1 mg Documented By: NEEMA Glucose (Glucose Gel 15 Gm Gel..Gram.) 15 gm PO Q15M PRN; Protocol PRN Reason: per Hypoglycemia Standing Ord. Hydrochlorothiazide (Hydrochlorothiazide 25 Mg Tablet) 25 mg PO DAILY@1000 NOY; Protocol Last Admin: 11/23/23 09:30 Dose: 25 mg Documented By: NEEMA Hydromorphone HCl (Hydromorphone Hcl 1 Mg/Ml Syringe) 1 mg IVPUSH Q3H PRN; Protocol PRN Reason: Pain, Severe (Pain Scale 7-10) Last Admin: 11/21/23 22:16 Dose: 1 mg Documented By: KRISTEN Dextrose (D10) 250 mls @ 750 mls/hr IV Q15M PRN; Protocol PRN Reason: per Hypoglycemia Standing Ord. Piperacillin Sod/Tazobactam (Sod 4.5 gm/ Sodium Chloride) 100 mls @ 200 mls/hr IV Q6H [facility] Last Infusion: 11/23/23 10:06 Dose: Infused Documented By: NEEMA Doxycycline Hyclate 100 mg/ (Sodium Chloride) 250 mls @ 166.67 mls/hr IV Q12H [facility] Last Infusion: 11/23/23 01:02 Dose: Infused Documented By: CHRISTOPHER Insulin Human Lispro (Insulin Lispro 100 Unit/Ml 3 Ml Vial) 0 unit SUBCUT QIDACHS [facility]; Protocol Last Admin: 11/23/23 07:41 Dose: Not Given Documented By: NEEMA Non-Admin Reason: No Insulin Coverage Lamotrigine (Lamotrigine 100 Mg Tablet) 200 mg PO BID@1000,2200 [facility] Last Admin: 11/23/23 09:30 Dose: 200 mg Documented By: NEEMA Lisinopril (Lisinopril 10 Mg Tablet) 10 mg PO DAILY [facility]; Protocol Last Admin: 11/23/23 07:21 Dose: 10 mg Documented By: ALETHEA Loperamide HCl (Loperamide Hcl 2 Mg Capsule) 2 mg PO Q4H PRN PRN Reason: loose stools Magnesium Hydroxide (Milk Of Magnesia 30 Ml Oral.Susp) 30 ml PO DAILY PRN PRN Reason: Constipation Last Admin: 11/14/23 23:22 Dose: 30 ml Documented By: BAOLAMGinette Melatonin (Melatonin 3 Mg Tablet) 6 mg PO BEDTIME PRN PRN Reason: Insomnia Last Admin: 11/20/23 00:56 Dose: 6 mg Documented By: SINDY Ondansetron HCl (Ondansetron Hcl 4 Mg/2 Ml Vial) 4 mg IVPUSH Q8H PRN PRN Reason: Nausea and Vomiting Oxcarbazepine (Oxcarbazepine 300 Mg Tablet) 600 mg PO BID@1000,2200 [facility] Last Admin: 11/23/23 09:30 Dose: 600 mg Documented By: NEEMA Oxycodone HCl (Oxycodone Hcl Immed Release 5 Mg Tablet) 10 mg PO Q4H PRN PRN Reason: Pain, Moderate(Pain Scale 4-6) Last Admin: 11/23/23 07:22 Dose: 10 mg Documented By: ALETHEA Sodium Chloride (0.9 % Sodium Chloride Flush 3 Ml Syringe) 3 ml IVFLUSH QSHIFT [facility] Last Admin: 11/23/23 09:30 Dose: 3 ml Documented By: NEEMA Labs 11/23/23 05:36 11/22/23 09:01 Labs: Laboratory Results - last 24 hr 11/22/23 11/22/23 11/22/23 11:03 16:12 19:57 MCV MCH MCHC RDW Plt Count MPV Immature Gran % (Auto) Neut % (Auto) Lymph % (Auto) [place] % (Auto) Eos % (Auto) Baso % (Auto) Lymph # (Auto) [place] # (Auto) Eos # (Auto) Baso # (Auto) Abs Immat Gran (auto) Absolute Neuts (auto) Absolute Nucleated RBC Nucleated RBC % (auto) POC Glucose 150 H 142 H 156 H 11/23/23 11/23/23 05:36 07:11 MCV 84.1 MCH 27.0 MCHC 32.1 RDW 13.9 Plt Count 632 H MPV 8.8 L Immature Gran % (Auto) 3.8 H Neut % (Auto) 79.5 H Lymph % (Auto) 7.8 L [place] % (Auto) 7.7 Eos % (Auto) 0.7 Baso % (Auto) 0.5 Lymph # (Auto) 1.2 [place] # (Auto) 1.2 Eos # (Auto) 0.1 Baso # (Auto) 0.1 Abs Immat Gran (auto) 0.59 H Absolute Neuts (auto) 12.5 H Absolute Nucleated RBC 0.000 Nucleated RBC % (auto) 0.0 POC Glucose 129 H Procedures Date of Service Date of Service: 11/23/23 Progress Note: A&P Assessment and plan (1) Status post small bowel resection: Status: Acute (2) Status post laparoscopic cholecystectomy: Status: Acute Plan Patient doing well, WBC improved and continues to downtrend. Abd soft, erythema essentially resolved. Ok to shower and remove abd dressings, umbilical packing. Will return to redress following. Pigtail drain had scant output and was removed this morning. Stable for dc to home today with VNA services for wound care and on course of PO abx. F/u in office in 1 week. Time Spent With Patient Time: Total time managing care of this patient today ____ minutes. Quality Stroke Does the patient have a stroke diagnosis?: No VTE Prior VTE?: No VTE Risk Level:: Surgical - low VTE Device Contraindication: N/A - Device Ordered VTE Drug Contraindication: Treatment Not Indicated
[2023-11-23 11:00] VITALS: O2SAT 97
--- NOTE | 2023-11-23 11:05 | HO.PM.IMPN ---
Subjective Subjective Date of Service: 11/23/23 Interval History: No new issues, doing well, I saw him walking in [place] with PT WBC is going down, tolerating regular diet. Physical Exam Vital Signs: Vital Signs: Last Vital Signs Temp 97.0 F 11/23/23 07:14 Pulse 90 11/23/23 09:05 Resp 16 11/23/23 07:14 BP 150/80 H 11/23/23 09:05 Pulse Ox 97 11/23/23 09:05 O2 Del Method Room Air 11/23/23 07:14 O2 Flow Rate 2 11/13/23 11:14 Oxygen Flow Rate 96 11/18/23 11:00 BMI result Body Mass Index 36.2 General: AO X 3, no acute distress Resp: CTA bilateral CVS: S1,S2,RRR GI: +BS, mild tenderness to palpation, no distention Skin: No rash Neuro: motor grossly intact Psych: appropriate affect Objective Data Active Medications Acetaminophen (Acetaminophen 325 Mg Tablet) 650 mg PO Q6H PRN PRN Reason: Pain, Mild (Pain Scale 1-3), fever or headache Last Admin: 11/23/23 07:28 Dose: 650 mg Documented By: ALETHEA Calcium Carbonate (Calcium Carbonate 750 Mg Tab.Chew) 750 mg PO Q4H PRN PRN Reason: Heartburn Last Admin: 11/17/23 20:33 Dose: 750 mg Documented By: JEANNIE-TAYLOR Famotidine (Famotidine 20 Mg Tablet) 20 mg PO BID [facility] Last Admin: 11/23/23 07:21 Dose: 20 mg Documented By: ALETHEA Folic Acid (Folic Acid 1 Mg Tablet) 1 mg PO DAILY@1000 NOY Last Admin: 11/23/23 09:30 Dose: 1 mg Documented By: NEEMA Glucose (Glucose Gel 15 Gm Gel..Gram.) 15 gm PO Q15M PRN; Protocol PRN Reason: per Hypoglycemia Standing Ord. Hydrochlorothiazide (Hydrochlorothiazide 25 Mg Tablet) 25 mg PO DAILY@1000 NOY; Protocol Last Admin: 11/23/23 09:30 Dose: 25 mg Documented By: NEEMA Hydromorphone HCl (Hydromorphone Hcl 1 Mg/Ml Syringe) 1 mg IVPUSH Q3H PRN; Protocol PRN Reason: Pain, Severe (Pain Scale 7-10) Last Admin: 11/21/23 22:16 Dose: 1 mg Documented By: KRISTEN Dextrose (D10) 250 mls @ 750 mls/hr IV Q15M PRN; Protocol PRN Reason: per Hypoglycemia Standing Ord. Piperacillin Sod/Tazobactam (Sod 4.5 gm/ Sodium Chloride) 100 mls @ 200 mls/hr IV Q6H [facility] Last Infusion: 11/23/23 10:06 Dose: Infused Documented By: NEEMA Doxycycline Hyclate 100 mg/ (Sodium Chloride) 250 mls @ 166.67 mls/hr IV Q12H [facility] Last Infusion: 11/23/23 01:02 Dose: Infused Documented By: CHRISTOPHER Insulin Human Lispro (Insulin Lispro 100 Unit/Ml 3 Ml Vial) 0 unit SUBCUT QIDACHS [facility]; Protocol Last Admin: 11/23/23 07:41 Dose: Not Given Documented By: NEEMA Non-Admin Reason: No Insulin Coverage Lamotrigine (Lamotrigine 100 Mg Tablet) 200 mg PO BID@1000,2200 [facility] Last Admin: 11/23/23 09:30 Dose: 200 mg Documented By: NEEMA Lisinopril (Lisinopril 10 Mg Tablet) 10 mg PO DAILY [facility]; Protocol Last Admin: 11/23/23 07:21 Dose: 10 mg Documented By: ALETHEA Loperamide HCl (Loperamide Hcl 2 Mg Capsule) 2 mg PO Q4H PRN PRN Reason: loose stools Magnesium Hydroxide (Milk Of Magnesia 30 Ml Oral.Susp) 30 ml PO DAILY PRN PRN Reason: Constipation Last Admin: 11/14/23 23:22 Dose: 30 ml Documented By: ALLEGRA Melatonin (Melatonin 3 Mg Tablet) 6 mg PO BEDTIME PRN PRN Reason: Insomnia Last Admin: 11/20/23 00:56 Dose: 6 mg Documented By: SINDY Ondansetron HCl (Ondansetron Hcl 4 Mg/2 Ml Vial) 4 mg IVPUSH Q8H PRN PRN Reason: Nausea and Vomiting Oxcarbazepine (Oxcarbazepine 300 Mg Tablet) 600 mg PO BID@1000,2200 [facility] Last Admin: 11/23/23 09:30 Dose: 600 mg Documented By: NEEMA Oxycodone HCl (Oxycodone Hcl Immed Release 5 Mg Tablet) 10 mg PO Q4H PRN PRN Reason: Pain, Moderate(Pain Scale 4-6) Last Admin: 11/23/23 07:22 Dose: 10 mg Documented By: ALETHEA Sodium Chloride (0.9 % Sodium Chloride Flush 3 Ml Syringe) 3 ml IVFLUSH QSHIFT [facility] Last Admin: 11/23/23 09:30 Dose: 3 ml Documented By: NEEMA Labs 11/23/23 05:36 11/22/23 09:01 Labs: Laboratory Results - last 24 hr 11/22/23 11/22/23 11/22/23 11:03 16:12 19:57 MCV MCH MCHC RDW Plt Count MPV Immature Gran % (Auto) Neut % (Auto) Lymph % (Auto) [place] % (Auto) Eos % (Auto) Baso % (Auto) Lymph # (Auto) [place] # (Auto) Eos # (Auto) Baso # (Auto) Abs Immat Gran (auto) Absolute Neuts (auto) Absolute Nucleated RBC Nucleated RBC % (auto) POC Glucose 150 H 142 H 156 H 11/23/23 11/23/23 05:36 07:11 MCV 84.1 MCH 27.0 MCHC 32.1 RDW 13.9 Plt Count 632 H MPV 8.8 L Immature Gran % (Auto) 3.8 H Neut % (Auto) 79.5 H Lymph % (Auto) 7.8 L [place] % (Auto) 7.7 Eos % (Auto) 0.7 Baso % (Auto) 0.5 Lymph # (Auto) 1.2 [place] # (Auto) 1.2 Eos # (Auto) 0.1 Baso # (Auto) 0.1 Abs Immat Gran (auto) 0.59 H Absolute Neuts (auto) 12.5 H Absolute Nucleated RBC 0.000 Nucleated RBC % (auto) 0.0 POC Glucose 129 H Assessment and Plan (1) Status post laparoscopic cholecystectomy: Status: Acute (2) Empyema of gallbladder: Status: Acute Plan 48yo M with DM, HTN, epilepsy, obesity admitted to general surgical service after lap [place] for empyema of gallbladder on 11/09 returned to OR 11/10 due to tachycardia + worsening pain and found to have free air on CT, defect in small bowel repaired hospitalist consultation for management of comorbid conditions gallbaldder empyema s/p lap [place] 11/09 small bowel defect s/p repair 11/10 -has had persistent leukocytosis but is now trending down -Was on Zosyn, flagyl, Ceftriaxone. -Zosyn + Doxyc restarted on 11/18 d/t increasing WBC -CT 11/18 shows fluid collection concerning for abscess in central pelvis (10 x 7.5 x 5 cm) - CT guded drainage 11/20, no culture sent -WBC is down to 15. No fever or chills -At this point if there is plan for discharge can be changed to Augmentin and + oral doxy for a week tachycardia, related to above, resolved. TTE no apparent disease Vtach once incident, -K and mag normal DM2 - brian dose lispro -can resume metformin upon discharge HTN - continue Lisinopril, increase to 10 and HCTZ, epilepsy--no sz - oxcarbazapine, lamotrigine VTE ppx - SCDs -he ambulates at least 4 times a day Thank you for this consultation. We will continue to follow the patient while they are admitted to your service. out of bed and ambulatte dispo per surgery Quality Stroke Does the patient have a stroke diagnosis?: No VTE Prior VTE?: No VTE Risk Level:: Surgical - low VTE Device Contraindication: N/A - Device Ordered VTE Drug Contraindication: Treatment Not Indicated
[2023-11-23 11:43] LABS: Glucose, Whole Blood 184 mg/dL (60-115)
[2023-11-23] MEDS: Insulin Lispro 100 UNIT/ML 3 ML VIAL SUBCUT (11:50)
[2023-11-23] MEDS: Doxycycline Hyclate 100 MG in 0.9 % Sodium Chloride 250 ML 166.67 MG IV (11:50)
[2023-11-23 12:00] VITALS: BP 137/84; PULSE 90; RESP 16; TEMP 36.1; O2SAT 97
--- NOTE | 2023-11-23 12:17 | HO.WOUND ---
Wound Consult: Follow up 48yr old?Male admitted [place] [facility] [place]10[place]23 - See progress notes and H&P for detailed history.? Wound consult follow up for Umbilical Incision site, seen previously for MARSI to LLQ.? Chart review and discussion with direct care nurse reveals patient is set for D/C to home today with services. Patient plan to be seen by General Surgery PA, she will pack wound and provide teaching and instruction to patient and VNA services will follow up with patient at home. No topical interventions or orders needed from inpatient wound care at this time.
--- NOTE | 2023-11-23 13:29 | P.DS_ITS ---
DS: Providers Provider Date of Service: 11/23/23 Date of admission: 11/10/23 14:30 Date of discharge: 11/23/23 Primary care physician: Maria Elena Wells MD Attending physician on admission: Ran Buenrostro Consults: 11/11/23 03:40 Consult to Hospitalist Stat Comment: Consulting Provider: Hospitalist Reason For Exam: medical management 11/19/23 14:52 Consult to Wound Care Routine Reason for consultation: umbilical area surgical site Attending physician on discharge: Ran Buenrostro DS: Diagnosis Discharge Diagnosis (1) Status post laparoscopic cholecystectomy: Status: Acute (2) Empyema of gallbladder: Status: Acute DS: Summary Hospital Course Hospital Course: HPI AT ADMISSION: Patient presents status post recent ER visit for acute gallbladder attack. He has never had this before. He and severe epigastric/right upper quadrant pain radiating around to his back. The/a p roximally 2-3 days. Patient has sonogram demonstrated cholelithiasis. Patient otherwise tolerating a diet. He has never been jaundiced before. He is regular bowel habits. Patient has chronic back issues and hand tendon issue and takes Motrin for these. He presents now for laparoscopic cholecystectomy. HOSPITAL COURSE: On 11/10/23, a laparoscopic cholecystectomy was performed by Dr. Buenrostro. He was found to have hydrops/empyema of the gallbladder with dense omental adhesions. He had significant incisional pain in recovery room, not relieved with current analgesics and was therefore admitted to the surgical service for pain control. The following day he had persistent periumbilical abdominal pain, tachycardia, and leukocytosis. He was started on IV zosyn empirically. CT scan abd/pelvis was therefore obtained. Findings demonstrated what could be postoperative changes but did not conclusively rule out intra-abdominal pathology. Because of clinical scenario, it was recommended to proceed with diagnostic laparoscopy to evaluate for an intra-abdominal source. He was added onto the OR schedule. On 11/11/23, diagnostic laparoscopy, abdominal cavity lavage, repaired transmural defect with resection and functional end-to-end anastomosis of small bowel was performed by Dr. Buenrostro. The patient tolerated the procedure well. He felt improved post operatively but had a slow recovery course. His diet was gradually advanced as tolerated. His activity was increased. PT was consulted. He was weaned off IV analgesics and transitioned to oral analgesics. He had some lower abdominal erythema and rocephin was added to his abx regimen. His umbilical incision was opened and probed without evacuation of seroma or purulent drainage. This area was packed with packing. He however had persistent l eukocytosis and tachycardia with improvement in his abdomen appearance. Therefore CT scan abd/pelvis was obtained which demonstrated a pelvic fluid collection. He underwent IR drainage of the fluid collection on 11/21/23. The output was serous appearing and nonpurulent. His WBC count improved and continually downtrended following. His vitals improved. He remained hypertensive with SBP 140s-150s and his lisinopril was increased to 10mg PO daily. His drain continued with serous appearing drainage and output was minimal and it was therefore removed. On the day of discharge, he was tolerating a solid diet, had good GI function, abdominal pain was well controlled and was ambulating without difficulty. His abdomen was overall benign and soft, mild incisional tenderness. His umbilical incision had scant nonpurulent drainage. He was discharged to home on 11/23/23 with VNA services on course of PO augmentin and doxycycline. He is to follow up in the office in 1 week. He is to follow up with his PCP upon discharge. Status at Discharge Functional status at discharge: independent ambulation Overall status at discharge: patient is progressing back to baseline Time Attestation Discharge Coordination Time (in mins): 50 Quality: Safe Use of Opioids Does Pt have an Active Cancer Diagnosis on the Problem List?: No Quality: Stroke Does the patient have a stroke diagnosis?: No Physical Exam Vital Signs: Vital Signs: Last Vital Signs Temp 97.0 F 11/23/23 12:00 Pulse 90 11/23/23 12:00 Resp 16 11/23/23 12:00 BP 137/84 11/23/23 12:00 Pulse Ox 97 11/23/23 12:00 O2 Del Method Room Air 11/23/23 12:00 O2 Flow Rate 2 11/13/23 11:14 Oxygen Flow Rate 96 11/18/23 11:00 BMI result Body Mass Index 36.2 Const: General: comfortable, no acute distress and alert Orientation/consciousness: patient oriented x3 GI: Other: protuberant abdomen umbilical incision with some dark drainage, packing placed very mild residual erythema at umbilicus small port sites in RUQ with some skin seperation, no drainage pigtail drain removed Palpation (GI): Soft to palpation, Tenderness to palpation present (GI) (mild ) and no guarding Percussion: Yes normal to percussion Skin: General skin exam: no rashes or lesions noted Neuro: General: patient oriented x3 and moves all extremities DS: Data Data Completed and Pending Completed studies during hospitalization [Text1]: Pending at discharge 11/10/23 12:56 Surgical [PTH] Routine 11/11/23 20:08 Surgical [PTH] Routine Procedures Resection of Gallbladder, Percutaneous Endoscopic Approach (11/10/23) Labs on day of discharge: Laboratory Results - last 24 hr 11/22/23 11/22/23 11/23/23 16:12 19:57 05:36 WBC 15.7 H RBC 4.52 L Hgb 12.2 L Hct 38.0 L MCV 84.1 MCH 27.0 MCHC 32.1 RDW 13.9 Plt Count 632 H MPV 8.8 L Immature Gran % (Auto) 3.8 H Neut % (Auto) 79.5 H Lymph % (Auto) 7.8 L [place] % (Auto) 7.7 Eos % (Auto) 0.7 Baso % (Auto) 0.5 Lymph # (Auto) 1.2 [place] # (Auto) 1.2 Eos # (Auto) 0.1 Baso # (Auto) 0.1 Abs Immat Gran (auto) 0.59 H Absolute Neuts (auto) 12.5 H Absolute Nucleated RBC 0.000 Nucleated RBC % (auto) 0.0 POC Glucose 142 H 156 H 11/23/23 11/23/23 07:11 11:35 WBC RBC Hgb Hct MCV MCH MCHC RDW Plt Count MPV Immature Gran % (Auto) Neut % (Auto) Lymph % (Auto) [place] % (Auto) Eos % (Auto) Baso % (Auto) Lymph # (Auto) [place] # (Auto) Eos # (Auto) Baso # (Auto) Abs Immat Gran (auto) Absolute Neuts (auto) Absolute Nucleated RBC Nucleated RBC % (auto) POC Glucose 129 H 184 H Preliminary micro results at discharge 11/19/23 15:38 Blood Culture - Preliminary Blood - Venous No growth after 48 hours. 11/19/23 15:38 Blood Culture - Preliminary Blood - Venous No growth after 48 hours. Discharge Plan Discharge Anticipated Discharge Date/Time: 11/19/23 13:56 Patient Disposition: Home Health Service Discharge Diagnosis: s/p laparoscopic cholecystectomy, s/p small bowel resection Referrals: [facility] [Outside] - 1 Week Maria Elena Wells MD [Primary Care Provider] - 1 Week Ran Buenrostro MD [Physician] - 1 Week Discharge Medications: New doxycycline monohydrate 100 mg Capsule 100 mg PO Q12H 5 Days Qty: 10 0RF amoxicillin-pot clavulanate 875-125 mg Tablet 1 tab PO Q12H 5 Days Qty: 10 0RF oxycodone 5 mg tablet 5 mg PO Q4H PRN (Reason: pain (scale score 7-10)) Qty: 24 0RF Rx Instructions: Partial Fill upon patient request. Take 1-2 tablets every 4-6 hours as needed. lisinopril 10 mg tablet 10 mg PO DAILY Qty: 90 0RF loperamide [Imodium A-D] 2 mg capsule 2 mg PO Q4H PRN (Reason: loose stool) Qty: 30 0RF Rx Instructions: administer after each loose stool until symptoms controlled; do not exceed 8 mg per 24 hrs Continued oxcarbazepine 600 mg tablet 1 tab PO BID@1000,2200 metformin 500 mg tablet 500 mg PO BID@1000,2200 folic acid 1 mg tablet 1 mg PO DAILY@1000 baclofen 20 mg tablet 20 mg PO QID PRN (Reason: back spasms) famotidine 20 mg tablet 20 mg PO BID PRN (Reason: Abdominal Discomfort) ibuprofen 400 mg tablet 400 - 800 mg PO Q8H hydrochlorothiazide 25 mg tablet 25 mg PO DAILY@1000 lamotrigine [Lamictal] 200 mg tablet 200 mg PO BID@1000,2200 Discontinued lisinopril 5 mg tablet 5 mg PO DAILY@1000 Discharge Orders: Discharge Order (Routine); Ordered 11/23/23 Ordered By: Rosie Sofia Diet: Advance to usual diet Activity on Discharge: No heavy lifting Stand Alone Forms: Patient Portal Discharge page Print Language: Icelandic Activity Restrictions/Additional Instructions: Apply an ice pack for short intervals (20 minutes on, followed by at least 20 minutes off) for the first 2 days. Do not apply heat. Do not use creams, lotions, or topical antibiotics. These can cause infection or allergic reaction. Ok to shower, no tub bath. Dry 4x4 to umbilical incision change daily, iodoform packing change to umbilical incision every other day. Follow up in office with Dr. Buenrostro in 1 week. ([phone]) Follow up with your PCP upon discharge for your diabetes mellitus and hypertension. No heavy lifting (>10lbs) or strenuous activity! Call Your Doctor If: -Your temperature exceeds 101.5? F -You experience excessive pain or swelling -You have an unexpected reaction to medication -You have excessive bleeding -You experience continued vomiting/nausea -Your incision begins to separate -Your incision shows signs of infection such as increased redness, swelling, excessive pain, drainage (light blood or clear fluid is normal) or heat Care Plan Goals: Return to baseline health and resume normal activities following recovery period. Health Concerns: acute cholecystitis diabetes mellitus Plan of Treatment: s/p laparscopic cholecystectomy s/p small bowel resection f/u in office in 1 week PO abx local wound care Assessment: Improved
--- NOTE | 2023-11-23 13:38 | W.MHC.F2F ---
Service Date Service Date: 11/23/23 Encounter Date of encounter: 11/23/23 Reasons for Services Signs and symptoms assessed: abdominal pain, umbilical wound care, drain output Reason for long term: wound care and postoperative assessment and/or care Homebound: Leaving the home is medically contraindicated at this time without the asist of a device and/or another person due th the listed conditions above and below. Reason homebound: weakness related to hospital stay and unable to drive Homebound supporting statement: S/p laparoscopic cholecystectomy and subsequent diagnostic laparoscopy, abdominal cavity lavage, repaired transmural defect with resection and functional end-to-end anastomosis of small bowel. Local wound care to umbilcus with packing to open area followed by dry dressing. Packing to be changed every other day. Certification: Based on the above findings, I certify that this patient is confined to the home and needs intermittent long term care, physical therapy and/or speech therapy, or continues to need occupational therapy. The patient is under my care, and I have initiated the establishment of the plan of care. The patient will be followed by a physician who will periodically review the plan of care. Time Spent With Patient Time: Total time managing care of this patient today ____ minutes.
--- NOTE | 2023-11-23 13:58 | MHC.CM.PN ---
IMM 11/23/23 Patient is discharged today with [facility]. The patients physical address for A nurse is is [address] [facility], per patient. The address was provided to the A. [address] [place] [address] is the patients mailing address. The SN will provide wound management education to the patient and his . The nurse will provide wound care at scheduled visits. Once trained the patient and will be responsible to perform wound care in the absence of SN. Dressing supplies have been sent with the patient. Patients will provide transport to home at discharge.
[2023-12-06 07:29] LABS: Glucose, Whole Blood 19 mg/dL (60-115)
--- NOTE | 2024-02-06 23:34 | PC.NURSE ---
On 11/19 Oxycodone 10mg was given to pt at 0056. Though pt had 10/11 pain pt refused Medication option for severe pain because he started that when he had taken the medication previously he did not like how it made him feel. Pt requested 10 mg oxycodone hence why it was given rather than the stronger option
== END 2023-11-23 14:39 | disposition home health service (06) | DRG 854 ==
LOC: HO.S3 11-11 16:11 → HO.SSSA 11-12 15:04 → HO.IMC 11-12 15:04 → HO.S3 11-22 05:06
PROVIDERS: Internal Medicine; Physician Assistant Surgical; Radiology Vascular & Interventional Radiology; Surgery; Admitting Provider Surgery; PCP General Practice; Visit Provider Surgery
PROC: 0FT44ZZ Resection of Gallbladder, Percutaneous Endoscopic Approach (ICD-10-PCS; CPT 47562; principal; 2023-11-10 11:30)
PROC: 0DB84ZZ Excision of Small Intestine, Percutaneous Endoscopic Approach (ICD-10-PCS; CPT 49320; principal; 2023-11-11 18:00)
PROC: 0W9J30Z Drainage of Pelvic Cavity with Drainage Device, Percutaneous Approach (ICD-10-PCS; principal; 2023-11-21 14:00)
DX: A41.9 Sepsis, unspecified organism (principal); I47.20 Ventricular tachycardia, unspecified; K80.00 Calculus of gallbladder with acute cholecystitis without obstruction; K82.1 Hydrops of gallbladder; K82.A2 Perforation of gallbladder in cholecystitis; K91.872 Postprocedural seroma of a digestive system organ or structure following a digestive system procedure; I10 Essential (primary) hypertension; Y83.8 Other surgical procedures as the cause of abnormal reaction of the patient, or of later complication, without mention of misadventure at the time of the procedure; K63.9 Disease of intestine, unspecified; E11.9 Type 2 diabetes mellitus without complications; J45.909 Unspecified asthma, uncomplicated; G40.909 Epilepsy, unspecified, not intractable, without status epilepticus; E66.9 Obesity, unspecified; Z68.36 Body mass index [BMI] 36.0-36.9, adult; K82.8 Other specified diseases of gallbladder; Z79.84 Long term (current) use of oral hypoglycemic drugs; Z79.899 Other long term (current) drug therapy
CPT/HCPCS: 36415; 71250; 74176; 74177; 75989; 80048; 80076; 82947; 83605; 83735; 84443; 84484; 85007; 85025; 85027; 87040; 87493; 88304; 92950; 93005; 93306; 97116; 97162; 97530; 99152; 99153; 99222; C1729; C1769; J0131; J0690; J0696; J1100; J1170; J1596; J1836; J1885; J2250; J2405; J2543; J2704; J2795; J3010; J7120; Q9957; Q9967

== ENCOUNTER 2023-11-10 14:30 | Outpatient (BNV) | payer MEDICARE, MEDICAID, SELFPAY | END 2023-11-21 14:32 | PROVIDERS: Admitting Provider Surgery; PCP General Practice; Visit Provider Radiology Vascular & Interventional Radiology | DX: K68.11 Postprocedural retroperitoneal abscess (principal) | CPT/HCPCS: 49406; 99152 ==

== ENCOUNTER 2023-11-10 14:30 | Outpatient (BNV) | payer MEDICARE, MEDICAID, SELFPAY | END 2023-11-15 14:22 | PROVIDERS: Admitting Provider Surgery; PCP General Practice; Visit Provider Internal Medicine | DX: R94.31 Abnormal electrocardiogram [ECG] [EKG] (principal) | CPT/HCPCS: 93010 ==

== ENCOUNTER → 2023-11-10 14:30 | Outpatient (BNV) | payer MEDICARE, MEDICAID, SELFPAY | PROVIDERS: Admitting Provider Surgery; PCP General Practice; Visit Provider Internal Medicine | DX: K81.0 Acute cholecystitis (principal); Z90.49 Acquired absence of other specified parts of digestive tract | CPT/HCPCS: 99222; 99231; 99232; 99499 ==

== ENCOUNTER 2023-12-07 09:27 | Outpatient (AMB) | payer MEDICARE, MEDICAID, SELFPAY ==
[2023-12-07 09:35] VITALS: BP 146/70; PULSE 92
--- NOTE | 2023-12-07 09:35 | A.OFFVIS_ITS ---
Vital Signs 12/07/23 09:35 Weight 246 lb BP 146/70 H Blood Pressure Location Rt brachial Position Sitting Pulse 92 Intake Visit Reasons: s/p Abdominal Drain Insertion Intake Note: Patient here s/p abd drain insertion. Reports drain was removed before discharge. Patient c/o: discharge from umbilical area improving. VNA every other day. 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 He is tolerating his diet. He is slowly but steadily increasing his activity level. His incisional discomfort is improving. He is still undergoing VNA services for his umbilical wound. I once again reviewed the intraoperative findings and procedures performed with the patient. 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 Incisions clean dry and intact. Umbilical wound left lateral aspect is healing by secondary intention. Q-tip entered and the tip of the Q- tip his the depth now. No evidence of any infection. Granulating tissue. Dressing applied Assessment & Plan Assessment & Plan (1) Postop check: Code(s): Z09 - Encounter for follow-up examination after completed treatment for conditions other than malignant neoplasm Category: Surgical Plan Current plan is continue VNA services and continue patient's convalescence. Renewal of pain meds will be given. He will see me in 1 weeks time or p.r.n.. All questions answered. Coding Level of Care Code Global (61444) Diagnoses Postop check Z09
== END 2023-12-07 09:50 | disposition home or self-care (01) ==
PROVIDERS: PCP General Practice; Visit Provider Surgery
DX: Z09 Encounter for follow-up examination after completed treatment for conditions other than malignant neoplasm (principal)
CPT/HCPCS: 99024

== ENCOUNTER → 2023-12-07 09:27 | Outpatient (BNVA) | payer MEDICARE, MEDICAID, SELFPAY | PROVIDERS: PCP General Practice; Visit Provider Surgery | DX: Z09 Encounter for follow-up examination after completed treatment for conditions other than malignant neoplasm (principal) | CPT/HCPCS: 99212 ==

== ENCOUNTER 2023-12-14 09:26 | Outpatient (AMB) | payer MEDICARE, MEDICAID, SELFPAY ==
--- NOTE | 2023-12-14 09:26 | A.OFFVIS_ITS ---
Vital Signs 12/14/23 09:33 Height 5 ft 11 in Weight 246 lb BMI 34.3 BP 139/88 Blood Pressure Location Lt brachial Position Sitting Pulse 84 Intake Visit Reasons: 1 wk follow up s/p Abdominal Drain Insertion Intake Note: Patient follow up for s/p abdominal drain insertion Patient denies any concern for today Nut Process Helper Required: No Accompanied by: Self / Same As Patient Allergies pseudoephedrine [From Sudafed] Allergy (Intermediate, Verified 12/14/23 09:25) Difficulty Breathing HPI Comments Details: Patient was in for follow-up. He is doing quite well. He is undergoing every other day wound care at his umbilical site. Otherwise tolerating a diet, having regular bowel habits, increasing his activity level. No incisional issues. 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 Umbilical wound has markedly decreased in size and granulating well. All other wounds clean dry and intact healing by 1st intention. Assessment & Plan Assessment & Plan (1) Postop check: Code(s): Z09 - Encounter for follow-up examination after completed treatment for conditions other than malignant neoplasm Category: Surgical (2) Diabetes mellitus: Code(s): E11.9 - Type 2 diabetes mellitus without complications Category: Surgical Plan Patient is continue local wound therapy and will see me in roughly 2 weeks' time. Patient will also be set up for endocrinology workup regarding his newly diagnosed diabetes. All questions answered. Patient will see me as noted above or p.r.n.. Coding Level of Care Code Global (99269) Diagnoses Postop check Z09 Diabetes mellitus E11.9
[2023-12-14 09:33] VITALS: BP 139/88; PULSE 84; BMI 34.3
== END 2023-12-14 09:36 | disposition home or self-care (01) ==
LOC: HO.HGS 09:26
PROVIDERS: PCP General Practice; Visit Provider Surgery
DX: Z09 Encounter for follow-up examination after completed treatment for conditions other than malignant neoplasm (principal); E11.9 Type 2 diabetes mellitus without complications
CPT/HCPCS: 99024

== ENCOUNTER → 2023-12-14 09:26 | Outpatient (BNVA) | payer MEDICARE, MEDICAID, SELFPAY | PROVIDERS: PCP General Practice; Visit Provider Surgery | DX: Z09 Encounter for follow-up examination after completed treatment for conditions other than malignant neoplasm (principal); E11.9 Type 2 diabetes mellitus without complications; Z96.89 Presence of other specified functional implants; Z98.890 Other specified postprocedural states | CPT/HCPCS: 99212 ==

== ENCOUNTER 2023-12-22 09:20 | Outpatient (AMB) | payer MEDICARE, MEDICAID, SELFPAY ==
--- NOTE | 2023-12-22 09:22 | A.OFFVIS_ITS ---
Vital Signs 12/22/23 09:24 Height 5 ft 11 in Weight 244 lb 11.41 oz BMI 34.1 BP 136/80 Blood Pressure Location Rt brachial Position Sitting Pulse 90 Pulse Source Pulse Oximeter Intake Visit Reasons: T2DM/CONFIRMED Intake Note: NEW Patient presents today to establish treatment for Type 2 Diabetes Mellitus: Last Diabetic eye exam was on: DUE Last Podiatry exam was on: Does not see a Art Director Most recent HbA1c: 7.1%, 12/22/2023 Random Glucose- 126 mg/dL, Today Exhaust Emissions Inspector Required: No Accompanied by: Self / Same As Patient Allergies pseudoephedrine [From Sudafed] Allergy (Intermediate, Verified 12/22/23 09:25) Difficulty Breathing Medication List - Last Reconciled 12/22/23 by Anya Menchaca MD baclofen 20 mg PO QID PRN famotidine 20 mg PO BID PRN folic acid 1 mg PO DAILY@1000 hydrochlorothiazide 25 mg PO DAILY@1000 hydrocodone-acetaminophen 5-325 mg 1 tab PO Q4-6H PRN ibuprofen 400 - 800 mg PO Q8H lamotrigine (Lamictal) 200 mg PO BID@1000,2200 lisinopril 10 mg PO DAILY loperamide (Imodium A-D) 2 mg PO Q4H PRN metformin 500 mg PO BID@1000,2200 oxcarbazepine 1 tab PO BID@1000,2200 oxycodone 5 mg PO Q8H PRN HPI Comments Details: The patient is a 48 year old with type 2 diabetes presenting for diabetes Medical history: Recent empyema gallbladder s/p lap cholecystectomy 11/09 with repair of small bowel defect 11/10, pelvic abscess, hypertension, seizure disorder Reports he did not know he was a diabetic prior to his hospitalizatio. He received insulin prn during hospitalization 11/2023. A1C 06/2023 7.1% P OC A1C today 7.1% Current medications: Prescribed metformin 500mg twice daily. Did not start b/c needs teaching so he can check his blood glucose levels. He brought his freestyle lite meter today Report family history of diabetes Needs eye exam ROS CONSTITUTIONAL: Denies weight loss, fever and chills. HEENT: Denies changes in vision and hearing. RESPIRATORY: Denies SOB and cough. CV: Denies palpitations and CP GI: Denies abdominal pain, nausea, vomiting and diarrhea. : Denies dysuria and urinary frequency. MSK: Denies new myalgia and joint pain. SKIN: healing abdominal surgical wound NEUROLOGICAL: Denies headache PSYCHIATRIC: Denies recent changes in mood. PHYSICAL EXAM: GENERAL: Alert and oriented x 3. NAD EYES: EOMI. Anicteric. HENT: Moist mucous membranes. No scleral icterus. No cervical lymphadenopathy. LUNGS: Clear to auscultation bilaterally. CARDIOVASCULAR: Regular rate and rhythm. No murmur. No JVD. ABDOMEN: Soft, non-tender +bs EXTREMITIES: No edema. Non-tender. SKIN: No rashes NEUROLOGIC: No focal neurological deficits. CN II-XII grossly intact PSYCHIATRIC: Cooperative. 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 Physical Exam Vital Signs: Last Vital Signs Pulse 90 12/22/23 09:24 BP 136/80 12/22/23 09:24 BMI result Body Mass Index 34.1 Results AMB Hemoglobin A1c AMB Hemoglobin A1c 7.1 % Last Edit by CHANDU Cyr on 12/22/23 09:56 Results Reviewed Results Reviewed: Laboratory Last Values Glucose (Clinic) 126 mg/dL (60-115) H 12/22/23 09:38 Hgb A1c (Clinic) 7.1 % (4.0-6.0) H 12/22/23 09:55 Assessment & Plan Assessment & Plan (1) Diabetes mellitus: Code(s): E11.9 - Type 2 diabetes mellitus without complications Category: Surgical Qualifiers: Diabetes mellitus type: type 2 Diabetes mellitus intermediate designer insulin use: without intermediate designer use Diabetes mellitus complication status: with skin complications Diabetes mellitus complication detail: with other skin complication Qualified Code(s): E11.628 - Type 2 diabetes mellitus with other skin complications Plan: Uncontrolled. He will meet with terrazzo polisher helper, in fact did today for education on the use of blood glucose testing device and target BG control. He will short term follow up to see if he does need to initiate the medications Delayed wound healing Orders: Orders AMB Hemoglobin A1c Today E11.9 - Type 2 diabetes mellitus without complications Coding Level of Care Code Est Pt Level 5 (36972) Diagnoses Type 2 diabetes mellitus with other skin complication, without long-term current use of insulin E11.628 Diabetes mellitus type: type 2 Diabetes mellitus residential insulin use: without residential use Diabetes mellitus complication status: with skin complications Diabetes mellitus complication detail: with other skin complication Time Spent (min) 45
[2023-12-22 09:24] VITALS: BP 136/80; PULSE 90; BMI 34.1
[2023-12-22 09:42] LABS: Glucose, Whole Blood 126 mg/dL (60-115)
== END 2023-12-22 11:03 | disposition home or self-care (01) ==
PROVIDERS: PCP General Practice; Visit Provider Internal Medicine
DX: E11.628 Type 2 diabetes mellitus with other skin complications (principal); E11.9 Type 2 diabetes mellitus without complications

== ENCOUNTER → 2023-12-22 09:20 | Outpatient (BNVA) | payer MEDICARE, MEDICAID, SELFPAY | PROVIDERS: PCP General Practice; Visit Provider Internal Medicine | DX: E11.628 Type 2 diabetes mellitus with other skin complications (principal); Z79.84 Long term (current) use of oral hypoglycemic drugs | CPT/HCPCS: 82947; 83036; 99211; 99212 ==

== ENCOUNTER 2023-12-22 10:57 | Outpatient (AMB) | payer MEDICARE, MEDICAID, SELFPAY ==
--- NOTE | 2023-12-22 11:03 | MHC.AMDMED ---
Intake Intake Visit Reasons: T2DM /meter help Stem Crusher Required: No Accompanied by: Self / Same As Patient Allergies pseudoephedrine [From Sudafed] Allergy (Intermediate, Verified 12/22/23 09:25) Difficulty Breathing HPI Comprehensive Diabetes Asmnt Most Recent Diabetes Results: Cholesterol 149 mg/dL (<200) 06/15/23 HDL Cholesterol 36 mg/dL (>40) L 06/15/23 Triglycerides 246 mg/dL (<150) H 06/15/23 Creatinine 0.65 mg/dL (0.5-1.4) 11/22/23 Blood Urea Nitrogen 7 mg/dL (9-16) L 11/22/23 Sodium 136 mmol/L (135-145) 11/22/23 Potassium 4.2 mmol/L (3.3-5.1) 11/22/23 Chloride 102 mmol/L (96-108) 11/22/23 Carbon Dioxide 25 mmol/L (22-29) 11/22/23 Calcium 8.7 mg/dL (8.4-10.2) 11/22/23 AST 29 U/L (5-37) 11/12/23 ALT 65 U/L (0-40) H 11/12/23 Total Protein 6.4 g/dL (6.5-8.0) L 11/12/23 Albumin 3.2 g/dL (3.5-5.0) L 11/12/23 [facility] Medical History Seizure disorder High blood pressure Surgical History Status post small bowel resection Hx laparoscopic cholecystectomy History of surgery on right wrist Social History Do you presently have visiting nurse or other home services: No Comment: counts correct Patient Tobacco Use Status: Never used Tobacco 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 Type of Meter: Freestyle Lite Patient Education: Patient was instructed and provided with demonstration of the following: Setting date/time Turning meter on/off Retrieving blood glucose log Handwashing Test sites Site rotation Use of lancing device Testing blood glucose Removing and disposing needle from lancing device Safe disposal of sharps Target blood sugar Signs/ symptoms/treatment of hypoglycemia/hyperglycemia Frequency of testing Patient verbalized understanding of education provided and was able to demonstrate proper use of lancing device and glucometer. Blood Glucose at time of visit: ???135? All questions were answered and patient was advised to contact the office with any questions or concerns Portions of this note were created using voice recognition software, please excuse any words or phrases that may have been misinterpreted. Patient Instructions: Will follow-up as instructed Coding Level of Care Code Est Pt Level 1 (37937) Diagnoses Diabetes mellitus E11.9 Results AMB Hemoglobin A1c AMB Hemoglobin A1c 7.1 % Last Edit by CHANDU Cyr on 12/22/23 09:56
== END 2023-12-22 11:03 | disposition home or self-care (01) ==
PROVIDERS: PCP General Practice; Visit Provider Registered Nurse Diabetes Educator
DX: E11.9 Type 2 diabetes mellitus without complications (principal)

== ENCOUNTER 2023-12-28 09:33 | Outpatient (AMB) | payer MEDICARE, MEDICAID, SELFPAY ==
--- NOTE | 2023-12-28 09:39 | A.OFFVIS_ITS ---
Intake Visit Reasons: 2 wk follow up s/p Abdominal Drain Insertion Intake Note: Patient here 2wk s/p abdominal drain insertion. Patient c/o: VNA services every other day. Was told by nurse hes developing hypergranulation. Yellowish discharge on gauze. Constant pain. Of note patient was seen by Dr. Menchaca/ endocrinology on 12-22-2023. Metal Pattern Maker Required: No Accompanied by: Self / Same As Patient Allergies pseudoephedrine [From Sudafed] Allergy (Intermediate, Verified 12/28/23 09:41) Difficulty Breathing HPI Comments Details: Patient presents for follow-up. He is tolerating a diet. Having regular bowel habits. He feels he has been convalescing well. He still has persistent drainage of serous fluid from his umbilicus which is being packed by visiting nurse. 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 Umbilical wound demonstrates persistent serous drainage. Some exuberant granulating tissue at the base which was cauterized with silver nitrate. Dressing applied. Remaining incisions all clean dry intact healing well Assessment & Plan Assessment & Plan (1) Postop check: Code(s): Z09 - Encounter for follow-up examination after completed treatment for conditions other than malignant neoplasm Category: Surgical (2) Status post laparoscopic cholecystectomy: Code(s): Z90.49 - Acquired absence of other specified parts of digestive tract Category: Surgical Plan Current plan is continue local wound care. Should this persist on the next follow-up visit which is in roughly 2 weeks time, patient may have a retained suture or perhaps retained packing and may need wound exploration. This was explained to the patient. He understands. He will see me as directed or p.r.n .. Coding Level of Care Code Global (04689) Diagnoses Postop check Z09 Status post laparoscopic cholecystectomy Z90.49
== END 2023-12-28 09:51 | disposition home or self-care (01) ==
PROVIDERS: PCP General Practice; Visit Provider Surgery
DX: Z09 Encounter for follow-up examination after completed treatment for conditions other than malignant neoplasm (principal); Z90.49 Acquired absence of other specified parts of digestive tract
CPT/HCPCS: 99024

== ENCOUNTER → 2023-12-28 09:33 | Outpatient (BNVA) | payer MEDICARE, MEDICAID, SELFPAY | PROVIDERS: PCP General Practice; Visit Provider Surgery | DX: Z09 Encounter for follow-up examination after completed treatment for conditions other than malignant neoplasm (principal); Z90.49 Acquired absence of other specified parts of digestive tract | CPT/HCPCS: 99212 ==

== ENCOUNTER 2024-01-10 09:39 | Outpatient (AMB) | payer MEDICARE, MEDICAID, SELFPAY ==
--- NOTE | 2024-01-10 09:39 | A.OFFVIS_ITS ---
Intake Visit Reasons: 2 wk follow up s/p Abdominal Drain Insertion Intake Note: Patient here s/p abdominal drain insertion. Patient c/o: inflammation, redness, oozing. Lap [place]: 11-11-2023. Outpatient Program Coordinator Required: No Accompanied by: Self / Same As Patient Allergies pseudoephedrine [From Sudafed] Allergy (Intermediate, Verified 01/10/24 09:49) Difficulty Breathing HPI Comments Details: Patient presents for follow-up. He has had no improvement of his umbilical wound drainage. He has some surrounding cellulitis as well.. My concern is that there is either a stitch or foreign body in this wound which is causing the perpetual drainage and inflammation. 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 Umbilical incision has persistent drainage of 0 sanguinous fluid and extruding exuberant granulating tissue. There is some surrounding cellulitis. Assessment & Plan Assessment & Plan (1) Open abdominal wall wound: Code(s): S31.109A - Unspecified open wound of abdominal wall, unspecified quadrant without penetration into peritoneal cavity, initial encounter Category: Surgical Plan As mentioned in the patient's prior visit, if he did not have significant improvement, wound exploration would be recommended to rule out a foreign body causing his symptoms. Patient agrees. Risks and benefits, alternatives of the procedure reviewed with the patient wound debridement and exploration which included but not limited to bleeding, recurrence, numbness, pain, scarring the patient wished to proceed. All questions answered. Arrangements were made for this for later this week. Medications: New cephalexin 500 mg PO TID 30 caps 0RF Coding Level of Care Code Global (58574) Diagnoses Open abdominal wall wound S31.109A
== END 2024-01-10 10:01 | disposition home or self-care (01) ==
PROVIDERS: PCP General Practice; Visit Provider Surgery
DX: S31.109A Unspecified open wound of abdominal wall, unspecified quadrant without penetration into peritoneal cavity, initial encounter (principal)
CPT/HCPCS: 99024

== ENCOUNTER → 2024-01-10 09:39 | Outpatient (BNVA) | payer MEDICARE, MEDICAID, SELFPAY | PROVIDERS: PCP General Practice; Visit Provider Surgery | DX: S31.109A Unspecified open wound of abdominal wall, unspecified quadrant without penetration into peritoneal cavity, initial encounter (principal) | CPT/HCPCS: 99212 ==

== ENCOUNTER → 2024-01-12 08:49 | Day surgery (SDC) | payer MEDICARE, SELFPAY ==
--- NOTE | 2024-01-11 08:58 | HO.ANESPROP2 ---
HPI - Anesthesia Eval Consult details Narrative: 48yo M for Abdominal Wound Debridement [facility] admit 11/10/23-11/23/23: HOSPITAL COURSE: On 11/10/23, a laparoscopic cholecystectomy was performed by Dr. Buenrostro. He was found to have hydrops/empyema of the gallbladder with dense omental adhesions. He had significant incisional pain in recovery room, not relieved with current analgesics and was therefore admitted to the surgical service for pain control. The following day he had persistent periumbilical abdominal pain, tachycardia, and leukocytosis. He was started on IV zosyn empirically. CT scan abd/pelvis was therefore obtained. Findings demonstrated what could be postoperative changes but did not conclusively rule out intra-abdominal pathology. Because of clinical scenario, it was recommended to proceed with diagnostic laparoscopy to evaluate for an intra-abdominal source. He was added onto the OR schedule. On 11/11/23, diagnostic laparoscopy, abdominal cavity lavage, repaired transmural defect with resection and functional end-to-end anastomosis of small bowel was performed by Dr. Buenrostro. The patient tolerated the procedure well. He felt improved post operatively but had a slow recovery course. His diet was gradually advanced as tolerated. His activity was increased. PT was consulted. He was weaned off IV analgesics and transitioned to oral analgesics. He had some lower abdominal erythema and rocephin was added to his abx regimen. His umbilical incision was opened and probed without evacuation of seroma or purulent drainage. This area was packed with packing. He however had persistent leukocytosis and tachycardia with improvement in his abdomen appearance. Therefore CT scan abd/pelvis was obtained which demonstrated a pelvic fluid collection. He underwent IR drainage of the fluid collection on 11/21/23. The output was serous appearing and nonpurulent. His WBC count improved and continually downtrended following. His vitals improved. He remained hypertensive with SBP 140s-150s and his lisinopril was increased to 10mg PO daily. His drain continued with serous appearing drainage and output was minimal and it was therefore removed. On the day of discharge, he was tolerating a solid diet, had good GI function, abdominal pain was well controlled and was ambulating without difficulty. His abdomen was overall benign and soft, mild incisional tenderness. His umbilical incision had scant nonpurulent drainage. He was discharged to home on 11/23/23 with VNA services on course of PO augmentin and doxycycline. He is to follow up in the office in 1 week. He is to follow up with his PCP upon discharge. 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) Past Medical History Medical History Seizure disorder High blood pressure Family History Family history of problems with anesthesia: No Surgical History Surgical History Status post small bowel resection Hx laparoscopic cholecystectomy History of surgery on right wrist History of Problems with Anesthesia: No Social History Social History Do you presently have visiting nurse or other home services: No Comment: counts correct Patient Tobacco Use Status: Never used Tobacco 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 Meds Allergies Allergy/AdvReac Type Severity Reaction Status Date / Time pseudoephedrine Allergy Intermediate Difficulty Verified 01/10/24 09:49 [From Sudafed] Breathing Home Medications ?Medication ?Instructions ?Recorded ?Confirmed ?Last Taken ?Type lamotrigine 200 mg tablet 200 mg PO BID@1000,2200 11/20/21 01/11/24 Unknown History (Lamictal) hydrochlorothiazide 25 mg tablet 25 mg PO DAILY@1000 12/23/21 01/11/24 Unknown History oxcarbazepine 600 mg tablet 1 tab PO BID@1000,2200 01/07/22 01/11/24 Unknown History baclofen 20 mg tablet 20 mg PO QID PRN back spasms 11/10/23 01/11/24 Unknown History famotidine 20 mg tablet 20 mg PO BID PRN Abdominal 11/10/23 01/11/24 Unknown History Discomfort folic acid 1 mg tablet 1 mg PO DAILY@1000 11/10/23 01/11/24 Unknown History ibuprofen 400 mg tablet 400 - 800 mg PO Q8H Pain 11/10/23 01/11/24 Unknown History metformin 500 mg tablet 500 mg PO BID@1000,2200 11/10/23 01/11/24 Unknown History Exam Narrative Narrative: ECHO 11/2023 Conclusions: - The left ventricular systolic function is normal. The visually estimated ejection fraction is between 65-70%. - No obvious valvular pathology seen on this study. EKG 11/2023 Vent. Rate : 085 BPM Atrial Rate : 085 BPM P-R Int : 162 ms QRS Dur : 086 ms QT Int : 364 ms P-R-T Axes : 024 030 004 degrees QTc Int : 433 ms Normal sinus rhythm Normal ECG When compared with ECG of 04-JUN-2023 16:39, No significant change was found Assessment and Plan Assessment Anesthesia Assessment: Chart Reviewed Final Anesthetic Review Family History of Problems with Anesthesia: No History of Problems with Anesthesia: No
--- NOTE | 2024-01-11 09:24 | MHC.SHP ---
Pre-Procedural Eval Section A - 24 Hr Update-Section A only Date of Service: 01/12/24 The patient is an INPATIENT: No Changes since office visit: No Cold of Flu in the past 2 weeks, No New Medical Problems, No Changes in Medication and No Patient answered all questions Section B - Complete if H&P > 30 days Chief Complaint: Unspecified open wound of abdominal wall, unspecif Allergies: Allergies Allergy/AdvReac Type Severity Reaction Status Date / Time pseudoephedrine Allergy Intermediate Difficulty Verified 01/10/24 09:49 [facility] Breathing Review of Systems Sugical H&P ROS: Negative: Constitution, Cardiovascular, Respiratory, Neurological, Psychiatric, Hem-Onc, Allergic/Immunologic, Gastrointestinal, Genitourinary, Musculoskeletal, Integumentary, Endocrine and Eyes/Ears/Nose/Throat Exam Surgical H&P Exam: Normal: HEENT, Normal: Heart, Normal: Lungs, Normal: Extremities, Normal: Abdomen, Normal: Skin and Normal: Neurological Plan I have reviewed the history and physical and performed a pertinent physical examination on my patient. No changes have occurred unless specified. Time Spent With Patient Time: Total time managing care of this patient today ____ minutes.
--- NOTE | 2024-01-12 10:34 | PC.NURSE ---
Patient stated he ate ham and cheese sandwich at [address] Velazquez and Dr. Buenrostro both notified. Dr. Buenrostro at bedside to speak with pt. Patient to be rescheduled for procedure tomorrow at 1330. Patient given preop instructions and arrival time and stress importance of remaining NPO after midnight. pt agreeable,
== END | disposition home or self-care (01) ==
PROVIDERS: PCP General Practice; Visit Provider Surgery
DX: S31.109A Unspecified open wound of abdominal wall, unspecified quadrant without penetration into peritoneal cavity, initial encounter (principal); Z53.09 Procedure and treatment not carried out because of other contraindication; X58.XXXA Exposure to other specified factors, initial encounter; Y93.9 Activity, unspecified; Y92.9 Unspecified place or not applicable; Y99.9 Unspecified external cause status; I10 Essential (primary) hypertension; E11.9 Type 2 diabetes mellitus without complications; G40.909 Epilepsy, unspecified, not intractable, without status epilepticus; Z79.84 Long term (current) use of oral hypoglycemic drugs; Z79.899 Other long term (current) drug therapy; Z79.1 Long term (current) use of non-steroidal anti-inflammatories (NSAID); Z88.8 Allergy status to other drugs, medicaments and biological substances; Z90.49 Acquired absence of other specified parts of digestive tract; Z98.890 Other specified postprocedural states
CPT/HCPCS: J1100; J2003; J2250; J2405; J2704; J3010

== ENCOUNTER 2024-01-13 14:56 | Inpatient (IN) | payer MEDICARE, MEDICAID, SELFPAY ==
[2024-01-13] VITALS (11 sets, daily range): BP systolic 114–155; BP diastolic 71–96; PULSE 85–108; RESP 16–18; TEMP 36.2–37.6; O2SAT 96–98; BMI 34.6
--- NOTE | 2024-01-13 11:00 | MHC.SHP ---
Pre-Procedural Eval Section A - 24 Hr Update-Section A only Date of Service: 01/13/24 The patient is an INPATIENT: No Changes since office visit: No Cold of Flu in the past 2 weeks, No New Medical Problems, No Changes in Medication and No Patient answered all questions Section B - Complete if H&P > 30 days Chief Complaint: Unspecified open wound of abdominal wall, Allergies: Allergies Allergy/AdvReac Type Severity Reaction Status Date / Time pseudoephedrine Allergy Intermediate Difficulty Verified 01/10/24 09:49 [From Sudafed] Breathing Review of Systems Sugical H&P ROS: Negative: Constitution, Cardiovascular, Respiratory, Neurological, Psychiatric, Hem-Onc, Allergic/Immunologic, Gastrointestinal, Genitourinary, Musculoskeletal, Integumentary, Endocrine and Eyes/Ears/Nose/Throat Exam Surgical H&P Exam: Normal: HEENT, Normal: Heart, Normal: Lungs, Normal: Extremities, Normal: Abdomen, Normal: Skin and Normal: Neurological Plan I have reviewed the history and physical and performed a pertinent physical examination on my patient. No changes have occurred unless specified. Time Spent With Patient Time: Total time managing care of this patient today ____ minutes.
--- NOTE | 2024-01-13 12:07 | HO.ANESPROP2 ---
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) Past Medical History Medical History Seizure disorder High blood pressure Family History Family history of problems with anesthesia: No Surgical History Surgical History Status post small bowel resection Hx laparoscopic cholecystectomy History of surgery on right wrist History of Problems with Anesthesia: No Social History Social History Do you presently have visiting nurse or other home services: No Comment: counts correct Patient Tobacco Use Status: Never used Tobacco Advance Directives: No Advance Directives Information Provided: Yes 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 Meds Allergies Allergy/AdvReac Type Severity Reaction Status Date / Time pseudoephedrine Allergy Intermediate Difficulty Verified 01/13/24 12:08 [From Sudafed] Breathing Home Medications ?Medication ?Instructions ?Recorded ?Confirmed ?Last Taken ?Type lamotrigine 200 mg tablet 200 mg PO BID@1000,2200 11/20/21 01/13/24 01/13/24 History (Lamictal) hydrochlorothiazide 25 mg tablet 25 mg PO DAILY@1000 12/23/21 01/11/24 Unknown History oxcarbazepine 600 mg tablet 1 tab PO BID@1000,2200 01/07/22 01/13/24 01/13/24 History baclofen 20 mg tablet 20 mg PO QID PRN back spasms 11/10/23 01/11/24 Unknown History ibuprofen 400 mg tablet 400 - 800 mg PO Q8H Pain 11/10/23 01/11/24 Unknown History Exam Airway Mallampati Class: II TM Dist: >3cm Neck ROM: Full Heart: rrrr Lungs: cta Assessment and Plan Assessment Anesthesia Assessment: Anesthesia Plan Discussed and Chart Reviewed Final Anesthetic Review Family History of Problems with Anesthesia: No History of Problems with Anesthesia: No NPO: Yes ASA Class: II Final Preanesthetic Review: No Changes in Pt Med Stat, Meds/Allgs Chart Reviewed and Consent Obtained/Reviewed Patient Risk: Low Procedure Risk: Low Anesthetic Plan Anesthetic Plan: GA Disposition: Standard PACU
[2024-01-13 12:29] LABS: Glucose, Whole Blood 104 mg/dL (60-115)
[2024-01-13 12:34] LABS: Hematocrit 40.6 % (42.0-52.0); Hemoglobin 13.2 g/dl (14.0-18.0); Mean Corpuscular HGB Conc 32.5 g/dl (31.0-36.0); Mean Platelet Volume 9.4 fL (9.4-12.4); Platelet Count 291 X10*3/uL (160-400); Red Blood Count 4.89 X10*6/uL (4.60-5.80); White Blood Count 9.3 X10*3/uL (4.8-10.8)
[2024-01-13] MEDS: Lactated Ringers 1,000 ML 80 ML IVCONT (12:43)
[2024-01-13 12:48] LABS: Alanine Aminotransferase 27 U/L (0-40); Albumin Level 4.2 g/dL (3.5-5.0); Alkaline Phosphatase 109 U/L (39-117); Anion Gap 11 (12-20); Aspartate Amino Transferase 17 U/L (5-37); Bilirubin Total 0.4 mg/dL (0.0-1.0); Blood Urea Nitrogen 12 mg/dL (9-16); Calcium 9.6 mg/dL (8.4-10.2); Carbon Dioxide 25 mmol/L (22-29); Chloride 105 mmol/L (96-108); Creatinine Clr Calc Pharmacy 154.9; Estimated Glomerular Filt Rate > 60; Glucose Fasting 116 mg/dL (60-99); Potassium 4.4 mmol/L (3.3-5.1); Sodium 137 mmol/L (135-145); Total Protein 7.6 g/dL (6.5-8.0)
--- NOTE | 2024-01-13 14:49 | P.OP_ITS ---
Operative Note Operative Note Date of Service: 01/13/24 Narrative: Preoperative diagnosis: [] Chronically draining umbilical abdominal wound Postop diagnosis: [] The same Procedure [] debridement soft tissue umbilical abdominal wound with excision of stitch abscesses and hypertrophic granulating tissue and cicatrization Surgeon: [] [employer] Teacher: [] Type of Anesthesia: LMA Indication for surgery: [] Very corpulent abdomen. Patient has had a several week history of a chronic draining abdominal wound. Intraoperative findings demonstrated marked cicatrization and scarring and inflammation and stitch abscesses involving the deep anterior abdominal wall. The inflamed tissue hypertrophic granulaing tissue and scarring were all excised using Bovie. Cultures obtained. Findings: [] Patient brought to the operating room, placed on operative table supine position, after an adequate level of general anesthesia was induced, the patient's abdomen is prepped draped in usual sterile fashion. Using a transverse supraumbilical incision encompassing the previous draining site and scar, this was extended through subcutaneous tissue where large phlegmonous hypertrophic/exuberant granulating tissue along with marked cicatrization and scarring were identified and dissected down where at the base a large stitch abscess cavity x 2 were encountered. This was all excised using Bovie. Specimen sent to pathology along with cultures as noted above. Wound was irrigated, secured hemostasis, and pack with saline moistened Kerlix packing followed by 4x4s, ABD dressing, and Wells straps. Wound was infiltrated at completion with 0.5% Marcaine/1% lidocaine. Sponge, needle, and instrument counts were reported correct. Patient tolerated the procedure well and emerged from anesthesia stable condition. EBL minimal
[2024-01-13] MEDS: HYDROcodone Bit/Acetam 5/325 TABLET 1 TAB PO ×2 (15:29→19:53)
--- NOTE | 2024-01-13 20:33 | PHA.MEDREC ---
Addendum entered by Renny Walter RPh 01/13/24 20:42: MED REC CHECKED BY [facility] Original Note: Pharmacy Consult ? Medication Reconciliation Pharmacy has reviewed the medication reconciliation done by nursing. Spoke to patient to confirm med list. patient states he is no longer taking Folic acid 1 mg and Metformin 500mg .
[2024-01-13] MEDS: OXcarbazepine 300 MG TABLET 600 MG PO (20:58)
[2024-01-13] MEDS: lamoTRIgine 100 MG TABLET 200 MG PO (20:58)
[2024-01-13] MEDS: ceFAZolin Sodium/Dextrose,Iso 2 GM/50 ML PIGGYBACK IV (21:39)
[2024-01-13] MEDS: HYDROmorphone HCl 1 MG/ML SYRINGE 0.5 MG IVPUSH (21:44)
[2024-01-14] MEDS: HYDROmorphone HCl 1 MG/ML SYRINGE 0.5 MG IVPUSH ×6 (01:39→23:44)
[2024-01-14] MEDS: Milk of Magnesia 30 ML ORAL.SUSP PO (01:54)
[2024-01-14 03:28] VITALS: BP 134/78; PULSE 84; RESP 18; TEMP 36; O2SAT 98
[2024-01-14] MEDS: ceFAZolin Sodium/Dextrose,Iso 2 GM/50 ML PIGGYBACK IV ×3 (05:46→21:51)
[2024-01-14] MEDS: Lactated Ringers 1,000 ML 80 ML IVCONT ×2 (05:58→19:40)
[2024-01-14 07:32] VITALS: BP 128/71; PULSE 88; RESP 16; TEMP 36.6; O2SAT 97
[2024-01-14] MEDS: HYDROcodone Bit/Acetam 5/325 TABLET 1 TAB PO ×3 (07:45→22:38)
--- NOTE | 2024-01-14 08:26 | P.PNGS_ITS ---
Subjective Subjective Date of Service: 01/14/24 Interval history: Dressing change this morning at 06:00 after getting up to go to the bathroom. Thinking he may want to go home later today. He will need daily VNA for dressing changes once discharged to home. Physical Exam 2 Vital Signs: Vital Signs: Last Vital Signs Temp 97.8 F 01/14/24 07:32 Pulse 88 01/14/24 07:32 Resp 16 01/14/24 07:32 BP 128/71 01/14/24 07:32 Pulse Ox 97 01/14/24 07:32 O2 Del Method Room Air 01/14/24 07:32 BMI result Body Mass Index 34.6 Const: General: comfortable Nutritional Appearance: well nourished O rientation/consciousness: patient oriented x3 Resp: Effort & Inspection: normal respiratory effort GI: Other: Abdominal dressings clean and intact Skin: Other: Warm and dry Neuro: General: patient oriented x3 Objective Data Active Medications Acetaminophen (Acetaminophen 325 Mg Tablet) 650 mg PO Q6H PRN PRN Reason: Pain, Mild (Pain Scale 1-3), fever or headache Hydrocodone Bitart/Acetaminophen (Hydrocodone Bit/Acetam 5/325 Tablet) 1 tab PO Q4H PRN PRN Reason: Pain, Moderate(Pain Scale 4-6) Last Admin: 01/14/24 07:45 Dose: 1 tab Documented By: OSKAR Baclofen (Baclofen 20 Mg Tablet) 20 mg PO QID PRN PRN Reason: back spasms Calcium Carbonate (Calcium Carbonate 750 Mg Tab.Chew) 750 mg PO Q4H PRN PRN Reason: Heartburn Hydrochlorothiazide (Hydrochlorothiazide 25 Mg Tablet) 25 mg PO DAILY@1000 NOY; Protocol Hydromorphone HCl (Hydromorphone Hcl 1 Mg/Ml Syringe) 0.5 mg IVPUSH Q4H PRN; Protocol PRN Reason: Pain, Severe (Pain Scale 7-10) Last Admin: 01/14/24 05:45 Dose: 0.5 mg Documented By: CHANCE Lactated Ringer's (Lr) 1,000 mls @ 80 mls/hr IVCONT .[id number] NOY Last Admin: 01/14/24 05:58 Dose: 80 mls/hr Documented By: CHANCE Cefazolin Sodium/Dextrose (Ancef) 2 gm in 50 mls @ 100 mls/hr IV Q8H [facility] Last Infusion: 01/14/24 06:16 Dose: Infused Documented By: CHANCE Lamotrigine (Lamotrigine 100 Mg Tablet) 200 mg PO BID@1000,2200 [facility] Last Admin: 01/13/24 20:58 Dose: 200 mg Documented By: CHANCE Lisinopril (Lisinopril 10 Mg Tablet) 10 mg PO DAILY [facility]; Protocol Magnesium Hydroxide (Milk Of Magnesia 30 Ml Oral.Susp) 30 ml PO DAILY PRN PRN Reason: Constipation Last Admin: 01/14/24 01:54 Dose: 30 ml Documented By: CHANCE Melatonin (Melatonin 3 Mg Tablet) 6 mg PO BEDTIME PRN PRN Reason: Insomnia Ondansetron HCl (Ondansetron Hcl 4 Mg/2 Ml Vial) 4 mg IVPUSH Q8H PRN PRN Reason: Nausea and Vomiting Oxcarbazepine (Oxcarbazepine 300 Mg Tablet) 600 mg PO BID@1000,2200 [facility] Last Admin: 01/13/24 20:58 Dose: 600 mg Documented By: CHANCE Polyethylene Glycol (Polyethylene Glycol 3350 17 Gm Powd.Pack) 17 gm PO DAILY PRN PRN Reason: Constipation Sodium Chloride (0.9 % Sodium Chloride Flush 3 Ml Syringe) 3 ml IVFLUSH QSHIFT [facility] Last Admin: 01/13/24 23:48 Dose: Not Given Documented By: CHANCE Non-Admin Reason: IV Running Labs 01/13/24 12:21 01/13/24 12:21 Labs: Laboratory Results - last 24 hr 01/13/24 01/13/24 12:21 12:25 MCV 83.0 MCH 27.0 MCHC 32.5 RDW 13.0 Plt Count 291 D MPV 9.4 Absolute Nucleated RBC 0.000 Nucleated RBC % (auto) 0.0 Anion Gap 11 L Estim Creat Clear Calc 154.9 Estimated GFR > 60 POC Glucose 104 Fasting Glucose 116 H Calcium 9.6 D Total Bilirubin 0.4 AST 17 ALT 27 Alkaline Phosphatase 109 Total Protein 7.6 Albumin 4.2 Microbiology Microbiology Results: Microbiology 01/13/24 Unknown Gram Stain - Final Abdomen - Abscess Procedures Date of Service Date of Service: 01/14/24 Progress Note: A&P Assessment and plan (1) Open abdominal wall wound: Status: Acute (2) Diabetes mellitus: Status: Acute Plan Pod 1 following wound exploration, removal of suture. Patient tolerated dressing change fairly well. Possible discharge later today if able to ambulate independently. Will need daily dressing changes with the VNA. Time Spent With Patient Time: Total time managing care of this patient today ____ minutes. Quality Stroke Does the patient have a stroke diagnosis?: No VTE Prior VTE?: No VTE Risk Level:: Surgical - low VTE Device Contraindication: N/A - Device Ordered VTE Drug Contraindication: Treatment Not Indicated
[2024-01-14] MEDS: hydroCHLOROthiazide 25 MG TABLET PO (09:31)
[2024-01-14] MEDS: lamoTRIgine 100 MG TABLET 200 MG PO ×2 (09:32→20:37)
[2024-01-14] MEDS: OXcarbazepine 300 MG TABLET 600 MG PO ×2 (09:32→20:47)
[2024-01-14] MEDS: lisinopriL 10 MG TABLET PO (09:32)
--- NOTE | 2024-01-14 10:01 | HO.POSTANES ---
Post Anesthesia Evaluation Post Anesthesia Evaluation Date of Service: 01/14/24 Vital Signs: Vital Signs Temp Pulse Resp BP Pulse Ox O2 Del Method 01/14/24 07:32 97.8 F 88 16 128/71 97 Room Air 01/14/24 03:28 96.8 F 84 18 134/78 98 Room Air Anesthesia: General LMA Mental Status: Awake Pain Control: Satisfactory Nausea/Vomiting: None Hydration: Adequate Anesthesia-Related Issues: No Anes. Related Issues
[2024-01-14] MEDS: 0.9 % Sodium Chloride Flush 3 ML SYRINGE IVFLUSH (10:41)
[2024-01-14 15:37] VITALS: BP 124/69; PULSE 94; RESP 16; TEMP 37.1; O2SAT 96
--- NOTE | 2024-01-14 16:18 | MHC.CM.PN ---
PT REPORTS HE LIVES WITH HIS AND IS INDEPENDENT WITH CARE PT USES NO DME AND IS ACTIVE WITH [facility] FOR DRESSING CHANGES COPY OF HCP REQUESTED PCP: OBEY CHIANG IMM DELIVERED DCP: HOME TOMORROW WITH RESUMPTION OF VNA SERVICES PT IS AWARE VNA WILL NOT BE PRESENT FOR DAILY DRESSING CHANGES, HIS SISTER WAS BEDSIDE TODAY FOR A TEACH AND WILL MANAGE DRESSING ON DAYS VNA IS ABSENT PT WILL TRANSPORT HIMSELF HOME AT DC
[2024-01-14 19:49] VITALS: BP 123/72; PULSE 94; RESP 20; TEMP 36.4; O2SAT 97
[2024-01-14] MEDS: Acetaminophen 325 MG TABLET 650 MG PO (20:40)
[2024-01-15 03:38] VITALS: BP 121/60; PULSE 93; RESP 18; TEMP 36.3; O2SAT 100
[2024-01-15] MEDS: HYDROmorphone HCl 1 MG/ML SYRINGE 0.5 MG IVPUSH ×2 (06:03→10:08)
[2024-01-15] MEDS: ceFAZolin Sodium/Dextrose,Iso 2 GM/50 ML PIGGYBACK IV (06:04)
[2024-01-15 07:47] VITALS: BP 138/88; PULSE 90; RESP 14; TEMP 36.2; O2SAT 99
[2024-01-15] MEDS: lisinopriL 10 MG TABLET PO (08:08)
[2024-01-15] MEDS: HYDROcodone Bit/Acetam 5/325 TABLET 1 TAB PO (08:08)
[2024-01-15] MEDS: Lactated Ringers 1,000 ML 80 ML IVCONT (08:09)
--- NOTE | 2024-01-15 08:39 | PM.DS ---
DS: Providers Provider Date of Service: 01/15/24 Date of admission: 01/13/24 14:56 Date of discharge: 01/15/24 Primary care physician: Maria Elena Wells MD Admitting clinician: Ran Buenrostro Attending physician on discharge: Ran Buenrostro DS: Diagnosis Discharge Diagnosis (1) Open abdominal wall wound: Status: Acute (2) Diabetes mellitus: Status: Acute DS: Summary Hospital Course Hospital Course: 48 year old male patient Presenting with an open abdominal wound with chronic granulation tissue noted. He was treated with local wound care without significant improvement of the wound. Findings were felt to be possibly due to foreign body reaction. His past medical history is significant for diabetes mellitus, arthritis, status post laparoscopic cholecystectomy and small-bowel resection. He was subsequently taken to the OR on 01/13/2024 for wound exploration. Residual suture material was noted at the base of the wound with a suture abscess. The sutures were removed in the wounds washed out. He tolerated this procedure well. Wounds were packed with wet-to-dry gauze dressings. Patient was observed for the next 48 hours and underwent several dressing changes with wet-to-dry dressings. He is tolerating this fairly well with the addition of pain medication. Plan is for him to be discharged to home today with VNA every other day. His sister has been trained to perform the dressing changes on his off days. Dressing change: Saline dampened 4 x 4 gauze packed into base of wound followed by dry 4 x 4 gauze and ABD, covered by Wells straps to be performed daily and as needed. He will follow-up with Dr. Buenrostro in the office in approximately 1 week. Time spent discussing smoking cessation with patient: 3 to 10 minutes Status at Discharge Functional status at discharge: independent ambulation Overall status at discharge: patient is not back to baseline Time Attestation Total time managing care of this patient today: 25 mintues. Discharge Coordination Time (in mins): 25 Quality: Safe Use of Opioids Does Pt have an Active Cancer Diagnosis on the Problem List?: No Quality: Stroke Does the patient have a stroke diagnosis?: No Physical Exam Vital Signs: Vital Signs: Last Vital Signs Temp 97.1 F 01/15/24 07:47 Pulse 90 01/15/24 07:47 Resp 14 01/15/24 07:47 BP 138/88 01/15/24 07:47 Pulse Ox 99 01/15/24 07:47 O2 Del Method Room Air 01/15/24 07:47 BMI result Body Mass Index 34.6 Const: General: comfortable Nutritional Appearance: well nourished Orientation/consciousness: patient oriented x3 Resp: Effort & Inspection: normal respiratory effort GI: Other: Abdominal dressings clean and intact Skin: Other: Warm and dry Neuro: General: patient oriented x3 DS: Data Data Completed and Pending Completed studies during hospitalization [Text1]: Procedures Drainage of Pelvic Cavity with Drainage Device, Percutaneous Approach (11/10/23) Excision of Small Intestine, Percutaneous Endoscopic Approach (11/10/23) Irrigation of Peritoneal Cavity using Irrigating Substance, Percutaneous Endoscopic Approach (11/10/23) Resection of Gallbladder, Percutaneous Endoscopic Approach (11/10/23) Pending studies at discharge: Pending at discharge 01/13/24 14:55 Surgical [PTH] Routine Labs on day of discharge: Preliminary micro results at discharge 01/13/24 Unknown Routine Culture - Preliminary Abdomen - Abscess Culture in progress. Anaerobic Culture - Preliminary Culture in progress. Discharge Plan Discharge Anticipated Discharge Date/Time: 01/14/24 08:57 Patient Disposition: Home Health Service Discharge Diagnosis: Open wound of abdomen Referrals: Maria Elena Wells MD [Primary Care Provider] - 1 Week Ran Buenrostro MD [Physician] - 1 Week Discharge Medications: New oxycodone 5 mg capsule 5 mg PO Q4H PRN (Reason: pain) Qty: 30 0RF Rx Instructions: Partial Fill upon patient request. Continued oxcarbazepine 600 mg tablet 1 tab PO BID@1000,2200 baclofen 20 mg tablet 20 mg PO QID PRN (Reason: back spasms) ibuprofen 400 mg tablet 400 - 800 mg PO Q8H lisinopril 10 mg tablet 10 mg PO DAILY Qty: 90 0RF hydrochlorothiazide 25 mg tablet 25 mg PO DAILY@1000 lamotrigine [Lamictal] 200 mg tablet 200 mg PO BID@1000,2200 Discontinued sulfamethoxazole-trimethoprim [Bactrim DS] 800-160 mg tablet 1 tab PO BID Qty: 20 0RF cephalexin 500 mg capsule 500 mg PO TID Qty: 30 0RF Discharge Orders: Discharge Order (Routine); Ordered 01/15/24 Ordered By: Enrique Mazzucco Diet: Advance to usual diet Activity on Discharge: No heavy lifting Stand Alone Forms: Patient Portal Discharge page Print Language: Khmer Activity Restrictions/Additional Instructions: Ice to wound 20 minutes several times today and tomorrow. May shower proir to VNA visits. Remove outside dressing and packing prior to shower. No strenuous activities Care Plan Goals: VNA for local wound care, daily dressing changes with packing changes and overlying dry sterile dressings Health Concerns: No new issues Plan of Treatment: Convalesence Assessment: Stable
--- NOTE | 2024-01-15 09:05 | PM.PNGS ---
Subjective Subjective Date of Service: 01/15/24 Interval history: Patient feeling improved this morning and tolerated the dressing change better 2nd time. He feels ready for discharge to home. Physical Exam Vital Signs: Vital Signs: Last Vital Signs Temp 97.1 F 01/15/24 07:47 Pulse 90 01/15/24 07:47 Resp 14 01/15/24 07:47 BP 138/88 01/15/24 07:47 Pulse Ox 99 01/15/24 07:47 O2 Del Method Room Air 01/15/24 07:47 BMI result Body Mass Index 34.6 Const: General: comfortable Nutritional Appearance: well nourished Orientation/consciousness: patient oriented x3 Resp: Effort & Inspection: normal respiratory effort GI: Other: Abdominal dressings clean and intact Skin: Other: Warm and dry Neuro: General: patient oriented x3 Objective Data Active Medications Acetaminophen (Acetaminophen 325 Mg Tablet) 650 mg PO Q6H PRN PRN Reason: Pain, Mild (Pain Scale 1-3), fever or headache Last Admin: 01/14/24 20:40 Dose: 650 mg Documented By: CHANCE Hydrocodone Bitart/Acetaminophen (Hydrocodone Bit/Acetam 5/325 Tablet) 1 tab PO Q4H PRN PRN Reason: Pain, Moderate(Pain Scale 4-6) Last Admin: 01/15/24 08:08 Dose: 1 tab Documented By: ANDREEA Baclofen (Baclofen 20 Mg Tablet) 20 mg PO QID PRN PRN Reason: back spasms Calcium Carbonate (Calcium Carbonate 750 Mg Tab.Chew) 750 mg PO Q4H PRN PRN Reason: Heartburn Hydrochlorothiazide (Hydrochlorothiazide 25 Mg Tablet) 25 mg PO DAILY@1000 NOY; Protocol Last Admin: 01/14/24 09:31 Dose: 25 mg Documented By: GRAZSHEREE Hydromorphone HCl (Hydromorphone Hcl 1 Mg/Ml Syringe) 0.5 mg IVPUSH Q4H PRN; Protocol PRN Reason: Pain, Severe (Pain Scale 7-10) Last Admin: 01/15/24 06:03 Dose: 0.5 mg Documented By: CHANCE Lactated Ringer's (Lr) 1,000 mls @ 80 mls/hr IVCONT .[id number] NOY Last Admin: 01/15/24 08:09 Dose: 80 mls/hr Documented By: ANDREEA Cefazolin Sodium/Dextrose (Ancef) 2 gm in 50 mls @ 100 mls/hr IV Q8H [facility] Last Infusion: 01/15/24 06:36 Dose: Infused Documented By: CHANCE Lamotrigine (Lamotrigine 100 Mg Tablet) 200 mg PO BID@1000,2200 [facility] Last Admin: 01/14/24 20:37 Dose: 200 mg Documented By: CHANCE Lisinopril (Lisinopril 10 Mg Tablet) 10 mg PO DAILY [facility]; Protocol Last Admin: 01/15/24 08:08 Dose: 10 mg Documented By: ANDREEA Magnesium Hydroxide (Milk Of Magnesia 30 Ml Oral.Susp) 30 ml PO DAILY PRN PRN Reason: Constipation Last Admin: 01/14/24 01:54 Dose: 30 ml Documented By: CHANCE Melatonin (Melatonin 3 Mg Tablet) 6 mg PO BEDTIME PRN PRN Reason: Insomnia Ondansetron HCl (Ondansetron Hcl 4 Mg/2 Ml Vial) 4 mg IVPUSH Q8H PRN PRN Reason: Nausea and Vomiting Oxcarbazepine (Oxcarbazepine 300 Mg Tablet) 600 mg PO BID@1000,2200 [facility] Last Admin: 01/14/24 20:47 Dose: 600 mg Documented By: CHANCE Polyethylene Glycol (Polyethylene Glycol 3350 17 Gm Powd.Pack) 17 gm PO DAILY PRN PRN Reason: Constipation Sodium Chloride (0.9 % Sodium Chloride Flush 3 Ml Syringe) 3 ml IVFLUSH QSHIFT [facility] Last Admin: 01/14/24 23:52 Dose: Not Given Documented By: CHANCE Non-Admin Reason: IV Running Labs 01/13/24 12:21 01/13/24 12:21 Microbiology Microbiology Results: Microbiology 01/13/24 Unknown Gram Stain - Final Abdomen - Abscess Routine Culture - Preliminary Culture in progress. Anaerobic Culture - Preliminary Culture in progress. Procedures Date of Service Date of Service: 01/15/24 Progress Note: A&P Assessment and plan (1) Open abdominal wall wound: Status: Acute (2) Diabetes mellitus: Status: Acute Plan Pod 2 following wound exploration, removal of suture. Patient tolerated the 2nd dressing change better. Patient ready for discharge to home. He will have VNA every other day with his sister performing the dressing changes in between. Follow-up with Dr. Buenrostro in 1 week. Time Spent With Patient Time: Total time managing care of this patient today ____ minutes. Quality Stroke Does the patient have a stroke diagnosis?: No VTE Prior VTE?: No VTE Risk Level:: Surgical - low VTE Device Contraindication: N/A - Device Ordered VTE Drug Contraindication: Treatment Not Indicated
--- NOTE | 2024-01-15 09:12 | MHC.CM.PN ---
PT WILL DC HOME TODAY WITH RESUMPTION OF [facility] SERVICES FOR DRESSING CHANGES HE IS AWARE VNA WILL NOT COME DAILY AND SISTER WAS AT BEDSIDE FOR TEACHING YESTERDAY, SHE WILL ASSIST WITH DRESSING CHANGES WHEN VNA IS NOT PRESENT PT WILL BE SENT HOME WITH DRESSING SUPPLIES SISTER WILL TRANSPORT
[2024-01-15] MEDS: hydroCHLOROthiazide 25 MG TABLET PO (10:08)
[2024-01-15] MEDS: lamoTRIgine 100 MG TABLET 200 MG PO (10:08)
[2024-01-15] MEDS: OXcarbazepine 300 MG TABLET 600 MG PO (10:08)
== END 2024-01-15 13:02 | disposition home health service (06) | DRG 903 ==
LOC: HO.SSSA 14:57 → HO.S3 18:48
PROVIDERS: Anesthesiology; Admitting Provider Surgery; PCP General Practice; Visit Provider Surgery
PROC: 0JB80ZZ Excision of Abdomen Subcutaneous Tissue and Fascia, Open Approach (ICD-10-PCS; principal; 2024-01-13 13:30)
DX: T81.321A Disruption or dehiscence of closure of internal operation (surgical) wound of abdominal wall muscle or fascia, initial encounter (principal); Y83.9 Surgical procedure, unspecified as the cause of abnormal reaction of the patient, or of later complication, without mention of misadventure at the time of the procedure; Z87.891 Personal history of nicotine dependence; Z79.899 Other long term (current) drug therapy
CPT/HCPCS: 36415; 80053; 82947; 85027; 87070; 87073; 87205; 88304; 99212; J0690; J1100; J1171; J2003; J2250; J2405; J2704; J2795; J3010; J7120

== ENCOUNTER → 2024-01-13 14:56 | Outpatient (BNV) | payer MEDICARE, MEDICAID, SELFPAY | PROVIDERS: Admitting Provider Surgery; PCP General Practice; Visit Provider Surgery | DX: S31.109A Unspecified open wound of abdominal wall, unspecified quadrant without penetration into peritoneal cavity, initial encounter (principal); T81.509A Unspecified complication of foreign body accidentally left in body following unspecified procedure, initial encounter | CPT/HCPCS: 10121; 99024 ==

== ENCOUNTER 2024-01-23 10:45 | Outpatient (AMB) | payer MEDICARE, MEDICAID, SELFPAY ==
--- NOTE | 2024-01-23 10:46 | A.OFFVIS_ITS ---
Vital Signs 01/23/24 10:52 Weight 250 lb BP 134/71 Blood Pressure Location Rt brachial Position Sitting Pulse 96 Intake Visit Reasons: s/p Debridement Skin Intake Note: Patient here s/p debridement on abdomen. Reports VNA services daily. Patient: tenderness, yellowish discharge. Tripe Finisher Required: No Accompanied by: Self / Same As Patient Allergies pseudoephedrine [From Sudafed] Allergy (Intermediate, Verified 01/23/24 10:52) Difficulty Breathing HPI Comments Details: Patient presents for follow-up. Status post wound exploration and debridement for stitch abscess. He is undergoing VNA services. His pain has become discomfort now with dressing changes. 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 No evidence of any infection. 0 packing removed, new packing placed. Wells straps and secured Assessment & Plan Assessment & Plan (1) Open abdominal wall wound: Code(s): S31.109A - Unspecified open wound of abdominal wall, unspecified quadrant without penetration into peritoneal cavity, initial encounter Category: Surgical (2) Postop check: Code(s): Z09 - Encounter for follow-up examination after completed treatment for conditions other than malignant neoplasm Category: Surgical Plan Patient was given a new set of Wells straps which we will have the visiting nurse placed tomorrow. Can shower with packing removed and washed out his abdominal incision. He will see me in 1 week's time or p.r.n.. All questions answered Coding Level of Care Code Global (01004) Diagnoses Open abdominal wall wound S31.109A Postop check Z09
[2024-01-23 10:52] VITALS: BP 134/71; PULSE 96
== END 2024-01-23 11:13 | disposition home or self-care (01) ==
PROVIDERS: PCP General Practice; Visit Provider Surgery
DX: S31.109A Unspecified open wound of abdominal wall, unspecified quadrant without penetration into peritoneal cavity, initial encounter (principal); Z09 Encounter for follow-up examination after completed treatment for conditions other than malignant neoplasm
CPT/HCPCS: 99024

== ENCOUNTER → 2024-01-23 10:45 | Outpatient (BNVA) | payer MEDICARE, MEDICAID, SELFPAY | PROVIDERS: PCP General Practice; Visit Provider Surgery | DX: S31.109D Unspecified open wound of abdominal wall, unspecified quadrant without penetration into peritoneal cavity, subsequent encounter (principal); X58.XXXD Exposure to other specified factors, subsequent encounter; Z98.890 Other specified postprocedural states | CPT/HCPCS: 99212 ==

== ENCOUNTER 2024-02-01 08:37 | Outpatient (AMB) | payer MEDICARE, MEDICAID, SELFPAY ==
--- NOTE | 2024-02-01 08:38 | MHC.OFFVIS ---
Vital Signs 02/01/24 08:42 Weight 246 lb BP 125/80 Blood Pressure Location Rt brachial Position Sitting Pulse 88 Intake Visit Reasons: 1wk follow up s/p debridement skin Intake Note: Patient here for 2wk follow up debridement on abdomen. Reports slow healing. Patient c/o: VNA services every other day. Concrete Mixer Required: No Accompanied by: Self / Same As Patient Allergies pseudoephedrine [From Sudafed] Allergy (Intermediate, Verified 02/01/24 08:42) Difficulty Breathing HPI Comments Details: Patient presents for follow-up. He has marked improvement of his umbilical wounds symptoms. He is not requiring any narcotic analgesics. He is undergoing local wound care VNA nurses. His diet is otherwise intact. He is also to be seen later today at the endocrine clinic for his recently diagnosed diabetes mellitus. [facility] Medical History (Updated 01/18/24 @ 00:02 by Juana Isaacs) Seizure disorder High blood pressure Surgical History (Updated 02/01/24 @ 09:01 by Ran Buenrostro MD) Postop check Status post small bowel resection Hx laparoscopic cholecystectomy History of surgery on right wrist Social History Household Members: Spouse Housing: Apartment Are you a primary intensive care unit registered nurse to a significant other at home: No Do you presently have visiting nurse or other home services: Yes Comment: counts correct Patient Tobacco Use Status: Former Tobacco user Tobacco use type: Cigarette service: No 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 Assessment & Plan Assessment & Plan (1) Postop check: Code(s): Z09 - Encounter for follow-up examination after completed treatment for conditions other than malignant neoplasm Category: Surgical Plan Patient is to continue local wound care and will see me as directed or p.r.n.. All questions answered for Coding Level of Care Code Complex EM visit Add On G2211 Diagnoses Postop check Z09
[2024-02-01 08:42] VITALS: BP 125/80; PULSE 88
== END 2024-02-01 08:55 | disposition home or self-care (01) ==
LOC: HO.HGS 08:37
PROVIDERS: PCP General Practice; Visit Provider Surgery
DX: Z09 Encounter for follow-up examination after completed treatment for conditions other than malignant neoplasm (principal)
CPT/HCPCS: 99024

== ENCOUNTER → 2024-02-01 08:37 | Outpatient (BNVA) | payer MEDICARE, MEDICAID, SELFPAY | PROVIDERS: PCP General Practice; Visit Provider Surgery | DX: E11.628 Type 2 diabetes mellitus with other skin complications (principal) | CPT/HCPCS: 82947; 99212 ==

== ENCOUNTER 2024-02-01 08:59 | Outpatient (AMB) | payer MEDICARE, MEDICAID, SELFPAY ==
--- NOTE | 2024-02-01 09:19 | MHC.OFFVIS ---
Vital Signs 02/01/24 09:21 Height 5 ft 11 in Weight 246 lb 14.684 oz BMI 34.4 BP 102/68 Blood Pressure Location Lt brachial Position Sitting Pulse 56 Pulse Source Pulse Oximeter Intake Visit Reasons: T2DM/CONFIRMED Intake Note: Patient presents today for D2NC follow up visit. Last Diabetic Eye exam: Over 2 years ago. Last Podiatry Visit: Doesn't have one Random Glucose: 116 mg/dl HgA1c: 7.1% 12/22/23 Basic Acoustic Analyst Required: No Accompanied by: Self / Same As Patient Allergies pseudoephedrine [From Sudafed] Allergy (Intermediate, Verified 02/01/24 09:24) Difficulty Breathing HPI Comments Details: The patient is a 48 year old with type 2 diabetes presenting for diabetes Medical history: Recent empyema gallbladder s/p lap cholecystectomy 11/09 with repair of small bowel defect 11/10, pelvic abscess, hypertension, seizure disorder Reports he did not know he was a diabetic prior to his hospitalization. He received insulin prn during hospitalization 11/2023. A1C 06/2023 7.1% POC A1C at december 7.1% He was prescribed metformin 500mg twice daily. He did not start b/c needs teaching so he can check his blood glucose levels-taught to use freestyle lite meter. Brought him back 4-6 weeks (today) to review BG. He only has taken 4 readings 106, 120, 126 fasting and 160 non fasting. Discussed waiting for next A1C to discuss initiation of medication Report family history of diabetes Needs eye exam ROS CONSTITUTIONAL: Denies weight loss, fever and chills. HEENT: Denies changes in vision and hearing. RESPIRATORY: Denies SOB and cough. CV: Denies palpitations and CP GI: Denies abdominal pain, nausea, vomiting and diarrhea. : Denies dysuria and urinary frequency. MSK: Denies new myalgia and joint pain. SKIN: healing abdominal surgical wound NEUROLOGICAL: Denies headache PSYCHIATRIC: Denies recent changes in mood. PHYSICAL EXAM: GENERAL: Alert and oriented x 3. NAD EYES: EOMI. Anicteric. HENT: Moist mucous membranes. No scleral icterus. No cervical lymphadenopathy. LUNGS: Clear to auscultation bilaterally. CARDIOVASCULAR: Regular rate and rhythm. No murmur. No JVD. ABDOMEN: Soft, non-tender +bs EXTREMITIES: No edema. Non-tender. SKIN: No rashes NEUROLOGIC: No focal neurological deficits. CN II-XII grossly intact PSYCHIATRIC: Cooperative. 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 Physical Exam Vital Signs: Last Vital Signs Pulse 56 02/01/24 09:21 BP 102/68 02/01/24 09:21 BMI result Body Mass Index 34.4 Results Reviewed Results Reviewed: Laboratory Last Values Glucose (Clinic) 116 mg/dL (60-115) H 02/01/24 09:26 Assessment & Plan Assessment & Plan (1) Diabetes mellitus: Code(s): E11.9 - Type 2 diabetes mellitus without complications Category: Surgical Qualifiers: Diabetes mellitus type: type 2 Diabetes mellitus extermination supervisor insulin use: without group home use Diabetes mellitus complication status: with skin complications Diabetes mellitus complication detail: with other skin complication Qualified Code(s): E11.628 - Type 2 diabetes mellitus with other skin complications Plan: Discussed with patient it will likely be the case that we recommend medication initiation. Discussed there are not enough blood glucose readings to make an informed decision. He will return when next A1C is due and we will discuss medications Orders: Orders Hemoglobin A1c 03/22/24 E11.628 - Type 2 diabetes mellitus with other skin complications Coding Level of Care Code Est Pt Level 4 (38397) Diagnoses Type 2 diabetes mellitus with other skin complication, without long-term current use of insulin E11.628 Diabetes mellitus type: type 2 Diabetes mellitus extermination supervisor insulin use: without group home use Diabetes mellitus complication status: with skin complications Diabetes mellitus complication detail: with other skin complication
[2024-02-01 09:21] VITALS: BP 102/68; PULSE 56; BMI 34.4
[2024-02-01 09:30] LABS: Glucose, Whole Blood 116 mg/dL (60-115)
== END 2024-02-01 09:48 | disposition home or self-care (01) ==
LOC: HO.ENCR 08:59
PROVIDERS: PCP General Practice; Visit Provider Internal Medicine
DX: E11.628 Type 2 diabetes mellitus with other skin complications (principal)

== ENCOUNTER 2024-02-15 09:32 | Outpatient (AMB) | payer MEDICARE, MEDICAID, SELFPAY ==
--- NOTE | 2024-02-15 09:33 | MHC.OFFVIS ---
Vital Signs 02/15/24 09:36 Height 5 ft 11 in Weight 244 lb 11.41 oz BMI 34.1 Pulse 60 Intake Visit Reasons: 1wk follow up s/p debridement skin Intake Note: Patient is seen in office for one week follow up visit, post debridement of the skin. Wastewater Treatment Plant Operator Required: No Accompanied by: Self / Same As Patient Allergies pseudoephedrine [From Sudafed] Allergy (Intermediate, Verified 02/15/24 09:35) Difficulty Breathing HPI Comments Details: Patient presents for follow-up. He has been undergoing VNA visits for packing changes. All these considered, he is doing quite well. He said the packing is markedly decreased that is required for his wound. He is otherwise doing well. He is tolerating a diet. Having regular bowel habits. 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 There is some exuberant granulating tissue which was cauterized with silver nitrate. There was minimal packing in place which was removed and dressing applied. Assessment & Plan Assessment & Plan (1) Granulation of wound bed: Code(s): L92.9 - Granulomatous disorder of the skin and subcutaneous tissue, unspecified Category: Surgical (2) Postop check: Code(s): Z09 - Encounter for follow-up examination after completed treatment for conditions other than malignant neoplasm Category: Surgical Plan Patient was doing well. Once the visiting nurse can no longer packed the wound he will no longer require their services and we just need a Band-Aid dressing. He will see me in roughly 2 weeks' time for follow-up or p.r.n.. All questions answered. Coding Level of Care Code Complex EM visit Add On G2211 Diagnoses Granulation of wound bed L92.9 Postop check Z09
[2024-02-15 09:36] VITALS: PULSE 60; BMI 34.1
== END 2024-02-15 09:42 | disposition home or self-care (01) ==
PROVIDERS: PCP General Practice; Visit Provider Surgery
DX: L92.9 Granulomatous disorder of the skin and subcutaneous tissue, unspecified (principal); Z09 Encounter for follow-up examination after completed treatment for conditions other than malignant neoplasm
CPT/HCPCS: 17250; 99213

== ENCOUNTER → 2024-02-15 09:32 | Outpatient (BNVA) | payer MEDICARE, MEDICAID, SELFPAY | PROVIDERS: PCP General Practice; Visit Provider Surgery | DX: Z09 Encounter for follow-up examination after completed treatment for conditions other than malignant neoplasm (principal); L92.9 Granulomatous disorder of the skin and subcutaneous tissue, unspecified; Z98.890 Other specified postprocedural states | CPT/HCPCS: 17250; 99212 ==

== ENCOUNTER 2024-02-22 08:57 | Outpatient (AMB) | payer MEDICARE, MEDICAID, SELFPAY ==
[2024-02-22 09:06] VITALS: BP 131/75; PULSE 74
--- NOTE | 2024-02-22 09:06 | A.OFFVIS_ITS ---
Vital Signs 02/22/24 09:06 Weight 255 lb BP 131/75 Blood Pressure Location Rt brachial Position Sitting Pulse 74 Intake Visit Reasons: 1wk follow up s/p debridement skin Intake Note: Patient here for 1wk follow up debridement on abdomen. Reports site healing well. Patient c/o: mild tenderness when pressing on it. VNA services QOD. Well Driller Helper Required: No Accompanied by: Self / Same As Patient Allergies pseudoephedrine [From Sudafed] Allergy (Intermediate, Verified 02/22/24 09:08) Difficulty Breathing HPI Comments Details: Patient presents for follow-up. He is still undergoing every other day VNA wound care for his umbilical wound. He is told by the nurses that it is decreasing in size. Otherwise he is doing well. 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 Markedly decreasing since last visit. No evidence of any infection. Healthy granulating tissue Assessment & Plan Assessment & Plan (1) Granulation of wound bed: Code(s): L92.9 - Granulomatous disorder of the skin and subcutaneous tissue, unspecified Category: Surgical Plan Patient was continue local wound care q.o.d. with his nurses. He will see me in 2 weeks' time for follow-up or p.r.n.. All questions answered. Coding Level of Care Code Complex EM visit Add On G2211 Diagnoses Granulation of wound bed L92.9
== END 2024-02-22 09:13 | disposition home or self-care (01) ==
PROVIDERS: PCP General Practice; Visit Provider Surgery
DX: L92.9 Granulomatous disorder of the skin and subcutaneous tissue, unspecified (principal)
CPT/HCPCS: 99212

== ENCOUNTER → 2024-02-22 08:57 | Outpatient (BNVA) | payer MEDICARE, MEDICAID, SELFPAY | PROVIDERS: PCP General Practice; Visit Provider Surgery | DX: L92.9 Granulomatous disorder of the skin and subcutaneous tissue, unspecified (principal) | CPT/HCPCS: 99212 ==

== ENCOUNTER 2024-03-07 09:26 | Outpatient (AMB) | payer MEDICARE, MEDICAID, SELFPAY ==
--- NOTE | 2024-03-07 09:30 | MHC.OFFVIS ---
Vital Signs 03/07/24 09:34 Weight 244 lb BP 130/75 Blood Pressure Location Rt brachial Position Sitting Pulse 74 Intake Visit Reasons: 2wk follow up s/p debridement skin Intake Note: Patient here for 2wk follow up abdomen debridement wound check. Patient c/o: reports wound improvement. VNA services every other day. Ethnoarchaeology Professor Required: No Accompanied by: Self / Same As Patient Allergies pseudoephedrine [From Sudafed] Allergy (Intermediate, Verified 03/07/24 09:33) Difficulty Breathing HPI Comments Details: Patient presents for follow-up. He has no wound issues or complaints. Visiting Nurse is no longer able to pack the wound. 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 Umbilical wound has significantly decreased in size and is even smaller than a half of a tip of a Q-tip. Some exuberant granulating tissue extruding was cauterized with silver nitrate with bacitracin and dressing applied. Assessment & Plan Assessment & Plan (1) Granulation of wound bed: Code(s): L92.9 - Granulomatous disorder of the skin and subcutaneous tissue, unspecified Category: Surgical Plan From surgical perspective, patient was doing quite well. His visiting nurse suggested collagen agent W placed which I have no problem with. Patient was been given local instructions, and will otherwise follow-up p.r.n.. All questions answered. Coding Level of Care Code Complex EM visit Add On G2211 Diagnoses Granulation of wound bed L92.9
[2024-03-07 09:34] VITALS: BP 130/75; PULSE 74
== END 2024-03-07 09:41 | disposition home or self-care (01) ==
PROVIDERS: PCP General Practice; Visit Provider Surgery
DX: L92.9 Granulomatous disorder of the skin and subcutaneous tissue, unspecified (principal)
CPT/HCPCS: 99212

== ENCOUNTER → 2024-03-07 09:26 | Outpatient (BNVA) | payer MEDICARE, MEDICAID, SELFPAY | PROVIDERS: PCP General Practice; Visit Provider Surgery | DX: L92.9 Granulomatous disorder of the skin and subcutaneous tissue, unspecified (principal) | CPT/HCPCS: 99212 ==

== ENCOUNTER 2024-03-14 09:35 | Outpatient (AMB) | payer MEDICARE, MEDICAID, SELFPAY ==
--- NOTE | 2024-03-14 09:40 | MHC.OFFVIS ---
Intake Visit Reasons: wound check Intake Note: Patient scheduled today urgent appointment for new concern. C/o new inflamed growth under hernia scarline on rt abdomen. Denies pain or tenderness. Normal BM daily. Insulation Manager Required: No Accompanied by: Self / Same As Patient Allergies pseudoephedrine [From Sudafed] Allergy (Intermediate, Verified 03/07/24 09:33) Difficulty Breathing HPI Comments Details: Patient presents for evaluation because of a bolus/swelling of his right subcostal incision. This happened over the last few days time. He presents here for further evaluation. Patient otherwise doing well. He is tolerating a diet. He is having regular bowel habits. He is increasing his activity level. He does state that he does do significant coughing and straining which may have precipitated this process/bulging. 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 Abdomen very corpulent, soft. On standing, the right lateral area of the incision has a finger tip sized defect suggestive of a incisional ventral hernia. Abdomen is otherwise unremarkable. Assessment & Plan Assessment & Plan (1) Incisional hernia: Code(s): K43.2 - Incisional hernia without obstruction or gangrene Category: Surgical Plan Current plan is to arrange for CT scan abdomen pelvis to corrborate/confirmed physical findings. Patient will see me after this study. Coding Level of Care Code Est Pt Level 4 (14652) Complex EM visit Add On G2211 Diagnoses Incisional hernia K43.2
== END 2024-03-14 09:46 | disposition home or self-care (01) ==
PROVIDERS: PCP General Practice; Visit Provider Surgery
DX: K43.2 Incisional hernia without obstruction or gangrene (principal)
CPT/HCPCS: 99214; G2211

== ENCOUNTER → 2024-03-14 09:35 | Outpatient (BNVA) | payer MEDICARE, MEDICAID, SELFPAY | PROVIDERS: PCP General Practice; Visit Provider Surgery | DX: K43.2 Incisional hernia without obstruction or gangrene (principal) | CPT/HCPCS: 99212 ==

== ENCOUNTER 2024-03-15 10:02 | Outpatient (REF) | payer MEDICARE, MEDICAID, SELFPAY ==
[2024-03-15 10:37] LABS: Blood Urea Nitrogen 13 mg/dL (9-16); Estimated Glomerular Filt Rate > 60
[2024-03-15 11:01] LABS: Estimated Average Glucose 140 mg/dL; Hemoglobin A1c % 6.5 % (<6.0); Total Hemoglobin (HGBA1C) 3598.8369 umol/L
== END 2024-03-15 10:03 | disposition home or self-care (01) ==
LOC: HO.LAB 10:02
PROVIDERS: Internal Medicine; PCP General Practice; Visit Provider Surgery
DX: E11.628 Type 2 diabetes mellitus with other skin complications (principal); K43.2 Incisional hernia without obstruction or gangrene
CPT/HCPCS: 36415; 82565; 83036; 84520

== ENCOUNTER 2024-03-19 12:13 | Outpatient (REF) | payer MEDICARE, MEDICAID, SELFPAY ==
--- NOTE | ~2024-03-19 | CT_ITS ---
EXAMINATION: CT ABDOMEN AND PELVIS WITH CONTRAST CLINICAL INFORMATION: Incisional hernia without obstruction or gangrene COMPARISON: None available. TECHNIQUE: Multidetector volumetric images were obtained from the superior aspect of the liver through the pubic symphysis following administration 85 mL of Omnipaque 350 intravenous contrast. Sagittal and coronal reformatted images were obtained on the technologist's workstation. Oral contrast: No This CT examination was performed using dose optimization techniques as appropriate, variously including the following: *Automated exposure control *Adjustment of mA and/or kV according to patient size (this includes techniques or standardized protocols for targeted exams where dose is matched to indication/reason for exam; i.e. extremities or head) *Use of iterative reconstruction technique DLP: 635 mGy-cm FINDINGS: LUNG BASES: The visualized lung bases are unremarkable. LIVER, GALLBLADDER, AND BILIARY TREE: Moderate hepatic steatosis. The right lobe of the liver is elongated. Overall the liver does appear prominent. No focal mass or intrahepatic biliary dilatation. The gallbladder is surgically absent. PANCREAS: Unremarkable. SPLEEN : There is a tiny punctate splenic granuloma in the posterior spleen otherwise the spleen appears unremarkable. No perisplenic collections. ADRENAL GLANDS: Unremarkable. KIDNEYS AND URETERS: No suspicious mass, calcification, hydronephrosis or perinephric collection. There may be a tiny cyst, in the posterior mid right kidney at 5 mm. No further workup needed. BLADDER: Unremarkable. GASTROINTESTINAL TRACT: Mild sigmoid diverticulosis. Stomach is filled with contrast and ingested material. There is no bowel obstruction or right or left lower quadrant inflammatory change. ABDOMINAL WALL: The ventral hernia site is observed, midline, at the level of the umbilicus with a fair amount of scarring and retraction in distortion however, no drainable collections. Small bowel loops project up into the hernia defect however I do not see evidence of gangrene or fluid at this site. There is slight ectasia of the right rectus region, with atrophy of the rectus muscle and bowel approaches this area of ectasia without discrete herniation. The bowel obstruction pattern seen on 11/19/2023 is not apparent today. LYMPH NODES: A few small nodes are observed in the central abdomen and retroperitoneum, possibly reactive, the largest in the interaortocaval space at 9 mm. No change. Other subcentimeter nodes in the left para-aortic space are stable. VASCULAR: There is minor atherosclerotic change in the aorta which is not aneurysmal. PELVIC VISCERA: Uterus absent. No adnexal masses. No fluid in the cul-de-sac. OSSEOUS STRUCTURES: There is multilevel spondylitic and degenerative change in the lumbar spine but no fracture. CT/CT abdomen pelvis w IV con IMPRESSION: Interval improvement. No bowel obstruction at this time. Postsurgical changes are noted. Please see above discussion. Fleischner guidelines were followed. Electronically signed by: Dao Ortiz MD 03/21/2024 09:24 AM EDUARDO CORTEZ
[2024-03-19] MEDS: iohexoL 350 MG/ML 75 ML INFUS..BTL 85 ML IV (14:58)
[2024-03-19] MEDS: Barium Sulfate Oral (Mocha) 450 ML ORAL.SUSP 900 ML PO (14:58)
== END 2024-03-19 12:14 | disposition home or self-care (01) ==
LOC: HO.CT 12:13
PROVIDERS: PCP General Practice; Visit Provider Surgery
DX: K43.2 Incisional hernia without obstruction or gangrene (principal)
CPT/HCPCS: 74177; Q9967

== ENCOUNTER 2024-04-05 10:31 | Outpatient (AMB) | payer MEDICARE, MEDICAID, SELFPAY ==
--- NOTE | 2024-04-05 10:32 | A.OFFVIS_ITS ---
Vital Signs 04/05/24 10:34 Height 5 ft 11 in Weight 262 lb 5.601 oz BMI 36.6 BP 120/80 Blood Pressure Location Rt brachial Position Sitting Pulse 102 H Pulse Source Pulse Oximeter Intake Visit Reasons: f/up DM/Confirmed Intake Note: Patient presents today for a follow-up on Type 2 Diabetes Mellitus: Last Diabetic eye exam was on: DUE Last Podiatry exam was on: Does not see a Contracting Analyst Most recent HbA1c: 6.5%, 03/15/2024 Random Glucose- 186 mg/dL, Today Guillotine Trimmer Required: No Accompanied by: Self / Same As Patient Allergies pseudoephedrine [From Sudafed] Allergy (Intermediate, Verified 04/05/24 10:33) Difficulty Breathing HPI Comments Details: The patient is a 48 year old with type 2 diabetes presenting for diabetes Medical history: Recent empyema gallbladder s/p lap cholecystectomy 11/09 with repair of small bowel defect 11/10, pelvic abscess, hypertension, seizure disorder Reports he did not know he was a diabetic prior to his hospitalization. He received insulin prn during hospitalization 11/2023. A1C 06/2023 7.1% POC A1C at december consultation 7.1% He was prescribed metformin 500mg twice daily. He did not start b/c needs teaching so he can check his blood glucose levels-taught to use freestyle lite meter. Brought him back 4-6 weeks (today) to review BG. He only has taken 4 readings 106, 120, 126 fasting and 160 non fasting. Discussed waiting for next A1C to discuss initiation of medication. Most recent A1C 6.5%. Discussed starting medication versus rechecking 3 months. Decided to initiate GLP to aid weight loss and glucose Report family history of diabetes Needs eye exam ROS CONSTITUTIONAL: Denies weight loss, fever and chills. HEENT: Denies changes in vision and hearing. RESPIRATORY: Denies SOB and cough. CV: Denies palpitations and CP GI: Denies abdominal pain, nausea, vomiting and diarrhea. : Denies dysuria and urinary frequency. MSK: Denies new myalgia and joint pain. SKIN: healing abdominal surgical wound NEUROLOGICAL: Denies headache PSYCHIATRIC: Denies recent changes in mood. PHYSICAL EXAM: GENERAL: Alert and oriented x 3. NAD EYES: EOMI. Anicteric. HENT: Moist mucous membranes. No scleral icterus. No cervical lymphadenopathy. LUNGS: Clear to auscultation bilaterally. CARDIOVASCULAR: Regular rate and rhythm. No murmur. No JVD. ABDOMEN: Soft, non-tender +bs EXTREMITIES: No edema. Non-tender. SKIN: No rashes NEUROLOGIC: No focal neurological deficits. CN II-XII grossly intact PSYCHIATRIC: Cooperative. 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 Physical Exam Vital Signs: Last Vital Signs Pulse 102 H 04/05/24 10:34 BP 120/80 04/05/24 10:34 BMI result Body Mass Index 36.6 Assessment & Plan Assessment & Plan (1) Diabetes mellitus: Code(s): E11.9 - Type 2 diabetes mellitus without complications Category: Surgical Qualifiers: Diabetes mellitus type: type 2 Diabetes mellitus fdc insulin use: without terminal supervisor use Diabetes mellitus complication status: with skin complications Diabetes mellitus complication detail: with other skin complication Qualified Code(s): E11.628 - Type 2 diabetes mellitus with other skin complications Plan: Start mounjaro 2.5mg weekly He will continue dietary & lifestyle efforts Return in 3 months Medications: New Mounjaro (tirzepatide) for 4 weeks 2.5 mg (0.5 mL) subcut QWEEK 6 mL 3RF NS E11.628 - Type 2 diab etes mellitus with other skin complications Coding Level of Care Code Est Pt Level 4 (26586) Diagnoses Type 2 diabetes mellitus with other skin complication, without long-term current use of insulin E11.628 Diabetes mellitus type: type 2 Diabetes mellitus fdc insulin use: without fdc use Diabetes mellitus complication status: with skin complications Diabetes mellitus complication detail: with other skin complication
[2024-04-05 10:34] VITALS: BP 120/80; PULSE 102; BMI 36.6
[2024-04-05 10:42] LABS: Glucose, Whole Blood 186 mg/dL (60-115)
== END 2024-04-05 10:56 | disposition home or self-care (01) ==
PROVIDERS: PCP General Practice; Visit Provider Internal Medicine
DX: E11.628 Type 2 diabetes mellitus with other skin complications (principal)

== ENCOUNTER → 2024-04-05 10:31 | Outpatient (BNVA) | payer MEDICARE, MEDICAID, SELFPAY | PROVIDERS: PCP General Practice; Visit Provider Internal Medicine | DX: E11.628 Type 2 diabetes mellitus with other skin complications (principal) | CPT/HCPCS: 82947; 99212 ==

== ENCOUNTER 2024-04-27 08:39 | Emergency (ER) | payer MEDICARE, MEDICAID, SELFPAY ==
--- NOTE | ~2024-04-27 | US_ITS ---
EXAMINATION: US ABDOMEN LIMITED HISTORY: RUQ pain around cholecystectomy scar TECHNIQUE: Real-time grayscale ultrasound imaging of the right upper quadrant was performed and images were reviewed. COMPARISON: Correlation is made with an abdominal ultrasound dated 08/25/2023. FINDINGS: Sonographic examination of an abdominal bulge in the right upper quadrant was performed. The patient was scanned in the supine and standing positions. No mass or hernia is identified. US/US abdomen limited IMPRESSION: No sonographic abnormality is seen to correspond to the bulge in the right upper quadrant. Electronically signed by: Mendez Mccarthy MD 04/27/2024 12:50 PM [facility]
[2024-04-27 09:17] VITALS: BP 130/94; PULSE 85; RESP 16; TEMP 36.8; O2SAT 99; BMI 34.5
[2024-04-27 09:38] LABS: MANUAL DIFF FLAG NO
[2024-04-27 09:39] LABS: Basophils Percent Auto 0.5 % (0-2); Eosinophils Percent Auto 0.7 % (0-4); Hematocrit 45.5 % (42.0-52.0); Hemoglobin 14.8 g/dl (14.0-18.0); Imm Gran Abs Auto 0.03 X10*3/uL (0.00-0.03); Imm Gran Pct Auto 0.5 % (0.0-0.4); Lymphocytes Absolute Auto 1.3 X10*3/uL (1.2-4.9); Lymphocytes Percent Auto 22.3 % (20-40); Mean Corpuscular HGB Conc 32.5 g/dl (31.0-36.0); Mean Corpuscular Hemoglobin 26.1 pg (27.0-33.0); Mean Corpuscular Volume 80.2 fL (80.0-98.0); Mean Platelet Volume 9.3 fL (9.4-12.4); Monocytes Absolute Auto 0.7 X10*3/uL (0.1-1.2); Monocytes Percent Auto 11.8 % (2-11); Neutrophils Absolute Auto 3.7 x10*3/uL (2.0-8.3); Neutrophils Percent Auto 64.2 % (45-73); Platelet Count 281 X10*3/uL (160-400); Red Blood Count 5.67 X10*6/uL (4.60-5.80); White Blood Count 5.7 X10*3/uL (4.8-10.8)
[2024-04-27 09:48] LABS: IDNOW Serial# 58CA691E
[2024-04-27 09:49] LABS: Strep A Nucleic Acid Negative (Negative)
--- NOTE | 2024-04-27 09:49 | ED.ABDPAIN ---
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 Buenrostro) who presents to the ER for re-evaluation of right-sided abdominal swelling for the last several weeks along with 2.5 weeks of constipation. He reports he has been taking oral fiber pills and has only been able to pass very small amounts of stool every time he tries have a bowel movement. He is passing flatus, denies any nausea or vomiting. He reports when coughing or straining to have a bowel movement he feels the right side of his abdomen protrude where the surgical incision is in the right upper quadrant. He feels liquid underneath the skin that moves around transiently and goes away when pressure is released. No fever or chills. No skin changes. No drainage from the surgical sites. He called Dr. Buenrostro's office who states he is away for the weekend soaks he came to the ER for further evaluation MD elicited complaint: abdominal pain Pertinent past history: other (post op complications from lap [place]) Onset (ago): week(s) Pain Consistency: intermittent Location: RUQ Severity: moderate Quality: aching Radiation: none Migration to: no migration Exacerbating factors: other (straining, coughing) Relieving factors: nothing Context: recent surgery/procedure Associated symptoms: constipation Related Data Home Medications ?Medication ?Instructions ?Recorded ?Confirmed lamotrigine 200 mg tablet 200 mg PO BID@1000,2200 11/20/21 03/14/24 (Lamictal) hydrochlorothiazide 25 mg tablet 25 mg PO DAILY@1000 12/23/21 03/14/24 oxcarbazepine 600 mg tablet 1 tab PO BID@1000,2200 01/07/22 03/14/24 baclofen 20 mg tablet 20 mg PO QID PRN back spasms 11/10/23 03/14/24 ibuprofen 400 mg tablet 400 - 800 mg PO Q8H Pain 11/10/23 03/14/24 Previous Rx's ?Medication ?Instructions ?Recorded lisinopril 10 mg tablet 10 mg PO DAILY #90 tabs 11/23/23 abdominal binder #1 ea 01/18/24 Mounjaro 2.5 mg/0.5 mL 2.5 mg (0.5 mL) subcut QWEEK #6 mL 04/05/24 subcutaneous pen injector (tirzepatide) docusate sodium 100 mg capsule 100 mg PO BID #30 caps 04/27/24 (Colace) polyethylene glycol 3350 17 17 g PO DAILY #510 grams 04/27/24 gram/dose oral powder (Miralax) sennosides 8.6 mg capsule (senna) 8.6 mg PO BEDTIME #30 caps 04/27/24 Allergies Allergy/AdvReac Type Severity Reaction Status Date / Time pseudoephedrine Allergy Intermediate Difficulty Verified 04/27/24 09:21 [From Sudafed] Breathing Review of Systems Review of Systems Yes all other systems are reviewed and are negative [facility] Past Medical History Medical History Seizure disorder High blood pressure Surgical History Postop check Status post small bowel resection Hx laparoscopic cholecystectomy History of surgery on right wrist Social History Social History Household Members: Spouse Housing: Apartment Are you a primary career based intervention coordinator to a significant other at home: No Do you presently have visiting nurse or other home services: Yes Comment: counts correct Patient Tobacco Use Status: Former Tobacco user Tobacco use type: Cigarette Smoked in Last 30 Days: No Use of substances other than those prescribed or required for medical reasons: No Advance Directives: No Advance Directives Information Provided: Yes Do you have a plan to hurt others: No Plan service: No 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 Oriented X3. No acute distress. Head: normocephalic, atraumatic. Eyes: Pupils equal, round and reactive to light. ENT: Pharynx normal. No tonsillar swelling or exudate. Neck: Normal inspection. Neck supple. CVS: Normal heart rate and rhythm. Pulses normal. Respiratory: No respiratory distress. Breath sounds normal. Abdomen: Obese, well healed approx 5cm surgical scar in RUQ, periumbilical rash with small <1cm superficial opening without drainage, redness, tenderness or induration, Soft and nontender. +BS x4. w/ valsalva there is movement and protrusion in the right upper quadrant, nontender, no mass Skin: Skin warm and dry. Normal skin color. Normal skin turgor. No rashes. Extremities: No lower extremity edema. No joint swelling. Neuro/psych: Oriented X 3. No motor deficit. No sensory deficit. CN II-XII intact. Normal speech and cognition. Medical Decision Making Medical Decision Making MDM Narrative: 48 yo male with history of a laparoscopic cholecystectomy in November along with a partial small bowel resection due to bowel perforation, complicated by a umbilical wound abscess requiring debridement in the operating room in January who presents back to the ER for evaluation of concern of a hernia in the right upper quadrant along with constipation, minimal bowel movement in the last 2.5 weeks. Has not had any vomiting or significant abdominal pain. He is passing flatus. Clinically does not have an obstruction. Rectal exam without any stool ball appreciated. Right upper quadrant ultrasound was done to assess for possible fluid collection or abscess or hernia. No appreciated acute findings on imaging. Dr. Buenrostro contacted via [employer] who encouraged outpatient follow-up in the office patient's labs reassuring. He was found to have influenza a. He reports many of his family members at home were having fevers last weekend along with nausea and vomiting. He did not have any nausea or vomiting but did have a fever over the weekend, overall feeling much better. Patient was given oral laxatives in the emergency department. No BM however he still has normoactive bowel sounds nontender abdomen. Comfortable discharge home with aggressive oral bowel regimen as needed. Differential Diagnosis Differential Diagnoses: The differential diagnosis associated with the presentation includes Constipation, obstipation, bowel obstruction, hernia, perforation Admission/Observation Consideration of admission/observation: Escalation of care including admission/observation considered Consult Healthcare Provider Management of the patient was discussed with: Hairspring Inspector Porter Lab Data MDM Lab Attestation statement: I reviewed the patient's lab results. no leukocytosis, normal renal function, no anemia 04/27/24 09:33 04/27/24 09:33 Labs: Lab Results 04/27/24 Range/Units 09:33 WBC 5.7 (4.8-10.8) X10*3/uL RBC 5.67 (4.60-5.80) X10*6/uL Hgb 14.8 (14.0-18.0) g/dl Hct 45.5 (42.0-52.0) % MCV 80.2 (80.0-98.0) fL MCH 26.1 L (27.0-33.0) pg MCHC 32.5 (31.0-36.0) g/dl RDW 13.0 (11.0-16.0) % Plt Count 281 (160-400) X10*3/uL MPV 9.3 L (9.4-12.4) fL Immature Gran % (Auto) 0.5 H (0.0-0.4) % Neut % (Auto) 64.2 (45-73) % Lymph % (Auto) 22.3 (20-40) % [place] % (Auto) 11.8 H (2-11) % Eos % (Auto) 0.7 (0-4) % Baso % (Auto) 0.5 (0-2) % Lymph # (Auto) 1.3 (1.2-4.9) X10*3/uL [place] # (Auto) 0.7 (0.1-1.2) X10*3/uL Eos # (Auto) 0.0 (0.0-0.4) X10*3/uL Baso # (Auto) 0.0 (0.0-0.2) X10*3/uL Abs Immat Gran (auto) 0.03 (0.00-0.03) X10*3/uL Absolute Neuts (auto) 3.7 (2.0-8.3) x10*3/uL Absolute Nucleated RBC 0.000 (0.0-0.012) X10*3/uL Nucleated RBC % (auto) 0.0 (0.0-0.2) /100WBC Sodium 136 (135-145) mmol/L Potassium 4.4 (3.3-5.1) mmol/L Chloride 103 (96-108) mmol/L Carbon Dioxide 27 (22-29) mmol/L Anion Gap 10 L (12-20) BUN 14 (9-16) mg/dL Creatinine 0.69 (0.5-1.4) mg/dL Estim Creat Clear Calc 170.4 Estimated GFR > 60 Random Glucose 114 (60-115) mg/dL Calcium 9.1 (8.4-10.2) mg/dL Total Bilirubin 0.4 (0.0-1.0) mg/dL AST 37 (5-37) U/L ALT 58 H (0-40) U/L Alkaline Phosphatase 106 (39-117) U/L Total Protein 7.5 (6.5-8.0) g/dL Albumin 4.0 (3.5-5.0) g/dL Influenza Type A (PCR) POSITIVE A (Negative) Influenza Type B (PCR) NEGATIVE (Negative) RSV RNA Qual (PCR) NEGATIVE (Negative) SARS-CoV-2 RNA (RT-PCR) NEGATIVE (Negative) S. pyogenes GrpA JESSICA Negative (Negative) Independent Interpretation I performed an independent interpretation of an: Ultrasound Interpretation: no visible fluid collection under the skin to suggest abscess or cellulitis Radiology Impression Discussion of test interpretation with radiology: I have reviewed the radiologist's reading. External Record Review External record reviewed: Outpatient record, Prior outpatient labs and Prior outpatient radiology Tests considered The following testing was considered but not selected: CT scan of the abdomen was considered however he just had 1 done a month ago for similar concern Prescription Management I considered prescription management with: Pain Medication and Other ( laxative) Medications Administered Discontinued Medications Generic Name Dose Route Start Last Admin Trade Name Freq PRN Reason Stop Dose Admin Bisacodyl 10 mg 04/27/24 10:49 04/27/24 11:51 Bisacodyl 10 Mg Supp.Rect [place] 04/27/24 10:50 10 mg ONCE ONE Administration Docusate Sodium 200 mg 04/27/24 10:49 04/27/24 11:51 Docusate Sodium 100 Mg Capsule PO 04/27/24 10:50 200 mg ONCE ONE Administration Magnesium Hydroxide 30 ml 04/27/24 10:50 04/27/24 11:51 Milk Of Magnesia 30 Ml Oral.Susp PO 04/27/24 10:51 30 ml ONCE ONE Administration Polyethylene Glycol 17 gm 04/27/24 13:28 04/27/24 13:47 Polyethylene Glycol 3350 17 Gm Powd.Pack PO 04/27/24 13:29 17 gm ONCE ONE Administration Senna 17.2 mg 04/27/24 13:30 04/27/24 13:47 Sennosides 8.6 Mg Tablet PO 04/27/24 13:31 17.2 mg NOW ONE Administration Critical Care Time Critical Care Time Critical Care Time: No Discharge Plan Discharge Clinical Impression: Acute constipation Patient Disposition: Home, Self-Care Instructions: Constipation (DC), High Fiber Diet (ED) Additional Instructions: Your examination today was reassuring with normal bowel sounds and no evidence of a concerning hernia. Your ultrasound did not show any evidence of a concerning hernia. Recommend increasing her bowel regimen to include MiraLax 1-2 times per day, Colace 2 times per day and senna once per day. Increase your hydration, drink plenty of water. You can also try hzoh-qvq-eicpehe rectal suppositories to help having a bowel movement. Follow-up with Dr. Buenrostro next week. If you develop new or worsening symptoms call 911 or come back to the ER for further evaluation. Prescriptions: New polyethylene glycol 3350 [Miralax] 17 gram/dose powder 17 g PO DAILY Qty: 510 0RF docusate sodium [Colace] 100 mg capsule 100 mg PO BID Qty: 30 0RF senna 8.6 mg capsule 8.6 mg PO BEDTIME Qty: 30 0RF No Action (DME) abdominal binder to fit See Rx Instructions .Route .MEDSUPPLY Qty: 1 0RF Rx Instructions: As directed oxcarbazepine 600 mg tablet 1 tab PO BID@1000,2200 baclofen 20 mg tablet 20 mg PO QID PRN (Reason: back spasms) ibuprofen 400 mg tablet 400 - 800 mg PO Q8H lisinopril 10 mg tablet 10 mg PO DAILY Qty: 90 0RF hydrochlorothiazide 25 mg tablet 25 mg PO DAILY@1000 lamotrigine [Lamictal] 200 mg tablet 200 mg PO BID@1000,2200 Mounjaro 2.5 mg/0.5 mL pen injector 2.5 mg subcut QWEEK Qty: 6 3RF Rx Instructions: for 4 weeks Referrals: [facility] [place] General Surgeons [Provider Group] Interventions: ED Discharge Assessment Last Done: 04/27/24 13:43 Print Language: Chinese
[2024-04-27 10:03] LABS: Alanine Aminotransferase 58 U/L (0-40); Anion Gap 10 (12-20); Aspartate Amino Transferase 37 U/L (5-37); Bilirubin Total 0.4 mg/dL (0.0-1.0); Blood Urea Nitrogen 14 mg/dL (9-16); Calcium 9.1 mg/dL (8.4-10.2); Carbon Dioxide 27 mmol/L (22-29); Chloride 103 mmol/L (96-108); Creatinine Clr Calc Pharmacy 170.4; Estimated Glomerular Filt Rate > 60; Glucose Random 114 mg/dL (60-115); Potassium 4.4 mmol/L (3.3-5.1); Sodium 136 mmol/L (135-145); Total Protein 7.5 g/dL (6.5-8.0)
[2024-04-27 10:28] LABS: Influenza A PCR POSITIVE (Negative); Influenza B PCR NEGATIVE (Negative); Resp Syncy Virus RNA Qual PCR NEGATIVE (Negative); SARS COV2 PCR INHOUSE NEGATIVE (Negative)
[2024-04-27] MEDS: Milk of Magnesia 30 ML ORAL.SUSP PO (11:51)
[2024-04-27] MEDS: bisacodyL 10 MG SUPP.RECT PR (11:51)
[2024-04-27] MEDS: Docusate Sodium 100 MG CAPSULE 200 MG PO (11:51)
[2024-04-27 12:00] VITALS: BP 112/70; PULSE 72; RESP 16; TEMP 37.1; O2SAT 96
[2024-04-27 13:43] VITALS: BP 112/70; PULSE 72; RESP 16; TEMP 37.1; O2SAT 96
[2024-04-27] MEDS: polyethylene glycoL 3350 17 GM POWD.PACK PO (13:47)
[2024-04-27] MEDS: Sennosides 8.6 MG TABLET 17.2 MG PO (13:47)
[2024-04-27 14:10] LABS: Alkaline Phosphatase 106 U/L (39-117)
== END 2024-04-27 23:54 | disposition home or self-care (01) ==
PROVIDERS: Emergency Provider Emergency Medicine; PCP General Practice
DX: K59.00 Constipation, unspecified (principal); J10.1 Influenza due to other identified influenza virus with other respiratory manifestations; R10.11 Right upper quadrant pain; R05.9 Cough, unspecified; R10.2 Pelvic and perineal pain; Z79.899 Other long term (current) drug therapy; Z87.891 Personal history of nicotine dependence; Z03.818 Encounter for observation for suspected exposure to other biological agents ruled out
CPT/HCPCS: 0241U; 76705; 80053; 85025; 87651; 99284

== ENCOUNTER → 2024-04-27 10:50 | Outpatient (BNV) | payer MEDICARE, MEDICAID, SELFPAY | PROVIDERS: Emergency Provider Emergency Medicine; PCP General Practice; Visit Provider Radiology Diagnostic Radiology | DX: R10.11 Right upper quadrant pain (principal) | CPT/HCPCS: 76705 ==

== ENCOUNTER 2024-07-04 10:00 | Outpatient (AMB) | payer MEDICARE, MEDICAID, SELFPAY ==
[2024-07-04 10:01] VITALS: BP 120/80; PULSE 72; O2SAT 98; BMI 34.7
--- NOTE | 2024-07-04 10:01 | A.OFFVIS_ITS ---
Vital Signs 07/04/24 10:01 Height 5 ft 11 in Weight 249 lb 1.957 oz BMI 34.7 BP 120/80 Blood Pressure Location Rt brachial Position Sitting Pulse 72 Pulse Source Pulse Oximeter Pulse Oximetry (%) 98 Oxygen Delivery Method Room Air Intake Visit Reasons: DM Intake Note: Patient presents today for a follow-up on Type 2 Diabetes Mellitus: Last Diabetic eye exam was on: 06/01/2023 Last Podiatry exam was on: Patient does not see a Defensive Fire Control Systems Operator Most recent HbA1c: 6.1%, 07/04/2024 Random Glucose- 116 mg/dL, Today Sleeping Room Cleaner Required: No Accompanied by: Self / Same As Patient Allergies pseudoephedrine [From Sudafed] Allergy (Intermediate, Verified 07/04/24 10:05) Difficulty Breathing HPI Comments Details: The patient is a 48 year old with type 2 diabetes presenting for diabetes Medical history: Recent empyema gallbladder s/p lap cholecystectomy 11/09 with repair of small bowel defect 11/10, pelvic abscess, hypertension, seizure disorder Diabetes diagnosed 2023 Reports he did not know he was a diabetic prior to his hospitalization. He received insulin prn during hospitalization 11/2023. A1C 06/2023 7.1% POC A1C at december consultation 7.1% DM Previously on metformin. Insulin use during hospitalization 2023. On mounjaro 2.5 mg weekly. He has lost 13 pounds. A1C has improved from 7.1 to 6.5 to 6.1. Report family history of diabetes Needs eye exam ROS CONSTITUTIONAL: Denies weight loss, fever and chills. HEENT: Denies changes in vision and hearing. RESPIRATORY: Denies SOB and cough. CV: Denies palpitations and CP GI: Denies abdominal pain, nausea, vomiting and diarrhea. : Denies dysuria and urinary frequency. MSK: Denies new myalgia and joint pain. SKIN: healing abdominal surgical wound NEUROLOGICAL: Denies headache PSYCHIATRIC: Denies recent changes in mood. PHYSICAL EXAM: GENERAL: Alert and oriented x 3. NAD EYES: EOMI. Anicteric. HENT: Moist mucous membranes. No scleral icterus. No cervical lymphadenopathy. LUNGS: Clear to auscultation bilaterally. CARDIOVASCULAR: Regular rate and rhythm. No murmur. No JVD. ABDOMEN: Soft, non-tender +bs EXTREMITIES: No edema. Non-tender. SKIN: No rashes NEUROLOGIC: No focal neurological deficits. CN II-XII grossly intact PSYCHIATRIC: Cooperative. 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 Physical Exam Vital Signs: Last Vital Signs Pulse 72 07/04/24 10:01 BP 120/80 07/04/24 10:01 Pulse Ox 98 07/04/24 10:01 Oxygen Delivery Method Room Air 07/04/24 10:01 BMI result Body Mass Index 34.7 Results AMB Hemoglobin A1c AMB Hemoglobin A1c 6.1 % Last Edit by CHANDU Cyr on 07/04/24 10:15 Results Reviewed Results Reviewed: Laboratory Last Values Glucose (Clinic) 116 mg/dL (60-115) H 07/04/24 10:06 Hgb A1c (Clinic) 6.1 % (4.0-6.0) H 07/04/24 10:14 Assessment & Plan Assessment & Plan (1) Diabetes mellitus: Code(s): E11.9 - Type 2 diabetes mellitus without complications Category: Surgical Qualifiers: Diabetes mellitus complication detail: with other skin complication Diabetes mellitus complication status: with skin complications Diabetes mellitus intermediate card tender insulin use: without long-term use Diabetes mellitus type: type 2 Qualified Code(s): E11.628 - Type 2 diabetes mellitus with other skin complications Plan: Controlled on mounjaro Tolerating well will increase to 5mg weekly Return in 3 months for A1C Orders: Orders AMB Hemoglobin A1c 07/04/24 E11.628 - Type 2 diabetes mellitus with other skin complications Medications: New 2 Mounjaro (tirzepatide) 5 mg (0.5 mL) subcut QWEEK 6 mL 1RF NS Coding Level of Care Code Est Pt Level 4 (25295) Diagnoses Type 2 diabetes mellitus with other skin complication, without long-term current use of insulin E11.628 Diabetes mellitus complication detail: with other skin complication Diabetes mellitus complication status: with skin complications Diabetes mellitus intermediate card tender insulin use: without long-term use Diabetes mellitus type: type 2
[2024-07-04 10:10] LABS: Glucose, Whole Blood 116 mg/dL (60-115)
--- OUTSIDE RECORDS SUMMARY | 2024-07-04 11:28 | XMS_ITS | Encounter Summary ---
Author Organization [employer] Address [address] [facility] [address] [place] [address] Care Team Providers Care Construction Crew Member Name Role Phone Maria Elena Wells MD Primary Care Provider Encounter Details Date Type Department Care Team ([facility] st Contact Info) Description 07/02/2024 Orders Only [facility] MEDICINE [address] [place], [place] [phone] Maria Elena Wells MD [address] [place], [place] [phone] Social History Tobacco Use Types Packs/Day Years Used Date Smoking Tobacco: Never Passive Smoke Exposure: Never Smokeless Tobacco: Never Alcohol Use Standard Drinks/Week Comments Never 0 (1 standard drink = 0.6 oz pur e alcohol) Depression Answer Date Recorded Patient Health Questionnaire-9 Score 0 11/08/2023 Patient Health Questionnaire-9 Score 0 11/08/2023 Last PHQ-9: Questionnaire Data Not on file 0 11/08/2023 Housing Stability Answer Date Recorded What is your housing situation today? I have eryn geller 10/27/[address] you li ve. Do you have problems with any of the following? None of the above 10/27/2023 Food Insecurity Answer Date Recorded Within the past 12 months, y ou worried that your food would run out before you got money to buy more: Never True 10/27/2023 Within the past 12 months,th e food you bought just didn't last and you didn't have enough money to get more: Never True Transportation Answer Date Recorded In the past 12 months, has l ack of transportation kept you from medical appts, meetings, work or from getting things needed for daily living? No 10/27/2023 Utilities Answer Date Recorded In the past 12 months, has t he electric, gas, oil or water company threatened to shut off services in your home? No 10/27/2023 Depression Answer Date Recorded Patient Health Questionnaire-2 Score 0 11/08/2023 Internet Access Answer Date Recorded Internet Access Q1 Yes 12/02/2023 Internet Access Q2 Not on file 12/02/2023 Sex and Gender Information Value Date Recorded Sex Assigned at Male 02/01/2022 10:16 AM EDT Legal Sex Male 10:16 AM EDT Gender Identity Male 02/01/2022 10:16 AM EDT Sexual Orientation Choose not to disclose 2021 10:16 AM EDT documented as of this encounter Plan of Treatment Not on file documented as of this encounter Visit Diagnoses Not on filedocumented in this encounter Additional Health Concerns Assessment Noted Time PHQ-9 Depression Total Score: 0 11/08/19 24 11:01 AM EDT documented as of this encounter Care Teams Construction Crew Member Relationship Specialty Start Date End Date Maria Elena Wells MD [address] [place] [id number] PCP - General Family Medicine 12/03/19 Alisson MINER 11/24/23 documented as of this encounter
--- OUTSIDE RECORDS SUMMARY | 2024-07-04 11:28 | XMS_ITS | Encounter Summary ---
Author Organization [employer] Address [address] [place] [address] [address] [place] [address] Care Team Providers Care Piercing Specialist Name Role Phone Maria Elena Wells MD Primary Care Provider Encounter Details Date Type Department Care Team (Latest Contact Info) Description 08/03/2018 [facility] CONVERSIONS Dental, Provider, DDS Social History Tobacco Use Types Packs/Day Years Used Date Smoking Tobacco: Never Assessed Sex and Gender Information Value Date Recorded Sex Assigned at Male 02/01/2022 10:16 AM EDT Legal Sex Male 10:16 AM EDT Gender Identity Male 02/01/2022 10:16 AM EDT Sexual Orientation Choose not to disclose 2021 10:16 AM EDT documented as of this encounter Plan of Treatment Not on file documented as of this encounter Visit Diagnoses Not on filedocumented in this encounter Care Teams Piercing Specialist Relationship Specialty Start Date End Date Maria Elena Wells MD [address] [place] [id number] PCP - General Family Medicine [facility] documented as of this encounter
--- OUTSIDE RECORDS SUMMARY | 2024-07-04 11:28 | XMS_ITS | Encounter Summary ---
Author Organization [employer] Address [address] [facility] [address] [place] [address] Care Team Providers Care Computer Numerical Control Operator Name Role Phone Maria Elena Wells MD Primary Care Provider [phone] Encounter Details Date Type Department Care Team (Late st Contact Info) Description 07/04/2024 Orders Only GENERIC EXTERNAL DATA DEPARTMENT Provider, Generic External Data Social History Tobacco Use Types Packs/Day Years [...] on file documented as of this encounter Procedures Procedure Name Priority Date/Time Associated Diagnosis Comments GLUCOSE, WHOLE BLOOD Routine 07/04/2024 10:06 AM EDT documented in this encounter Results * (ABNORMAL) Glucose, Whole Blood (07/04/2024 10:06 AM EDT) Glucose, Whole Blood 116(H) 60 - 115 mg/dL [facility] Comment:METER #: [id number] Testing performed in the Endocrinology Department [address], [address], [facility]. 07/04/2024 10:0 6 AM EDT 07/04/2024 10:09 AM EDT us Generic External Data Provider LAB BLOOD ORDERAB LES Final Result [facility] [address] [place] [address] [phone] documented in this encounter Visit Diagnoses Not on filedocumented in this encounter Additional Health Concerns Assessment Noted Time PHQ-9 Depression Total Score: 0 11/08/19 24 11:01 AM EDT documented as of this encounter Care Teams Computer Numerical Control Operator Relationship Specialty Start Date End Date Maria Elena Wells MD [address] [place] [phone] PCP - General Family Medicine [facility]03[facility] documented as of this encounter
--- OUTSIDE RECORDS SUMMARY | 2024-07-04 11:28 | XMS_ITS | Encounter Summary ---
Author Organization [employer] Address [address] [facility] [address] [place] [address] Care Team Providers Care Sawdust Drier Name Role Phone Maria Elena Wells MD Primary Care Provider [phone] Reason for Visit * Reason Comments Med Refill Encounter Details Date Type Department Care Team (Late st Contact Info) Description 12/18/2023 Refill [facility] MEDICINE [address] [place], [place] [phone] Name, MD Mars [address] [place] [address] Social History Tobacco Use Types Packs/Day Years Used Date Smoking Tobacco: Never Smokeless Tobacco: Never Alcohol Use Standard [...] documented as of this encounter Care Teams Sawdust Drier Relationship Specialty Start Date End Date Maria Elena Wells MD [address] [place] [phone] PCP - General Family Medicine 12/03/19 Alisson MINER 11/24/23 documented as of this encounter
--- OUTSIDE RECORDS SUMMARY | 2024-07-04 11:28 | XMS_ITS | Encounter Summary ---
Author Organization [employer] Address [address] [place] [address] Care Team Providers Care Matrix Worker Name Role Phone Maria Elena Wells MD Primary Care Provider [phone] Encounter Details Date Type Department Care Team (Late st Contact Info) Description 06/22/2022 Orders Only [facility] [address] [place] [address] Ndea Hays LPN Social History Tobacco Use Types Packs/Day Years [...] on filedocumented in this encounter Care Teams Matrix Worker Relationship Specialty Start Date End Date Maria Elena Wells MD [address] [place] [id number] PCP - General Family Medicine 12/03/19 [place] A 11/24/23 documented as of this encounter
--- OUTSIDE RECORDS SUMMARY | 2024-07-04 11:28 | XMS_ITS | Clinical Summary ---
Author Organization [employer] Address [address] [facility] 7 [place] [address] Care Team Providers Care Lung Gun Operator Name Role Phone Maria Elena Wells MD Primary Care Provider [phone] Allergies Active Allergy Reactions Criticality Noted Date Comments Celecoxib Unknown Phenytoin Unknown Pseudoephedrine Unknown Medications cholecalciferol (Vitamin D-3) 50 MCG (1999) capsule take one capsule by mouth once daily 90 capsule 3 07/16/19 23 Active lamoTRIgine (LaMICtal) 200 MG tablet Take 1 tablet by mouth 2 times daily. Active OXcarbazepine (Trileptal) 600 MG tablet Take 600 mg by mouth 2 times daily. Active sildenafil (Viagra) 50 MG tabletIndications: Erectile dysfunction, unspecified erectile dysfunction type TAKE 1 TABLET 1 HOUR BEFORE SEXUAL RELATIONS ONCE DAILY NEEDED. 15 tablet 6 06/15/19 24 Active FREESTYLE LITE test stripIndications:T ype 2 diabetes mellitus without complication, without long-term current use of insulin ([facility]) Use to test blood sugar one time daily 50 each 12/06/19 24 025 Active Alcohol Swabs 70 % padsIndications:Ty pe 2 diabetes mellitus without complication, without long-term current use of insulin ([facility]) Use to test blood sugar one time daily 100 each 12/06/19 24 Active Blood Glucose Monitoring Suppl (FreeStyle [place] Lite) w/Device kitIndications:Typ e 2 diabetes mellitus without complication, without long-term current use of insulin ([facility]) Use to test blood sugar one time daily 1 kit 12/06/19 24 Active loperamide (Imodium) 2 MG capsule TAKE 1 CAPSULE BY MOUTH EVERY 4 HOURS NEEDED FOR LOOSE STOOL ADMINITSTER AFTER EACH LOOSE STOOL UNTIL SYMPTOMS CONTROLLED DO NOT EXCEED 8MG/DAY 11/23/19 24 Active ibuprofen 400 MG tablet TAKE 1 TO 2 TABLETS BY MOUTH EVERY 8 HOURS NEEDED FOR PAIN 120 tablet 6 02/06/20 24 Active hydroCHLOROthiazid e (HYDRODiuril) 25 MG tablet Take 1 tablet (25 mg) by mouth Once per day. 90 tablet 3 02/06/20 24 Active Diclofenac Sodium 1 % gelIndications:Arnulfo ateral primary osteoarthritis of knee Apply thin layer by topical route (quantity as directed on package insert) to affected area of pain 3 times daily as needed. 50 g 3 02/06/20 24 Active lisinopril 10 MG tabletIndications: Essential hypertension TAKE 1 TABLET(5 MG) BY MOUTH IN THE MORNING 90 tablet 3 02/06/20 24 Active FreeStyle lancetsIndications :Type 2 diabetes mellitus without complication, without long-term current use of insulin ([facility]) USE TO TEST BLOOD SUGAR ONCE DAILY 100 each 11 03/07/20 24 Active folic acid (Folvite) 1 MG tabletIndications: Folic acid deficiency TAKE 1 TABLET(1000 MCG) BY MOUTH IN THE MORNING 90 tablet 3 04/30/19 25 Active docusate sodium (Colace) 100 MG capsule Take 1 capsule by mouth 2 times daily. 04/29/19 25 Active senna (Senokot) 8.6 MG tablet Take 1 tablet by mouth at bedtime. 04/29/19 25 Active Mounjaro 2.5 MG/0.5ML solution auto-injector ADMINISTER 2.5 MG UNDER THE SKIN EVERY WEEK FOR 4 WEEKS 04/06/19 25 Active oxyCODONE (Roxicodone) 5 MG immediate release tabletIndications: Postoperative wound dehiscence, sequela Take 1 tablet (5 mg) by mouth every 6 (six) hours if needed for severe pain. 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 10/13/2022 Erectile dysfunction 05/13/2021 Dyslipidemia 03/20/2013 Backache 01/25/2012 Epilepsy 10/15/2011 Assessment & Plan (11/08/2023 7:03 PM EDT): Will speak with Dr Robles, patient's neurologist about needing regular followup due to having breakthrough seizures evening of 11/07/23 Continue Lamictal and Oxcarbazepine as scheduled Assessment & Plan (06/15/2023 4:40 PM EDT): To continue taking meds daily as directed by neurology Lamictal and Trileptal Hypertension 10/15/2011 Assessment & Plan (11/08/2023 7:04 PM EDT): Maintenance: hydrochlorothiazide 25, Lisinopril 5mg BMP: Lab Results Component Value Date CREATININE 0.75 08/25/2023 K 4.5 08/25/2023 Lipid Panel: 08/2023 ASCVD Risk: The 10-year ASCVD risk score (Shira COELLO, et al., 2019) is: 2.5% Values used to calculate the score: Age: 48 years Sex: Male Is Non- : No Diabetic: No Tobacco smoker: No Systolic Blood Pressure: 131 mmHg Is BP treated: Yes HDL Cholesterol: 36 mg/dL Total Cholesterol: 149 mg/dL EKG: Obtain baseline at f/u - Aerobic exercise to reduce BP. Initial goal of 30 min walk 3-5x/week. Increase as tolerated. - low-sodium diet (goal: <2g/day) and heart healthy diet such as DASH to reduce BP and prevent ASCVD. - Home BP monitoring 1-2 x day with goal of <140/90. - Seek immediate medical attention for chest pain, palpitations, SOB, syncope, or sudden changes in mental status. - Do not change or discontinue current prescriptions without first consulting health care provider Assessment & Plan (06/15/2023 4:40 PM EDT): Maintenance: hydrochlorothiazide 25, Lisinopril 5mg BMP: today Lipid Panel: today ASCVD Risk: Calculate pending updated labs EKG: Obtain baseline at f/u - Aerobic exercise to reduce BP. Initial goal of 30 min walk 3-5x/week. Increase as tolerated. - low-sodium diet (goal: <2g/day) and heart healthy diet such as DASH to reduce BP and prevent ASCVD. - Home BP monitoring 1-2 x day with goal of <140/90. - Seek immediate medical attention for chest pain, palpitations, SOB, syncope, or sudden changes in mental status. - Do not change or discontinue current prescriptions without first consulting health care provider Encounters Date Type Department Care Team Description 07/04/2024 Orders Only GENERIC EXTERNAL DATA DEPARTMENT Provider, Generic External Data 07/02/2024 Orders Only [facility] [address] [place] [address] Maria Elena Wells MD 06/08/2024 Outside Procedure [facility] [address] [place] [phone] Nic Solon, OD Presbyopia (Primary Dx) 06/07/2024 1:00 PM EST Office Visit [facility] [address] [place] [address] Nic Solon, OD Myopia of both eyes (Primary Dx) 05/30/2024 10:00 AM EST Office Visit [facility] [address] [place] [address] Godfrey, Rosalindanpreet 05/22/2024 Refill [facility] [address] [place] [address] Maria Elena Wells MD Essential hypertension 05/07/2024 1:30 PM EST Office Visit [facility] [address] [place] [address] Godfrey, Harmanpreet 05/01/2024 1:30 PM EST Office Visit [facility] [address] [place] [address] Nic Solon, OD Type 2 diabetes mellitus without ophthalmic manifestations (CMS/HCC) (Primary Dx); Choroidal nevus of left eye; Chorioretinal scar of both eyes; Dry eye syndrome of both eyes; Corneal scars, both eyes; Presbyopia 05/01/2024 Travel 04/28/2024 Refill [facility] [address] [place] [address] Maria Elena Wells MD Folic acid deficiency 04/27/2024 Orders Only GENERIC EXTERNAL DATA DEPARTMENT Provider, Generic External Data 04/05/2024 Orders Only GENERIC EXTERNAL DATA DEPARTMENT Provider, Generic External Data from Last 3 Months Immunizations Name Administration Dates Next Due Influenza injectable quadriv alent IIV4 with preservative 05/01/2015 Influenza injectable quadrivalent preservative f ree 06/14/2018 Influenza, IIV3, injectable 12/18/2013, 1 Influenza, Split (incl. purified surface antigen ) 01/17/2013,01/25/2012 TD (adult), 2 Lf tetanus tox oid, preservative free, adsorbed 05/19/2007 Tdap 01/17/2013 Social History Tobacco Use Types Packs/Day Years Used Date Smoking Tobacco: Never Passive Smoke Exposure: Never Smokeless Tobacco: Never Tobacco Cessation:Counseling Given: Not Answered Alcohol Use Standard Drinks/Week Comments Never 0 [...] not to disclose 2021 10:16 AM EDT Last Filed Vital Signs Vital Sign Reading Time Taken Comments Blood Pressure 118/70 05/30/2024 10:44 AM EST Pulse 60 02/29/2024 2:13 PM EST Temperature 37.1 ??C (98.8 ??F) 02/06/2024 11:[address] Respiratory Rate 18 02/06/2024 11:28 AM EST Oxygen Saturation 96% 11/08/2023 11:00 AM EDT Inhaled Oxygen Concentration - - Weight 112 kg (247 lb 9.6 oz) 02/06/2024 11:28 A M EST Height 180.3 cm (5' 11 ) 02/06/2024 11:28 AM EST Body Mass Index 34.53 02/06/2024 11:28 AM EST Plan of Treatment Health Maintenance Due Date Last Done Comments CT Colonography 1977 Colonoscopy 1977 Colorectal Cancer Screening 1977 FIT DNA/Cologuard 1977 FIT 1977 FOBT 1977 HIV Screening 1977 Sigmoidoscopy 1977 Diabetes: Foot Exam 1987 Alcohol/Substance Use Screening 1989 Family Planning (PISQ) 1992 Hepatitis C Screening 1995 Hepatitis B Vaccines (1 of 3 - 19+ 3-dose series) 1996 Pneumococcal Vaccine: Pediatrics (0 to 5 Years) and At-Risk Patients (6 to 49) Years) (1 of 2 - PCV) 1996 Diabetes: Urine Protein Screening 11/06/2020 11/07/2019 DTaP/Tdap/Td Vaccines (2 - Td or Tdap) 01/17/2023 01/17/2013, 05/19/2007 COVID-19 Vaccine ( season) 2023 03/12/2021, 08/21/2020, 07/31/2020 Influenza Vaccine (#1) 2023 9, 05/01/2015, 12/18/2013, Additional history exists Lipid Panel 06/14/2024 06/15/2023, 05/05, 11/07/2019 Dental Prophylaxis 08/29/2024 02/29/2024, 1 04/07/2018, 08/03/2018, Additional history exists Dental Oral Exam 09/05/2024 03/06/2024, 07/2018, 08/02/2017, Additional history exists Diabetes: Hemoglobin A1C 09/13/2024 024, 06/15/2023, 05/18/2021, Additional history exists SDOH Screening 10/26/2024 10/27/2023 Depression Screening 11/07/2024 11/08/2023, 11/08/19 Dental X-Ray: Bitewings 03/01/2025 02/29/20 24, 04/27/2017, 11/06/2015, Additional history exists Tobacco Screening 05/30/2025 05/30/2024 Eye Exam 05/01/2026 05/01/2024, 04/05, 05/01/2024, Additional history exists Dental X-Ray: Full Mouth 03/01/2027 024, 11/06/2015, 06/10/2009 Zoster Vaccines (1 of 2) 2027 RSV Patients and Patients Aged 60 years or older (1 - 1-dose 75+ series) 2052 HIB Vaccines Aged Out No longer eligi ble based on patient's age to complete this topic HPV Vaccines Aged Out No longer eligi ble based on patient's age to complete this topic Hepatitis A Vaccines Aged Out No long er eligible based on patient's age to complete this topic IPV Vaccines Aged Out No longer eligi ble based on patient's age to complete this topic Meningococcal Vaccine Aged Out No last maria ines eligible based on patient's age to complete this topic RSV under 20 months Aged Out No longe r eligible based on patient's age to complete this topic Rotavirus Vaccines Aged Out No longer eligible based on patient's age to complete this topic Procedures Procedure Name Priority Date/Time Associated Diagnosis Comments GLUCOSE, WHOLE BLOOD Routine 07/04/2024 10:06 AM EDT CASE PRESENTATION, DETAILED AND EXTENSIVE TREATMENT PLANNING Routine 05/30/2024 10:00 AM EST 19 ZAIRA RESIN-BASED COMPOSITE - 2 SURF, POSTERIOR Routine 05/30/2024 10:00 AM EST 28 MO RESIN-BASED COMPOSITE - 2 SURF, POSTERIOR Routine 05/30/2024 10:00 AM EST CASE PRESENTATION, DETAILED AND EXTENSIVE TREATMENT PLANNING Routine 05/07/2024 1:30 PM EST 30 ZAIRA RESIN-BASED COMPOSITE - 2 SURF, POSTERIOR Routine 05/07/2024 1:30 PM EST US ABDOMEN LIMITED Routine 04/27/2024 11 :53 AM EST COMPREHENSIVE METABOLIC PANEL Routine 04/27/2024 9:33 AM EST CBC WITH AUTO DIFFERENTIAL Routine 04/27/2024 9:33 AM EST SARS COV2/INFLUENZA A/B AND RSV RNA QL NAAT Routine 04/27/2024 9:33 AM EST STREP A NUCLEIC ACID Routine 04/27/2024 9:33 AM EST GLUCOSE, WHOLE BLOOD Routine 04/05/2024 10:38 AM EST HEMOGLOBIN A1C Routine 03/15/2024 10:22 AM EST PERIODIC ORAL EVALUATION - ESTABLISHED PATIENT Routine 03/06/2024 11:00 AM EST PROPHYLAXIS - ADULT Routine 02/29/2024 2 :00 PM EST INTRAORAL - COMPLETE SERIES OF RADIOGRAPHIC IMAGES Routine 02/29/2024 2:00 PM EST LIPID PANEL, STANDARD Routine 06/15/2023 4:45 PM EDT Essential hypertension ALBUMIN, RANDOM URINE W/CREATININE Routine 11/07/2019 11:34 AM EDT from Last 3 Months or Most Recently Relevant to Health Maintenance Results * (ABNORMAL) Glucose, Whole Blood (07/04/2024 10:06 AM EDT) Only the most recent of2 resultswithin the time period is included. Glucose, Whole Blood 116(H) 60 - 115 mg/dL [facility] Comment:METER #: [id number] Testing performed in the Endocrinology Department [address] , [address], [place]. 07/04/2024 10:0 6 AM EDT 07/04/2024 10:09 AM EDT us Generic External Data Provider LAB BLOOD ORDERAB LES Final Result [facility] [address] [place] [address] [phone] * US Abdomen Limited (04/27/2024 11:53 AM EST) Anatomical Region Laterality Modality Abdomen Ultrasound 04/27/2024 11:5 3 AM EST Narrative 04/27/2024 12:53 PM EST ? [facility] ?[address] ?[place] [address] ? Ultrasound Report ? Signed ? Patient: Girma Kimball ?MR#: ?? [id number] ? : 1975 ?Acct:[id number] ? Age/Sex: 48 / M ?ADM Date: 04/27/24 ? Loc: HO.ED ? Attending Dr: ? Ordering Physician: Mary Rudolph ?? Date of Service: 04/27/24 ?? Procedure(s): US abdomen limited ?? Accession Number(s): [id number] ? cc: Maria Elena Wells; Mary Rudolph ? EXAMINATION: ??US ABDOMEN LIMITED ? HISTORY: RUQ pain around cholecystectomy scar ? TECHNIQUE: Real-time grayscale ultrasound imaging of the right upper ?? quadrant was performed and images were reviewed. ? COMPARISON: Correlation is made with an abdominal ultrasound dated ?? 08/25/2023. ? FINDINGS: ?? Sonographic examination of an abdominal bulge in the right upper ?? quadrant was performed. The patient was scanned in the supine and ?? standing positions. No mass or hernia is identified. ? US/US abdomen limited ?? IMPRESSION: ? No sonographic abnormality is seen to correspond to the bulge in the ?? right upper quadrant. ? Electronically signed by: ??Mendez Mccarthy MD ??04/27/2024 12:50 PM EST ?? RP ? Dictated By: ?Mendez Mccarthy MD ? Signed By: ?<Electronically signed by Mendez Mccarthy MD in OV> ?04/27/24 1250 ? DD/ 1153 ? TD/TT: 04/27/24 1206 ? Inspector Hairspring: ? Procedure Note Dontashiter, Image - 04/27/2024 [place] [address] Ultrasound Report Signed Patient: Gabino Kimball#: [id number] : 1975Acct:[id number] Age/Sex: 48 / MADM Date: 04/27/24 Loc: HO.ED Attending Dr: Ordering Physician: Mary Rudolph Date of Service: 04/27/24 Procedure(s): US abdomen limited Accession Number(s): [id number] cc: Maria Elena Wells; Mary Rudolph EXAMINATION: US ABDOMEN LIMITED HISTORY: RUQ pain around cholecystectomy scar TECHNIQUE: Real-time grayscale ultrasound imaging of the right upper quadrant was performed and images were reviewed. COMPARISON: Correlation is made with an abdominal ultrasound dated 08/25/2023. FINDINGS: Sonographic examination of an abdominal bulge in the right upper quadrant was performed. The patient was scanned in the supine and standing positions. No mass or hernia is identified. US/US abdomen limited IMPRESSION: No sonographic abnormality is seen to correspond to the bulge in the right upper quadrant. Electronically signed by: Mendez Mccarthy MD 04/27/2024 12:50 PM EST Dictated By: Mendez Mccarthy MD Signed By: <Electronically signed by Mendez Mccarthy MD in OV> 04/27/24 1250 DD/ 1153 TD/TT: 04/27/24 1206 Inspector Hairspring: us [facility] External Provider IMG US PROCEDURES Final Result * Strep A Nucleic Acid (04/27/2024 9:33 AM EST) IDNOW SERIAL# [id number] [facility] Strep A Nucleic Acid Negative Negative [facility] Comment:All test results mus t be correlated with clinical findings.This test has not been evaluated for monitoring treatment ofinfection.Additional follow-up testing using the culture method isrequired if the result is negative and clinical symptomspersist, or in the event of an acute rheumatic feveroutbreak. 04/27/2024 9:33 AM EST 04/27/2024 9:37 AM EST Generic External Data Provider LAB MICROBIOLOGY - GENERAL ORDERABLES Final Result [facility] [address] [place] [phone] * (ABNORMAL) SARS-CoV-2 RNA, Influenza A/B, and RSV RNA, Ql NAAT (04/27/2024 9:33 AM EST) Pathologist [facility] Influenza A PCR POSITIVE(A) Negative [facility] Influenza B PCR NEGATIVE Negative [facility] Resp Syncy Virus RNA Qual PCR NEGATIVE Negative [facility] SARS COV2 PCR NEGATIVE Negative [facility] Comment:All test results mus t be correlated with clinical findings.Negative results do not preclude SARS-CoV2, influenza Avirus, influenza B virus and/or RSV infectionand should not be used as the sole basis for treatment orother patient management decisions. Negative results must becombined with clinical observations, patient history, andepidemiological information.This test has not been evaluated for monitoring treatment ofinfection.This test has been authorized by the FDA under an EmergencyUse Authorization (EUA) for use by authorized laboratories.Testing performed on the [employer] GeneXpert utilizingreal-time RT-PCR.All SARS CoV2 and positive influenza A/B results arereported to [facility]. 04/27/2024 9:33 AM EST 04/27/2024 9:37 AM EST us Generic External Data Provider LAB MICROBIOLOGY - GENERAL ORDERABLES Final Result [facility] [address] [place] [address] [phone] * (ABNORMAL) CBC auto differential (04/27/2024 9:33 AM EST) White Blood Count 5.7 4.8 - 10.8 X10*3/uL [facility] Red Blood Count 5.67 4.60 - 5.80 X10*6/uL [facility] Hemoglobin 14.8 14.0 - 18.0 g/dl [facility] Hematocrit 45.5 42.0 - 52.0 % [facility] Mean Corpuscular Volume 80.2 80.0 - 98.0 fL [facility] Mean Corpuscular Hemoglobin 26.1(L) 27.0 - 33.0 pg [facility] Mean Corpuscular HGB Conc 32.5 31.0 - 36.0 g/dl [facility] Red Cell Distribution Width 13.0 11.0 - 16.0 % [facility] Platelet Count 281 160 - 400 X10*3/uL [facility] Mean Platelet Volume 9.3(L) 9.4 - 12.4 fL [facility] Neutrophils Percent Auto 64.2 45 - 73 % [facility] Imm Gran Pct Auto 0.5(H) 0.0 - 0.4 % [facility] Lymphocytes Percent Auto 22.3 20 - 40 % [facility] Monocytes Percent Auto 11.8(H) 2 - 11 % [facility] Eosinophils Percent Auto 0.7 0 - 4 % [facility] Basophils Percent Auto 0.5 0 - 2 % [facility] NRBC Pct Auto 0.0 0.0 - 0.2 /100WBC [facility] Neutrophils Absolute Auto 3.7 2.0 - 8.3 x10*3/uL [facility] Imm Gran Abs Auto 0.03 0.00 - 0.03 X10*3/uL [facility] Lymphocytes Absolute Auto 1.3 1.2 - 4.9 X10*3/uL [facility] Monocytes Absolute Auto 0.7 0.1 - 1.2 X10*3/uL [facility] Eosinophils Absolute Auto 0.0 0.0 - 0.4 X10*3/uL [facility] Basophils Absolute Auto 0.0 0.0 - 0.2 X10*3/uL [facility] NRBC Abs Auto 0.000 0.0 - 0.012 X10*3/uL [facility] 04/27/2024 9:33 AM EST 04/27/2024 9:37 AM EST us Generic External Data Provider LAB BLOOD ORDERAB LES Final Result [facility] [address] [place] [phone] * (ABNORMAL) Comprehensive Metabolic Panel (04/27/2024 9:33 AM EST) Sodium 136 135 - 145 mmol/L [facility] Potassium 4.4 3.3 - 5.1 mmol/L [facility] Chloride 103 96 - 108 mmol/L [facility] Carbon Dioxide 27 22 - 29 mmol/L [facility] Anion Gap 10(L) 12 - 20 [facility] Urea Nitrogen (BUN) 14 9 - 16 mg/dL [facility] Creatinine, Serum 0.69 0.5 - 1.4 mg/dL [facility] Creatinine Clr Calc Pharmacy 170.4 [facility] Comment:eGFR (calculated fro m the MDRD study equation) and eCrCl(calculated from the Cockcroft-Gault equation) are based ondifferent parameters and may not yield comparable results.If eCrCl result is absurd, please check patient'sheight/weight. Estimated Glomerular Filt Rate >60 [facility] Comment:Chronic Kidney Disea se: Estimated GFR < 60 mL/min/1.98o5Rdaaon Kidney Disease: Estimated GFR < 15 mL/min/1.73m2 Glucose 114 60 - 115 mg/dL [facility] Calcium 9.1 8.4 - 10.2 mg/dL [facility] Bilirubin, Total 0.4 0.0 - 1.0 mg/dL [facility] Aspartate Amino Transferase 37 5 - 37 U/L [facility] Alanine Aminotransferase 58(H) 0 - 40 U/L [facility] Total Protein 7.5 6.5 - 8.0 g/dL [facility] Albumin Level 4.0 3.5 - 5.0 g/dL [facility] Alkaline Phosphatase 106 39 - 117 U/L [facility] 04/27/2024 9:33 AM EST 04/27/2024 9:37 AM EST us Generic External Data Provider LAB BLOOD ORDERAB LES Final Result [facility] [address] [place] [phone] * (ABNORMAL) Hemoglobin A1c (03/15/2024 10:22 AM EST) Hemoglobin A1c 6.5(H) <6.0 % [facility] Comment:Hemoglobin A1C Refer ence Range Adults: 4.8 - 6.0 % Non diabetic: < 6.0 % Goal: < 7.0 %Additional Action Suggested: > 8.0 %Note: Hemoglobin A1c results are invalid for patients with abnormal amounts of HbF. Blood transfusions may impact the HbA1c concentration in the patient sample. Estimated Average Glucose 140 mg/dL [facility] Comment:eAG = Estimated ave rage glucose which is %A1C expressed asaverage glucose, using the formula of the [id number] Glucose study (ADAG), Diabetes Care, Vol.31,#8,Nov. 2007 03/15/2024 10:2 2 AM EST 03/15/2024 10:22 AM EST us Generic External Data Provider LAB BLOOD ORDERAB LES Final Result Performing Organization Address City/[facility]/ZIP Co de Phone Number [facility] [address] [place] [address] [phone] * (ABNORMAL) Lipid Panel, Standard (06/15/2023 4:45 PM EDT) Triglycerides 246(H) <150 mg/dL [facility] Comment:Desirable Triglyceri de: less than 150 mg/dLBorderline High Triglyceride 150-199 mg/dLHigh Triglyceride: 200-499 mg/dLVery High Triglyceride: greater than or equal to 5OO mg/dL Cholesterol 149 <200 mg/dL [facility] Comment:Desirable Cholestero l: less than 200 mg/dLBorderline High Cholesterol: 200-239 mg/dLHigh Cholesterol: greater than 239 mg/dL LDL Cholesterol Calculated 64 <100 mg/dL [facility] Comment:Desirable LDL: less than 100 mg/dLNear Optimal/Above Optimal LDL: 110- 129 mg/dLBorderline High LDL: 130-159 mg/dLHigh LDL: 160-189 mg/dLVery High LDL: greater than or equal to 190 mg/dL HDL Cholesterol 36(L) >40 mg/dL [facility] Comment:Desirable HDL: great er than 40 mg/dL Note: This HDL assay may give artificially low results in patients with liver disease. Blood Venous blood specimen / Unknown 06/15/2023 4:45 PM EDT 06/15/2023 5:38 PM EDT us Maria Elena Wells MD LAB BLOOD ORDERABLES Final Res ult Performing Organization Address City/[facility]/ZIP Co de Phone Number [facility] [address] [place] [address] [phone] * ALBUMIN, RANDOM URINE W/CREATININE (11/07/2019 11:34 AM EDT) Microalbumin Urine 1.3 See Note: mg/dL [facility] Comment: Reference Range: ?? Reference Range Not established Microalb/Creat Ratio 5 <30 mcg/mg creat [facility] Comment: ?? The ADA defines abnormalities in albumin excretion as follows: ?? Category ? Result (mcg/mg creatinine) ?? Normal ?<30 Microalbuminuria ? 30-299 ?? Clinical albuminuria ?? > OR = 300 ?? The ADA recommends that at least two of three specimens collected within a 3-6 month period be abnormal before considering a patient to be within a diagnostic category. Creatinine, Urine 245 20 - 320 mg/dL [facility] 11/07/2019 11:3 4 AM EDT us [facility] URINE ORDERABLES Final Res ult [facility] [address] [place] [address], from Last 3 Months or Most Recently Relevant to Health Maintenance Insurance [facility] [place] [id number] [place] AD[place] Care Teams Lung Gun Operator Relationship Specialty Start Date End Date Maria Elena Wells MD [address] [place] [phone] PCP - General Family Medicine [facility]
--- OUTSIDE RECORDS SUMMARY | 2024-07-04 11:28 | XMS_ITS | Encounter Summary ---
Author Organization [employer] Address 75 [facility] 7t [place] [address] Care Team Providers Care Supervisor Mold Shop Name Role Phone Maria Elena Wells MD Primary Care Provider [phone] Encounter Details Date Type Department Care Team (Late st Contact Info) Description 01/24/2023 Orders Only [facility] [address] [place], [place] [phone] Sonya Jordan LPN Social History Tobacco Use Types Packs/Day [...] on filedocumented in this encounter Care Teams Supervisor Mold Shop Relationship Specialty Start Date End Date Maria Elena Wells MD [address] [place] [phone] PCP - General Family Medicine 12/03/19 [facility] 11/24/23 documented as of this encounter
--- OUTSIDE RECORDS SUMMARY | 2024-07-04 11:28 | XMS_ITS | Encounter Summary ---
Author Organization [employer] Address 75 [facility] [address] [place] [address] Care Team Providers Care Laundry Clerk Name Role Phone Maria Elena Wells MD Primary Care Provider [phone] Encounter Details Date Type Department Care Team (Late st Contact Info) Description 06/17/2023 Orders Only [facility] [address] [place], [place] [phone] Maria Elena Wells MD [address] [place] [address] Social History Tobacco Use Types Packs/Day Years Used Date Smoking Tobacco: Never Smokeless Tobacco: Never Alcohol Use Standard Drinks/Week Comments Never 0 (1 standard drink = 0.6 oz pur e alcohol) Sex and Gender Information Value Date Recorded [...] on filedocumented in this encounter Care Teams Laundry Clerk Relationship Specialty Start Date End Date Maria Elena Wells MD [address] [place], [place] [phone] PCP - General Family Medicine 12/03/19 [facility] 11/24/23 documented as of this encounter
--- OUTSIDE RECORDS SUMMARY | 2024-07-04 11:28 | XMS_ITS | Encounter Summary ---
Author Organization [employer] Address 75 [facility] 7 [place] [address] Care Team Providers Care Legal Office Administrator Name Role Phone Maria Elena Wells MD Primary Care Provider [phone] Reason for Visit * Reason Comments Med Refill Encounter Details Date Type Department Care Team (Late st Contact Info) Description 05/22/2024 Refill [facility] [address] [place], [place] [phone] Maria Elena Wells MD [address] [place] [address] Essential hypertension Social History Tobacco Use Types Packs/Day Years [...] documented as of this encounter Visit Diagnoses Diagnosis Essential hypertension Unspecified essential hypertension documented in this encounter Additional Health Concerns Assessment Noted Time PHQ-9 Depression Total Score: 0 11/08/19 24 11:01 AM EDT documented as of this encounter Care Teams Legal Office Administrator Relationship Specialty Start Date End Date Maria Elena Wells MD [address] [place] [address] PCP - General Family Medicine 12/03/19 [place] [facility] 11/24/23 documented as of this encounter
== END 2024-07-04 10:38 | disposition home or self-care (01) ==
LOC: HO.ENCR 10:00
PROVIDERS: PCP General Practice; Visit Provider Internal Medicine
DX: E11.628 Type 2 diabetes mellitus with other skin complications (principal)

== ENCOUNTER → 2024-07-04 10:00 | Outpatient (BNVA) | payer MEDICARE, MEDICAID, SELFPAY | PROVIDERS: PCP General Practice; Visit Provider Internal Medicine | DX: E11.628 Type 2 diabetes mellitus with other skin complications (principal) | CPT/HCPCS: 82947; 83036; 99212 ==

== ENCOUNTER 2024-10-03 10:01 | Outpatient (AMB) | payer MEDICARE, MEDICAID, SELFPAY ==
[2024-10-03 10:02] VITALS: BP 124/74; PULSE 92; BMI 34.7
--- NOTE | 2024-10-03 10:02 | A.OFFVIS_ITS ---
Vital Signs 10/03/24 10:02 Height 5 ft 11 in Weight 249 lb 1.957 oz BMI 34.7 BP 124/74 Blood Pressure Location Rt brachial Position Sitting Pulse 92 Pulse Source Pulse Oximeter Intake Visit Reasons: DM Intake Note: Patient presents today for a follow-up on Type 2 Diabetes Mellitus: Last Diabetic eye exam was on: 06/01/2023 Last Podiatry exam was on: Patient does not see a Critical Care Transport Nurse Most recent HbA1c: 6.7%, 10/03/2024 Random Glucose- 146 mg/dL, Today Allergies pseudoephedrine (From Sudafed) Allergy (Intermediate, Verified 07/04/24 10:05) Difficulty Breathing HPI Comments Details: The patient is a 49 year old with type 2 diabetes presenting for diabetes Medical history: empyema gallbladder s/p lap cholecystectomy, pelvic abscess, hypertension, seizure disorder Diabetes diagnosed 2023 Diagnosed 11/2023 A1C today 6.7% from 6.1% . DM Previously prescribed metformin. Insulin use during hospitalization 2023. On mounjaro 2.5 mg weekly. He stopped the medicine for a few weeks because he was having increased gas, burping. He plans to restart Report family history of diabetes DUE eye exam 05/2023 ROS CONSTITUTIONAL: Denies weight loss, fever and chills. HEENT: Denies changes in vision and hearing. RESPIRATORY: Denies SOB and cough. CV: Denies palpitations and CP GI: Denies abdominal pain, nausea, vomiting and diarrhea. : Denies dysuria and urinary frequency. MSK: Denies new myalgia and joint pain. SKIN: healing abdominal surgical wound NEUROLOGICAL: Denies headache PSYCHIATRIC: Denies recent changes in mood. PHYSICAL EXAM: GENERAL: Alert and oriented x 3. NAD EYES: EOMI. Anicteric. HENT: Moist mucous membranes. No scleral icterus. No cervical lymphadenopathy. LUNGS: Clear to auscultation bilaterally. CARDIOVASCULAR: Regular rate and rhythm. No murmur. No JVD. ABDOMEN: Soft, non-tender +bs EXTREMITIES: No edema. Non-tender. SKIN: No rashes NEUROLOGIC: No focal neurological deficits. CN II-XII grossly intact PSYCHIATRIC: Cooperative. 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 Physical Exam Vital Signs: Last Vital Signs Pulse 92 10/03/24 10:02 BP 124/74 10/03/24 10:02 BMI result Body Mass Index 34.7 Results AMB Hemoglobin A1c AMB Hemoglobin A1c 6.7 % Last Edit by CHANDU Cyr on 10/03/24 10:18 Results Reviewed Results Reviewed: Laboratory Last Values Glucose (Clinic) 146 mg/dL (60-115) H 10/03/24 10:07 Assessment & Plan Assessment & Plan (1) Diabetes mellitus: Code(s): E11.9 - Type 2 diabetes mellitus without complications Category: Surgical Qualifiers: Diabetes mellitus type: type 2 Diabetes mellitus medical terminologist insulin use: without usp use Diabetes mellitus complication status: with skin complications Diabetes mellitus complication detail: with other skin complic ation Qualified Code(s): E11.628 - Type 2 diabetes mellitus with other skin complications Plan DM is well controlled He is going to restart Mounjaro No hypoglycemia but await of rules of 15s for treatment if needed Orders: Orders AMB Hemoglobin A1c Today E11.628 - Type 2 diabetes mellitus with other skin complications Coding Level of Care Code Est Pt Level 4 (61437) Diagnoses Type 2 diabetes mellitus with other skin complication, without long-term current use of insulin E11.628 Diabetes mellitus type: type 2 Diabetes mellitus usp insulin use: without medical terminologist use Diabetes mellitus complication status: with skin complications Diabetes mellitus complication detail: with other skin complication
[2024-10-03 10:11] LABS: Glucose, Whole Blood 146 mg/dL (60-115)
--- OUTSIDE RECORDS SUMMARY | 2024-10-03 10:28 | XMS_ITS | Encounter Summary ---
Author Organization [employer] Address 75 [facility] 7t [place] [address] Care Team Providers Care Senior Mechanical Designer Name Role Phone Maria Elena Wells MD Primary Care Provider [phone] Encounter Details Date Type Department Care Team (Late st Contact Info) Description 10/03/2024 Orders Only GENERIC EXTERNAL DATA DEPARTMENT Provider, [...] as of this encounter Plan of Treatment Upcoming Encounters Date Type Department Care Team (Late st Contact Info) Description 11/02/2024 9:45 AM EDT Office Visit [facility] [address] [place] [address] Maria Elena Wells MD [address] [place] [address] documented as of this encounter Procedures Procedure Name Priority Date/Time Associated Diagnosis Comments GLUCOSE, WHOLE BLOOD Routine 10/03/2024 10:07 AM EDT documented in this encounter Results * (ABNORMAL) Glucose, Whole Blood (10/03/2024 10:07 AM EDT) Glucose, Whole Blood 146(H) 60 - 115 mg/dL [facility] Comment:METER #: [id number] 5Testing performed in the Endocrinology Department [address] , [address], [facility]. 10/03/2024 10:0 7 AM EDT 10/03/2024 10:11 AM EDT us Generic External Data Provider LAB BLOOD ORDERAB LES Final Result [facility] [address] [place] [address] [phone] documented in this encounter Visit Diagnoses Not on filedocumented in this encounter Additional Health Concerns Assessment Noted Time PHQ-9 Depression Total Score: 0 11/08/19 24 11:01 AM EDT documented as of this encounter Care Teams Senior Mechanical Designer Relationship Specialty Start Date End Date Maria Elena Wells MD [address] [place] [address] PCP - General Family Medicine 12/03/19 [place] [facility] 11/24/23 documented as of this encounter
== END 2024-10-03 10:29 | disposition home or self-care (01) ==
LOC: HO.ENCR 10:01
PROVIDERS: PCP General Practice; Visit Provider Internal Medicine
DX: E11.628 Type 2 diabetes mellitus with other skin complications (principal)

== ENCOUNTER → 2024-10-03 10:01 | Outpatient (BNVA) | payer MEDICARE, MEDICAID, SELFPAY | PROVIDERS: PCP General Practice; Visit Provider Internal Medicine | DX: E11.628 Type 2 diabetes mellitus with other skin complications (principal); Z79.85 Long-term (current) use of injectable non-insulin antidiabetic drugs | CPT/HCPCS: 82947; 83036; 99212 ==

== ENCOUNTER 2024-11-02 10:40 | Outpatient (REF) | payer MEDICARE, MEDICAID, SELFPAY ==
--- NOTE | ~2024-11-02 | XR_ITS ---
EXAMINATION: XR WRIST, LEFT CLINICAL INFORMATION: L wrist limited range of motion and swelling COMPARISON: 05/13/2021 TECHNIQUE: PA, lateral, and oblique views of the left wrist. FINDINGS: No fracture, dislocation, or suspicious bone lesion. There is complete loss of the radiocarpal joint space with [id number]-[id number] appearance. There is widening of scapholunate interval, measuring approximately 5 mm, concerning for scapholunate ligament disruption. There are dorsal carpal osteophytic spurs. There is no soft tissue abnormality. XR/XR wrist LT min 3V IMPRESSION: 1. No acute bony abnormalities. 2. Severe radiocarpal joint space narrowing and arthrosis, progressed significantly from 2021. 3. Widening of the scapholunate interval suggestive of scapholunate ligament disruption. Electronically signed by: Kyrie Clark MD 11/02/2024 11:01 AM EDT
--- OUTSIDE RECORDS SUMMARY | 2024-11-02 10:49 | XMS_ITS | Encounter Summary ---
Author Organization [employer] Address 75 [facility] 7t [place] [address] Care Team Providers Care Aix Architect Name Role Phone Maria Elena Wells MD Primary Care Provider [phone] Reason for Visit * Reason Comments Med Refill Encounter Details Date Type Department Care Team ([facility] st Contact Info) Description 07/30/2024 Refill [facility] [address] [place], [place] [phone] Maria Elena Wells MD [address] [place] [address] Social History Tobacco Use Types Packs/Day Years [...] is your housing situation today? I have erynjack geller 10/27/[address] you [...] documented as of this encounter Care Teams Aix Architect Relationship Specialty Start Date End Date Maria Elena Wells MD [address] [place] [phone] PCP - General Family Medicine 12/03/19 [place] [facility] 11/24/23 documented as of this encounter
== END 2024-11-02 10:41 | disposition home or self-care (01) ==
LOC: HO.HHCX 10:40
PROVIDERS: Visit Provider General Practice
DX: M25.532 Pain in left wrist (principal)
CPT/HCPCS: 73110

== ENCOUNTER → 2024-11-02 10:42 | Outpatient (BNV) | payer MEDICARE, MEDICAID, SELFPAY | PROVIDERS: Visit Provider Radiology Diagnostic Radiology | DX: M19.032 Primary osteoarthritis, left wrist (principal) | CPT/HCPCS: 73110 ==

== ENCOUNTER 2024-11-27 08:51 | Outpatient (REF) | payer MEDICARE, MEDICAID, SELFPAY ==
--- OUTSIDE RECORDS SUMMARY | 2024-11-29 09:39 | XMS_ITS | Encounter Summary ---
Author Organization [employer] Address [address] [facility] [address]t [place] [address] Care Team Providers Care Bull Gang Supervisor Name Role Phone Maria Elena Wells MD Primary Care Provider [phone] Encounter Details Date Type Department Care Team (Late st Contact Info) Description 06/22/2022 Orders Only [facility] MED & PEDS [address] [place] [address] Neda Hays LPN Social History Tobacco Use [...] on filedocumented in this encounter Care Teams Bull Gang Supervisor Relationship Specialty Start Date End Date Maria Elena Wells MD [address] [place] [phone] PCP - General Family Medicine 12/03/19 Alisson A 11/24/23 documented as of this encounter
--- OUTSIDE RECORDS SUMMARY | 2024-11-29 09:39 | XMS_ITS | Encounter Summary ---
Author Organization [employer] Address [address] [facility] [address] [place] [address] Care Team Providers Care Chief Contract Officer Name Role Phone Maria Elena Wells MD Primary Care Provider [phone] Encounter Details Date Type Department Care Team (Late st Contact Info) Description 06/17/2023 Orders Only [facility] MEDICINE [address] [place], [place] [phone] Maria Elena Wells MD [address] [place] [address] Social History Tobacco Use Types Packs/Day Years [...] on filedocumented in this encounter Care Teams Chief Contract Officer Relationship Specialty Start Date End Date Maria Elena Wells MD [address] [place], [place] [phone] PCP - General Family Medicine 12/03/19 [facility] 11/24/23 documented as of this encounter
--- OUTSIDE RECORDS SUMMARY | 2024-11-29 09:39 | XMS_ITS | Encounter Summary ---
Author Organization [employer] Address 75 [facility] 7t [place] [address] Care Team Providers Care Lance Crewmember/Mlrs Sergeant Name Role Phone Maria Elena Wells MD Primary Care Provider [phone] Reason for Visit * Reason Comments Med Refill Encounter Details Date Type Department Care Team ([facility] st Contact Info) Description 07/30/2024 Refill [facility] MEDICINE 230 [place], [place] [phone] Maria Elena Wells MD 230 [place] [address] Social History Tobacco Use Types Packs/Day Years [...] documented as of this encounter Care Teams Lance Crewmember/Mlrs Sergeant Relationship Specialty Start Date End Date Maria Elena Wells MD [address] [place] [address] PCP - General Family Medicine 12/03/19 [place] A 11/24/23 documented as of this encounter
--- OUTSIDE RECORDS SUMMARY | 2024-11-29 09:39 | XMS_ITS | Encounter Summary ---
Author Organization [employer] Address 75 [facility] 7t [place] [address] Care Team Providers Care Licensed Final Expense Agents Name Role Phone Maria Elena Wells MD Primary Care Provider [phone] Reason for Visit * Reason Comments Med Refill Encounter Details Date Type Department Care Team ([facility] st Contact Info) Description 12/18/2023 Refill [facility] MEDICINE 230 [place], [place] [phone] Name, MD Mars 230 [place] [address] Social History Tobacco Use Types Packs/Day Years [...] documented as of this encounter Care Teams Licensed Final Expense Agents Relationship Specialty Start Date End Date Maria Elena Wells MD [address] [place] [address] PCP - General Family Medicine 12/03/19 [place] MINER 11/24/23 documented as of this encounter
--- OUTSIDE RECORDS SUMMARY | 2024-11-29 09:39 | XMS_ITS | Encounter Summary ---
Author Organization [employer] Address 75 [facility] 7 [place] [address] Care Team Providers Care Construction Teacher Name Role Phone Maria Elena Wells MD Primary Care Provider [phone] Reason for Visit * Reason Comments Med Refill Encounter Details Date Type Department Care Team ([facility] st Contact Info) Description 05/22/2024 Refill [facility] MEDICINE 230 [place], [place] [phone] Maria Elena Wells MD 230 [place] [address] Essential hypertension Social History Tobacco Use Types [...] as of this encounter Care Teams Construction Teacher Relationship Specialty Start Date End Date Maria Elena Wells MD [address] [place] [address] PCP - General Family Medicine 12/03/19 [place] MINER 11/24/23 documented as of this encounter
--- OUTSIDE RECORDS SUMMARY | 2024-11-29 09:39 | XMS_ITS | Encounter Summary ---
Author Organization [employer] Address 75 [facility] 7t [place] [address] Care Team Providers Care Heel Cementer Machine Name Role Phone Maria Elena Wells MD Primary Care Provider [phone] Encounter Details Date Type Department Care Team (Late st Contact Info) Description 01/24/2023 Orders Only [facility] CHC MED & PEDS [address] [place] [address] Sonya Jordan LPN Social History Tobacco Use [...] on filedocumented in this encounter Care Teams Heel Cementer Machine Relationship Specialty Start Date End Date Maria Elena Wells MD [address] [place] [address] PCP - General Family Medicine 12/03/19 [place] A 11/24/23 documented as of this encounter
--- OUTSIDE RECORDS SUMMARY | 2024-11-29 09:39 | XMS_ITS | Clinical Summary ---
Author Organization [employer] Address [address] [place] [address] 7 [place] [address] Care Team Providers Care Technical Service Representative Name Role Phone Maria Elena Wells MD Primary Care Provider [phone] Allergies Active Allergy Reactions Criticality Noted Date Comments Celecoxib Unknown Phenytoin Unknown Pseudoephedrine Unknown Medications sildenafil (Viagra) 50 MG tabletIndications :Erectile dysfunction, unspecified erectile dysfunction type TAKE 1 TABLET 1 HOUR BEFORE SEXUAL RELATIONS ONCE DAILY NEEDED. 15 tablet 6 Active FREESTYLE LITE test stripIndications: Type 2 diabetes mellitus without complication, without long-term current use of insulin ([facility]) Use to test blood sugar one time daily 50 each 024 2024 Active Alcohol Swabs 70 % padsIndications:T ype 2 diabetes mellitus without complication, without long-term current use of insulin ([facility]) Use to test blood sugar one time daily 100 each Active Blood Glucose Monitoring Suppl (FreeStyle [place] Lite) w/Device kitIndications:Ty pe 2 diabetes mellitus without complication, without long-term current use of insulin ([facility]) Use to test blood sugar one time daily 1 kit Active ibuprofen 400 MG tablet TAKE 1 TO 2 TABLETS BY MOUTH EVERY 8 HOURS NEEDED FOR PAIN 120 tablet 6 024 Active FreeStyle lancetsIndication s:Type 2 diabetes mellitus without complication, without long-term current use of insulin ([facility]) USE TO TEST BLOOD SUGAR ONCE DAILY [...] Type Department Care Team Description 11/07/2024 Telephone [facility] MEDICINE [address] [place] [phone] Maria Elena Wells MD Durable Medical Equipment (DME Request: Bilateral Knee Braces/Heating Pad) 11/06/2024 Telephone [facility] MEDICINE 230 [place], [place] [phone] Maria Elena Wells MD Results 11/02/2024 9:45 AM EDT Office Visit [address] [address] Maria Elena Wells MD Type 2 diabetes mellitus without complication, without long-term current use of insulin ([facility]) (Primary Dx); Dietary counseling; Exercise counseling; Class 1 obesity with serious comorbidity and body mass index (BMI) of 34.0 to 34.9 in adult, unspecified obesity type; Nonintractable epilepsy without status epilepticus, unspecified epilepsy type (CMS/HCC); Left wrist pain; Bilateral primary osteoarthritis of knee; Essential hypertension; Folic acid deficiency; Dry skin 11/02/2024 Travel 11/02/2024 Telephone [facility] MEDICINE [address] [place] [address] [phone] Maria Elena Wells MD Chart Prep 10/23/2024 Patient Outreach [facility] MEDICINE [address] [place] [address] Maria Elena Wells MD Pre-visit Planning (SDOH [...] complication, without long-term current use of insulin ([facility]) POCT GLUCOSE Routine 11/02/2024 10:15 AM EDT Type 2 diabetes mellitus without complication, without long-term current use of insulin ([facility]) XR WRIST 3+ VIEWS LEFT Routine 11/02/2024 [...] Media Lot # [id number] Lot# Expiration Date [id number] Blood Capillary blood specimen / Unknown 11/02/2024 10:15 AM EDT Maria Elena Wells MD POINT OF CARE TEST ENTER/EDIT ORDERABLES Final Result * XR Wrist 3+ Views Left (11/02/2024 10:05 AM EDT) Anatomical Region Laterality Modality Upper Extremities, Wrist Left Radiogr aphic Imaging 11/02/2024 10:0 5 AM EDT Narrative 11/02/2024 11:04 AM EDT [address] [address] XRay Report Signed Patient: Girma Kimball MR#: [id number] : 1975 Acct:[id number] Age/Sex: 49 / M ADM Date: 11/02/24 Loc: HO.HHCX Attending Dr: Maria Elena Wells MD Ordering Physician: Maria Elena Wells Date of Service: 11/02/24 Procedure(s): XR wrist LT min 3V Accession Number(s): [id number] cc: Maria Elena Wells EXAMINATION: XR WRIST, LEFT CLINICAL INFORMATION: L wrist limited range of motion and swelling COMPARISON: 05/13/2021 TECHNIQUE: PA, lateral, and oblique views of the left wrist. FINDINGS: No fracture, dislocation, or suspicious bone lesion. There is complete loss of the radiocarpal joint space with [id number] appearance. There is widening of scapholunate interval, [...] 11/02/24 1101 DD/ 1005 TD/TT: 11/02/24 1020 Bridge Mechanic: Procedure Note Donotuseinterpreter, Image - 11/02/2024 [place] [address] XRay Report Signed Patient: Gabino Kimball#: [id number] : 1975Acct:[id number] Age/Sex: 49 / MADM Date: 11/02/24 Loc: HO.HHCX Attending Dr: Maria Elena Wells MD Ordering Physician: Maria Elena Wells Date of Service: 11/02/24 Procedure(s): XR wrist LT min 3V Accession Number(s): [id number] cc: Maria Elena Wells EXAMINATION: XR WRIST, LEFT CLINICAL INFORMATION: L wrist limited range of motion and swelling COMPARISON: 05/13/2021 TECHNIQUE: PA, lateral, and oblique views of the left wrist. FINDINGS: No fracture, dislocation, or suspicious bone lesion. There is complete loss of the radiocarpal joint space with [id number] appearance. There is widening of scapholunate interval, [...] 11/02/24 1101 DD/ 1005 TD/TT: 11/02/24 1020 Bridge Mechanic: Maria Elena Wells MD IMG XR PROCEDURES Final Result * (ABNORMAL) Glucose, Whole Blood (10/03/2024 10:07 AM EDT) [facility] Glucose, Whole Blood 146(H) 60 - 115 mg/dL [facility] Comment:METER #: [id number] 5Testing performed in the Endocrinology Department [address] , [address], [facility]. 10/03/2024 10:0 7 AM EDT 10/03/2024 10:11 AM EDT Generic External Data Provider LAB BLOOD ORDERAB LES Final Result [facility] [address] [place] [phone] * (ABNORMAL) HM Hemoglobin A1c (10/03/2024) Pathologist [facility] Hemoglobin A1C 6.7(A) 4.0 - 5.7 % Narrative Princess Rice - 10/03/2024 See external hospital admission note with matching A1C date Historical Provider HEALTH MAINTENANCE Final Result * (ABNORMAL) Lipid Panel, Standard (06/15/2023 4:45 PM EDT) Triglycerides 246(H) <150 mg/dL [facility] Comment:Desirable Triglyceri de: less than 150 mg/dLBorderline High Triglyceride 150-199 mg/dLHigh Triglyceride: 200-499 mg/dLVery High Triglyceride: greater than or equal to 5OO mg/dL Cholesterol 149 <200 mg/dL [facility] Comment:Desirable Cholestero l: less than 200 mg/dLBorderline High Cholesterol: 200-239 mg/dLHigh Cholesterol: greater than 239 mg/dL LDL Cholesterol Calculated 64 <100 mg/dL [facility] Comment:Desirable LDL: less than 100 mg/dLNear Optimal/Above Optimal LDL: 110- 129 mg/dLBorderline High LDL: 130-159 mg/dLHigh LDL: 160-189 mg/dLVery High LDL: greater than or equal to 190 mg/dL HDL Cholesterol 36(L) >40 mg/dL [facility] Comment:Desirable HDL: great er than 40 mg/dL Note: This HDL assay may give artificially low results in patients with liver disease. Blood Venous blood specimen / Unknown 06/15/2023 4:45 PM EDT 06/15/2023 5:38 PM EDT us Maria Elena Wells MD LAB BLOOD ORDERABLES Final Res ult [facility] [address] [place] [phone] * ALBUMIN, RANDOM URINE W/CREATININE (11/07/2019 [...] 11:3 4 AM EDT us Charles Wilson MEDICAL PLANNER LAB URINE ORDERABLES Final Res ult [facility] [address] [place] [address], from Last 3 Months or Most Recently Relevant to Health Maintenance Insurance [facility] STANDARD MEDICARE D[place] STAND AD[place] Care Teams Technical Service Representative Relationship Specialty Start Date End Date Maria Elena Wells MD [address] [place] [phone] PCP - General Family Medicine [facility]03[facility]
--- OUTSIDE RECORDS SUMMARY | 2024-11-29 09:39 | XMS_ITS | Encounter Summary ---
Author Organization [employer] Address 75 [facility] 7t [place] [address] Care Team Providers Care Mold Carpenter Name Role Phone Maria Elena Wells MD Primary Care Provider [phone] Encounter Details Date Type Department Care Team ([facility] st Contact Info) Description 07/02/2024 Orders Only [facility] MEDICINE 230 [place], [place] [phone] Maria Elena Wells MD 230 [place] [address] Social History Tobacco Use Types Packs/Day Years [...] documented as of this encounter Care Teams Mold Carpenter Relationship Specialty Start Date End Date Maria Elena Wells MD 230 [place] [address] PCP - General Family Medicine 12/03/19 [place] MINER 11/24/23 documented as of this encounter
--- OUTSIDE RECORDS SUMMARY | 2024-11-29 09:39 | XMS_ITS | Encounter Summary ---
Author Organization [employer] Address [address] [place] [address] 7 [place] [address] Care Team Providers Care Detective Bureau Chief Name Role Phone Maria Elena Wells MD Primary Care Provider [phone] Encounter Details Date Type Department Care Team [...] on filedocumented in this encounter Care Teams Detective Bureau Chief Relationship Specialty Start Date End Date Maria Elena Wells MD [address] [place] [address] PCP - General Family Medicine [facility] documented as of this encounter
== END 2024-11-27 08:52 | disposition home or self-care (01) ==
LOC: HO.HOSX 08:51
PROVIDERS: Visit Provider Orthopaedic Surgery
DX: Z13.89 Encounter for screening for other disorder (principal)

== ENCOUNTER 2024-11-28 11:31 | Outpatient (REF) | payer MEDICARE, MEDICAID, SELFPAY ==
--- NOTE | ~2024-11-28 | FL_ITS ---
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 TECHNIQUE: Fluoroscopy time: 21.3 seconds. DAP: 45957.3 mGym2 Images: 2. FINDINGS: Fluoroscopic spot films of the wrist demonstrate a needle overlying the mid carpal compartment. FL/FL guided needle placement IMPRESSION: Fluoroscopy during procedure. Please see procedure report for additional information. Electronically signed by: Mendez Mccarthy MD 11/28/2024 01:26 PM EDT
--- NOTE | ~2024-11-28 | XR_ITS ---
EXAMINATION: XR WRIST NAVICULAR LEFT HISTORY: M25.532 - Pain in left wrist COMPARISON: Comparison is made with the prior examination dated the 125. FINDINGS: Four views of the left wrist and a single comparison view of the right wrist are submitted. Osseous mineralization is normal. There is no fracture or dislocation. Again seen is severe degenerative change of the carpus with joint space narrowing and osteophyte formation. The previously seen widening of the scapholunate space is not as prominent, likely due to obliquity. The patient is status post resection of the right scaphoid. The soft tissues are unremarkable. XR/XR wrist LT w scaphoid IMPRESSION: Severe degenerative change of the carpus. Electronically signed by: Mendez Mccarthy MD 11/28/2024 11:49 AM EDT
--- OUTSIDE RECORDS SUMMARY | 2024-11-28 12:36 | XMS_ITS | Encounter Summary ---
Author Organization [employer] Address 75 [facility] 7 [place] [address] Care Team Providers Care Machinist Bench Name Role Phone Maria Elena Wells MD Primary Care Provider [phone] Encounter Details Date Type Department Care Team (Late st Contact Info) Description 06/17/2023 Orders Only [facility] MED[facility]INE [address] [place], [place] [phone] Maria Elena Wells MD [address] [place] [address] Social History Tobacco Use Types Packs/Day Years [...] on filedocumented in this encounter Care Teams Machinist Bench Relationship Specialty Start Date End Date Maria Elena Wells MD [address] [place], [place] [phone] PCP - General Family Medicine 12/03/19 [facility] 11/24/23 documented as of this encounter
--- OUTSIDE RECORDS SUMMARY | 2024-11-28 12:36 | XMS_ITS | Encounter Summary ---
Author Organization [employer] Address 75 [facility] 7t [place] [address] Care Team Providers Care Travelift Operator Name Role Phone Maria Elena Wells MD Primary Care Provider [phone] Reason for Visit * Reason Comments Med Refill Encounter Details Date Type Department Care Team ([facility] st Contact Info) Description 07/30/2024 Refill [facility] MED[facility]INE [address] [place], [place] [phone] Maria Elena Wells MD [address] [place] [address] Social History Tobacco Use Types Packs/Day Years [...] documented as of this encounter Care Teams Travelift Operator Relationship Specialty Start Date End Date Maria Elena Wells MD [address] [place] [phone] PCP - General Family Medicine 12/03/19 [place] [facility] 11/24/23 documented as of this encounter
--- OUTSIDE RECORDS SUMMARY | 2024-11-28 12:37 | XMS_ITS | Encounter Summary ---
Author Organization [employer] Address 75 [facility] 7 [place] [address] Care Team Providers Care Cable Armorer Name Role Phone [place] Wells MD Primary Care Provider [phone] Reason for Visit * Reason Comments Med Refill Encounter Details Date Type Department Care Team ([facility] st Contact Info) Description 05/22/[address] [facility] MEDICINE [address] [place], [place] [phone] Maria Elena Wells MD [address] [place] [address] Essential hypertension Social History Tobacco Use Types [...] documented as of this encounter Care Teams Cable Armorer Relationship Specialty Start Date End Date Maria Elena Wells MD [address] [place] [address] PCP - General Family Medicine 12/03/19 [place] [facility] 11/24/23 documented as of this encounter
--- OUTSIDE RECORDS SUMMARY | 2024-11-28 12:37 | XMS_ITS | Encounter Summary ---
Author Organization [employer] Address [address] [place] [address] 7 [place] [address] Care Team Providers Care After School Driver Name Role Phone Maria Elena Wells MD Primary Care Provider [phone] Encounter Details Date Type Department Care Team [...] on filedocumented in this encounter Care Teams After School Driver Relationship Specialty Start Date End Date Maria Elena Wells MD [address] [place] [address] PCP - General Family [facility] documented as of this encounter
--- OUTSIDE RECORDS SUMMARY | 2024-11-28 12:37 | XMS_ITS | Encounter Summary ---
Author Organization [employer] Address [address] [facility] 7t [place] [address] Care Team Providers Care Grid Operator Name Role Phone Maria Elena Wells MD Primary Care Provider [phone] Encounter Details Date Type Department Care Team (Late st Contact Info) Description 01/24/2023 Orders Only [facility] CHC MED & PEDS [address] [place] [address] Sonya Jordan LPN Social History Tobacco Use [...] on filedocumented in this encounter Care Teams Grid Operator Relationship Specialty Start Date End Date Maria Elena Wells MD [address] [place] [phone] PCP - General Family Medicine 12/03/19 Gould A 11/24/23 documented as of this encounter
--- OUTSIDE RECORDS SUMMARY | 2024-11-28 12:37 | XMS_ITS | Encounter Summary ---
Author Organization [employer] Address [address] [facility] 7t [place] [address] Care Team Providers Care Compensation Coordinator Name Role Phone Maria Elena Wells MD Primary Care Provider [phone] Encounter Details Date Type Department Care Team (Late st Contact Info) Description 06/22/2022 Orders Only [facility] CHC MED & PEDS [address] [place] [address] Neda Hays LPN Social History Tobacco Use Types [...] on filedocumented in this encounter Care Teams Compensation Coordinator Relationship Specialty Start Date End Date Maria Elena Wells MD [address] [place] [address] PCP - General Family Medicine 12/03/19 Alisson A 11/24/23 documented as of this encounter
--- OUTSIDE RECORDS SUMMARY | 2024-11-28 12:37 | XMS_ITS | Encounter Summary ---
Author Organization [employer] Address [address] [facility] 7 [place] [address] Care Team Providers Care Oracle Hrms Developer Name Role Phone Maria Elena Wells MD Primary Care Provider [phone] Reason for Visit * Reason Comments Med Refill Encounter Details Date Type Department Care Team ([facility] st Contact Info) Description 12/18/2023 Refill [facility] MEDICINE [address] [place], [place] [phone] Name, MD Mars [address] [place] [address] Social History Tobacco Use Types Packs/Day Years [...] documented as of this encounter Care Teams Oracle Hrms Developer Relationship Specialty Start Date End Date Maria Elena Wells MD [address] [place] [phone] PCP - General Family Medicine 12/03/19 Alisson MINER 11/24/23 documented as of this encounter
--- OUTSIDE RECORDS SUMMARY | 2024-11-28 12:37 | XMS_ITS | Encounter Summary ---
Author Organization [employer] Address [address] [facility] 7t [place] [address] Care Team Providers Care Project Control Analyst Name Role Phone Maria Elena Wells MD Primary Care Provider [phone] Encounter Details Date Type Department Care Team ([facility] st Contact Info) Description 07/02/2024 Orders Only [facility] MEDICINE [address] [place], [place] [phone] Maria Elena Wells MD [address] [place] [address] Social History Tobacco Use Types Packs/Day Years [...] documented as of this encounter Care Teams Project Control Analyst Relationship Specialty Start Date End Date Maria Elena Wells MD [address] [place] [address] PCP - General Family Medicine 12/03/19 Alisson MINER 11/24/23 documented as of this encounter
--- OUTSIDE RECORDS SUMMARY | 2024-11-28 12:37 | XMS_ITS | Clinical Summary ---
Author Organization [employer] Address [address] [place] [address] 7 [place] [address] Care Team Providers Care Chairman Emeritus Name Role Phone Maria Elena Wells MD Primary Care Provider [phone] Allergies Active Allergy Reactions Criticality Noted Date Comments Celecoxib Unknown Phenytoin Unknown Pseudoephedrine Unknown Medications sildenafil (Viagra) 50 MG tabletIndications :Erectile dysfunction, unspecified erectile dysfunction type TAKE 1 TABLET 1 HOUR BEFORE SEXUAL RELATIONS ONCE DAILY NEEDED. 15 tablet 6 Active FREESTYLE LITE test stripIndications: Type 2 diabetes mellitus without complication, without long-term current use of insulin ([facility]) Use to test blood sugar one time daily 50 each 024 2024 Active Alcohol Swabs 70 % padsIndications:T ype 2 diabetes mellitus without complication, without long-term current use of insulin ([facility]) Use to test blood sugar one time daily 100 each Active Blood Glucose Monitoring Suppl (FreeStyle [place] Lite) w/Device kitIndications:Ty pe 2 diabetes mellitus without complication, without long-term current use of insulin ([facility]) Use to test blood sugar one time daily 1 kit Active ibuprofen 400 MG tablet TAKE 1 TO 2 TABLETS BY MOUTH EVERY 8 HOURS NEEDED FOR PAIN 120 tablet 6 024 Active FreeStyle lancetsIndication s:Type 2 diabetes mellitus without complication, without long-term current use of insulin ([facility]) USE TO TEST BLOOD SUGAR ONCE DAILY 100 each 024 Active Mounjaro 5 MG/0.5ML solution auto-injectorIndi cations:Type 2 diabetes mellitus without complication, without long-term current use of insulin (CMS/HCC) INJECT 5 MG UNDER THE SKIN ONE DAY A WEEK 025 Active ammonium lactate (Lac-Hydrin) 12 % lotionIndications :Dry skin Apply topically if needed for dry skin. 396 g 3 025 2025 Active Diclofenac Sodium 1 % gelIndications:Bi lateral primary osteoarthritis of knee Apply thin layer by topical route (quantity as directed on package insert) to affected area of pain 3 times daily as needed. 100 g 025 Active OXcarbazepine (Trileptal) 600 MG tabletIndications :Nonintractable epilepsy without status epilepticus, unspecified epilepsy type (CMS/HCC) Take 1 tablet (600 mg) by mouth 2 times daily. 180 tablet 3 025 Active lisinopril 10 MG tabletIndications :Essential hypertension TAKE 1 TABLET(5 MG) BY MOUTH IN THE MORNING 90 tablet 025 Active lamoTRIgine (LaMICtal) 200 MG tabletIndications :Nonintractable epilepsy without status epilepticus, unspecified epilepsy type (CMS/HCC) Take 1 tablet (200 mg) by mouth 2 times daily. 180 tablet 3 025 Active hydroCHLOROthiazi de (HYDRODiuril) 25 MG tabletIndications :Essential hypertension Take 1 tablet (25 mg) by mouth Once per day. 90 tablet 3 025 Active folic acid (Folvite) 1 MG tabletIndications :Folic acid deficiency Take 1 tablet (1 mg) by mouth Once per day. 90 tablet 025 Active docusate sodium (Colace) 100 MG capsule Take 1 capsule (100 mg) by mouth Once per day. 90 capsule 3 025 Active cholecalciferol (Vitamin D-3) 50 MCG (1999 UT) capsule take one capsule by mouth once daily 90 capsule 3 025 Active cholecalciferol (Vitamin D-3) 50 MCG (1999 UT) capsule take one capsule by mouth once daily 90 capsule 3 023 2024 Discontinued(R eorder (will not trigger notification to Pharmacy)) lamoTRIgine (LaMICtal) 200 MG tablet Take 1 tablet by mouth 2 times daily. 2024 Discontinued(R eorder (will not trigger notification to Pharmacy)) OXcarbazepine (Trileptal) 600 MG tablet Take 600 mg by mouth 2 times daily. 2024 Discontinued(R eorder (will not trigger notification to Pharmacy)) loperamide (Imodium) 2 MG capsule TAKE 1 CAPSULE BY MOUTH EVERY 4 HOURS NEEDED FOR LOOSE STOOL ADMINITSTER AFTER EACH LOOSE STOOL UNTIL SYMPTOMS CONTROLLED DO NOT EXCEED 8MG/DAY 2024 Discontinued(T herapy completed) hydroCHLOROthiazi de (HYDRODiuril) 25 MG tablet Take 1 tablet (25 mg) by mouth Once per day. 90 tablet 3 024 2024 Discontinued(R eorder (will not trigger notification to Pharmacy)) Diclofenac Sodium 1 % gelIndications:Bi lateral primary osteoarthritis of knee Apply thin layer by topical route (quantity as directed on package insert) to affected area of pain 3 times daily as needed. 50 g 3 2024 Discontinued(R eorder (will not trigger notification to Pharmacy)) lisinopril 10 MG tabletIndications :Essential hypertension TAKE 1 TABLET(5 MG) BY MOUTH IN THE MORNING 90 tablet 3 024 2024 Discontinued(R eorder (will not trigger notification to Pharmacy)) folic acid (Folvite) 1 MG tabletIndications :Folic acid deficiency TAKE 1 TABLET(1000 MCG) BY MOUTH IN THE MORNING 90 tablet 3 025 2024 Discontinued(R eorder (will not trigger notification to Pharmacy)) docusate sodium (Colace) 100 MG capsule Take 1 capsule by mouth 2 times daily. 025 2024 Discontinued(R eorder (will not trigger notification to Pharmacy)) senna (Senokot) 8.6 MG tablet Take 1 tablet by mouth at bedtime. 025 2024 Discontinued(T herapy completed) Mounjaro 2.5 MG/0.5ML solution auto-injector ADMINISTER 2.5 MG UNDER THE SKIN EVERY WEEK FOR 4 WEEKS 025 2024 Discontinued(D ose adjustment) cyclobenzaprine (Flexeril) 5 MG tablet Take 1 tablet (5 mg) by mouth 3 times daily for 10 days. 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 [...] as directed by neurology Lamictal and Trileptal Essential hypertension 10/15/2011 Assessment & Plan (11/08/2023 7:04 PM [...] prescriptions without first consulting health care provider Resolved Problems Problem Noted Date Diagnosed Date Resolved Date Class 2 obesity 06/13/2023 11/05/2024 Encounters Date Type Department Care Team Description 11/07/2024 Telephone [facility] [address] [place] [phone] Maria Elena Wells MD Durable Medical Equipment (DME Request: Bilateral Knee Braces/Heating Pad) 11/06/2024 Telephone [facility] [address] [place], [place] [phone] Maria Elena Wells MD Results 11/02/2024 9:45 AM EDT Office Visit [address] [address] Maria Elena Wells MD Type 2 diabetes mellitus without complication, without long-term current use of insulin ([facility]) (Primary Dx); Dietary counseling; Exercise counseling; Class 1 obesity with serious comorbidity and body mass index (BMI) of 34.0 to 34.9 in adult, unspecified obesity type; Nonintractable epilepsy without status epilepticus, unspecified epilepsy type (CMS/HCC); Left wrist pain; Bilateral primary osteoarthritis of knee; Essential hypertension; Folic acid deficiency; Dry skin 11/02/2024 Travel 11/02/2024 Telephone [facility] [address] [place] [phone] Maria Elena Wells MD Chart Prep 10/23/2024 Patient Outreach [facility] [address] [place] [address] Maria Elena Wells MD Pre-visit Planning (SDOH screening negative and tobacco screening negative) 10/03/2024 Orders Only GENERIC EXTERNAL DATA DEPARTMENT Provider, Generic External Data from Last 3 Months Immunizations Immunization Administration Dates Next Due Influenza injectable quadriv [...] drink = 0.6 oz pur e alcohol) Alcohol Answer Date Recorded How often do you have a drink containing alcohol ? 1 11/02/2024 Average Number of Drinks Not on file 025 How often do you have six or more drinks on one occasion? 2 11/02/2024 Depression Answer Date Recorded Patient Health Questionnaire-9 [...] Sign Reading Time Taken Comments Blood Pressure 124/80 11/02/2024 9:53 AM EDT Pulse 76 11/02/2024 9:53 AM EDT Temperature 37.1 C (98.8 F) 02/06/2024 11:28 AM EST Respiratory Rate 20 11/02/2024 9:53 AM EDT Oxygen Saturation 96% 11/08/2023 11:00 AM EDT Inhaled Oxygen Concentration - - Weight 116 kg (255 lb) 11/02/2024 9:53 AM EDT Height 180.3 cm (5' 11 ) 02/06/2024 11:28 AM EST Body Mass Index 35.57 02/06/2024 11:28 AM EST Plan of Treatment Health Maintenance Due Date Last Done Comments CT Colonography 1975 Colonoscopy 1977 Colorectal Cancer Screening 1977 FIT DNA/Cologuard 1977 FIT 1977 FOBT 1975 HIV Screening 1975 Sigmoidoscopy 1977 Hepatitis C Screening 1995 Hepatitis B Vaccines (1 of 3 - 19+ 3-dose series) 1996 Pneumococcal Vaccine: Pediatrics (0 to 5 Years) and At-Risk Patients (6 to 49) Years (1 of 2 - PCV) 1996 Diabetes: Urine Protein Screening 11/06/2020 11/07/2019 DTaP/Tdap/Td Vaccines (2 - Td or Tdap) 01/17/2023 01/17/2013, 05/19/2007 COVID-19 Vaccine ( season) 2023 03/12/2021, 08/21/2020, 07/31/2020 Lipid Panel 06/14/2024 06/15/2023, 05/05, 11/07/2019 Dental Prophylaxis 08/29/2024 02/29/2024, 1 04/07/2018, 08/03/2018, Additional history exists Dental Oral Exam 09/05/2024 03/06/2024, 07/2018, 08/02/2017, Additional history exists Depression Screening 11/07/2024 11/08/2023, 11/08/19 24 Influenza Vaccine (#1) 2024 9, 05/01/2015, 12/18/2013, Additional history exists Diabetes: Hemoglobin A1C 02/02/2025 025, 10/03/2024, 03/15/2024, Additional history exists Dental X-Ray: [facility]ings 03/01/2025 02/29/20 24, 04/27/2017, 11/06/2015, Additional history exists SDOH Screening 10/23/2025 10/23/2024 Alcohol/Substance Use Screening 11/02/2025 11/02/2024 Diabetes: Foot Exam 11/02/2025 11/02/2024, 11/02/2024, 11/02/2024, Additional history exists Disability Screening 11/02/2025 11/02/2024 Tobacco Screening 11/02/2025 11/02/2024 Family Planning (PISQ) 11/05/2025 11/05/2024 Eye Exam 05/01/2026 05/01/2024, 04/05, 05/01/2024, Additional [...] patient's age to complete this topic Meningococcal B Vaccine Aged Out No l onger eligible based on patient's age to complete [...] Procedure Name Priority Date/Time Associated Diagnosis Comments POCT GLYCATED HEMOGLOBIN, TOTAL Routine 11/02/2024 10:15 AM EDT Type 2 diabetes mellitus without complication, without long-term current use of insulin ([facility]) POCT GLUCOSE Routine 11/02/2024 10:15 AM EDT Type 2 diabetes mellitus without complication, without long-term current use of insulin ([facility]) XR WRIST 3+ VIEWS LEFT Routine 11/02/2024 10:05 AM EDT Left wrist pain GLUCOSE, WHOLE BLOOD Routine 10/03/2024 10:07 AM EDT HM HEMOGLOBIN A1C Routine 10/03/2024 PERIODIC ORAL EVALUATION - ESTABLISHED PATIENT Routine [...] Relevant to Health Maintenance Results * (ABNORMAL) POCT HGB A1C (11/02/2024 10:15 AM EDT) Hemoglobin A1C 7.5(A) 4.0 - 5.7 % QC Media Lot # [id number] Lot# Expiration Date , Blood 11/02/2024 10:1 5 AM EDT Maria Elena Wells MD POINT OF CARE TEST ENTER/EDIT ORDERABLES Final Result * POCT Glucose (11/02/2024 10:15 AM EDT) Glucose Blood, POC 196 60 - 200 mg/dL QC Media Lot # [id number] Lot# Expiration Date [id number] Blood Capillary blood specimen / Unknown 11/02/2024 10:15 AM EDT Maria Elena Wells MD POINT OF CARE TEST ENTER/EDIT ORDERABLES Final Result * XR Wrist 3+ Views Left (11/02/2024 10:05 AM EDT) Anatomical Region Laterality Modality Upper Extremities, Wrist Left Radiogr aphic Imaging 11/02/2024 10:0 5 AM EDT Narrative 11/02/2024 11:04 AM EDT [address] [address] XRay Report Signed Patient: Girma Kimball MR#: [id number] : 1975 Acct:[id number] Age/Sex: 49 / M ADM Date: 11/02/24 Loc: HO.HHCX Attending Dr: Maria Elena Wells MD Ordering Physician: Maria Elena Wells Date of Service: 11/02/24 Procedure(s): XR wrist LT min 3V Accession Number(s): [id number] cc: Maria Elena Wells EXAMINATION: XR WRIST, LEFT CLINICAL INFORMATION: L wrist limited range of motion and swelling COMPARISON: 05/13/2021 TECHNIQUE: PA, lateral, and oblique views of the left wrist. FINDINGS: No fracture, dislocation, or suspicious bone lesion. There is complete loss of the radiocarpal joint space with bqdu-tr-[id number] appearance. There is widening of scapholunate interval, measuring approximately 5 mm, concerning for scapholunate ligament disruption. There are dorsal carpal osteophytic spurs. There is no soft tissue abnormality. XR/XR wrist LT min 3V IMPRESSION: 1. No acute bony abnormalities. 2. Severe radiocarpal joint space narrowing and arthrosis, progressed significantly from 2021. 3. Widening of the scapholunate interval suggestive of scapholunate ligament disruption. Electronically signed by: Kyrie Clark MD 11/02/2024 11:01 AM EDT RP Dictated By: Kyrie Clark MD Signed By: <Electronically signed by Kyrie Clark MD in OV> 11/02/24 1101 DD/ 1005 TD/TT: 11/02/24 1020 Email Manager: Procedure Note Donotuseinterpreter, Image - 11/02/2024 [place] [address] XRay Report Signed Patient: Gabino Kimball#: [id number] : 1975Acct:[id number] Age/Sex: 49 / MADM Date: 11/02/24 Loc: HO.HHCX Attending Dr: Maria Elena Wells MD Ordering Physician: Maria Elena Wells Date of Service: 11/02/24 Procedure(s): XR wrist LT min 3V Accession Number(s): [id number] cc: Maria Elena Wells EXAMINATION: XR WRIST, LEFT CLINICAL INFORMATION: L wrist limited range of motion and swelling COMPARISON: 05/13/2021 TECHNIQUE: PA, lateral, and oblique views of the left wrist. FINDINGS: No fracture, dislocation, or suspicious bone lesion. There is complete loss of the radiocarpal joint space with wupw-ph-nbqb appearance. There is widening of scapholunate interval, measuring approximately 5 mm, concerning for scapholunate ligament disruption. There are dorsal carpal osteophytic spurs. There is no soft tissue abnormality. XR/XR wrist LT min 3V IMPRESSION: 1. No acute bony abnormalities. 2. Severe radiocarpal joint space narrowing and arthrosis, progressed significantly from 2021. 3. Widening of the scapholunate interval suggestive of scapholunate ligament disruption. Electronically signed by: Kyrie Clark MD 11/02/2024 11:01 AM EDT RP Dictated By: Kyrie Clark MD Signed By: <Electronically signed by Kyrie Clark MD in OV> 11/02/24 1101 DD/ 1005 TD/TT: 11/02/24 1020 Email Manager: Maria Elena Wells MD IMG XR PROCEDURES Final Result * (ABNORMAL) Glucose, Whole Blood (10/03/2024 10:07 AM EDT) [facility] Glucose, Whole Blood 146(H) 60 - 115 mg/dL [facility] Comment:METER #: [id number] 5Testing performed in the Endocrinology Department [address] , [address], [facility]. 10/03/2024 10:0 7 AM EDT 10/03/2024 10:11 AM EDT Generic External Data Provider LAB BLOOD ORDERAB LES Final Result [facility] [address] [place] [phone] * (ABNORMAL) HM Hemoglobin A1c (10/03/2024) Pathologist [facility] Hemoglobin A1C 6.7(A) 4.0 - 5.7 % Narrative Princess Rice - 10/03/2024 See external hospital admission note with matching A1C date Historical Provider HEALTH MAINTENANCE Final Result * (ABNORMAL) Lipid Panel, Standard (06/15/2023 4:45 PM EDT) Triglycerides 246(H) <150 mg/dL [facility] Comment:Desirable Triglyceri de: less than 150 mg/dLBorderline High Triglyceride 150-199 mg/dLHigh Triglyceride: 200-499 mg/dLVery High Triglyceride: greater than or equal to 5OO mg/dL Cholesterol 149 <200 mg/dL [facility] Comment:Desirable Cholestero l: less than 200 mg/dLBorderline High Cholesterol: 200-239 mg/dLHigh Cholesterol: greater than 239 mg/dL LDL Cholesterol Calculated 64 <100 mg/dL [facility] Comment:Desirable LDL: less than 100 mg/dLNear Optimal/Above Optimal LDL: 110- 129 mg/dLBorderline High LDL: 130-159 mg/dLHigh LDL: 160-189 mg/dLVery High LDL: greater than or equal to 190 mg/dL HDL Cholesterol 36(L) >40 mg/dL [facility] Comment:Desirable HDL: great er than 40 mg/dL Note: This HDL assay may give artificially low results in patients with liver disease. Blood Venous blood specimen / Unknown 06/15/2023 4:45 PM EDT 06/15/2023 5:38 PM EDT us Maria Elena Wells MD LAB BLOOD ORDERABLES Final Res ult [facility] [address] [place] [phone] * ALBUMIN, RANDOM URINE W/CREATININE (11/07/2019 11:34 AM EDT) Microalbumin Urine 1.3 See Note: mg/dL [facility] Comment: Reference Range: Reference Range Not established Microalb/Creat Ratio 5 <30 mcg/mg creat [facility] Comment: The ADA defines abnormalities in albumin excretion as follows: Category Result (mcg/mg creatinine) Normal <30 Microalbuminuria 30-299 Clinical albuminuria > OR = 300 The ADA recommends that at least two of three specimens collected within a 3-6 month period be abnormal before considering a patient to be within a diagnostic category. Creatinine, Urine 245 20 - 320 mg/dL [facility] 11/07/2019 11:3 4 AM EDT us [facility] [employer] LAB URINE ORDERABLES Final Res ult [facility] [address] [place] [address], from Last 3 Months or Most Recently Relevant to Health Maintenance Insurance [facility] STANDARD MEDICARE [place] AD[place] Care Teams Chairman Emeritus Relationship Specialty Start Date End Date Maria Elena Wells MD [address] [place] [phone] PCP - General Family [facility]
== END 2024-11-28 11:32 | disposition home or self-care (01) ==
LOC: HO.HOSX 11:31
PROVIDERS: Visit Provider Orthopaedic Surgery
DX: M19.132 Post-traumatic osteoarthritis, left wrist (principal)
CPT/HCPCS: 20605; 73110; 77002; 99212; J0665; J1100

== ENCOUNTER 2024-11-28 11:31 | Outpatient (AMB) | payer MEDICARE, MEDICAID, SELFPAY ==
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
[2024-11-28 11:42] VITALS: BMI 34.7
== END 2024-11-28 12:38 | disposition home or self-care (01) ==
LOC: HO.HOS 11:32
PROVIDERS: Visit Provider Orthopaedic Surgery
DX: M19.132 Post-traumatic osteoarthritis, left wrist (principal)
CPT/HCPCS: 20605; 77002; 99214

== ENCOUNTER → 2024-11-28 11:37 | Outpatient (BNV) | payer MEDICARE, MEDICAID, SELFPAY | PROVIDERS: Visit Provider Radiology Diagnostic Radiology | DX: M19.032 Primary osteoarthritis, left wrist (principal) | CPT/HCPCS: 73110; 77002 ==

== ENCOUNTER 2025-01-07 08:55 | Outpatient (AMB) | payer MEDICARE, MEDICAID, SELFPAY ==
--- NOTE | 2025-01-07 08:57 | MHC.OFFVIS ---
Intake Visit Reasons: 6 months sz Allergies pseudoephedrine (From Sudafed) Allergy (Intermediate, Verified 01/07/25 09:01) Difficulty Breathing Medication List - Last Reconciled 01/07/25 by Radha Chowdary CNP [abdominal binder As directed] baclofen 20 mg PO QID PRN docusate sodium (Colace) 100 mg PO BID hydrochlorothiazide 25 mg PO DAILY@1000 ibuprofen 400 - 800 mg PO Q8H lamotrigine (Lamictal) 200 mg PO BID@1000,2200 lisinopril 10 mg PO DAILY Mounjaro (tirzepatide) 2.5 mg (0.5 mL) subcut QWEEK NS Mounjaro (tirzepatide) 5 mg (0.5 mL) subcut QWEEK NS oxcarbazepine 1 tab PO BID@1000,2200 polyethylene glycol 3350 (Miralax) 17 grams PO DAILY sennosides (senna) 8.6 mg PO BEDTIME HPI Comments Details: 49-year-old man with remote h/o febrile seizures and 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 Brief seizures caused episodes of de ja vu, clapping, or laughing, and larger ones were of grand-mal type. He was doing okay. He had few small katina vu spells, but they were infrequent. No missed doses of medication. No medication side effects. Sleep was okay. 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 Review of Systems Const Denies chills, Denies daytime sleepiness, Denies difficulty sleeping, Denies fatigue, Denies fever(s), Denies frequent falls, Denies headache(s), Denies increased appetite, Denies poor appetite, Denies snoring, Denies weakness, Denies weight gain and Denies weight loss Eyes Denies loss of vision ENT Denies vertigo, Denies dizziness and Denies headache(s) Card Denies chest pain at rest, Denies chest pain with activity, Denies syncope, Denies leg edema and Denies palpitations Resp Denies snoring GI Denies constipation, Denies heartburn, Denies diarrhea and Denies nausea Denies urinary frequency, Denies urinary incontinence and Denies urinary urgency Musc Denies abnormal gait, Denies numbness and Denies tingling Skin/Breast Denies dry skin and Denies rash Neuro Denies abnormal gait, Denies vertigo, Denies dizziness, Denies syncope, Denies frequent falls, Denies headache(s), Denies lack of coordination, Denies loss of vision, Denies memory loss, Denies numbness, Denies restless legs, Denies seizure-like activity, Denies tingling, Denies paresthesias, Denies tremor(s) and Denies weakness Psych Denies anxiety, Denies depression, Denies auditory hallucinations, Denies memory loss, Denies visual hallucinations and Denies suicidal ideation Endo Denies fatigue and Denies palpitations Physical Exam Const Other: General Appearance:? normal, in no acute distress. Skin:? no rashes, no significant birthmarks. Heart:? S1, S2 normal, no murmurs. Lungs:? clear anteriorly and posteriorly. Extremities:? no edema. Psych:? alert, oriented, cognitive function intact, cooperative with exam. Neuro Other: Mental Status:?Normal attention, orientation, memory and affect.? Cranial Nerves:?Pupils are equal, round and reactive to light. External occular muscles are intact. Visual camargo are full. Face is symmetrical. Facial sensations are normal. Tongue is midline. Palate elevates symmetrically. Shoulder shrugging is normal. Hearing to bedside conversation is normal. Sensory Exam:?....? Coordination:?No ataxia,?no titubation.? Gait Exam: Within normal limits. Extrapyramidal System:?No tremor, rigidity with normal facial expressions.? Pronator Drift:?Not present.? Involuntary Movements:?No tremors seen.? Speech:?Normal.? Results Reviewed Results Reviewed: [facility] records from 2013: two right temporal seizures MRI brain (limited) [place] [facility] [place] Routine EEG in office in Jun 2015: [place]. Assessment & Plan Assessment & Plan (1) Temporal lobe epilepsy: Code(s): G40.109 - Localization-related (focal) (partial) symptomatic epilepsy and epileptic syndromes with simple partial seizures, not intractable, without status epilepticus Category: Medical Plan: Continue oxcarbazepine 600mg 1 tablet twice a day. Continue lamotrigine 200mg 1 tablet twice a day. He was educated on the importance of medication compliance and risk associated with missed doses including seizures. He was advised to contact office for any new or worsening symptoms. (2) History of head injury: Code(s): Z87.828 - Personal history of other (healed) physical injury and trauma Category: Medical (3) History of febrile seizure: Code(s): Z87.898 - Personal history of other specified conditions Category: Medical Plan . Medications: Changed From oxcarbazepine 1 tab PO BID@1000,2200 To oxcarbazepine 600 mg PO BID 180 tabs 1RF 90 days From lamotrigine (Lamictal) 200 mg PO BID@1000,2200 To lamotrigine (Lamictal) 200 mg PO BID 180 tabs 1RF 90 days Coding Level of Care Code Est Pt Level 4 (50737) Diagnoses Temporal lobe epilepsy G40.109 History of head injury Z87.828 History of febrile seizure Z87.898
--- OUTSIDE RECORDS SUMMARY | 2025-01-07 09:51 | XMS_ITS | Encounter Summary ---
Author Organization [employer] Address 75 [facility] 7t [place] [address] Care Team Providers Care Jawbone Puller Name Role Phone Maria Elena Wells MD Primary Care Provider Reason for Visit * Reason Comments Med Refill Encounter Details Date Type Department Care Team ([facility] st Contact Info) Description 07/30/2024 Refill [facility] MEDICINE 230 [place], [place] [phone] Maria Elena Wells MD 230 [place] [address] Social History Tobacco Use Types Packs/Day Years [...] documented as of this encounter Care Teams Jawbone Puller Relationship Specialty Start Date End Date Maria Elena Wells MD [address] [place] [phone] PCP - General Family Medicine 12/03/19 [place] A 11/24/23 documented as of this encounter
--- OUTSIDE RECORDS SUMMARY | 2025-01-07 09:51 | XMS_ITS | Encounter Summary ---
Author Organization [employer] Address 75 [facility] 7 [place] [address] Care Team Providers Care Sr. Logistics Analyst Name Role Phone Maria Elena Wells MD Primary Care Provider [phone] Reason for Visit * Reason Comments Med Refill Encounter Details Date Type Department Care Team ([facility] st Contact Info) Description 12/18/2023 Refill [facility] MEDICINE 230 [place], [place] [phone] Name, MD Mars 230 [place] [address] Social History Tobacco Use Types Packs/Day Years [...] documented as of this encounter Care Teams Sr. Logistics Analyst Relationship Specialty Start Date End Date Maria Elena Wells MD [address] [place] [phone] PCP - General Family Medicine 12/03/19 [place] IMNER 11/24/23 documented as of this encounter
--- OUTSIDE RECORDS SUMMARY | 2025-01-07 09:51 | XMS_ITS | Encounter Summary ---
Author Organization [employer] Address 75 [facility] 7 [place] [address] Care Team Providers Care Grief Counsellor Name Role Phone Maria Elena Wells MD Primary Care Provider [phone] Reason for Visit * Reason Comments Med Refill Encounter Details Date Type Department Care Team ([facility] st Contact Info) Description 05/22/2024 Refill [facility] MEDICINE 230 [place], [place] [phone] Maria Elena Wells MD 230 [place] [address] Essential hypertension Social History Tobacco Use Types [...] documented as of this encounter Care Teams Grief Counsellor Relationship Specialty Start Date End Date Maria Elena Wells MD [address] [place] [phone] PCP - General Family Medicine 12/03/19 [place] MINER 11/24/23 documented as of this encounter
--- OUTSIDE RECORDS SUMMARY | 2025-01-07 09:51 | XMS_ITS | Encounter Summary ---
Author Organization [employer] Address 75 [facility] 7t [place] [address] Care Team Providers Care Electric Truck Crane Operator Name Role Phone Maria Elena Wells MD Primary Care Provider [phone] Encounter Details Date Type Department Care Team (Late st Contact Info) Description 01/24/2023 Orders Only [facility] CHC MED & PEDS [address] [place] [address] Sonya Jordan LPN Social History Tobacco Use [...] on filedocumented in this encounter Care Teams Electric Truck Crane Operator Relationship Specialty Start Date End Date Maria Elena Wells MD [address] [place] [address] PCP - General Family Medicine 12/03/19 [place] A 11/24/23 documented as of this encounter
--- OUTSIDE RECORDS SUMMARY | 2025-01-07 09:51 | XMS_ITS | Encounter Summary ---
Author Organization [employer] Address 75 [facility] 7t [place] [address] Care Team Providers Care Patient Access Registrar Name Role Phone Maria Elena Wells MD Primary Care Provider [phone] Encounter Details Date Type Department Care Team (Late st Contact Info) Description 06/22/2022 Orders Only [facility] CHC MED & PEDS [address] [place] [address] Neda Hays LPN Social History Tobacco Use [...] on filedocumented in this encounter Care Teams Patient Access Registrar Relationship Specialty Start Date End Date Maria Elena Wells MD [address] [place] [phone] PCP - General Family Medicine 12/03/19 [place] A 11/24/23 documented as of this encounter
--- OUTSIDE RECORDS SUMMARY | 2025-01-07 09:51 | XMS_ITS | Encounter Summary ---
Author Organization [employer] Address [address] [place] [address] 7 [place] [address] Care Team Providers Care Procurement Technician Name Role Phone Maria Elena Wells MD Primary Care Provider [phone] Encounter Details Date Type Department Care Team [...] on filedocumented in this encounter Care Teams Procurement Technician Relationship Specialty Start Date End Date Maria Elena Wells MD [address] [place] [phone] PCP - General Family Medicine [facility] documented as of this encounter
--- OUTSIDE RECORDS SUMMARY | 2025-01-07 09:51 | XMS_ITS | Clinical Summary ---
Author Organization [employer] Address [address] [place] [address] 7 [place] [address] Care Team Providers Care Day Care Aide Name Role Phone Maria Elena Wells MD Primary Care Provider [phone] Allergies Active Allergy Reactions Criticality Noted Date Comments Celecoxib Unknown Phenytoin Unknown Pseudoephedrine Unknown Medications sildenafil (Viagra) 50 MG tabletIndications: Erectile dysfunction, unspecified erectile dysfunction type TAKE 1 TABLET 1 HOUR BEFORE SEXUAL RELATIONS ONCE DAILY NEEDED. 15 tablet 6 4 Active Alcohol Swabs 70 % padsIndications:Ty pe 2 diabetes mellitus without complication, without long-term current use of insulin ([facility]) Use to test blood sugar one time daily 100 each 11 4 Active Blood Glucose Monitoring Suppl (FreeStyle Baldwin Lite) w/Device kitIndications:Typ e 2 diabetes mellitus without complication, without long-term current use of insulin ([facility]) Use to test blood sugar one time daily 1 kit 4 Active ibuprofen 400 MG tablet TAKE 1 TO 2 TABLETS BY MOUTH EVERY 8 HOURS NEEDED FOR PAIN 120 tablet 6 4 Active FreeStyle lancetsIndications :Type 2 diabetes mellitus without complication, without long-term current use of insulin ([facility]) USE TO TEST BLOOD SUGAR ONCE DAILY 100 each 11 4 Active Mounjaro 5 MG/0.5ML solution auto-injectorIndic ations:Type 2 diabetes mellitus without complication, without long-term current use of insulin ([facility]) INJECT 5 MG UNDER THE SKIN ONE DAY A WEEK 5 Active ammonium lactate (Lac-Hydrin) 12 % lotionIndications: Dry skin Apply topically if needed for dry skin. 396 g 3 5 11/03/19 26 Active Diclofenac Sodium 1 % gelIndications:Arnulfo ateral primary osteoarthritis of knee Apply thin layer by topical route (quantity as directed on package insert) to affected area of pain 3 times daily as needed. 100 g 3 5 Active OXcarbazepine (Trileptal) 600 MG tabletIndications: Nonintractable epilepsy without status epilepticus, unspecified epilepsy type (CMS/HCC) ([facility]) Take 1 tablet (600 mg) by mouth 2 times daily. 180 tablet 3 5 Active lisinopril 10 MG tabletIndications: Essential hypertension TAKE 1 TABLET(5 MG) BY MOUTH IN THE MORNING 90 tablet 3 5 Active lamoTRIgine (LaMICtal) 200 MG tabletIndications: Nonintractable epilepsy without status epilepticus, unspecified epilepsy type (CMS/HCC) ([facility]) Take 1 tablet (200 mg) by mouth 2 times daily. 180 tablet 3 5 Active hydroCHLOROthiazid e (HYDRODiuril) 25 MG tabletIndications: Essential hypertension Take 1 tablet (25 mg) by mouth Once per day. 90 tablet 3 5 Active folic acid (Folvite) 1 MG tabletIndications: Folic acid deficiency Take 1 tablet (1 mg) by mouth Once per day. 90 tablet 3 5 Active docusate sodium (Colace) 100 MG capsule Take 1 capsule (100 mg) by mouth Once per day. 90 capsule 3 5 Active cholecalciferol (Vitamin D-3) 50 MCG (1999 UT) capsule take one capsule by mouth once daily 90 capsule 3 5 Active Active Problems Problem Noted Date Diagnosed Date [...] dysfunction 05/13/2021 Dyslipidemia 03/20/2013 Backache 01/25/2012 Epilepsy ([facility]) 10/15/2011 Assessment & Plan (11/08/2023 7:03 PM [...] Type Department Care Team Description 11/07/[address] [address] Maria Elena Wells MD Durable Medical Equipment (DME Request: Bilateral Knee Braces/Heating Pad) 11/06/[address] [address] Maria Elena Wells MD Results 11/02/2024 9:45 AM EDT Office Visit [address] [address] Maria Elena Wells MD Type 2 diabetes mellitus without complication, without long-term current use of insulin (CMS/[facility]) (Primary Dx); Dietary counseling; Exercise counseling; Class 1 obesity with serious comorbidity and body mass index (BMI) of 34.0 to 34.9 in adult, unspecified obesity type; Nonintractable epilepsy without status epilepticus, unspecified epilepsy type (CMS/HCC); Left wrist pain; Bilateral primary osteoarthritis of knee; Essential hypertension; Folic acid deficiency; Dry skin 11/02/2024 Travel 11/02/[address] [address] Maria Elena Wells MD Chart Prep 10/23/2024 Patient Outreach [address] [address] Maria Elena Wells MD Pre-visit Planning (SDOH screening negative and tobacco screening negative) from Last 3 Months Immunizations Immunization Administration [...] - Td or Tdap) 01/17/2023 01/17/2013, 05/19/2007 Lipid Panel 06/14/2024 06/15/2023, 05/05, 11/07/2019 Dental Prophylaxis 08/29/2024 02/29/2024, 1 04/07/2018, 08/03/2018, Additional history exists Dental Oral Exam 09/05/2024 03/06/2024, 07/2018, 08/02/2017, Additional history exists Depression Screening 11/07/2024 11/08/2023, 11/08/19 COVID-19 Vaccine ( season) 2024 03/12/2021, 08/21/2020, 07/31/2020 Influenza Vaccine (#1) 2024 9, 05/01/2015, 12/18/2013, [...] complication, without long-term current use of insulin ([facility]) POCT GLUCOSE Routine 11/02/2024 10:15 AM EDT Type 2 diabetes mellitus without complication, without long-term current use of insulin ([facility]) XR WRIST 3+ VIEWS LEFT Routine 11/02/2024 10:05 AM EDT Left wrist pain PERIODIC ORAL EVALUATION - ESTABLISHED PATIENT Routine [...] Media Lot # [id number] Lot# Expiration Date [id number] Blood Capillary blood specimen / Unknown 11/02/2024 10:15 AM EDT Maria Elena Wells MD POINT OF CARE TEST ENTER/EDIT ORDERABLES Final Result * XR Wrist 3+ Views Left (11/02/2024 10:05 AM EDT) Anatomical Region Laterality Modality Upper Extremities, Wrist Left Radiogr aphic Imaging 11/02/2024 10:0 5 AM EDT Narrative 11/02/2024 11:04 AM EDT [facility] [address] [place] [address] XRay Report Signed Patient: Girma Kimball MR#: [id number] : 1975 Acct:[id number] Age/Sex: 49 / M ADM Date: 11/02/24 Loc: HO.HHCX Attending Dr: Maria Elena Wells MD Ordering Physician: Maria Elena Wells Date of Service: 11/02/24 Procedure(s): XR wrist LT min 3V Accession Number(s): [id number] cc: Maria Elena Wells EXAMINATION: XR WRIST, LEFT CLINICAL INFORMATION: L wrist limited range of motion and swelling COMPARISON: 05/13/2021 TECHNIQUE: PA, lateral, and oblique views of the left wrist. FINDINGS: No fracture, dislocation, or suspicious bone lesion. There is complete loss of the radiocarpal joint space with nchw-[id number] appearance. There is widening of scapholunate interval, [...] Kyrie Clark MD 11/02/2024 11:01 AM EDT Dictated By: Kyrie Clark MD Signed By: <Electronically signed by Kyrie Clark MD in OV> 11/02/24 1101 DD/ 1005 TD/TT: 11/02/24 1020 Retail Area Manager: Procedure Note Donotuseinterpreter, Image - 11/02/2024 [facility] [address] [place] [address] XRay Report Signed Patient: Gabino Kimball#: [id number] : 1975Acct:[id number] Age/Sex: 49 / MADM Date: 11/02/24 Loc: HO.HHCX Attending Dr: Maria Elena Wells MD Ordering Physician: Maria Elena Wells Date of Service: 11/02/24 Procedure(s): XR wrist LT min 3V Accession Number(s): [id number] cc: Maria Elena Wells EXAMINATION: XR WRIST, LEFT CLINICAL INFORMATION: L wrist limited range of motion and swelling COMPARISON: 05/13/2021 TECHNIQUE: PA, lateral, and oblique views of the left wrist. FINDINGS: No fracture, dislocation, or suspicious bone lesion. There is complete loss of the radiocarpal joint space with [id number] appearance. There is widening of scapholunate interval, [...] Kyrie Clark MD 11/02/2024 11:01 AM EDT Dictated By: Kyrie Clark MD Signed By: <Electronically signed by Kyrie Clark MD in OV> 11/02/24 1101 DD/ 1005 TD/TT: 11/02/24 1020 Retail Area Manager: Maria Elena Wells MD IMG XR PROCEDURES Final Result * (ABNORMAL) Lipid Panel, Standard (06/15/2023 4:45 PM EDT) Triglycerides 246(H) <150 mg/dL [facility] Comment:Desirable Triglyceri de: less than 150 mg/dLBorderline High Triglyceride 150-199 mg/dLHigh Triglyceride: 200-499 mg/dLVery High Triglyceride: greater than or equal to 5OO mg/dL Cholesterol 149 <200 mg/dL [facility] Comment:Desirable Cholestero l: less than 200 mg/dLBorderline High Cholesterol: 200-239 mg/dLHigh Cholesterol: greater than 239 mg/dL LDL Cholesterol Calculated 64 <100 mg/dL [facility] Comment:Desirable LDL: less than 100 mg/dLNear Optimal/Above Optimal LDL: 110- 129 mg/dLBorderline High LDL: 130-159 mg/dLHigh LDL: 160-189 mg/dLVery High LDL: greater than or equal to 190 mg/dL HDL Cholesterol 36(L) >40 mg/dL [facility] Comment:Desirable HDL: great er than 40 mg/dL Note: This HDL assay may give artificially low results in patients with liver disease. Blood Venous blood specimen / Unknown 06/15/2023 4:45 PM EDT 06/15/2023 5:38 PM EDT us Maria Elena Wells MD LAB BLOOD ORDERABLES Final Res ult [facility] [address] [place] [phone] * ALBUMIN, RANDOM URINE W/CREATININE (11/07/2019 [...] 11:3 4 AM EDT us Charles Wilson ADULT LIVE IN CAREGIVER LAB URINE ORDERABLES Final Res ult [facility] [address] from Last 3 Months or Most Recently Relevant to Health Maintenance Insurance [facility] STANDARD MEDICARE [facility] ST[facility] ADULT Care Teams Day Care Aide Relationship Specialty Start Date End Date Maria Elena Wells MD [address] [place] [id number] PCP - General Family Medicine [facility]
--- OUTSIDE RECORDS SUMMARY | 2025-01-07 09:51 | XMS_ITS | Encounter Summary ---
Author Organization [employer] Address [address] [facility] 7t [place] [address] Care Team Providers Care Chronic Care Nurse Name Role Phone Maria Elena Wells MD Primary Care Provider [phone] Encounter Details Date Type Department Care Team ([facility] st Contact Info) Description 07/02/2024 Orders Only [facility] MEDICINE [address] [place], [place] [phone] Maria Elena Wells MD [address] [place] [address] Social History Tobacco Use Types Packs/Day Years [...] your housing situation today? I have eryn gellre 10/27/[address] you li [...] documented as of this encounter Care Teams Chronic Care Nurse Relationship Specialty Start Date End Date Maria Elena Wells MD [address] [place] [address] PCP - General Family Medicine 12/03/19 Alisson MINER 11/24/23 documented as of this encounter
--- OUTSIDE RECORDS SUMMARY | 2025-01-07 09:51 | XMS_ITS | Encounter Summary ---
Author Organization [employer] Address [address] [facility] 7 [place] [address] Care Team Providers Care Policewoman Name Role Phone Maria Elena Wells MD Primary Care Provider [phone] Encounter Details Date Type Department Care Team (Late st Contact Info) Description 06/17/2023 Orders Only [facility] MEDICINE [address] [place], [place] [phone] Maria Elena Wells MD [address] [place] [address] Social History Tobacco Use Types Packs/Day Years [...] on filedocumented in this encounter Care Teams Policewoman Relationship Specialty Start Date End Date Maria Elena Wells MD [address] [place], [place] [phone] PCP - General Family Medicine 12/03/19 [facility] 11/24/23 documented as of this encounter
== END 2025-01-07 09:30 | disposition home or self-care (01) ==
LOC: HO.HSM 08:56
PROVIDERS: Visit Provider Registered Nurse
DX: G40.109 Localization-related (focal) (partial) symptomatic epilepsy and epileptic syndromes with simple partial seizures, not intractable, without status epilepticus (principal); Z87.828 Personal history of other (healed) physical injury and trauma; Z87.898 Personal history of other specified conditions
CPT/HCPCS: 99214

== ENCOUNTER → 2025-01-07 08:55 | Outpatient (BNVA) | payer MEDICARE, MEDICAID, SELFPAY | PROVIDERS: Visit Provider Registered Nurse | DX: G40.109 Localization-related (focal) (partial) symptomatic epilepsy and epileptic syndromes with simple partial seizures, not intractable, without status epilepticus (principal); Z87.828 Personal history of other (healed) physical injury and trauma; Z87.898 Personal history of other specified conditions | CPT/HCPCS: 99212 ==

== ENCOUNTER 2025-02-25 10:41 | Outpatient (AMB) | payer MEDICARE, MEDICAID, SELFPAY ==
[2025-02-25 10:43] VITALS: BP 132/68; PULSE 75; BMI 34.9
--- NOTE | 2025-02-25 10:43 | MHC.OFFVIS ---
Vital Signs 02/25/25 10:43 Height 5 ft 11 in Weight 250 lb BMI 34.9 BP 132/68 Blood Pressure Location Rt radial Position Sitting Pulse 75 Intake Visit Reasons: Incisional Hernia Intake Note: Patient called and schedule today's appointment c/o incisional hernia. Patient c/o: on and off pain on rt lower abdomen. Rt side bulge, tender to touch. Bothersome when coughing, bending. Cnc Lathe Machine Operator Required: No Accompanied by: Self / Same As Patient All[facility]ies [facility] Allergy (Intermediate, Verified 02/25/25 10:49) Difficulty Breathing Medication List - Last Reconciled 02/25/25 by Rohan Elmore MD [abdominal binder As directed] baclofen 20 mg PO QID PRN docusate sodium (Colace) 100 mg PO BID hydrochlorothiazide 25 mg PO DAILY@1000 ibuprofen 400 - 800 mg PO Q8H lamotrigine (Lamictal) 200 mg PO BID 90 days lisinopril 10 mg PO DAILY Mounjaro (tirzepatide) 2.5 mg (0.5 mL) subcut QWEEK NS Mounjaro (tirzepatide) 5 mg (0.5 mL) subcut QWEEK NS oxcarbazepine 600 mg PO BID 90 days polyethylene glycol 3350 (Miralax) 17 grams PO DAILY sennosides (senna) 8.6 mg PO BEDTIME HPI Comments Details: Patient reports in November of 2023 he underwent an elective laparoscopic cholecystectomy. He required a return to the operating room approximately a day later for violated hollow viscus. His return operation was remarkable for a defect found on loop of small intestine. A counter incision was made in the right upper aspect of the patient's abdomen transversely approximately 5 or 6 cm in length. The resection and anastomosis was performed extracorporeally with the contents were then returned. Patient required no more intra-abdominal surgery however he suffered an infection around the region of his umbilicus. It appears this may have been related to retained suture material in the soft tissues that were excised resulting in clearance of the infection. Despite adequate healing in the periumbilical region with resolution of the infectious issue he still has persistent reports of pain and tenderness especially to external palpation. Patient goes on to say that he has experienced bulging and discomfort at the right upper quadrant scar from his 2nd operation especially when standing upright. He reports that when he lays supine ?everything goes back in?. He does have some problems with occasional pseudo-obstruction symptoms when ?everything gets hard? however this tends to resolve when he moves his bowels. He denies any fevers chills nausea or vomiting. He has not had any other intra-abdominal operations after the first two. [facility] Medical History Seizure disorder High blood pressure Surgical History Postop check Status post small bowel resection Hx laparoscopic cholecystectomy History of surgery on right wrist Social History Household Members: Spouse Housing: Apartment Are you a primary director of health care marketing to a significant other at home: No Do you presently have visiting nurse or other home services: Yes Comment: counts correct Patient Tobacco Use Status: Former Tobacco user Tobacco use type: Cigarette service: No 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 Review of Systems Const All systems reviewed & are unremarkable except as noted in HPI and below Physical Exam Vital Signs: Last Vital Signs Pulse 75 02/25/25 10:43 BP 132/68 02/25/25 10:43 BMI result Body Mass Index 34.9 Const General: cooperative, healthy appearing, comfortable and no acute distress Nutritional Appearance: obese morbidly obese Orientation/consciousness: oriented to person, oriented to place and oriented to time HEENT Head: Yes normal to inspection, Yes normocephalic and Yes atraumatic Eyes General: appearance normal, both eyes and all related structures Sclerae: sclerae normal Pupils: Equal, round and reactive pupils present EOM: EOMs intact bilaterally Neck Neck: Yes normal visual inspection Chest Chest palpation & inspection: normal inspection of the chest Resp Effort & Inspection: normal respiratory effort and able to speak in complete sentences Cardio Rate: regular rate Rhythm: regular rhythm GI Other: Morbidly obese nontender nondistended no evidence of hepatosplenomegaly although I do on CT scan that his liver does extend somewhat below the left and right costal margins. He has scars consistent with a prior history of laparoscopic cholecystectomy. There is tenderness around the region of the umbilicus without evidence of any infection as there is no erythema edema or discharge. Incision there is well-healed and somewhat hypertrophic. The right upper/lateral aspect of the patient's abdomen there is a 8-10 cm reducible mass that is protuberant upon standing however it disappears when supine. The underlying fascial defect I can not really appreciate as far as size is concerned secondary to rather thick anterior abdominal wall secondary to abundant adiposity. Abdomen image:  1. 8-10 cm diameter reducible mass consistent with hernia 2. Tenderness in the region with possible hernia here as well. General: Yes no CVA tenderness Back/Spine/Pelvis Back: no CVA tenderness Cervical Spine: normal cervical lordosis Thoracic/Lumbar Spine: thoracic and lumbar spine normal to inspection Neuro General: oriented to person, oriented to place and oriented to time Cranial nerves: Yes CN's II-XII intact bilaterally and Yes Equal, round and reactive pupils present Assessment & Plan Assessment & Plan (1) Incisional hernia: Code(s): K43.2 - Incisional hernia without obstruction or gangrene Category: Surgical Plan: I told the patient that he had a classical presentation of a ventral incisional hernia in the right lateral aspect region of his abdomen and possibly also at the umbilicus. I reviewed him the nature of such a problem and also reviewed options for repair. We discussed laparoscopic possible open ventral hernia repair with mesh. I reviewed with him the risks that are involved with such an undertaking. These include but are not limited to the risk of bleeding the risk of infection risk of damage to surrounding structures (both recognized and unrecognized at the time of surgery) the risk of stroke the of heart attack the risk of DVT, the risk of pulmonary embolism, and the risk of hernia recurrence. We also discussed the risks of chronic abdominal pain and the risk of unsightly abdominal wall scarring. I told him I was hopeful but I added that there was the possibility that the surgery would not solve his current problems with abdominal pain. These were all reviewed with him in detail. He told me that he understood. He told me that he understood and accepted the risks that he described as inherent to such an endeavor. Lastly he indicated that despite the risks he still wished to proceed with laparoscopic possible open ventral hernia repair with mesh. Coding Level of Care Code New Pt Level 4 (02706) Diagnoses Incisional hernia K43.2 Time Spent (min) 45
--- OUTSIDE RECORDS SUMMARY | 2025-02-25 13:22 | XMS_ITS | Encounter Summary ---
Author Organization [employer] Address [address] [facility] 7t [place] [address] Care Team Providers Care Land Department Head Name Role Phone Maria Elena Wells MD Primary Care Provider [phone] Encounter Details Date Type Department Care Team (Late st Contact Info) Description 06/22/2022 Orders Only [facility] [address] [place] [address] Neda Hays LPN Social History Tobacco Use [...] on filedocumented in this encounter Care Teams Land Department Head Relationship Specialty Start Date End Date Maria Elena Wells MD [address] [place] [phone] PCP - General Family Medicine 12/03/19 Alisson A 11/24/23 documented as of this encounter
--- OUTSIDE RECORDS SUMMARY | 2025-02-25 13:22 | XMS_ITS | Encounter Summary ---
Author Organization [employer] Address [address] [facility] 7 [place] [address] Care Team Providers Care Penal Officer Name Role Phone Maria Elena Wells MD Primary Care Provider [phone] Encounter Details Date Type Department Care Team (Late st Contact Info) Description 06/17/2023 Orders Only [facility] MEDICINE [address] [place], [place] [phone] Maria Elena Wells MD [address] [place] [address] Social History Tobacco Use Types Packs/Day Years [...] on filedocumented in this encounter Care Teams Penal Officer Relationship Specialty Start Date End Date Maria Elena Wells MD [address] [place], [place] [phone] PCP - General Family Medicine 12/03/19 [facility] 11/24/23 documented as of this encounter
--- OUTSIDE RECORDS SUMMARY | 2025-02-25 13:22 | XMS_ITS | Encounter Summary ---
Author Organization [employer] Address [address] [facility] 7t [place] [address] Care Team Providers Care Hardware Design Engineer Name Role Phone Maria Elena Wells MD Primary Care Provider [phone] Reason for Visit * Reason Comments Med Refill Encounter Details Date Type Department Care Team ([facility] st Contact Info) Description 07/30/2024 Refill [facility] MEDICINE [address] [place], [place] [phone] Maria Elena Wells MD [address] [place] [address] Social History Tobacco Use Types Packs/Day Years [...] documented as of this encounter Care Teams Hardware Design Engineer Relationship Specialty Start Date End Date Maria Elena Wells MD [address] [place] [phone] PCP - General Family Medicine 12/03/19 Alisson A 11/24/23 documented as of this encounter
--- OUTSIDE RECORDS SUMMARY | 2025-02-25 13:22 | XMS_ITS | Encounter Summary ---
Author Organization [employer] Address [address] [facility] 7t [place] [address] Care Team Providers Care Chief Bank Examiner Name Role Phone Maria Elena Wells MD Primary Care Provider [phone] Encounter Details Date Type Department Care Team (Late st Contact Info) Description 01/24/2023 Orders Only [facility] [address] [place] [address] Sonya Jordan LPN Social History Tobacco Use [...] filedocumented in this encounter Care Teams Chief Bank Examiner Relationship Specialty Start Date End Date Maria Elena Wells MD [address] [place] [phone] PCP - General Family Medicine 12/03/19 Alisson A 11/24/23 documented as of this encounter
--- OUTSIDE RECORDS SUMMARY | 2025-02-25 13:22 | XMS_ITS | Clinical Summary ---
Author Organization [employer] Address [address] [place] [address] 7 [place] [address] Care Team Providers Care Java Developer With Security Clearance Name Role Phone Maria Elena Wells MD Primary Care Provider [phone] Allergies Active Allergy Reactions Criticality Noted Date Comments Celecoxib Unknown Phenytoin Unknown Pseudoephedrine Unknown Medications sildenafil (Viagra) 50 MG tabletIndications: Erectile dysfunction, unspecified erectile dysfunction type TAKE 1 TABLET 1 HOUR BEFORE SEXUAL RELATIONS ONCE DAILY NEEDED. 15 tablet 6 4 Active Alcohol Swabs 70 % padsIndications:Ty pe 2 diabetes mellitus without complication, without long-term current use of insulin ([facility]) Use to test blood sugar one time daily 100 each 11 4 Active Blood Glucose Monitoring Suppl (FreeStyle Grandy Lite) w/Device kitIndications:Typ e 2 diabetes mellitus without complication, without long-term current use of insulin ([facility]) Use to test blood sugar one time daily 1 kit 4 Active FreeStyle lancetsIndications :Type 2 diabetes mellitus without complication, without long-term current use of insulin ([facility]) USE TO TEST BLOOD SUGAR ONCE DAILY 100 each 11 4 Active Mounjaro 5 MG/0.5ML solution auto-injectorIndic ations:Type 2 diabetes mellitus without complication, without long-term current use of insulin ([facility]) INJECT 5 MG UNDER THE SKIN ONE [...] without status epilepticus, unspecified epilepsy type (CMS/HCC) ([facility]) Take 1 tablet (600 mg) by mouth 2 times daily. 180 tablet 3 5 Active lisinopril 10 MG tabletIndications: Essential hypertension TAKE 1 TABLET(5 MG) BY MOUTH IN THE MORNING 90 tablet 3 5 Active lamoTRIgine (LaMICtal) 200 MG tabletIndications: Nonintractable epilepsy without status epilepticus, unspecified epilepsy type (CMS/HCC) ([facility]) Take 1 tablet (200 mg) by mouth [...] 5 Active cholecalciferol (Vitamin D-3) 50 MCG (2000 UT) capsule take one capsule by mouth once daily 90 capsule 3 5 Active ibuprofen 400 MG tablet TAKE 1 TO 2 TABLETS BY MOUTH EVERY 8 HOURS NEEDED FOR PAIN 120 tablet 6 5 Active Active Problems Problem Noted Date [...] dysfunction 05/13/2021 Dyslipidemia 03/20/2013 Backache 01/25/2012 Epilepsy ([facility]) 10/15/2011 Assessment & Plan (11/08/2023 7:03 PM [...] Encounters Date Type Department Care Team Description 01/28/2025 Refill [facility] [address] [place], [place] [phone] Maria Elena Wells MD Essential hypertension 01/25/2025 Refill [facility] [address] [place], [place] [phone] Maria Elena Wells MD 01/24/2025 Telephone [facility] [address] [place] [address] Marai Elena Wells MD RECALL from Last 3 Months Immunizations Immunization Administration [...] exists Depression Screening 11/07/2024 11/08/2023, 11/08/19 24 COVID-19 Vaccine ( season) 2024 03/12/2021, 08/21/2020, [...] complication, without long-term current use of insulin ([facility]) PERIODIC ORAL EVALUATION - ESTABLISHED PATIENT Routine [...] Media Lot # [id number] Lot# Expiration Date Blood 11/02/2024 10:1 5 AM EDT Maria Elena Wells MD POINT OF CARE TEST ENTER/EDIT ORDERABLES Final Result * (ABNORMAL) Lipid Panel, Standard (06/15/2023 4:45 PM EDT) Triglycerides 246(H) <150 mg/dL [facility] Comment:Desirable Triglyceri de: less than 150 mg/dLBorderline High Triglyceride 150-199 mg/dLHigh Triglyceride: 200-499 mg/dLVery High Triglyceride: greater than or equal to 5OO mg/dL Cholesterol 149 <200 mg/dL [facility] Comment:Desirable Cholestero l: less than 200 mg/dLBorderline High Cholesterol: 200-239 mg/dLHigh Cholesterol: greater than 239 mg/dL LDL Cholesterol Calculated 64 <100 mg/dL [facility] Comment:Desirable LDL: less than 100 mg/dLNear Optimal/Above Optimal LDL: 110- 129 mg/dLBorderline High LDL: 130-159 mg/dLHigh LDL: 160-189 mg/dLVery High LDL: greater than or equal to 190 mg/dL HDL Cholesterol 36(L) >40 mg/dL [facility] Comment:Desirable HDL: great er than 40 mg/dL Note: This HDL assay may give artificially low results in patients with liver disease. Blood Venous blood specimen / Unknown 06/15/2023 4:45 PM EDT 06/15/2023 5:38 PM EDT Maria Elena Wells MD LAB BLOOD ORDERABLES Final Res ult [facility] [address] [place] [phone] * ALBUMIN, RANDOM URINE W/CREATININE (11/07/2019 [...] 11:3 4 AM EDT us Charles Wilson [facility] LAB URINE ORDERABLES Final Res ult [facility] [address] from Last 3 Months or Most Recently Relevant to Health Maintenance Insurance [facility] STANDARD MEDICARE [facility] ADULT Care Teams Java Developer With Security Clearance Relationship Specialty Start Date End Date Maria Elena Wells MD [address] [place] [id number] PCP - General Family Medicine 12/03/19 [facility] 11/24/23
--- OUTSIDE RECORDS SUMMARY | 2025-02-25 13:23 | XMS_ITS | Encounter Summary ---
Author Organization [employer] Address [address] [facility] 7 [place] [address] Care Team Providers Care Extract Wringer Name Role Phone Maria Elena Wells MD Primary Care Provider [phone] Reason for Visit * Reason Comments Med Refill Encounter Details Date Type Department Care Team ([facility] st Contact Info) Description 01/28/2025 Refill [facility] [address] [place], [place] [phone] Maria Elena Wells MD [address] [place] [address] Essential hypertension Social History Tobacco Use Types [...] documented as of this encounter Care Teams Extract Wringer Relationship Specialty Start Date End Date Maria Elena Wells MD [address] [place] [id number] PCP - General Family Medicine [facility]03[facility]23 documented as of this encounter
--- OUTSIDE RECORDS SUMMARY | 2025-02-25 13:23 | XMS_ITS | Encounter Summary ---
Author Organization [employer] Address [address] [facility] [address]t [place] [address] Care Team Providers Care Police Sergeant Precinct Name Role Phone Maria Elena Wells MD Primary Care Provider [phone] Encounter Details Date Type Department Care Team ([facility] st Contact Info) Description 07/02/2024 Orders Only [facility] [address] [place], [place] [phone] Maria Elena Wells MD [address] [place] [address] Social History Tobacco Use Types Packs/Day Years [...] documented as of this encounter Care Teams Police Sergeant Precinct Relationship Specialty Start Date End Date Maria Elena Wells MD [address] [place] [address] PCP - General Family Medicine 12/03/19 [facility] 11/24/23 documented as of this encounter
--- OUTSIDE RECORDS SUMMARY | 2025-02-25 13:23 | XMS_ITS | Encounter Summary ---
Author Organization [employer] Address [address] [place] [address] 7 [place] [address] Care Team Providers Care Hebrew Professor Name Role Phone Maria Elena Wells MD Primary Care Provider [phone] Encounter Details Date Type Department Care Team [...] on filedocumented in this encounter Care Teams Hebrew Professor Relationship Specialty Start Date End Date Maria Elena Wells MD [address] [place] [phone] PCP - General Family Medicine 12/03/19 [facility] documented as of this encounter
--- OUTSIDE RECORDS SUMMARY | 2025-02-25 13:23 | XMS_ITS | Encounter Summary ---
Author Organization [employer] Address [address] [facility] 7 [place] [address] Care Team Providers Care Business Continuity Consultant Name Role Phone Maria Elena Wells MD Primary Care Provider [phone] Reason for Visit * Reason Comments Med Refill Encounter Details Date Type Department Care Team ([facility] st Contact Info) Description 12/18/2023 Refill [facility] [address] [place], [place] [phone] Name, MD [place] [address] [place] [address] Social History Tobacco Use Types Packs/Day Years [...] documented as of this encounter Care Teams Business Continuity Consultant Relationship Specialty Start Date End Date Maria Elena Wells MD [address] [place] [id number] PCP - General Family Medicine 12/03/19 [facility] 11/24/23 documented as of this encounter
--- OUTSIDE RECORDS SUMMARY | 2025-02-25 13:23 | XMS_ITS | Encounter Summary ---
Author Organization [employer] Address [address] [facility] 7 [place] [address] Care Team Providers Care Commercial Relationship Manager Name Role Phone Maria Elena Wells MD Primary Care Provider [phone] Reason for Visit * Reason Comments Med Refill Encounter Details Date Type Department Care Team ([facility] st Contact Info) Description 05/22/2024 Refill [facility] [address] [place], [place] [phone] Maria Elena Wells MD [address] [place] [address] Essential hypertension Social History Tobacco Use Types [...] documented as of this encounter Care Teams Commercial Relationship Manager Relationship Specialty Start Date End Date Maria Elena Wells MD [address] [place] [phone] PCP - General Family Medicine 12/03/19 [facility] 11/24/23 documented as of this encounter
== END 2025-02-25 11:17 | disposition home or self-care (01) ==
LOC: HO.HGS 10:42
PROVIDERS: PCP General Practice; Visit Provider Surgery
DX: K43.2 Incisional hernia without obstruction or gangrene (principal)
CPT/HCPCS: 99204

== ENCOUNTER → 2025-02-25 10:41 | Outpatient (BNVA) | payer MEDICARE, MEDICAID, SELFPAY | PROVIDERS: PCP General Practice; Visit Provider Surgery | DX: K43.2 Incisional hernia without obstruction or gangrene (principal); E66.01 Morbid (severe) obesity due to excess calories; Z68.34 Body mass index [BMI] 34.0-34.9, adult; Z87.891 Personal history of nicotine dependence | CPT/HCPCS: 99202 ==

== ENCOUNTER → 2025-04-01 14:26 | Outpatient (BNV) | payer MEDICARE, MEDICAID, SELFPAY | PROVIDERS: Admitting Provider Surgery; PCP General Practice; Visit Provider Internal Medicine | DX: Z01.818 Encounter for other preprocedural examination (principal) | CPT/HCPCS: 93010 ==